=== PATIENT | female | born 1950 | race Caucasian/White ===

== ENCOUNTER 2016-09-28 10:11 | Inpatient (IN) | payer BC, MEDICARE ==
[2016-09-28] MEDS ORDERED: Metoclopramide 10 MG/2 ML SDV IVPUSH ONE (10:27)
[2016-09-28] MEDS ORDERED: Sodium Chloride 0.9% 10 ML Syringe FLUSH PRN ×2 (10:27→13:44)
[2016-09-28] MEDS ORDERED: Sodium Chloride 0.9% 1,000 ML IV SCH (10:30)
[2016-09-28] MEDS ORDERED: Ondansetron 4 MG/2 ML SDV IVPUSH ONE (13:26)
[2016-09-28] MEDS ORDERED: Iopamidol 612 MG/ML 150 ML Bottle IVPUSH ONE (13:44)
[2016-09-28] MEDS ORDERED: HYDROmorphone 0.5 MG/0.5 ML Syringe IVPUSH ONE (15:20)
[2016-09-28] MEDS ORDERED: Levofloxacin/Dextrose 5%-Water 500 MG in Premix Bag 1 BAG IV ONE (15:20)
--- NOTE | 2016-09-28 15:34 | PCM.HP ---
H&P History of Present Illness - General Date of Service: 09/28/16 Admit Problem/Dx: Abdominal Pain Source of Information: Patient, Provider, RN Notes Reviewed History Limitations: Reports: No Limitations - History of Present Illness Initial Comments - Free Text/Narative: This is a 65 yo white female with past medical hx/o HTn and Depression who was brought in by EMS with complaints of abdominal pain associated with nausea voting and watery diarrhea. Her symptoms started at about 530 early intervention specialist that woke her up from sleep. Patient admits to having fever and subjective fever. She denies any shortness of breath or chest pain. She denies having any previous hx/o in the past. She denies any sick contact. Her last meal was last night. She ate some food with shrimp in it. She denies any seafood allergies. Her initial work up in ED shows a CBC remarkable for WBC of 14.03 and Neutrophils of 84.1%. Her chemistry is remarkable for K of 3.4, CO2 of 20, AG of 20.4, BS of 207, and AST of 12. UA is not impressive for UTI. Abdominal/ pelvis CT scan shows some inflammatory changes. Patient received initial treatment in ED before she was sent tot he floor for further treatment. She is full code. Left Abdominal Pain Score (Numeric/FACES): 3 - Related Data Allergies/Adverse Reactions: Allergies Allergy/AdvReac Type Severity Reaction Status Date / Time aspirin Allergy Cannot Verified 09/28/16 12:13 Remember docetaxel [From Taxotere] Allergy Cannot Verified 09/28/16 12:13 Remember Home Medications: Home Meds Citalopram [Celexa] 20 mg PO DAILY 09/28/16 [History] Hydrochlorothiazide 12.5 mg PO DAILY 09/28/16 [History] Metoprolol Succinate [Toprol XL] 12.5 mg PO BID 09/28/16 [History] Past Medical History Cardiovascular History: Reports: Hypertension Oncologic (Cancer) History: Reports: Other (See Below) Other Oncologic History: right lumpectomy - Past Surgical History Oncologic Surgical History: Reports: Lumpectomy Social & Family History - Tobacco Use Smoking Status *Q: Former Smoker Used Tobacco, but Quit: Yes Month Tobacco Last Used: 2015 - Recreational Drug Use Recreational Drug Use: No H&P Review of Systems - Review of Systems: Review Of Systems: See Below General: Reports: Fever, Chills HEENT: Reports: No Symptoms Pulmonary: Reports: Shortness of Breath Cardiovascular: Denies: Chest Pain, Palpitations, Dyspnea on Exertion Gastrointestinal: Reports: Abdominal Pain, Diarrhea, Nausea, Vomiting Genitourinary: Reports: No Symptoms Musculoskeletal: Reports: No Symptoms Skin: Denies: Pruritis, Rash Psychiatric: Denies: Confusion, Depression, Anxiety Neurological: Denies: Confusion, Difficulty Walking, Weakness, Gait Disturbance Hematologic/Lymphatic: Reports: No Symptoms Immunologic: Reports: No Symptoms Exam - Exam Exam: See Below - Vital Signs Vital Signs: Last Vital Signs Temp 35.5 C 09/28/16 10:15 Pulse 76 09/28/16 10:15 Resp 18 09/28/16 10:15 BP 180/97 H 09/28/16 10:15 Pulse Ox 99 09/28/16 10:15 - Exam General: Alert, Oriented, Cooperative. No: Mild Distress HEENT: Conjunctiva Clear, EACs Clear, EOMI, Hearing Intact, Mucosa Moist & [place] , Nares Patent, Normal Nasal Septum, Posterior Pharynx Clear, Pupils Equal, Pupils Reactive Neck: Supple, Trachea Midline, +2 Carotid Pulse wo Bruit, Full Range of Motion Lungs: Clear to Auscultation, Normal Respiratory Effort Cardiovascular: Regular Rate, Regular Rhythm Abdomen: Normal Bowel Sounds, Soft, Tenderness (lower abdomen). No: Organomegaly, Peritoneal Signs, Distention, Guarding, Rigidity, Rebound (Female) Exam: Deferred Rectal (Female) Exam: Deferred Back Exam: Normal Inspection, Decreased Range of Motion Extremities: Normal Inspection, Normal Pulses Peripheral Pulses: 2+: Posterior Tibial (L), Posterior Tibial (R), Dorsalis Pedis (L), Dorsalis Pedis (R) Skin: Warm, Dry, Intact Neuro Extensive - Mental Status: Oriented x3, Normal Cognition, Memory Intact Neuro Extensive - Motor, Sensory, Reflexes: CN II-XII Intact, Normal Gait Psychiatric: Alert, Normal Affect, Normal Mood - Patient Data Lab Results last 24 hrs: Laboratory Results - last 24 hr 09/28/16 09/28/16 09/28/16 Range/Units 10:45 11:54 11:54 WBC 14.03 H (3.98-10.04) K/mm3 RBC 4.44 (3.98-5.22) M/mm3 Hgb 13.4 (11.2-15.7) gm/L Hct 40.0 (34.1-44.9) % MCV 90.1 (79.4-94.8) fl MCH 30.2 (25.6-32.2) pg MCHC 33.5 (32.2-35.5) g/dl RDW Std Deviation 45.7 (36.4-46.3) fL Plt Count 273 (182-369) K/mm3 MPV 10.7 (9.4-12.3) fl Neut % (Auto) 84.1 H (34.0-71.1) % Lymph % (Auto) 9.0 L (19.3-51.7) % [place] % (Auto) 6.5 (4.7-12.5) % Eos % (Auto) 0.1 L (0.7-5.8) Baso % (Auto) 0.2 (0.1-1.2) % Neut # (Auto) 11.80 H (1.56-6.13) K/mm3 Lymph # (Auto) 1.26 (1.18-3.74) K/mm3 [place] # (Auto) 0.91 H (0.24-0.36) K/mm3 Eos # (Auto) 0.01 L (0.04-0.36) K/mm3 Baso # (Auto) 0.03 (0.01-0.08) K/mm3 Manual Slide Review Normal smear Sodium 143 (136-145) mEq/L Potassium 3.4 L (3.5-5.1) mEq/L Chloride 106 (98-107) mEq/L Carbon Dioxide 20 L (21-32) mEq/L Anion Gap 20.4 H (5-15) BUN 18 (7-18) mg/dL Creatinine 0.9 (0.55-1.02) mg/dL Est Cr Clr Drug Dosing TNP Estimated GFR (MDRD) > 60 (>60) mL/min BUN/Creatinine Ratio 20.0 H (14-18) Glucose 207 H (80-115) mg/dL Calcium 9.1 (8.5-10.1) mg/dL Total Bilirubin 0.5 (0.2-1.0) mg/dL AST 12 L (15-37) U/L ALT 19 (14-59) U/L Alkaline Phosphatase 68 (46-116) U/L Troponin I 0.047 (0.00-0.056) ng/mL Total Protein 7.2 (6.4-8.2) g/dl Albumin 4.0 (3.4-5.0) g/dl Globulin 3.2 gm/dL Albumin/Globulin Ratio 1.3 (1-2) Urine Color Light yellow (Yellow) Urine Appearance Clear (Clear) Urine pH 6.0 (5.0-8.0) Ur Specific [place] 1.025 (1.005-1.030) Urine Protein 1+ H (Negative) Urine Glucose (UA) Negative (Negative) Urine Ketones 3+ H (Negative) Urine Occult Blood Negative (Negative) Urine Nitrite Positive H (Negative) Urine Bilirubin Negative (Negative) Urine Urobilinogen 0.2 (0.2-1.0) Ur Leukocyte Esterase Negative (Negative) Urine RBC 0-5 (0-5) /hpf Urine WBC 5-10 H (0-5) /hpf Ur Epithelial Cells Not Reportable Ur Squamous Epith Cells 20-30 H (0-5) /hpf Urine Bacteria Many H (FEW) /hpf Urine Mucus Not seen (FEW) /hpf Result Diagrams: 09/29/16 04:36 09/29/16 04:36 EKG INTERPRETATION EKG Date: 09/28/16 Time: 10:13 Rate (beats/min): 76 [place]: normal P-wave: present QRS: normal ST-T: normal QT: normal *Q Meaningful Use (ADM) - VTE *Q VTE Criteria *Q: - Stroke *Q Stroke Criteria *Q: - AMI *Q AMI Criteria *Q: Problem List Initiated/Reviewed/Updated: Yes Orders Last 24hrs: Active Orders 24 hr Category Date Time Status Cardiac Monitoring [RC] . DIRECTED Care 09/28/16 10:27 Active EKG Documentation Completion [RC] STAT Care 09/28/16 10:28 Active Oxygen Therapy [RC] PRN Care 09/28/16 10:27 Active Peripheral IV Care [RC] . DIRECTED Care 09/28/16 10:28 Active Abdomen Pelvis w Cont [CT] Stat Exams 09/28/16 13:06 Taken CULTURE URINE [RM] Stat Lab 09/28/16 10:45 Received Levofloxacin/Dextrose 5%-Water [Levaquin in D5W 500 MG/ Med 09/28/16 15:20 Active 100 ML] 500 mg Premix Bag 1 bag IV ONETIME Sodium Chloride 0.9% [Normal Saline] 1,000 ml Med 09/28/16 10:30 Active IV .BOLUS Sodium Chloride 0.9% [Saline Flush] Med 09/28/16 10:27 Active 10 ml FLUSH ASDIRECTED PRN Sodium Chloride 0.9% [Saline Flush] Med 09/28/16 13:44 Active 10 ml FLUSH ONETIME PRN ED Antiemetic Medication Reflex [OM.PC] Stat Ot 09/28/16 10:28 Ordered Peripheral IV Insertion Adult [OM.PC] Stat Ot 09/28/16 10:27 Ordered Medication Orders Sodium Chloride (Normal Saline) 1,000 mls @ 1,000 mls/hr IV .BOLUS JANICE Last Admin: 09/28/16 10:42 Dose: 1,000 mls/hr Levofloxacin/Dextrose 500 mg/ (Premix) 100 mls @ 100 mls/hr IV ONETIME ONE Stop: 09/28/16 16:19 Last Admin: 09/28/16 15:27 Dose: 100 mls/hr Sodium Chloride (Saline Flush) 10 ml FLUSH ASDIRECTED PRN PRN Reason: Keep Vein Open Last Admin: 09/28/16 10:46 Dose: 10 ml Sodium Chloride (Saline Flush) 10 ml FLUSH ONETIME PRN PRN Reason: IV FLUSH Last Admin: 09/28/16 14:12 Dose: 10 ml Assessment/Plan Comment:: Assessment/Plan: Acute: Gastroenteritis vs Colitis - Work up feeling Ill after eating shrimp not home cooked - No sick contact, eating or drinking unusual meal - No recent travel outside the country - IV antibiotics with flagyl and levaquin - Supportive care and PRN meds for symptomatic control Nausea and Vomiting - 2/2 Above - Supportive Care Leukocytosis - 2/2 to Above - WBC is 14.03 Hypokalemia - 2/2 GI loss - K 3.4 - Pharmacy to replete and monitor Asymptomatic Bacteriuria - UA not impressive for UTI - No complaints - UA Cx/Sx - Already on IV antibiotic Chronic: HTN Depression Plan: Admit to the floor Routine AM Labs Probiotic TID Lipase level Resume Home Meds Clear liquid diet PT/OT consult SW/CM for d/c planning Additional orders as above Code status:1
[2016-09-28] MEDS ORDERED: HYDROmorphone 1 MG/ML Syringe IVPUSH PRN (15:40)
[2016-09-28] MEDS ORDERED: LORazepam 2 MG/ML MDV IV PRN (15:40)
[2016-09-28] MEDS ORDERED: Acetaminophen/HYDROcodone 325-5 MG Tab PO PRN (15:40)
[2016-09-28] MEDS ORDERED: Acetaminophen 325 MG Tab PO PRN (15:40)
[2016-09-28] MEDS ORDERED: Bisacodyl 5 MG Tab PO PRN (15:45)
[2016-09-28] MEDS ORDERED: Albuterol/Ipratropium 3.0-0.5 MG/3 ML Neb Soln NEB PRN (15:45)
[2016-09-28] MEDS ORDERED: Temazepam 15 MG Cap PO PRN (15:45)
[2016-09-28] MEDS ORDERED: Polyethylene Glycol 3350 Powder 17 GM Packet PO PRN (15:45)
[2016-09-28] MEDS ORDERED: Metoprolol Tartrate 5 MG/5 ML SDV IVPUSH PRN (15:47)
[2016-09-28] MEDS ORDERED: hydrALAZINE 20 MG/ML SDV IVPUSH PRN (15:47)
--- NOTE | 2016-09-28 15:49 | EDM.PDOC ---
ED HPI GENERAL MEDICAL PROBLEM - General Chief Complaint: Gastrointestinal Problem Stated Complaint: [facility] Time Seen by Provider: 09/28/16 10:19 Source of Information: Reports: Patient, Provider, RN Notes Reviewed History Limitations: Reports: No Limitations - History of Present Illness INITIAL COMMENTS - FREE TEXT/NARRATIVE: The patient came by [facility] for nausea and vomiting. She says this all started early this morning at about 5:30. She developed nausea, vomiting and some diarrhea. She also has some lower abdominal pain. She has chills and hot flashes. She has no measurable temperature here. She denies chest pain but she feels short of breath and lightheaded. She still has her appendix. She does not think she ate any bad food and she was not around any one that was sick as far as she knows. Onset: Gradual Duration: Hour(s): Location: Reports: Abdomen (lower) Quality: Reports: Ache Severity: Mild Improves with: Reports: None Worsens with: Reports: None Associated Symptoms: Reports: Nausea/Vomiting, Shortness of Breath. Denies: Chest Pain - Related Data Allergies Allergy/AdvReac Type Severity Reaction Status Date / Time aspirin Allergy Cannot Verified 09/28/16 12:13 Remember docetaxel [From Taxotere] Allergy Cannot Verified 09/28/16 12:13 Remember Home Meds: Home Meds Citalopram [Celexa] 20 mg PO DAILY 09/28/16 [History] Hydrochlorothiazide 12.5 mg PO DAILY 09/28/16 [History] Metoprolol Succinate [Toprol XL] 12.5 mg PO BID 09/28/16 [History] Past Medical History Cardiovascular History: Reports: Hypertension Oncologic (Cancer) History: Reports: Other (See Below) Other Oncologic History: right lumpectomy - Past Surgical History Oncologic Surgical History: Reports: Lumpectomy Social & Family History - Tobacco Use Smoking Status *Q: Former Smoker Used Tobacco, but Quit: Yes Month Tobacco Last Used: 2015 - Recreational Drug Use Recreational Drug Use: No ED ROS GENERAL - Review of Systems Review Of Systems: See Below Constitutional: Reports: Fever, Chills HEENT: Reports: No Symptoms Respiratory: Reports: Shortness of Breath. Denies: Cough Cardiovascular: Reports: No Symptoms Endocrine: Reports: No Symptoms GI/Abdominal: Reports: No Symptoms : Reports: No Symptoms Musculoskeletal: Reports: No Symptoms Skin: Reports: No Symptoms Neurological: Reports: No Symptoms Psychiatric: Reports: No Symptoms ED EXAM, GI/ABD - Physical Exam Exam: See Below Exam Limited By: No Limitations General Appearance: Alert, No Apparent Distress Ears: Normal External Exam Nose: Normal Inspection Head: Atraumatic, Normocephalic Neck: Normal Inspection Respiratory/Chest: No Respiratory Distress, Lungs Clear, Normal Breath Sounds Cardiovascular: Regular Rate, Rhythm, No Edema, No Murmur GI/Abdominal: Soft, No Organomegaly, No Mass, Tenderness (Mild pain to the lower abdomen) EKG INTERPRETATION EKG Date: 09/28/16 Time: 10:13 Rhythm: NSR Rate (beats/min): 76 [place]: normal P-wave: present QRS: normal ST-T: normal QT: normal Course - Vital Signs Last Recorded V/S: Last Vital Signs Temp 96 F 09/28/16 10:15 Pulse 76 09/28/16 10:15 Resp 18 09/28/16 10:15 BP 180/97 H 09/28/16 10:15 Pulse Ox 99 09/28/16 10:15 - Orders/Labs/Meds Orders: Active Orders 24 hr Category Date Time Status Cardiac Monitoring [RC] . DIRECTED Care 09/28/16 10:27 Active EKG Documentation Completion [RC] STAT Care 09/28/16 10:28 Active Oxygen Therapy [RC] PRN Care 09/28/16 10:27 Active Peripheral IV Care [RC] . DIRECTED Care 09/28/16 10:28 Active Abdomen Pelvis w Cont [CT] Stat Exams 09/28/16 13:06 Taken CULTURE URINE [RM] Stat Lab 09/28/16 10:45 Received Levofloxacin/Dextrose 5%-Water [Levaquin in D5W 500 MG/ Med 09/28/16 15:20 Active 100 ML] 500 mg Premix Bag 1 bag IV ONETIME Sodium Chloride 0.9% [Normal Saline] 1,000 ml Med 09/28/16 10:30 Active IV .BOLUS Sodium Chloride 0.9% [Saline Flush] Med 09/28/16 10:27 Active 10 ml FLUSH ASDIRECTED PRN Sodium Chloride 0.9% [Saline Flush] Med 09/28/16 13:44 Active 10 ml FLUSH ONETIME PRN ED Antiemetic Medication Reflex [OM.PC] Stat Oth 09/28/16 10:28 Ordered Peripheral IV Insertion Adult [OM.PC] Stat Ot 09/28/16 10:27 Ordered Medication Orders Sodium Chloride (Normal Saline) 1,000 mls @ 1,000 mls/hr IV .BOLUS JANICE Last Admin: 09/28/16 10:42 Dose: 1,000 mls/hr Levofloxacin/Dextrose 500 mg/ (Premix) 100 mls @ 100 mls/hr IV ONETIME ONE Stop: 09/28/16 16:19 Last Admin: 09/28/16 15:27 Dose: 100 mls/hr Sodium Chloride (Saline Flush) 10 ml FLUSH ASDIRECTED PRN PRN Reason: Keep Vein Open Last Admin: 09/28/16 10:46 Dose: 10 ml Sodium Chloride (Saline Flush) 10 ml FLUSH ONETIME PRN PRN Reason: IV FLUSH Last Admin: 09/28/16 14:12 Dose: 10 ml Labs: Laboratory Tests 09/28/16 09/28/16 09/28/16 Range/Units 10:45 11:54 11:54 WBC 14.03 H (3.98-10.04) K/mm3 RBC 4.44 (3.98-5.22) M/mm3 Hgb 13.4 (11.2-15.7) gm/L Hct 40.0 (34.1-44.9) % MCV 90.1 (79.4-94.8) fl MCH 30.2 (25.6-32.2) pg MCHC 33.5 (32.2-35.5) g/dl RDW Std Deviation 45.7 (36.4-46.3) fL Plt Count 273 (182-369) K/mm3 MPV 10.7 (9.4-12.3) fl Neut % (Auto) 84.1 H (34.0-71.1) % Lymph % (Auto) 9.0 L (19.3-51.7) % [place] % (Auto) 6.5 (4.7-12.5) % Eos % (Auto) 0.1 L (0.7-5.8) Baso % (Auto) 0.2 (0.1-1.2) % Neut # (Auto) 11.80 H (1.56-6.13) K/mm3 Lymph # (Auto) 1.26 (1.18-3.74) K/mm3 [place] # (Auto) 0.91 H (0.24-0.36) K/mm3 Eos # (Auto) 0.01 L (0.04-0.36) K/mm3 Baso # (Auto) 0.03 (0.01-0.08) K/mm3 Manual Slide Review Normal smear Sodium 143 (136-145) mEq/L Potassium 3.4 L (3.5-5.1) mEq/L Chloride 106 (98-107) mEq/L Carbon Dioxide 20 L (21-32) mEq/L Anion Gap 20.4 H (5-15) BUN 18 (7-18) mg/dL Creatinine 0.9 (0.55-1.02) mg/dL Est Cr Clr Drug Dosing TNP Estimated GFR (MDRD) > 60 (>60) mL/min BUN/Creatinine Ratio 20.0 H (14-18) Glucose 207 H (80-115) mg/dL Calcium 9.1 (8.5-10.1) mg/dL Total Bilirubin 0.5 (0.2-1.0) mg/dL AST 12 L (15-37) U/L ALT 19 (14-59) U/L Alkaline Phosphatase 68 (46-116) U/L Troponin I 0.047 (0.00-0.056) ng/mL Total Protein 7.2 (6.4-8.2) g/dl Albumin 4.0 (3.4-5.0) g/dl Globulin 3.2 gm/dL Albumin/Globulin Ratio 1.3 (1-2) Urine Color Light yellow (Yellow) Urine Appearance Clear (Clear) Urine pH 6.0 (5.0-8.0) Ur Specific [place] 1.025 (1.005-1.030) Urine Protein 1+ H (Negative) Urine Glucose (UA) Negative (Negative) Urine Ketones 3+ H (Negative) Urine Occult Blood Negative (Negative) Urine Nitrite Positive H (Negative) Urine Bilirubin Negative (Negative) Urine Urobilinogen 0.2 (0.2-1.0) Ur Leukocyte Esterase Negative (Negative) Urine RBC 0-5 (0-5) /hpf Urine WBC 5-10 H (0-5) /hpf Ur Epithelial Cells Not Reportable Ur Squamous Epith Cells 20-30 H (0-5) /hpf Urine Bacteria Many H (FEW) /hpf Urine Mucus Not seen (FEW) /hpf Meds: Medications Generic Name Dose Route Start Last Admin Trade Name Freq PRN Reason Stop Dose Admin Sodium Chloride 1,000 mls @ 1,000 mls/hr 09/28/16 10:30 09/28/16 10:42 Normal Saline IV 1,000 mls/hr .BOLUS JANICE Administration Levofloxacin/Dextrose 500 mg/ 100 mls @ 100 mls/hr 09/28/16 15:20 09/28/16 15 :27 Premix IV 09/28/16 16:19 100 mls/hr ONETIME ONE Administration Sodium Chloride 10 ml 09/28/16 10:27 09/28/16 10:46 Saline Flush FLUSH 10 ml ASDIRECTED PRN Administration Keep Vein Open Sodium Chloride 10 ml 09/28/16 13:44 09/28/16 14:12 Saline Flush FLUSH 10 ml ONETIME PRN Administration IV FLUSH Discontinued Medications Generic Name Dose Route Start Last Admin Trade Name Gunnerq PRN Reason Stop Dose Admin Hydromorphone HCl 0.5 mg 09/28/16 15:20 09/28/16 15:27 Dilaudid IVPUSH 09/28/16 15:21 0.5 mg ONETIME ONE Administration Iopamidol 125 ml 09/28/16 13:44 09/28/16 14:12 Isovue-300 (61%) IVPUSH 09/28/16 13:45 125 ml ONETIME ONE Administration Meclizine HCl 25 mg 09/28/16 10:28 09/28/16 10:46 Antivert PO 09/28/16 10:29 25 mg ONETIME ONE Administration Metoclopramide HCl 10 mg 09/28/16 10:27 09/28/16 10:44 Reglan IVPUSH 09/28/16 10:28 10 mg ONETIME ONE Administration Ondansetron HCl 4 mg 09/28/16 13:26 09/28/16 13:37 Zofran IVPUSH 09/28/16 13:27 4 mg ONETIME ONE Administration - Re-Assessments/Exams Free Text/Narrative Re-Assessment/Exam: 09/28/16 15:45 The patient had IV fluids and zofran enroute to the hospital. I ordered more fluids and some reglan 10mg IV. She got more nauseated when I had her open her eyes so I gave her some antivert thinking this was maybe some vertigo even though she had no nystagmus. Her EKG showed a NSR with no acute changes. Her WBC was elevated at 14. Her CMP looks good. Her UA shows a UTI. I ordered a urine culture. Her CT shows possible mild colitis vs colonic underdistention. She was more nauseated and she had more pain so I gave her dilaudid and some zofran. I do not think she can tolerate oral antibiotics. I have ordered some levaquin 500mg IV and I feel she needs to be admitted. I called Dr Mejia and he agreed to the admission. Departure - Departure Time of Disposition: 15:50 Disposition: Admitted As Inpatient 66 Condition: fair Clinical Impression: UTI, Urinary tract infectious disease, Colitis Nausea & vomiting Qualifiers: Vomiting type: unspecified Vomiting Intractability: non-intractable Qualified Code(s): R11.2 - Nausea with vomiting, unspecified - Discharge Information Forms: ED Department Discharge - My Orders Last 24 Hours: My Active Orders 09/28/16 10:27 Cardiac Monitoring [RC] . DIRECTED Oxygen Therapy [RC] PRN Sodium Chloride 0.9% [Saline Flush] 10 ml FLUSH ASDIRECTED PRN Peripheral IV Insertion Adult [OM.PC] Stat 09/28/16 10:28 EKG Documentation Completion [RC] STAT Peripheral IV Care [RC] . DIRECTED ED Antiemetic Medication Reflex [OM.PC] Stat 09/28/16 10:30 Sodium Chloride 0.9% [Normal Saline] 1,000 ml IV .BOLUS 09/28/16 10:45 CULTURE URINE [RM] Stat 09/28/16 13:06 Abdomen Pelvis w Cont [CT] Stat 09/28/16 13:44 Sodium Chloride 0.9% [Saline Flush] 10 ml FLUSH ONETIME PRN 09/28/16 15:20 Levofloxacin/Dextrose 5%-Water [Levaquin in D5W 500 MG/100 ML] 500 mg Premix Bag 1 bag IV ONETIME - Assessment/Plan Last 24 Hours: My Active Orders 09/28/16 10:27 Cardiac Monitoring [RC] . DIRECTED Oxygen Therapy [RC] PRN Sodium Chloride 0.9% [Saline Flush] 10 ml FLUSH ASDIRECTED PRN Peripheral IV Insertion Adult [OM.PC] Stat 09/28/16 10:28 EKG Documentation Completion [RC] STAT Peripheral IV Care [RC] . DIRECTED ED Antiemetic Medication Reflex [OM.PC] Stat 09/28/16 10:30 Sodium Chloride 0.9% [Normal Saline] 1,000 ml IV .BOLUS 09/28/16 10:45 CULTURE URINE [RM] Stat 09/28/16 13:06 Abdomen Pelvis w Cont [CT] Stat 09/28/16 13:44 Sodium Chloride 0.9% [Saline Flush] 10 ml FLUSH ONETIME PRN 09/28/16 15:20 Levofloxacin/Dextrose 5%-Water [Levaquin in D5W 500 MG/100 ML] 500 mg Premix Bag 1 bag IV ONETIME
[2016-09-28] MEDS: metroNIDAZOLE/Normal Saline 500 MG in Premix Bag 1 BAG IV SCH ×2 (17:33→23:27)
[2016-09-28] MEDS: Potassium Chloride 10 MEQ in Premix Bag 1 BAG IV SCH ×4 (17:37→23:27)
[2016-09-28] MEDS: Dextrose 5%-0.45% NaCl 1,000 ML IV SCH (17:37)
[2016-09-28] MEDS: Levofloxacin/Dextrose 5%-Water 500 MG in Premix Bag 1 BAG IV SCH (19:40)
[2016-09-28] MEDS: Metoprolol Succinate 25 MG Tab.ER PO SCH (21:58)
[2016-09-28] MEDS: Pantoprazole 40 MG Vial IV SCH (21:58)
[2016-09-28] MEDS: Saccharomyces Boulardii (Probiotic) 250 MG Cap PO SCH (21:58)
[2016-09-29] MEDS: Dextrose 5%-0.45% NaCl 1,000 ML IV SCH (04:34)
[2016-09-29] MEDS: metroNIDAZOLE/Normal Saline 500 MG in Premix Bag 1 BAG IV SCH ×2 (08:05→16:06)
[2016-09-29] MEDS: Magnesium Sulfate/Water 2 GM in Premix Bag 1 BAG IV SCH ×2 (08:05→09:17)
[2016-09-29] MEDS: Pantoprazole 40 MG Vial IV SCH (08:12)
[2016-09-29] MEDS: Saccharomyces Boulardii (Probiotic) 250 MG Cap PO SCH ×2 (08:14→14:39)
[2016-09-29] MEDS: Metoprolol Succinate 25 MG Tab.ER PO SCH (08:14)
[2016-09-29] MEDS ORDERED: Hydrochlorothiazide 12.5 MG Cap PO SCH (09:00)
[2016-09-29] MEDS ORDERED: Levofloxacin/Dextrose 5%-Water 500 MG in Premix Bag 1 BAG IV ONE (09:00)
[2016-09-29] MEDS ORDERED: Citalopram 20 MG Tab PO SCH (09:00)
[2016-09-29] MEDS: Potassium Chloride 10 MEQ in Premix Bag 1 BAG IV SCH ×2 (10:26→12:09)
[2016-09-29] MEDS: Levofloxacin/Dextrose 5%-Water 500 MG in Premix Bag 1 BAG IV SCH (16:04)
--- NOTE | 2016-09-29 16:25 | PCM.SN ---
- Free Text/Narrative Note: Patient seen and examined at bedside. She slept well and she feels really good w /o symptoms. She has no new complaints. Plan is to advanced her diet if tolerated, she'll sometime in the evening. She is low on Magnessium at 1.4. She will get her IVAB before d/c and possibly get oral supplement to continue after discharge.
[2016-09-29 16:29] VITALS: BP 100/53
--- NOTE | 2016-09-29 16:38 | PCM.DCSUM1 ---
Discharge Summary - Hospital Course Brief History: This is a 65 yo white female with past medical hx/o HTn and Depression who was brought in by EMS with complaints of abdominal pain associated with nausea voting and watery diarrhea that work her up early in the morning and was admitted for abdominal pain and asymptomatic bacteruria. - Discharge Data Discharge Date: 09/29/16 Discharge Disposition: Home, Self-Care 01 Condition: Good - Discharge Diagnosis/Problem(s) (1) Asymptomatic bacteriuria SNOMED Code(s): 595185525 ICD Code: R82.71 - BACTERIURIA Status: Acute (2) Leukocytosis SNOMED Code(s): 952082041, 691583677 ICD Code: D72.829 - ELEVATED WHITE BLOOD CELL COUNT, UNSPECIFIED Status: Acute Qualifiers: Leukocytosis type: bandemia Qualified Code(s): D72.825 - Bandemia (3) Hypomagnesemia SNOMED Code(s): 365856979 ICD Code: E83.42 - HYPOMAGNESEMIA Status: Acute (4) Hypokalemia, gastrointestinal losses SNOMED Code(s): 98867085 ICD Code: E87.6 - HYPOKALEMIA Status: Resolved (5) Nausea & vomiting SNOMED Code(s): 59006083 ICD Code: R11.2 - NAUSEA WITH VOMITING, UNSPECIFIED Status: Resolved Qualifiers: Vomiting type: unspecified Vomiting Intractability: non-intractable Qualified Code(s): R11.2 - Nausea with vomiting, unspecified (6) Colitis SNOMED Code(s): 22703514 ICD Code: K52.9 - NONINFECTIVE GASTROENTERITIS AND COLITIS, UNSPECIFIED Status: Resolved (7) Gastroenteritis due to food toxin SNOMED Code(s): 449845233 ICD Code: K52.1 - TOXIC GASTROENTERITIS AND COLITIS Status: Resolved - Patient Summary/Data Operative Procedure(s) Performed: None Complications: None Recommended Follow-up Testing/Procedures: None Hospital Course: Patient was primarily admitted for Abdominal Pain 2/2 gastroenteritis/colitis which we felt due to food poisoning. She was never allergic to seafood and has eaten shrimp in the past w/o any issues. Patient received supportive care along with intravenous antibiotics and she significantly improved on this regimen. Her stool studies were negative. Her hospital course was fairly uncomplicated. She did however had asymptomatic bacteruria but she received 2 doses of 500 mg IV Levaquin which should take care if there was any subtle infection going. As for her hypomagnesemia, this was due to inadequate intake. But she received intravenous supplement of 2 gram IV magnesium sulfate. She will be discharged with oral supplement for a few days to complete her treatment. Patient has done well since admission. She was asymptomatic after eating regular meal for supper. Patient was advised to be careful with uncooked or partially cooked seafood. She was further advised not to ingest any foods older than 3 days. Patient expressed understanding and in agreement with the plans as discussed above. All questions were answered. - Patient Instructions Diet: Usual Diet as Tolerated Activity: As Tolerated Driving: May Drive Today Showering/Bathing: May Shower Notify Provider of: Fever, Increased Pain, Nausea and/or Vomiting Other/Special Instructions: - Please take all medications as directed. - Resume regular diet. - Follow up with your doctor as needed - Discharge Plan Home Medications: Home Meds Citalopram [Celexa] 20 mg PO DAILY 09/28/16 [History] Hydrochlorothiazide 12.5 mg PO DAILY 09/28/16 [History] Metoprolol Succinate [Toprol XL] 12.5 mg PO BID 09/28/16 [History] Magnesium Oxide [Magnesium] 400 mg PO BID #6 tablet 09/29/16 [Rx] Referrals: Nurys Coello [employer] [employer] [Primary Care Provider] - (Please schedule a follow-up appointment with your primary care provider, Nurys Coello, in 1-2 weeks. ) - Discharge Summary/Plan Comment DC Time >30 min.: Yes (45 mins) Discharge Summary/Plan Comment: Discharge to Home - General Info Date of Service: 09/29/16 Admission Dx/Problem (Free Text: Abdominal Pain Subjective Update: Follow Up Functional Status: Reports: pain controlled, tolerating diet, ambulating, urinating. Denies: new symptoms - Review of Systems General: Denies: Fever, Weakness, Fatigue, Malaise, Chills HEENT: Reports: no symptoms Pulmonary: Denies: shortness of breath Cardiovascular: Denies: Chest Pain Gastrointestinal: Denies: Abdominal pain, Constipation, Decreased appetite, Diarrhea, Difficulty swallowing, Nausea, Vomiting Genitourinary: Reports: no symptoms Musculoskeletal: Reports: no symptoms Skin: Denies: rash Neurological: Denies: Confusion, Seizure, Gait Disturbance Psychiatric: Denies: depression, anxiety, agitation, hallucinations Systems Review Comment: No overnight or acute issues. She is back at baseline. - Patient Data Vitals - Most Recent: Last Vital Signs Temp 37.2 C 09/29/16 12:16 Pulse 68 09/29/16 12:16 Resp 18 09/29/16 12:16 BP 125/77 09/29/16 12:16 Pulse Ox 91 L 09/29/16 12:16 Weight - Most Recent: 86.455 kg I&O - Last 24 hours: Intake & Output 09/29/16 09/29/16 09/29/16 06:59 14:59 22:59 Intake Total 1900 1220 1010 Output Total 2024 Balance 1900 1220 -1015 Lab Results - Last 24 hrs: Laboratory Results - last 24 hr 09/29/16 09/29/16 Range/Units 04:36 04:36 WBC 13.81 H (3.98-10.04) K/mm3 RBC 4.14 (3.98-5.22) M/mm3 Hgb 12.7 (11.2-15.7) gm/L Hct 37.3 (34.1-44.9) % MCV 90.1 (79.4-94.8) fl MCH 30.7 (25.6-32.2) pg MCHC 34.0 (32.2-35.5) g/dl RDW Std Deviation 46.9 H (36.4-46.3) fL Plt Count 261 (182-369) K/mm3 MPV 10.6 (9.4-12.3) fl Neut % (Auto) 71.5 H (34.0-71.1) % Lymph % (Auto) 15.8 L (19.3-51.7) % Evangeline % (Auto) 12.3 (4.7-12.5) % Eos % (Auto) 0.1 L (0.7-5.8) Baso % (Auto) 0.1 (0.1-1.2) % Neut # (Auto) 9.87 H (1.56-6.13) K/mm3 Lymph # (Auto) 2.18 (1.18-3.74) K/mm3 Evangeline # (Auto) 1.70 H (0.24-0.36) K/mm3 Eos # (Auto) 0.02 L (0.04-0.36) K/mm3 Baso # (Auto) 0.01 (0.01-0.08) K/mm3 Manual Slide Review Normal smear Sodium 141 (136-145) mEq/L Potassium 3.6 (3.5-5.1) mEq/L Chloride 107 (98-107) mEq/L Carbon Dioxide 23 (21-32) mEq/L Anion Gap 14.6 (5-15) BUN 10 (7-18) mg/dL Creatinine 0.8 (0.55-1.02) mg/dL Est Cr Clr Drug Dosing 63.09 mL/min Estimated GFR (MDRD) > 60 (>60) mL/min BUN/Creatinine Ratio 12.5 L (14-18) Glucose 120 H (80-115) mg/dL Calcium 8.8 (8.5-10.1) mg/dL Magnesium 1.4 L (1.8-2.4) mg/dl C-Reactive Protein 1.0 (<1.0) mg/dL Lipase 110 (73-393) U/L Med Orders - Current: Current Medications Acetaminophen (Tylenol) 650 mg PO Q4H PRN PRN Reason: Pain (Mild 1-3)/fever Hydrocodone Bitart/Acetaminophen (Kaycee 325-5 Mg) 1 tab PO Q4H PRN PRN Reason: Pain (moderate 4-6) Albuterol/Ipratropium (Duoneb 3.0-0.5 Mg/3 Ml) 3 ml NEB Q4H PRN PRN Reason: Shortness Of Breath/wheezing Bisacodyl (Dulcolax) 5 mg PO DAILY PRN PRN Reason: Constipation Citalopram Hydrobromide (Celexa) 20 mg PO DAILY [facility] Last Admin: 09/29/16 08:14 Dose: 20 mg Hydralazine HCl (Apresoline) 20 mg IVPUSH Q4H PRN PRN Reason: Hypertension Hydrochlorothiazide (Hydrochlorothiazide) 12.5 mg PO DAILY [facility] Last Admin: 09/29/16 08:14 Dose: 12.5 mg Hydromorphone HCl (Dilaudid) 0.25 mg IVPUSH Q2H PRN PRN Reason: Pain (severe 7-10) Last Admin: 09/28/16 19:54 Dose: 0.25 mg Metronidazole 500 mg/ Premix 100 mls @ 100 mls/hr IV Q8H [facility] Last Admin: 09/29/16 16:06 Dose: 100 mls/hr Levofloxacin/Dextrose 500 mg/ (Premix) 100 mls @ 100 mls/hr IV Q24H [facility] Last Admin: 09/29/16 16:04 Dose: 100 mls/hr Lorazepam (Ativan) 1 mg IV Q6H PRN PRN Reason: Anxiety Magnesium Sulfate (Pharmacy To Dose - Magnesium Replacement) 0 dose .XX ASDIRECTED PRN PRN Reason: RX to Dose Metoprolol Succinate (Toprol Xl) 12.5 mg PO BID [facility] Last Admin: 09/29/16 08:14 Dose: 12.5 mg Metoprolol Tartrate (Lopressor) 5 mg IVPUSH Q4H PRN PRN Reason: Tachycardia Pantoprazole Sodium (Protonix Iv) 40 mg IV Q12HR [facility] Stop: 09/29/16 21:00 Last Admin: 09/29/16 08:12 Dose: 40 mg Polyethylene Glycol (Miralax) 17 gm PO DAILY PRN PRN Reason: Constipation Potassium Chloride (Pharmacy To Dose - Potassium Replacement) 0 dose .XX ASDIRECTED PRN PRN Reason: RX to Dose Saccharomyces Boulardii (Florastor) 250 mg PO TID [facility] Last Admin: 09/29/16 14:39 Dose: 250 mg Senna/Docusate Sodium (Senna Plus) 1 tab PO BID PRN PRN Reason: Constipation Sodium Chloride (Saline Flush) 10 ml FLUSH ASDIRECTED PRN PRN Reason: Keep Vein Open Last Admin: 09/28/16 10:46 Dose: 10 ml Sodium Chloride (Saline Flush) 10 ml FLUSH ONETIME PRN PRN Reason: IV FLUSH Last Admin: 09/28/16 14:12 Dose: 10 ml Temazepam (Restoril) 15 mg PO BEDTIME PRN PRN Reason: Sleep Discontinued Medications Hydromorphone HCl (Dilaudid) 0.5 mg IVPUSH ONETIME ONE Stop: 09/28/16 15:21 Last Admin: 09/28/16 15:27 Dose: 0.5 mg Sodium Chloride (Normal Saline) 1,000 mls @ 1,000 mls/hr IV .BOLUS [facility] Last Admin: 09/28/16 10:42 Dose: 1,000 mls/hr Levofloxacin/Dextrose 500 mg/ (Premix) 100 mls @ 100 mls/hr IV ONETIME ONE Stop: 09/28/16 16:19 Last Admin: 09/28/16 15:27 Dose: 100 mls/hr Dextrose/Sodium Chloride (Dextrose 5%-1/2 Ns) 1,000 mls @ 125 mls/hr IV ASDIRECTED [facility] Last Admin: 09/29/16 04:34 Dose: 125 mls/hr Potassium Chloride 10 meq/ (Premix) 100 mls @ 100 mls/hr IV Q1H [facility] Stop: 09/28/16 20:29 Last Admin: 09/28/16 23:27 Dose: 100 mls/hr Magnesium Sulfate 2 gm/ Premix 50 mls @ 50 mls/hr IV Q1H [facility] Stop: 09/29/16 09:59 Last Admin: 09/29/16 09:17 Dose: 50 mls/hr Potassium Chloride 10 meq/ (Premix) 100 mls @ 100 mls/hr IV Q1H [facility] Stop: 09/29/16 11:59 Last Admin: 09/29/16 12:09 Dose: 100 mls/hr Iopamidol (Isovue-300 (61%)) 125 ml IVPUSH ONETIME ONE Stop: 09/28/16 13:45 Last Admin: 09/28/16 14:12 Dose: 125 ml Meclizine HCl (Antivert) 25 mg PO ONETIME ONE Stop: 09/28/16 10:29 Last Admin: 09/28/16 10:46 Dose: 25 mg Metoclopramide HCl (Reglan) 10 mg IVPUSH ONETIME ONE Stop: 09/28/16 10:28 Last Admin: 09/28/16 10:44 Dose: 10 mg Ondansetron HCl (Zofran) 4 mg IVPUSH ONETIME ONE Stop: 09/28/16 13:27 Last Admin: 09/28/16 13:37 Dose: 4 mg - Exam General: Reports: alert, oriented, cooperative, no acute distress HEENT: Reports: Pupils equal, Pupils reactive, EOMI, Mucous membr. moist/pink Neck: Reports: supple, trachea midline, no JVD, no thyromegaly Lungs: Reports: Clear to auscultation, Normal respiratory effort, Rhonchi Cardiovascular: Reports: Regular Rate Abdomen: Reports: bowel sounds present, soft, no tenderness, no distension (Female) Exam: Deferred Rectal (Female) Exam: Deferred Back Exam: Reports: Normal Inspection, Decreased Range of Motion Extremities: Reports: no edema, normal pulses, no tenderness/swelling, no clubbing, no cyanosis Skin: Reports: warm, dry, intact Neurological: Reports: no new focal deficit Psy/Mental Status: Reports: alert, normal affect, normal mood *Q Meaningful Use (DIS) - VTE *Q VTE Criteria *Q: - Stroke *Q Stroke Criteria *Q: - AMI *Q AMI Criteria *Q:
[2016-09-29] MEDS ORDERED: Pneumococcal 13-Valent Conjugate Vaccine 0.5 ML Syringe IM ONE (17:11)
--- NOTE | 2016-09-30 07:37 | CT ---
CT abdomen and pelvis Technique: Multiple axial sections were obtained from above the dome of the diaphragm inferiorly through the pubic symphysis. Intravenous contrast was utilized. No oral contrast has been given. Delayed images were also obtained through the abdomen and pelvis. Comparison: No previous CT abdomen or pelvis exam is available. Visualized lung bases show nothing acute. Small low density abnormality noted within the dome of the right lobe of the liver, this is too small to accurately measure by Hounsfield unit measurements. Size of this finding is approximately 4 mm. This is likely incidental as no additional abnormality is identified within the liver. Spleen appears within normal limits. Adrenal glands show no nodule. Kidneys show symmetric contrast enhancement. Low density abnormality noted within the right kidney which has slightly increased Hounsfield unit measurements for a simple cyst. Further evaluation of this finding will be recommended. Both kidneys show smaller simple appearing cysts. Aorta shows atherosclerotic change without aneurysmal dilatation. Gallbladder shows no gallstones which are calcified. No retroperitoneal adenopathy or mesenteric abnormalities are seen. No pelvic mass or adenopathy is seen. Delayed images show contrast within the distal ureters and within the bladder. Bone window settings were reviewed which show disc space narrowing at L5-S1 with vacuum phenomena and endplate sclerosis. Preliminary report by [facility] mentions equivocal bowel wall thickening within the colon which I believe is due to lack of distention and not due to actual pathology. No free fluid or inflammatory change is seen. Impression: 1. Low density lesion measuring 3.6 cm within the right lower right kidney. This does not have Hounsfield unit measurements of a simple cyst. Ultrasound is recommended to further evaluate. 2. Other simple cysts are seen within the kidneys. 3. Small indeterminate lesion within the dome of the right lobe of the liver which is likely incidental as no additional liver abnormalities are seen. 4. Nothing acute is identified on CT study of the abdomen and pelvis. Other incidental findings as described above. Diagnostic code #9 I agree with preliminary report issued by [facility] -with additional recommendations as described above ([facility] report finalized on 09/28/16, 3:40 PM Central Time)
== END 2016-09-29 17:36 | disposition home or self-care (01) | DRG 392 ==
LOC: JD.ED 10:11 → JD.MS 16:28
PROVIDERS: ADMIT Internal Medicine; ATTEND Internal Medicine
DX: R10.30 Lower abdominal pain, unspecified (principal); N39.0 Urinary tract infection, site not specified; K52.1 Toxic gastroenteritis and colitis; K52.9 Noninfective gastroenteritis and colitis, unspecified; R82.71 Bacteriuria; E87.6 Hypokalemia; E83.42 Hypomagnesemia; D72.829 Elevated white blood cell count, unspecified; I10 Essential (primary) hypertension; F32.9 Major depressive disorder, single episode, unspecified; Z87.891 Personal history of nicotine dependence; Z79.899 Other long term (current) drug therapy; Z88.8 Allergy status to other drugs, medicaments and biological substances
CPT/HCPCS: 36415; 74177; 80053; 81001; 84484; 85025; 87046; 87086; 93005; A9270; J1170; J1956; J2405; J2765; J7040; J7050 ×2; Q9967; 80048; 83690; 83735; 86140; 87088; 87186; 87427; 90670; 96361; 96365; 96375; 99284; 99285-25; C9113; G0009; J3475; J3480; J7042

== ENCOUNTER 2017-05-06 10:00 | Inpatient (IN) | payer MEDICARE, BC ==
--- NOTE | 2017-05-06 10:13 | EDM.PDOC ---
ED HPI GENERAL MEDICAL PROBLEM - General Chief Complaint: General Stated Complaint: [facility] Time Seen by Provider: 05/06/17 10:11 Source of Information: Reports: Patient History Limitations: Reports: No Limitations - History of Present Illness INITIAL COMMENTS - FREE TEXT/NARRATIVE: 66-year-old female arrives in the ED per [facility]. She called them after she felt so unwell at home this morning. From what I can gather she experienced quite severe chills with rigors this morning. She states she feels weak and nauseated. She did not take any of her normal medications this morning. Blood pressure was also found to be elevated at 182/102 this morning. She is normally on half dose 25 mg metoprolol twice daily and half of hydrochlorothiazide 12.5 mg tablet daily. She has not known diabetic. She denies cough or sputum production denies headache or change in vision. She denies any genitourinary complaints. Complains of generalized abdominal discomfort and nausea. No diarrhea. Onset: Today Onset Date: 05/06/17 Onset Time: 06:00 Duration: Hour(s): Location: Reports: Generalized Quality: Reports: Other Severity: Moderate (Nausea and generalized weakness.) Improves with: Reports: None Worsens with: Reports: None Context: Denies: Activity, Exercise, Lifting, Sick Contact, Trauma Associated Symptoms: Reports: Diaphoresis, Fever/Chills, Loss of Appetite, Malaise, Nausea/Vomiting, Weakness. 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.) Abdominal Pain Score (Numeric/FACES): 2 - Related Data Allergies Allergy/AdvReac Type Severity Reaction Status Date / Time aspirin Allergy Cannot Verified 05/06/17 10:12 Remember docetaxel [From Taxotere] Allergy Cannot Verified 05/06/17 10:12 Remember Home Meds: Home Meds Citalopram [Celexa] 20 mg PO DAILY 09/28/16 [History] Hydrochlorothiazide 12.5 mg PO DAILY 09/28/16 [History] Calcipotriene 1 applic TOP DAILY PRN 05/06/17 [History] Halobetasol Propionate 1 applic TOP DAILY PRN 05/06/17 [History] Metoprolol Tartrate 12.5 mg PO BID 05/06/17 [History] Past Medical History Cardiovascular History: Reports: Hypertension Psychiatric History: Reports: Depression Endocrine/Metabolic History: Reports: Obesity/BMI 30+ Oncologic (Cancer) History: Reports: Other (See Below) Other Oncologic History: right lumpectomy Dermatologic History: Reports: Psoriasis - Past Surgical History Oncologic Surgical History: Reports: Lumpectomy Social & Family History - Family History HEENT: Reports: Cataract GI: Reports: Diverticulitis Dermatologic: Reports: Psoriasis - Tobacco Use Smoking Status *Q: Former Smoker Packs/Tins Daily: 0.5 Used Tobacco, but Quit: Yes Month Tobacco Last Used: 2015 Second Hand Smoke Exposure: No - Caffeine Use Caffeine Use: Reports: Tea - Alcohol Use Days Per Week of Alcohol Use: 3 Number of Drinks Per Day: 1 Total Drinks Per Week: 3 - Recreational Drug Use Recreational Drug Use: No - Living Situation & Occupation Living situation: Reports: Occupation: Unemployed ED ROS GENERAL - Review of Systems Review Of Systems: See Below Constitutional: Reports: Fever, Chills, Malaise, Fatigue, Diaphoresis, Decreased Appetite HEENT: Reports: No Symptoms Respiratory: Denies: Shortness of Breath, Wheezing, Pleuritic Chest Pain, Cough , Sputum, Hemoptysis, Other Cardiovascular: Reports: Blood Pressure Problem (Has chronic hypertension but this morning blood pressure has been much more elevated than her norm. BP on arrival is reported B1 ED .), Lightheadedness. Denies: Chest Pain, Dyspnea on Exertion, Edema, Orthopnea, Palpitations Endocrine: Reports: Fatigue GI/Abdominal: Reports: Abdominal Pain (Diffuse abdominal discomfort but she would not describe any severe pain. States kind of hurts a little bit everywhere with associated nausea. There's been no vomiting or diarrhea.), Decreased Appetite : Reports: No Symptoms Musculoskeletal: Reports: Back Pain, Joint Pain (Knees and hips at times.) Skin: Reports: Diaphoresis Neurological: Reports: No Symptoms Psychiatric: Reports: No Symptoms Hematologic/Lymphatic: Reports: No Symptoms Immunologic: Reports: No Symptoms ED EXAM, GENERAL - Physical Exam Exam: See Below Exam Limited By: Physical Impairment General Appearance: Alert (Prefers to lie still with her eyes closed. She does answer all questions appropriately.), WD/WN, Moderate Distress (Has good color. She is however quite diaphoretic and complaining of severe chills.) Eye Exam: Bilateral Eye: Normal Inspection Throat/Mouth: Normal Inspection, Normal Lips, Normal Teeth, Normal Oropharynx Head: Atraumatic, Normocephalic Neck: Normal Inspection, Supple, Non-Tender, Full Range of Motion Respiratory/Chest: No Respiratory Distress, Lungs Clear, Normal Breath Sounds, No Accessory Muscle Use, Chest Non-Tender Cardiovascular: Normal Peripheral Pulses, Regular Rate, Rhythm, No Edema, No Gallop, No Murmur, Other (Previous right-sided mastectomy.) GI/Abdominal: No Abnormal Bruit, Tender (Right upper quadrant of the abdomen with a negative Marcial sign.), Abnormal Bowel Sounds (Hypoactive.) Extremities: Normal Inspection, Normal Range of Motion, Non-Tender, No Pedal Edema, Normal Capillary Refill Neurological: Alert, Oriented, CN II-XII Intact, Normal Cognition Psychiatric: Normal Affect, Normal Mood Skin Exam: Warm, Dry, Intact, Diaphoretic EKG INTERPRETATION EKG Date: 05/06/17 Time: 11:10 Rhythm: Other Rate (Beats/Min): 75 (Occasional unifocal PVCs.) [place]: Normal P-Wave: Enlarged (Consider left atrial hypertrophy.) QRS: Other (There is a near Q-wave in leads V1 and V2. Consider possible old anteroseptal myocardial infarction.) ST-T: Other (No signs of acute ischemic changes.) QT: Prolonged (Moderately prolonged) EKG Interpretation Comments: Abnormal ECG Course - Vital Signs Last Recorded V/S: Last Vital Signs Temp 35.9 C 05/06/17 11:36 Pulse 73 05/06/17 10:07 Resp 18 05/06/17 10:07 BP 182/97 H 05/06/17 10:07 Pulse Ox 100 05/06/17 10:07 - Orders/Labs/Meds Orders: Active Orders 24 hr Category Date Time Status EKG Documentation Completion [RC] STAT Care 05/06/17 10:26 Active Abdomen Pelvis wo Cont [CT] Stat Exams 05/06/17 17:55 Taken CULTURE BLOOD [BC] Stat Lab 05/06/17 11:00 Received CULTURE BLOOD [BC] Stat Lab 05/06/17 11:24 Received HELICOBACTER PYLORI AB IGG [CHEM] Stat Lab 05/06/17 20:27 Ordered Dextrose 5%-0.9% NaCl [Dextrose 5%-Normal Saline] 1,000 Med 05/06/17 10:30 Active ml IV ASDIRECTED Lactated Ringers [Ringers, Lactated] 1,000 ml Med 05/06/17 11:30 Active IV ASDIRECTED Potassium Chloride [KCl 10 MEQ in Water 100 ML] 10 meq Med 05/06/17 12:30 Active Premix Bag 1 bag IV ASDIRECTED Sodium Chloride 0.9% [Saline Flush] Med 05/06/17 10:39 Active 10 ml FLUSH ONETIME PRN Blood Culture x2 Reflex Set [OM.PC] Stat Oth 05/06/17 10:27 Ordered Medication Orders Dextrose/Sodium Chloride (Dextrose 5%-Normal Saline) 1,000 mls @ 150 mls/hr IV ASDIRECTED JANICE Last Admin: 05/06/17 11:12 Dose: 150 mls/hr Lactated Ringer's (Ringers, Lactated) 1,000 mls @ 999 mls/hr IV ASDIRECTED JANICE Last Admin: 05/06/17 11:45 Dose: 999 mls/hr Potassium Chloride 10 meq/ (Premix) 100 mls @ 100 mls/hr IV ASDIRECTED JANICE Last Admin: 05/06/17 12:55 Dose: 100 mls/hr Sodium Chloride (Saline Flush) 10 ml FLUSH ONETIME PRN PRN Reason: IV FLUSH Last Admin: 05/06/17 10:48 Dose: 10 ml Labs: Laboratory Tests 05/06/17 05/06/17 05/06/17 Range/Units 10:20 10:20 10:20 WBC 13.17 H (3.98-10.04) K/mm3 RBC 4.76 (3.98-5.22) M/mm3 Hgb 14.3 (11.2-15.7) gm/L Hct 42.6 (34.1-44.9) % MCV 89.5 (79.4-94.8) fl MCH 30.0 (25.6-32.2) pg MCHC 33.6 (32.2-35.5) g/dl RDW Std Deviation 48.4 H (36.4-46.3) fL Plt Count 304 (182-369) K/mm3 MPV 10.5 (9.4-12.3) fl Neutrophils % (Manual) 70 H (40-60) % Band Neutrophils % 1 (0-10) % Lymphocytes % (Manual) 24 (20-40) % Atypical Lymphs % 0 % Monocytes % (Manual) 3 (2-10) % Eosinophils % (Manual) 2 (0.7-5.8) % Basophils % (Manual) 0 L (0.1-1.2) Platelet Estimate Adequate RBC Morph Comment Normal PT 10.3 (8.0-13.0) SECONDS INR 0.95 D-Dimer, Quantitative (0.19-0.59) mg/L Sodium 139 (136-145) mEq/L Potassium 3.2 L (3.5-5.1) mEq/L Chloride 103 (98-107) mEq/L Carbon Dioxide 18 L (21-32) mEq/L Anion Gap 21.2 H (5-15) BUN 24 H (7-18) mg/dL Creatinine 0.9 (0.55-1.02) mg/dL Est Cr Clr Drug Dosing 55.33 mL/min Estimated GFR (MDRD) > 60 (>60) mL/min BUN/Creatinine Ratio 26.7 H (14-18) Glucose 238 H (80-115) mg/dL Lactic Acid (0.4-2.0) mmol/L Calcium 9.6 (8.5-10.1) mg/dL Total Bilirubin 0.5 (0.2-1.0) mg/dL AST 15 (15-37) U/L ALT 18 (14-59) U/L Alkaline Phosphatase 63 (46-116) U/L Troponin I < 0.017 (0.00-0.056) ng/mL C-Reactive Protein < 0.2 (<1.0) mg/dL Total Protein 7.9 (6.4-8.2) g/dl Albumin 4.4 (3.4-5.0) g/dl Globulin 3.5 gm/dL Albumin/Globulin Ratio 1.3 (1-2) Amylase 29 (25-115) U/L Urine Color (Yellow) Urine Appearance (Clear) Urine pH (5.0-8.0) Ur Specific Leslie (1.005-1.030) Urine Protein (Negative) Urine Glucose (UA) (Negative) Urine Ketones (Negative) Urine Occult Blood (Negative) Urine Nitrite (Negative) Urine Bilirubin (Negative) Urine Urobilinogen (0.2-1.0) Ur Leukocyte Esterase (Negative) Urine RBC (0-5) /hpf Urine WBC (0-5) /hpf Ur Epithelial Cells (0-5) /hpf Urine Bacteria (FEW) /hpf Urine Mucus (FEW) /hpf Ethyl Alcohol (0.00) gm% Ketones (0.0-0.3) mM Blood Type 05/06/17 05/06/17 05/06/17 Range/Units 10:20 10:20 10:20 WBC (3.98-10.04) K/mm3 RBC (3.98-5.22) M/mm3 Hgb (11.2-15.7) gm/L Hct (34.1-44.9) % MCV (79.4-94.8) fl MCH (25.6-32.2) pg MCHC (32.2-35.5) g/dl RDW Std Deviation (36.4-46.3) fL Plt Count (182-369) K/mm3 MPV (9.4-12.3) fl Neutrophils % (Manual) (40-60) % Band Neutrophils % (0-10) % Lymphocytes % (Manual) (20-40) % Atypical Lymphs % % Monocytes % (Manual) (2-10) % Eosinophils % (Manual) (0.7-5.8) % Basophils % (Manual) (0.1-1.2) Platelet Estimate RBC Morph Comment PT (8.0-13.0) SECONDS INR D-Dimer, Quantitative (0.19-0.59) mg/L Sodium (136-145) mEq/L Potassium (3.5-5.1) mEq/L Chloride (98-107) mEq/L Carbon Dioxide (21-32) mEq/L Anion Gap (5-15) BUN (7-18) mg/dL Creatinine (0.55-1.02) mg/dL Est Cr Clr Drug Dosing mL/min Estimated GFR (MDRD) (>60) mL/min BUN/Creatinine Ratio (14-18) Glucose (80-115) mg/dL Lactic Acid (0.4-2.0) mmol/L Calcium (8.5-10.1) mg/dL Total Bilirubin (0.2-1.0) mg/dL AST (15-37) U/L ALT (14-59) U/L Alkaline Phosphatase (46-116) U/L Troponin I (0.00-0.056) ng/mL C-Reactive Protein (<1.0) mg/dL Total Protein (6.4-8.2) g/dl Albumin (3.4-5.0) g/dl Globulin gm/dL Albumin/Globulin Ratio (1-2) Amylase (25-115) U/L Urine Color (Yellow) Urine Appearance (Clear) Urine pH (5.0-8.0) Ur Specific Leslie (1.005-1.030) Urine Protein (Negative) Urine Glucose (UA) (Negative) Urine Ketones (Negative) Urine Occult Blood (Negative) Urine Nitrite (Negative) Urine Bilirubin (Negative) Urine Urobilinogen (0.2-1.0) Ur Leukocyte Esterase (Negative) Urine RBC (0-5) /hpf Urine WBC (0-5) /hpf Ur Epithelial Cells (0-5) /hpf Urine Bacteria (FEW) /hpf Urine Mucus (FEW) /hpf Ethyl Alcohol 0.00 (0.00) gm% Ketones 1.82 (0.0-0.3) mM Blood Type A POSITIVE 05/06/17 05/06/17 05/06/17 Range/Units 10:23 10:30 11:24 WBC (3.98-10.04) K/mm3 RBC (3.98-5.22) M/mm3 Hgb (11.2-15.7) gm/L Hct (34.1-44.9) % MCV (79.4-94.8) fl MCH (25.6-32.2) pg MCHC (32.2-35.5) g/dl RDW Std Deviation (36.4-46.3) fL Plt Count (182-369) K/mm3 MPV (9.4-12.3) fl Neutrophils % (Manual) (40-60) % Band Neutrophils % (0-10) % Lymphocytes % (Manual) (20-40) % Atypical Lymphs % % Monocytes % (Manual) (2-10) % Eosinophils % (Manual) (0.7-5.8) % Basophils % (Manual) (0.1-1.2) Platelet Estimate RBC Morph Comment PT (8.0-13.0) SECONDS INR D-Dimer, Quantitative 1.80 H (0.19-0.59) mg/L Sodium (136-145) mEq/L Potassium (3.5-5.1) mEq/L Chloride (98-107) mEq/L Carbon Dioxide (21-32) mEq/L Anion Gap (5-15) BUN (7-18) mg/dL Creatinine (0.55-1.02) mg/dL Est Cr Clr Drug Dosing mL/min Estimated GFR (MDRD) (>60) mL/min BUN/Creatinine Ratio (14-18) Glucose (80-115) mg/dL Lactic Acid 3.7 H (0.4-2.0) mmol/L Calcium (8.5-10.1) mg/dL Total Bilirubin (0.2-1.0) mg/dL AST (15-37) U/L ALT (14-59) U/L Alkaline Phosphatase (46-116) U/L Troponin I (0.00-0.056) ng/mL C-Reactive Protein (<1.0) mg/dL Total Protein (6.4-8.2) g/dl Albumin (3.4-5.0) g/dl Globulin gm/dL Albumin/Globulin Ratio (1-2) Amylase (25-115) U/L Urine Color Yellow (Yellow) Urine Appearance Clear (Clear) Urine pH 6.0 (5.0-8.0) Ur Specific Leslie 1.025 (1.005-1.030) Urine Protein 1+ H (Negative) Urine Glucose (UA) Negative (Negative) Urine Ketones 2+ H (Negative) Urine Occult Blood Negative (Negative) Urine Nitrite Negative (Negative) Urine Bilirubin Negative (Negative) Urine Urobilinogen 0.2 (0.2-1.0) Ur Leukocyte Esterase Negative (Negative) Urine RBC 0-5 (0-5) /hpf Urine WBC 0-5 (0-5) /hpf Ur Epithelial Cells 10-20 H (0-5) /hpf Urine Bacteria Few (FEW) /hpf Urine Mucus Not seen (FEW) /hpf Ethyl Alcohol (0.00) gm% Ketones (0.0-0.3) mM Blood Type 05/06/17 05/06/17 05/06/17 Range/Units 15:44 16:07 16:07 WBC (3.98-10.04) K/mm3 RBC (3.98-5.22) M/mm3 Hgb (11.2-15.7) gm/L Hct (34.1-44.9) % MCV (79.4-94.8) fl MCH (25.6-32.2) pg MCHC (32.2-35.5) g/dl RDW Std Deviation (36.4-46.3) fL Plt Count (182-369) K/mm3 MPV (9.4-12.3) fl Neutrophils % (Manual) (40-60) % Band Neutrophils % (0-10) % Lymphocytes % (Manual) (20-40) % Atypical Lymphs % % Monocytes % (Manual) (2-10) % Eosinophils % (Manual) (0.7-5.8) % Basophils % (Manual) (0.1-1.2) Platelet Estimate RBC Morph Comment PT (8.0-13.0) SECONDS INR D-Dimer, Quantitative (0.19-0.59) mg/L Sodium 141 (136-145) mEq/L Potassium 3.4 L (3.5-5.1) mEq/L Chloride 107 (98-107) mEq/L Carbon Dioxide 22 (21-32) mEq/L Anion Gap 15.4 H (5-15) BUN 19 H (7-18) mg/dL Creatinine 0.8 (0.55-1.02) mg/dL Est Cr Clr Drug Dosing 62.24 mL/min Estimated GFR (MDRD) > 60 (>60) mL/min BUN/Creatinine Ratio 23.8 H (14-18) Glucose 174 H (80-115) mg/dL Lactic Acid 2.7 H (0.4-2.0) mmol/L Calcium 8.8 (8.5-10.1) mg/dL Total Bilirubin 0.3 (0.2-1.0) mg/dL AST 15 (15-37) U/L ALT 18 (14-59) U/L Alkaline Phosphatase 54 (46-116) U/L Troponin I (0.00-0.056) ng/mL C-Reactive Protein (<1.0) mg/dL Total Protein 6.6 (6.4-8.2) g/dl Albumin 3.8 (3.4-5.0) g/dl Globulin 2.8 gm/dL Albumin/Globulin Ratio 1.4 (1-2) Amylase (25-115) U/L Urine Color (Yellow) Urine Appearance (Clear) Urine pH (5.0-8.0) Ur Specific Leslie (1.005-1.030) Urine Protein (Negative) Urine Glucose (UA) (Negative) Urine Ketones (Negative) Urine Occult Blood (Negative) Urine Nitrite (Negative) Urine Bilirubin (Negative) Urine Urobilinogen (0.2-1.0) Ur Leukocyte Esterase (Negative) Urine RBC (0-5) /hpf Urine WBC (0-5) /hpf Ur Epithelial Cells (0-5) /hpf Urine Bacteria (FEW) /hpf Urine Mucus (FEW) /hpf Ethyl Alcohol (0.00) gm% Ketones 0.38 (0.0-0.3) mM Blood Type Meds: Medications Generic Name Dose Route Start Last Admin Trade Name Freq PRN Reason Stop Dose Admin Dextrose/Sodium Chloride 1,000 mls @ 150 mls/hr 05/06/17 10:30 05/06/17 11:12 Dextrose 5%-Normal Saline IV 150 mls/hr ASDIRECTED JANICE Administration Lactated Ringer's 1,000 mls @ 999 mls/hr 05/06/17 11:30 05/06/17 11:45 Ringers, Lactated IV 999 mls/hr ASDIRECTED JANICE Administration Potassium Chloride 10 meq/ 100 mls @ 100 mls/hr 05/06/17 12:30 05/06/17 12:55 Premix IV 100 mls/hr ASDIRECTED JANICE Administration Sodium Chloride 10 ml 05/06/17 10:39 05/06/17 10:48 Saline Flush FLUSH 10 ml ONETIME PRN Administration IV FLUSH Discontinued Medications Generic Name Dose Route Start Last Admin Trade Name Freq PRN Reason Stop Dose Admin Acetaminophen 650 mg 05/06/17 10:27 05/06/17 11:36 Tylenol PO 05/06/17 10:28 650 mg NOW ONE Administration Al Hydroxide/Mg Hydroxide 30 0 ml 05/06/17 16:56 05/06/17 17:01 ml/ Lidocaine HCl 15 ml PO 05/06/17 16:57 45 ml ONETIME ONE Administration Diatrizoate Meglum/Diatrizoate Sod 90 ml 05/06/17 18:26 Gastrografin 37% PO 05/06/17 18:27 ONETIME ONE Hydromorphone HCl 0.5 mg 05/06/17 11:34 05/06/17 11:44 Dilaudid IVPUSH 05/06/17 11:35 0.5 mg ONETIME ONE Administration Hydromorphone HCl 1 mg 05/06/17 17:53 05/06/17 17:56 Dilaudid IM 05/06/17 17:54 Not Given ONETIME ONE Hydromorphone HCl 1 mg 05/06/17 17:55 05/06/17 18:02 Dilaudid IVPUSH 05/06/17 17:56 1 mg ONETIME ONE Administration Sodium Chloride 100 mls @ 80 mls/hr 05/06/17 10:45 05/06/17 10:48 Normal Saline IV 80 mls/hr ASDIRECTED JANICE Administration Sodium Chloride Confirm 05/06/17 12:54 05/06/17 13:08 Normal Saline Administered 05/06/17 12:55 Not Given Dose 1,000 mls @ as directed .ROUTE .STK-MED ONE Sodium Chloride 1,000 mls @ 999 mls/hr 05/06/17 12:50 05/06/17 12:55 Normal Saline IV 05/06/17 13:50 999 mls/hr ONETIME ONE Administration Lactated Ringer's 1,000 mls @ 999 mls/hr 05/06/17 14:54 05/06/17 15:00 Ringers, Lactated IV 05/06/17 15:54 999 mls/hr .BOLUS ONE Administration Lactated Ringer's 1,000 mls @ 999 mls/hr 05/06/17 16:05 05/06/17 16:20 Ringers, Lactated IV 05/06/17 17:05 Not Given .BOLUS ONE Iopamidol 100 ml 05/06/17 10:39 05/06/17 10:48 Isovue-370 (76%) IVPUSH 05/06/17 10:40 100 ml ONETIME ONE Administration Metoclopramide HCl 10 mg 05/06/17 17:54 05/06/17 18:00 Reglan IVPUSH 05/06/17 17:55 10 mg ONETIME ONE Administration Ondansetron HCl 4 mg 05/06/17 10:26 05/06/17 10:50 Zofran IVPUSH 05/06/17 10:27 4 mg ONETIME ONE Administration Pantoprazole Sodium 40 mg 05/06/17 20:27 Protonix Iv IVPUSH 05/06/17 20:28 ONETIME ONE - Radiology Interpretation Free Text/Narrative:: 66-year-old female arrives from [place] per ambulance with nonspecific complaints. She apparently awoke around 0600 hrs. this morning and from what I can discern had rigors and chills. Associated abdominal nausea and mild pain most the right upper quadrant. No radiation to her back. She has not vomited she 's had no diarrhea. She denies cough or sputum production. She also identified her blood pressure was markedly elevated at 182/103 this morning. Upon arrival she is complaining bitterly of being cold yet she is diaphoretic and chest feels quite warm to palpation. She has generalized abdominal tenderness on examination particular in the right upper quadrant. Well-healed mastectomy wound right upper anterior chest. Blood pressure has dropped down to 124/111. While in the department she started to complain more of severe abdominal pain. This raised the question whether or not she could be dissecting an aortic aneurysm. She'll therefore have CT chest abdomen pelvis carried out with IV contrast only. Other labs were ordered including a d-dimer. - Re-Assessments/Exams Free Text/Narrative Re-Assessment/Exam: 05/06/17 10:57 CT of the chest abdomen pelvis carried out and does not reveal any sign of a dissecting aneurysm. Visualized portions the lungs are clear. Cardec silhouette is normal in size. Mild coronary artery calcification is identified. There is mild scarring seen within the right upper lung and extending into the right middle lobe. Slight pleural thickening is also seen within the anterior right upper lung likely from radiation therapy. Visualized portions of the pulmonaryarteries do not show any discrete pulmonary emboli. Liver reveals a low-density lesion within the dome of the right lobe of the liver which remain stable from previous examinations and likely represents a cyst. Spleen appears normal. Adrenal glands show no nodules. Aorta shows atherosclerotic changes which continues into the iliac vessels without any aneurysm. No dissection of appreciated. Celiac axis appear mesenteric artery and inferior mesenteric arteries appear patent. No pelvic masses are identified. and gallbladder appeared to be normal. normal. Kidneys reveal a vascular shadows compatible with cysts on each kidney. No other abnormalities detected in the ureters. Small hiatal hernia is evident. Stomach contained some food. Pelvis appears to be normal. Stomach does contain some food. Pancreas is normal. 05/06/17 11:19 Labs reveal an elevated white count at 13.17. Differential shows 70% neutrophils and 1% bands. Hemoglobin is 14.3 with hematocrit of 42.6. Platelets are normal 304,000. Coags are normal. D-dimer is mildly elevated at 1.80. Sodium is 139. Potassium is 3.2. Chloride 13. Bicarbonate 18. Anion gap is markedly elevated at 21.2. BUNs 24 creatinine is 0.9. EGFR is greater than 60. Glucose is elevated at 238. Cardiac markers are normal. Liver function normal. Amylase is 29. Cause of her metabolic acidosis at this time is unclear. 05/06/17 11:26 IV will be changed to normal saline at open. Ordered serum ketones serum ethanol level and serum lactic acid to help us determine the cause of her metabolic acidosis. 05/06/17 11:35 temperature is been checked 3 times and she has no defined fever. She now throwing her covers off indicating that she's too hot for his before she was chilled to the bone. Still having significant burning discomfort in her lower abdomen. I will give her Dilaudid 0.5 mg IV for pain relief. She reports that she did eat fairly well yesterday. It is therefore very unclear as to what caused a metabolic acidosis. 05/06/17 11:57 on firm questioning she indicates that she did have 3 Jaime and Trevor's yesterday usually has at least a drink every day. Questioning whether not she may be a closet alcoholic and this could be the cause of her metabolic acidosis. Blood alcohol level is 0 at this time. Serum ketones are elevated at 1.8 to she claims that she did eat twice yesterday. 05/06/17 12:21 Lactic acid is also elevated at 3.7. Therefore it's a combination of ketosis and lactic acidosis causing her metabolic acidosis. She is going to require about 3 L of fluid to fix her anion gap. 05/06/17 12:31 urinalysis is showing 2+ ketones as well but no signs of an infection. 05/06/17 17:48 Repeat labs reveal a sodium of 141 potassium improved to 3.4 chloride 107 bicarbonate 22. Anion gap is 15.4 nightly is 19. Glucose is down to 174 lactic acid is 2.7. Although her numbers are improved she continues to have an elevated lactic acid of unclear origin. Kidneys to experience abdominal discomfort mostly burning in nature. GI cocktail given earlier did not help at all. She reports that she's been up to the bathroom 5 times mostly to pass her urine but on the last occasion she did notice blood per rectum on wiping. On repeat examination she remains very tender in the epigastrium and right upper quadrant of the abdomen. She is guarding in this area. She is once again very nauseated and having increased pain. I will therefore give her Reglan 10 mg IV and Dilaudid 1 mg IV. Plan will be to try and get her some oral contrast if she can keep it down to have a better look at abdomen and pelvis. She will need to be admitted to the hospital as she is too ill to go home. She has not been able to eat at all today. May be an occult GI bleed. She continues to feel hot and cold but has never shown evidence of a fever. I'm going to therefore have a CT of the abdomen carried out with oral contrast only. 05/06/17 20:31 CT the abdomen with oral contrast only essentially came back normal as well. There was no signs to suggest an acute appendicitis or diverticulitis etc. My concern is whether or not she may be an occult GI bleed in her burning discomfort is actually that of a peptic ulcer. Also the fact that she reported blood per rectum when she wiped last this was not witnessed by any of the staff. At this time she's markedly improved with no further nausea or abdominal pain after the Dilaudid and Reglan. She feels better now than she has all day. IV will be LR at 150 mils per hour. I'm also going to give her Protonix 40 mg IV and order an H. pylori on labs at she had drawn earlier. He's discussed with on-call hospitalist Dr. Mejia and patient will be admitted to the med surgery floor on telemetry. Departure - Departure Time of Disposition: 20:42 Disposition: Admitted As Inpatient 66 Condition: Fair Clinical Impression: Abdominal pain in female patient, Metabolic acidosis with increased anion gap and accumulation of organic acids, Hypokalemia - Discharge Information Referrals: Nurys Coello SCIENCE INTERPRETER [Primary Care Provider] - Forms: ED Department Discharge - My Orders Last 24 Hours: My Active Orders 05/06/17 10:26 EKG Documentation Completion [RC] STAT 05/06/17 10:27 Blood Culture x2 Reflex Set [OM.PC] Stat 05/06/17 10:30 Dextrose 5%-0.9% NaCl [Dextrose 5%-Normal Saline] 1,000 ml IV ASDIRECTED 05/06/17 10:39 Sodium Chloride 0.9% [Saline Flush] 10 ml FLUSH ONETIME PRN 05/06/17 11:00 CULTURE BLOOD [BC] Stat 05/06/17 11:24 CULTURE BLOOD [BC] Stat 05/06/17 11:30 Lactated Ringers [Ringers, Lactated] 1,000 ml IV ASDIRECTED 05/06/17 12:30 Potassium Chloride [KCl 10 MEQ in Water 100 ML] 10 meq Premix Bag 1 bag IV ASDIRECTED 05/06/17 17:55 Abdomen Pelvis wo Cont [CT] Stat 05/06/17 20:27 HELICOBACTER PYLORI AB IGG [CHEM] Stat - Assessment/Plan Last 24 Hours: My Active Orders 05/06/17 10:26 EKG Documentation Completion [RC] STAT 05/06/17 10:27 Blood Culture x2 Reflex Set [OM.PC] Stat 05/06/17 10:30 Dextrose 5%-0.9% NaCl [Dextrose 5%-Normal Saline] 1,000 ml IV ASDIRECTED 05/06/17 10:39 Sodium Chloride 0.9% [Saline Flush] 10 ml FLUSH ONETIME PRN 05/06/17 11:00 CULTURE BLOOD [BC] Stat 05/06/17 11:24 CULTURE BLOOD [BC] Stat 05/06/17 11:30 Lactated Ringers [Ringers, Lactated] 1,000 ml IV ASDIRECTED 05/06/17 12:30 Potassium Chloride [KCl 10 MEQ in Water 100 ML] 10 meq Premix Bag 1 bag IV ASDIRECTED 05/06/17 17:55 Abdomen Pelvis wo Cont [CT] Stat 05/06/17 20:27 HELICOBACTER PYLORI AB IGG [CHEM] Stat
[2017-05-06] MEDS ORDERED: Ondansetron 4 MG/2 ML SDV IVPUSH ONE (10:26)
[2017-05-06] MEDS ORDERED: Acetaminophen 325 MG Tab PO ONE (10:27)
[2017-05-06] MEDS ORDERED: Sodium Chloride 0.9% 10 ML Syringe FLUSH PRN (10:39)
[2017-05-06] MEDS ORDERED: Iopamidol 755 Mg/ML 100 ML Bottle IVPUSH ONE (10:39)
[2017-05-06] MEDS ORDERED: Sodium Chloride 0.9% 100 ML IV SCH (10:45)
[2017-05-06] MEDS: Dextrose 5%-0.9% NaCl 1,000 ML IV SCH ×2 (11:12→23:13)
--- NOTE | 2017-05-06 11:25 | CT ---
CT chest Technique: Multiple axial sections through the chest were obtained. Intravenous contrast was utilized. Comparison: No prior chest CT is available. Findings: Mediastinum and hilar regions show no adenopathy or mass. Mild coronary artery calcification is seen. No pericardial thickening is identified. No axillary adenopathy is seen. Surgical clips seen within the right axillary region. Mild scarring is seen within the right upper lung and extending into the right middle lobe. Slight pleural thickening also seen within the anterior right upper lung. These findings are felt compatible with previous radiation. Lungs show no nodule. Thoracic aorta shows no dissection or aneurysm. Visualized pulmonary artery shows no discrete pulmonary emboli. Bone window settings were reviewed which shows mild degenerative change within the spine. No acute bony abnormality is seen. Impression: 1. Scarring within the right upper lung and lesser scarring within the right middle lobe as described above. 2. Nothing acute is seen on CT study of the chest. Diagnostic code #2 CT abdomen and pelvis Technique: Multiple axial sections were obtained from above the dome of the diaphragm inferiorly through the pubic symphysis. Intravenous contrast was utilized. No oral contrast has been given. Comparison: Previous CT abdomen and pelvis exam dated 09/28/16. Findings: Minimal low density lesion is seen within the dome of the right lobe of the liver which remain stable from prior exam and likely represents minimal cyst. No additional abnormality is identified within the liver. Spleen appears within normal limits. Adrenal glands show no nodule. Pancreas is within normal limits. Kidneys show symmetric contrast enhancement. Cysts are identified within each kidney which appears stable from prior exam. Aorta shows atherosclerotic change which continues into the iliac vessels without aneurysm. No dissection is seen. No aneurysm is identified. Atherosclerotic change noted within the proximal right renal artery. No discrete stenosis otherwise seen within the renal arteries. Celiac axis, superior mesenteric artery and inferior mesenteric arteries appear patent. Gallbladder contains no calcified gallstones. No retroperitoneal adenopathy or mesenteric abnormalities are seen. No pelvic mass or adenopathy is identified. Bone window settings were reviewed which shows severe disc space narrowing within the L5-S1 discs with vacuum phenomena. No free fluid or inflammatory change is seen within the abdomen or pelvis. No bowel dilatation is identified. Appendix not visualized with certainty. Impression: 1. Small abnormality within the liver likely representing minimal cyst which is stable from prior CT exam. 2. Cyst within each kidney. 3. Other incidental findings. Nothing acute is identified. Diagnostic code #2
[2017-05-06] MEDS ORDERED: Lactated Ringers 1,000 ML IV SCH (11:30)
[2017-05-06] MEDS ORDERED: HYDROmorphone 0.5 MG/0.5 ML Syringe IVPUSH ONE (11:34)
[2017-05-06] MEDS ORDERED: Potassium Chloride 10 MEQ in Premix Bag 1 BAG IV SCH (12:30)
[2017-05-06] MEDS ORDERED: Sodium Chloride 0.9% 1,000 ML IV ONE (12:50)
[2017-05-06] MEDS ORDERED: Sodium Chloride 0.9% 1,000 ML ONE (12:54)
[2017-05-06] MEDS ORDERED: Lactated Ringers 1,000 ML IV ONE ×2 (14:54→16:05)
[2017-05-06] MEDS ORDERED: Alum Hydrox/Mag Hydrox/Simeth 30 ML, Lidocaine 2% 15 ML PO ONE ×2 (16:56)
[2017-05-06] MEDS ORDERED: HYDROmorphone 1 MG/ML Syringe IM ONE (17:53)
[2017-05-06] MEDS ORDERED: Metoclopramide 10 MG/2 ML SDV IVPUSH ONE (17:54)
[2017-05-06] MEDS ORDERED: HYDROmorphone 1 MG/ML Syringe IVPUSH ONE (17:55)
[2017-05-06] MEDS ORDERED: Diatrizoate Meglumine/Diatrizoate Sodium 37% 120 ML Bottle PO ONE (18:26)
[2017-05-06] MEDS ORDERED: Pantoprazole 40 MG Vial IVPUSH ONE (20:27)
[2017-05-06] MEDS ORDERED: Acetaminophen/HYDROcodone 325-5 MG Tab PO PRN (21:59)
[2017-05-06] MEDS ORDERED: Bisacodyl 5 MG Tab PO PRN (21:59)
[2017-05-06] MEDS ORDERED: HYDROmorphone 1 MG/ML Syringe IVPUSH PRN (21:59)
[2017-05-06] MEDS ORDERED: Acetaminophen 325 MG Tab PO PRN (21:59)
[2017-05-06] MEDS ORDERED: Temazepam 15 MG Cap PO PRN (21:59)
[2017-05-06] MEDS ORDERED: Promethazine 12.5 MG in Sodium Chloride 0.9% 50 ML IV PRN (21:59)
[2017-05-06] MEDS ORDERED: LORazepam 2 MG/ML MDV IV PRN (21:59)
[2017-05-06] MEDS ORDERED: Albuterol/Ipratropium 3.0-0.5 MG/3 ML Neb Soln NEB PRN (21:59)
[2017-05-06] MEDS ORDERED: Docusate Sodium 100 MG Cap PO PRN (21:59)
[2017-05-06] MEDS ORDERED: Polyethylene Glycol 3350 Powder 17 GM Packet PO PRN (21:59)
[2017-05-06] MEDS ORDERED: Ondansetron 4 MG/2 ML SDV IV PRN (21:59)
--- NOTE | 2017-05-06 21:59 | PCM.HP ---
H&P History of Present Illness - General Date of Service: 05/06/17 Admit Problem/Dx: Admission Diagnosis/Problem Admission Diagnosis/Problem Abdominal pain Source of Information: Patient, Old Records, Provider, RN Notes Reviewed History Limitations: Reports: No Limitations - History of Present Illness Initial Comments - Free Text/Narative: This is a 66 yo white female with past medical hx/o HTN, Psoriasis, Depression and Obesity who comes in with complaints of diffuse abdominal pain associated with nausea w/o vomiting. Her last bowel movement is today with mild rectal bleed and attributes it to external hermorrhoids. She denies having watery diarrhea, mucous, blood or black tarry stools. Her last meal is yesterday, about lunch time. She denies drinking or eating bad food. She denies eating seafood. No other got sick but her. No recent trauma or surgery. Patient is known to me from previous admission this past September. She came in with similar presentation and was diagnosed with gastroenteritis related to seafood. Her initial workup in the emergency department shows a CBC remarkable for WBC of 13.17, RDW of 40.4, and neutrophils of 70%. Her coagulation study shows PT of 10.3, INR of 0.95, and d-dimer of 1.80. Her initial chemistry is remarkable for potassium of 3.2, carbon dioxide of 18, anion gap of 21.2, BUN of 24, glucose of 238, and lactic acid 2.7. Her UA is negative for urinary tract infection. Ethanol level is 0 and ketones is 1.82. H. pylori screening is negative. Her Chest and abdominal/Pelvis CT scan report reads scarring within the right upper lung and lesser scarring within the right middle lobe, small abnormality within the liver likely representing minimal cyst which is stable from previous CT scan, and cyst within each kidney nothing acute is identified. Patient is being admitted for abdominal pain. She is full code. Abdominal Pain Score (Numeric/FACES): 2 - Related Data Allergies/Adverse Reactions: Allergies Allergy/AdvReac Type Severity Reaction Status Date / Time aspirin Allergy Cannot Verified 05/06/17 21:55 Remember docetaxel [From Taxotere] Allergy Cannot Verified 05/06/17 21:55 Remember Home Medications: Home Meds Citalopram [Celexa] 20 mg PO DAILY 09/28/16 [History] Hydrochlorothiazide 12.5 mg PO DAILY 09/28/16 [History] Calcipotriene 1 applic TOP DAILY PRN 05/06/17 [History] Halobetasol Propionate 1 applic TOP DAILY PRN 05/06/17 [History] Metoprolol Tartrate 12.5 mg PO BID 05/06/17 [History] Past Medical History HEENT History: Reports: Impaired Vision Cardiovascular History: Reports: Hypertension Psychiatric History: Reports: Depression Endocrine/Metabolic History: Reports: Obesity/BMI 30+ Oncologic (Cancer) History: Reports: Other (See Below) Other Oncologic History: right lumpectomy Dermatologic History: Reports: Psoriasis - Past Surgical History Oncologic Surgical History: Reports: Lumpectomy Social & Family History - Family History HEENT: Reports: Cataract GI: Reports: Diverticulitis Dermatologic: Reports: Psoriasis - Tobacco Use Smoking Status *Q: Former Smoker Packs/Tins Daily: 0.5 Used Tobacco, but Quit: Yes Month Tobacco Last Used: 2015 Second Hand Smoke Exposure: No - Caffeine Use Caffeine Use: Reports: Tea - Alcohol Use Days Per Week of Alcohol Use: 3 Number of Drinks Per Day: 1 Total Drinks Per Week: 3 - Recreational Drug Use Recreational Drug Use: No - Living Situation & Occupation Living situation: Reports: Occupation: Unemployed H&P Review of Systems - Review of Systems: Review Of Systems: See Below General: Reports: Fever, Chills, Malaise, Weakness, Fatigue, Diaphoresis, Decreased Appetite HEENT: Reports: No Symptoms Pulmonary: Denies: Shortness of Breath, Pleuritic Chest Pain, Cough Cardiovascular: Reports: Lightheadedness, Blood Pressure Problem. Denies: Chest Pain Gastrointestinal: Reports: Abdominal Pain, Bloody Stool, Flatus, Nausea. Denies : Black Stool, Diarrhea, Mucous in Stool, Vomiting Genitourinary: Reports: No Symptoms Musculoskeletal: Reports: Back Pain, Joint Pain Skin: Denies: Cyanosis, Mottled, Pallor, Diaphoresis, Erythema, Wound Psychiatric: Denies: Depression, Anxiety, Agitation, Hallucinations Neurological: Denies: Confusion, Dizziness, Syncope, Difficulty Walking, Weakness, Gait Disturbance Hematologic/Lymphatic: Reports: No Symptoms Immunologic: Reports: No Symptoms Exam - Exam Exam: See Below - Vital Signs Vital Signs: Last Vital Signs Temp 35.9 C 05/06/17 11:36 Pulse 73 05/06/17 10:07 Resp 18 05/06/17 10:07 BP 182/97 H 05/06/17 10:07 Pulse Ox 100 05/06/17 10:07 Weight: 81.647 kg - Exam General: Alert, Oriented, Cooperative. No: Mild Distress HEENT: Conjunctiva Clear, EACs Clear, EOMI, Hearing Intact, Mucosa Moist & [place] , Nares Patent, Normal Nasal Septum, Posterior Pharynx Clear, Pupils Equal, Pupils Reactive Neck: Supple, Trachea Midline, +2 Carotid Pulse wo Bruit Lungs: Clear to Auscultation, Normal Respiratory Effort Cardiovascular: Regular Rate, Regular Rhythm GI/Abdominal Exam: Normal Bowel Sounds, Soft, Non-Tender, No Organomegaly, No Distention, No Abnormal Bruit, No Mass. No: Distended, Guarding, Rigid, Rebound (Female) Exam: Deferred Rectal (Female) Exam: Deferred Back Exam: Normal Inspection, Decreased Range of Motion Extremities: Normal Inspection, Normal Range of Motion, Non-Tender, No Pedal Edema, Normal Capillary Refill Peripheral Pulses: 2+: Posterior Tibial (L), Posterior Tibial (R), Dorsalis Pedis (L), Dorsalis Pedis (R) Skin: Warm, Dry, Intact Neuro Extensive - Mental Status: Oriented x3, Normal Cognition, Memory Intact Neuro Extensive - Motor, Sensory, Reflexes: CN II-XII Intact, Normal Gait Psychiatric: Alert, Normal Affect, Normal Mood - Patient Data Result Diagrams: 05/07/17 06:00 05/07/17 06:00 *Q Meaningful Use (ADM) - VTE *Q VTE Criteria *Q: - Stroke *Q Stroke Criteria *Q: - AMI *Q AMI Criteria *Q: Problem List Initiated/Reviewed/Updated: Yes Orders Last 24hrs: Active Orders 24 hr Category Date Time Status Admission Status [Patient Status] [ADT] Routine ADT 05/06/17 20:35 Active Medication Orders Dextrose/Sodium Chloride (Dextrose 5%-Normal Saline) 1,000 mls @ 150 mls/hr IV ASDIRECTED JANICE Last Admin: 05/06/17 11:12 Dose: 150 mls/hr Lactated Ringer's (Ringers, Lactated) 1,000 mls @ 999 mls/hr IV ASDIRECTED JANICE Last Admin: 05/06/17 11:45 Dose: 999 mls/hr Potassium Chloride 10 meq/ (Premix) 100 mls @ 100 mls/hr IV ASDIRECTED JANICE Last Admin: 05/06/17 12:55 Dose: 100 mls/hr Sodium Chloride (Saline Flush) 10 ml FLUSH ONETIME PRN PRN Reason: IV FLUSH Last Admin: 05/06/17 10:48 Dose: 10 ml Assessment/Plan Comment:: Assessment/Plan: Acute: Abdominal Pain - Unclear in etiology at this time - LFTs, Troponin, CRP and Amylase-All normal - Consider IBS - Imaging study all negative for acute abnormal findings - Labs consistent with fasting specially with ketones Mild Hypokalemia - K 3.2 - 2/2 GI Loss - Replete and monitor Anion Gap-Metabolic Acidosis - 2/2 Ketones from fasting (both serum and urine) and LA - HCO3 18, BUN 24 and AG 21.2 - LA 3.7 - A1C level in AM - Should resolve with hydration Lactic Acidosis - Likely from localized hypoperfusion (GI) +/- Ketones - LA 3.7 --> 2.7 - Improving with hydration Hyperglycemia - BS 238 and 174 - With elevated ketones, will screen for diabetes - A1C level in AM HTN - Carries a hx/o HTN - Documented BS of 182/97 mmHg on presentation to ED - Resume Home BP Meds: BB and HCTZ - PRN Hydralazine for BP > 140/90 mmHg Elevated D-Dimer - D-Dimer 1.8 - Chest CTA negative for PE CT Scan Abnormal Findings - Scarring within the right upper lung and lesser scarring within the right middle lobe - Small abnormality within the liver likely representing minimal cyst which is stable from previous CT scan - Cyst within each kidney Chronic: Depression Psoriasis Obesity with BMI of 30 Plan: Admit to the floor Routine AM Labs Resume Home Meds Bentyl PRN PO QID AC and HS NPO except of ice chips, sips of water and oral pills May start clear liquid diet in AM GS consult Code status: 1
[2017-05-06] MEDS ORDERED: Metoprolol Tartrate 5 MG/5 ML SDV IVPUSH PRN (22:07)
[2017-05-06] MEDS ORDERED: HALOBETASOL 0.05% TOP PRN (22:07)
[2017-05-06] MEDS ORDERED: CALCIPOTRIENE 0.005% TOP PRN (22:07)
[2017-05-06] MEDS ORDERED: hydrALAZINE 20 MG/ML SDV IVPUSH PRN (22:07)
[2017-05-06] MEDS ORDERED: Dicyclomine 10 MG Cap PO PRN (23:07)
[2017-05-06] MEDS: Potassium Chloride 20 MEQ Tab.ER PO SCH (23:12)
[2017-05-07] MEDS: Potassium Chloride 20 MEQ Tab.ER PO SCH (04:21)
[2017-05-07] MEDS: Dextrose 5%-0.9% NaCl 1,000 ML IV SCH (06:16)
[2017-05-07] MEDS ORDERED: Magnesium Sulfate/Water 2 GM in Premix Bag 1 BAG IV ONE (07:20)
[2017-05-07] MEDS ORDERED: CALCIPOTRIENE 0.005% TOP PRN (07:20)
[2017-05-07] MEDS ORDERED: Pantoprazole 40 MG Vial IVPUSH SCH (08:00)
[2017-05-07] MEDS ORDERED: Hydrochlorothiazide 12.5 MG Cap PO SCH (09:00)
[2017-05-07] MEDS ORDERED: Metoprolol Tartrate 25 MG Tab PO SCH (09:00)
[2017-05-07] MEDS ORDERED: Citalopram 20 MG Tab PO SCH (09:00)
--- NOTE | 2017-05-07 09:41 | PCM.PN ---
- General Info Date of Service: 05/07/17 Admission Dx/Problem (Free Text): Admission Diagnosis/Problem Admission Diagnosis/Problem Abdominal pain Pat is seen this morning resting comfortably in bed. Denies any further c/o abd pain. No n/v/d. She is up voiding without difficulty, ambulating well and without gait imbalance. Tolerated clear liquids for breakfast without n/v or abd pain. No back pain, SOB, cough. States "I can't eat that spicy chicken any more". No hx of PUD or other GI problems by hx. Functional Status: Reports: Pain Controlled, Tolerating Diet (advance to clear this morning), Ambulating, Urinating, Incentive Spirometry. Denies: New Symptoms - Review of Systems General: Denies: Fever HEENT: Reports: No Symptoms Pulmonary: Reports: No Symptoms. Denies: Shortness of Breath, Cough Cardiovascular: Reports: No Symptoms. Denies: Chest Pain, Dyspnea on Exertion Gastrointestinal: Reports: No Symptoms. Denies: Abdominal Pain, Decreased Appetite (good appetite and his hungry this morning), Diarrhea, Nausea, Vomiting Genitourinary: Reports: No Symptoms Musculoskeletal: Reports: No Symptoms Neurological: Reports: No Symptoms Psychiatric: Reports: No Symptoms - Patient Data Vitals - Most Recent: Last Vital Signs Temp 99.7 F 05/07/17 07:30 Pulse 84 05/07/17 08:51 Resp 16 05/07/17 07:30 BP 148/84 H 05/07/17 08:51 Pulse Ox 96 05/07/17 07:30 Weight - Most Recent: 180 lb I&O - Last 24 Hours: Intake & Output 05/06/17 05/07/17 05/07/17 22:59 06:59 14:59 Intake Total 1076 Output Total 200 Balance 876 Lab Results Last 24 Hours: Laboratory Results - last 24 hr 05/07/17 05/07/17 05/07/17 Range/Units 06:00 06:00 06:00 WBC 14.04 H (3.98-10.04) K/mm3 RBC 4.22 (3.98-5.22) M/mm3 Hgb 12.8 (11.2-15.7) gm/L Hct 38.6 (34.1-44.9) % MCV 91.5 (79.4-94.8) fl MCH 30.3 (25.6-32.2) pg MCHC 33.2 (32.2-35.5) g/dl RDW Std Deviation 49.6 H (36.4-46.3) fL Plt Count 265 (182-369) K/mm3 MPV 10.4 (9.4-12.3) fl Neut % (Auto) 73.7 H (34.0-71.1) % Lymph % (Auto) 17.2 L (19.3-51.7) % [place] % (Auto) 8.5 (4.7-12.5) % Eos % (Auto) 0.1 L (0.7-5.8) Baso % (Auto) 0.1 (0.1-1.2) % Neut # (Auto) 10.34 H (1.56-6.13) K/mm3 Lymph # (Auto) 2.41 (1.18-3.74) K/mm3 [place] # (Auto) 1.20 H (0.24-0.36) K/mm3 Eos # (Auto) 0.02 L (0.04-0.36) K/mm3 Baso # (Auto) 0.01 (0.01-0.08) K/mm3 Sodium 143 (136-145) mEq/L Potassium 3.6 (3.5-5.1) mEq/L Chloride 108 H (98-107) mEq/L Carbon Dioxide 22 (21-32) mEq/L Anion Gap 16.6 H (5-15) BUN 13 (7-18) mg/dL Creatinine 0.8 (0.55-1.02) mg/dL Est Cr Clr Drug Dosing 62.24 mL/min Estimated GFR (MDRD) > 60 (>60) mL/min BUN/Creatinine Ratio 16.3 (14-18) Glucose 126 H (80-115) mg/dL Hemoglobin A1c 5.60 (4.50-6.20) % Lactic Acid (0.4-2.0) mmol/L Calcium 8.9 (8.5-10.1) mg/dL Magnesium 1.5 L (1.8-2.4) mg/dl C-Reactive Protein 0.8 (<1.0) mg/dL 05/07/17 05/07/17 Range/Units 08:00 08:00 WBC (3.98-10.04) K/mm3 RBC (3.98-5.22) M/mm3 Hgb (11.2-15.7) gm/L Hct (34.1-44.9) % MCV (79.4-94.8) fl MCH (25.6-32.2) pg MCHC (32.2-35.5) g/dl RDW Std Deviation (36.4-46.3) fL Plt Count (182-369) K/mm3 MPV (9.4-12.3) fl Neut % (Auto) (34.0-71.1) % Lymph % (Auto) (19.3-51.7) % [place] % (Auto) (4.7-12.5) % Eos % (Auto) (0.7-5.8) Baso % (Auto) (0.1-1.2) % Neut # (Auto) (1.56-6.13) K/mm3 Lymph # (Auto) (1.18-3.74) K/mm3 [place] # (Auto) (0.24-0.36) K/mm3 Eos # (Auto) (0.04-0.36) K/mm3 Baso # (Auto) (0.01-0.08) K/mm3 Sodium (136-145) mEq/L Potassium (3.5-5.1) mEq/L Chloride (98-107) mEq/L Carbon Dioxide (21-32) mEq/L Anion Gap (5-15) BUN (7-18) mg/dL Creatinine (0.55-1.02) mg/dL Est Cr Clr Drug Dosing mL/min Estimated GFR (MDRD) (>60) mL/min BUN/Creatinine Ratio (14-18) Glucose (80-115) mg/dL Hemoglobin A1c (4.50-6.20) % Lactic Acid 2.4 H (0.4-2.0) mmol/L Calcium (8.5-10.1) mg/dL Magnesium (1.8-2.4) mg/dl C-Reactive Protein 0.6 (<1.0) mg/dL Med Orders - Current: Current Medications Acetaminophen (Tylenol) 650 mg PO Q4H PRN PRN Reason: Pain (Mild 1-3)/fever Last Admin: 05/07/17 08:09 Dose: 650 mg Hydrocodone Bitart/Acetaminophen ([place] 325-5 Mg) 1 tab PO Q4H PRN PRN Reason: Pain (moderate 4-6) Albuterol/Ipratropium (Duoneb 3.0-0.5 Mg/3 Ml) 3 ml NEB Q4H PRN PRN Reason: Shortness Of Breath/wheezing Bisacodyl (Dulcolax) 5 mg PO DAILY PRN PRN Reason: Constipation Citalopram Hydrobromide (Celexa) 20 mg PO DAILY [facility] Last Admin: 05/07/17 08:50 Dose: 20 mg Dicyclomine HCl (Bentyl) 10 mg PO QIDACANDBED PRN PRN Reason: Spasms Docusate Sodium (Colace) 100 mg PO BID PRN PRN Reason: Constipation Hydralazine HCl (Apresoline) 20 mg IVPUSH Q4H PRN PRN Reason: Hypertension Last Admin: 05/07/17 05:29 Dose: 20 mg Hydrochlorothiazide (Hydrochlorothiazide) 12.5 mg PO DAILY [facility] Last Admin: 05/07/17 08:50 Dose: 12.5 mg Hydromorphone HCl (Dilaudid) 1 mg IVPUSH Q4H PRN PRN Reason: Pain (severe 7-10) Dextrose/Sodium Chloride (Dextrose 5%-Normal Saline) 1,000 mls @ 150 mls/hr IV ASDIRECTED [facility] Last Admin: 05/07/17 06:16 Dose: 150 mls/hr Promethazine HCl 12.5 mg/ (Sodium Chloride) 50.5 mls @ 100 mls/hr IV Q6H PRN PRN Reason: Nausea/Vomiting Lorazepam (Ativan) 0.5 mg IV Q6H PRN PRN Reason: Anxiety Magnesium Sulfate (Pharmacy To Dose - Magnesium Replacement) 1 dose .XX ASDIRECTED [facility] Metoprolol Tartrate (Lopressor) 12.5 mg PO BID [facility] Last Admin: 05/07/17 08:51 Dose: 12.5 mg Metoprolol Tartrate (Lopressor) 5 mg IVPUSH Q4H PRN PRN Reason: Tachycardia Ondansetron HCl (Zofran) 4 mg IV Q4H PRN PRN Reason: Nausea/Vomiting Pantoprazole Sodium (Protonix Iv) 40 mg IVPUSH Q12H [facility] Ptom - Halobetasol (Topical Cream 0.05%) 0 each TOP DAILY PRN PRN Reason: Rash Ptom - Calcipotriene 0.005% Topical Cream 0 each TOP DAILY PRN PRN Reason: Rash Polyethylene Glycol (Miralax) 17 gm PO DAILY PRN PRN Reason: Constipation Potassium Chloride (Pharmacy To Dose - Potassium Replacement) 1 dose .XX ASDIRECTED [facility] Senna/Docusate Sodium (Senna Plus) 1 tab PO BID PRN PRN Reason: Constipation Sodium Chloride (Saline Flush) 10 ml FLUSH ONETIME PRN PRN Reason: IV FLUSH Last Admin: 05/06/17 10:48 Dose: 10 ml Temazepam (Restoril) 15 mg PO BEDTIME PRN PRN Reason: Sleep Discontinued Medications Acetaminophen (Tylenol) 650 mg PO NOW ONE Stop: 05/06/17 10:28 Last Admin: 05/06/17 11:36 Dose: 650 mg Al Hydroxide/Mg Hydroxide 30 (ml/ Lidocaine HCl 15 ml) 0 ml PO ONETIME ONE Stop: 05/06/17 16:57 Last Admin: 05/06/17 17:01 Dose: 45 ml Diatrizoate Meglum/Diatrizoate Sod (Gastrografin 37%) 90 ml PO ONETIME ONE Stop: 05/06/17 18:27 Last Admin: 05/06/17 23:19 Dose: Not Given Hydromorphone HCl (Dilaudid) 0.5 mg IVPUSH ONETIME ONE Stop: 05/06/17 11:35 Last Admin: 05/06/17 11:44 Dose: 0.5 mg Hydromorphone HCl (Dilaudid) 1 mg IM ONETIME ONE Stop: 05/06/17 17:54 Last Admin: 05/06/17 17:56 Dose: Not Given Hydromorphone HCl (Dilaudid) 1 mg IVPUSH ONETIME ONE Stop: 05/06/17 17:56 Last Admin: 05/06/17 18:02 Dose: 1 mg Sodium Chloride (Normal Saline) 100 mls @ 80 mls/hr IV ASDIRECTED [facility] Last Admin: 05/06/17 10:48 Dose: 80 mls/hr Lactated Ringer's (Ringers, Lactated) 1,000 mls @ 999 mls/hr IV ASDIRECTED [facility] Last Admin: 05/06/17 11:45 Dose: 999 mls/hr Potassium Chloride 10 meq/ (Premix) 100 mls @ 100 mls/hr IV ASDIRECTED [facility] Last Admin: 05/06/17 12:55 Dose: 100 mls/hr Sodium Chloride (Normal Saline) Confirm Administered Dose 1,000 mls @ as directed .ROUTE .STK-MED ONE Stop: 05/06/17 12:55 Last Admin: 05/06/17 13:08 Dose: Not Given Sodium Chloride (Normal Saline) 1,000 mls @ 999 mls/hr IV ONETIME ONE Stop: 05/06/17 13:50 Last Admin: 05/06/17 12:55 Dose: 999 mls/hr Lactated Ringer's (Ringers, Lactated) 1,000 mls @ 999 mls/hr IV .BOLUS ONE Stop: 05/06/17 15:54 Last Admin: 05/06/17 15:00 Dose: 999 mls/hr Lactated Ringer's (Ringers, Lactated) 1,000 mls @ 999 mls/hr IV .BOLUS ONE Stop: 05/06/17 17:05 Last Admin: 05/06/17 16:20 Dose: Not Given Magnesium Sulfate 2 gm/ Premix 50 mls @ 25 mls/hr IV ONETIME ONE Stop: 05/07/17 09:19 Iopamidol (Isovue-370 (76%)) 100 ml IVPUSH ONETIME ONE Stop: 05/06/17 10:40 Last Admin: 05/06/17 10:48 Dose: 100 ml Metoclopramide HCl (Reglan) 10 mg IVPUSH ONETIME ONE Stop: 05/06/17 17:55 Last Admin: 05/06/17 18:00 Dose: 10 mg Ondansetron HCl (Zofran) 4 mg IVPUSH ONETIME ONE Stop: 05/06/17 10:27 Last Admin: 05/06/17 10:50 Dose: 4 mg Pantoprazole Sodium (Protonix Iv) 40 mg IVPUSH ONETIME ONE Stop: 05/06/17 20:28 Last Admin: 05/06/17 21:29 Dose: 40 mg Ptom - Calcipotriene 0.005% Topical Cream 1 each TOP DAILY PRN PRN Reason: Rash Potassium Chloride (Klor-Con M20) 20 meq PO Q3H JANICE Stop: 05/07/17 02:01 Last Admin: 05/07/17 04:21 Dose: 20 meq - Exam Quality Assessment: DVT Prophylaxis General: Alert, Oriented, Cooperative, No Acute Distress HEENT: Pupils Equal, EOMI, Mucous Membr. Moist/[place] Neck: Supple Lungs: Clear to Auscultation, Normal Respiratory Effort Cardiovascular: Regular Rate, Regular Rhythm, No Murmurs GI/Abdominal Exam: Normal Bowel Sounds, Soft, Non-Tender, No Organomegaly. No: Guarding, Rigid, Rebound, Tender (Female) Exam: Deferred Back Exam: Normal Inspection. No: CVA Tenderness (L), CVA Tenderness (R) Extremities: Normal Inspection, No Pedal Edema, Normal Capillary Refill Peripheral Pulses: 2+: Dorsalis Pedis (L), Dorsalis Pedis (R) Skin: Warm, Dry, Intact Neurological: No New Focal Deficit Psy/Mental Status: Alert, Normal Affect, Normal Mood - Problem List & Annotations (1) Abdominal pain in female patient SNOMED Code(s): 56062754 Code(s): R10.9 - UNSPECIFIED ABDOMINAL PAIN Status: Acute Priority: High Current Visit: Yes (2) Metabolic acidosis with increased anion gap and accumulation of organic acids SNOMED Code(s): 67777234 Code(s): E87.2 - ACIDOSIS Status: Acute Priority: High Current Visit: Yes (3) Leukocytosis SNOMED Code(s): 364963145 Code(s): D72.829 - ELEVATED WHITE BLOOD CELL COUNT, UNSPECIFIED Status: Acute Priority: High Current Visit: Yes Qualifiers: Leukocytosis type: unspecified Qualified Code(s): D72.829 - Elevated white blood cell count, unspecified (4) Hypomagnesemia SNOMED Code(s): 954419551 Code(s): E83.42 - HYPOMAGNESEMIA Status: Acute Priority: Medium Current Visit: Yes (5) Hypokalemia SNOMED Code(s): 24654982 Code(s): E87.6 - HYPOKALEMIA Status: Resolved Priority: Medium Current Visit: Yes - Problem List Review Problem List Initiated/Reviewed/Updated: Yes - My Orders Last 24 Hours: My Active Orders 05/07/17 08:00 Pantoprazole [ProTONIX IV] 40 mg IVPUSH Q12H - Plan Plan:: Assessment/Plan: Acute: Abdominal Pain--RESOLVED - Unclear in etiology at this time - LFTs, Troponin, CRP and Amylase-All normal - Consider IBS - Imaging study all negative for acute abnormal findings- CT of chest/abd/ pelvis unremarkable. - Labs consistent with fasting specially with ketones Mild Hypokalemia---resolved this morning - K 3.2--->4.6 - 2/2 GI Loss - Replete and monitor Anion Gap-Metabolic Acidosis - 2/2 Ketones from fasting (both serum and urine) and LA - HCO3 18, BUN 24 and AG 21.2 - LA 3.7--2.7-->2.4 this am - A1C level in AM--normal at 5.6 - Should resolve with hydration - Checked acetaminophen level and salicylate levels- both WNL Lactic Acidosis---As above - Likely from localized hypoperfusion (GI) +/- Ketones - LA 3.7 --> 2.7-->2.4 this am - Improving with hydration Hyperglycemia - BS 238 and 174 - With elevated ketones, will screen for diabetes - A1C level in AM - WNL 5.6 HTN-- elevated overnight, normal this morning. - Carries a hx/o HTN - Documented BS of 182/97 mmHg on presentation to ED - Resume Home BP Meds: BB and HCTZ - PRN Hydralazine for BP > 140/90 mmHg Elevated D-Dimer - D-Dimer 1.8 - Chest CTA negative for PE CT Scan Abnormal Findings - Scarring within the right upper lung and lesser scarring within the right middle lobe - Small abnormality within the liver likely representing minimal cyst which is stable from previous CT scan - Cyst within each kidney Chronic: Cont home meds Depression Psoriasis Obesity with BMI of 30 Plan: Admit to the floor--MST Routine AM Labs Resume Home Meds Bentyl PRN PO QID AC and HS [place] clear liquids this am; advance to soft, if tolerates can DC later today as symptoms completely resolved GS consult- for other input. Code status: 1 PCP is BLAZE Barr at [facility]
--- NOTE | 2017-05-07 11:23 | PCM.DCSUM1 ---
<Umu Cornell - Last Filed: 05/07/17 11:23> Discharge Summary - Hospital Course Free Text/Narrative:: This is a 66 yo white female with past medical hx/o HTN, Psoriasis, Depression and Obesity who comes in with complaints of diffuse abdominal pain associated with nausea w/o vomiting. Her last bowel movement is today with mild rectal bleed and attributes it to external hermorrhoids. She denies having watery diarrhea, mucous, blood or black tarry stools. Her last meal is yesterday, about lunch time. She denies drinking or eating bad food. She denies eating seafood. No other got sick but her. No recent trauma or surgery. Patient is known to me from previous admission this past September. She came in with similar presentation and was diagnosed with gastroenteritis related to seafood. Her initial workup in the emergency department shows a CBC remarkable for WBC of 13.17, RDW of 40.4, and neutrophils of 70%. Her coagulation study shows PT of 10.3, INR of 0.95, and d-dimer of 1.80. Her initial chemistry is remarkable for potassium of 3.2, carbon dioxide of 18, anion gap of 21.2, BUN of 24, glucose of 238, and lactic acid 2.7. Her UA is negative for urinary tract infection. Ethanol level is 0 and ketones is 1.82. H. pylori screening is negative. Her Chest and abdominal/Pelvis CT scan report reads scarring within the right upper lung and lesser scarring within the right middle lobe, small abnormality within the liver likely representing minimal cyst which is stable from previous CT scan, and cyst within each kidney nothing acute is identified. Patient is being admitted for abdominal pain. She is full code. - Discharge Data Discharge Date: 05/07/17 (admit date 05/06/17) Discharge Disposition: Home, Self-Care 01 Condition: Good - Discharge Diagnosis/Problem(s) (1) Abdominal pain in female patient SNOMED Code(s): 61062996 ICD Code: R10.9 - UNSPECIFIED ABDOMINAL PAIN Status: Acute Priority: High Current Visit: Yes (2) Metabolic acidosis with increased anion gap and accumulation of organic acids SNOMED Code(s): 70042807 ICD Code: E87.2 - ACIDOSIS Status: Acute Priority: High Current Visit: Yes (3) Leukocytosis SNOMED Code(s): 001103408 ICD Code: D72.829 - ELEVATED WHITE BLOOD CELL COUNT, UNSPECIFIED Status: Acute Priority: High Current Visit: Yes QualifierTitle: Leukocytosis type: unspecified Qualified Code(s): D72.829 - Elevated white blood cell count, unspecified (4) Hypomagnesemia SNOMED Code(s): 802815298 ICD Code: E83.42 - HYPOMAGNESEMIA Status: Acute Priority: Medium Current Visit: Yes (5) Hypokalemia SNOMED Code(s): 14339461 ICD Code: E87.6 - HYPOKALEMIA Status: Resolved Priority: Medium Current Visit: Yes - Patient Summary/Data Operative Procedure(s) Performed: None Complications: None Consults: Consultations 05/06/17 22:05 Consult to Physician [CONS] Routine Labs Pending at D/C: None Recommended Follow-up Testing/Procedures: Follow up with PCP, BLAZE Barr in [place] within one week of discharge Consider EGD or upper scope for further evaluation of epigastric pain [place] diet- avoid onions and spicy foods Planned Operative Procedure(s) after DC: None Hospital Course: Assessment/Plan: Acute: Abdominal Pain--RESOLVED - Unclear in etiology at this time - LFTs, Troponin, CRP and Amylase-All normal - Consider IBS - Imaging study all negative for acute abnormal findings- CT of chest/abd/ pelvis unremarkable. - Labs consistent with fasting specially with ketones Mild Hypokalemia---resolved this morning - K 3.2--->4.6 - 2/2 GI Loss - Replete and monitor Anion Gap-Metabolic Acidosis - 2/2 Ketones from fasting (both serum and urine) and LA - HCO3 18, BUN 24 and AG 21.2 - LA 3.7--2.7-->2.4 this am - A1C level in AM--normal at 5.6 - Should resolve with hydration - Checked acetaminophen level and salicylate levels- both WNL Lactic Acidosis---As above - Likely from localized hypoperfusion (GI) +/- Ketones - LA 3.7 --> 2.7-->2.4 this am - Improving with hydration Hyperglycemia - BS 238 and 174 - With elevated ketones, will screen for diabetes - A1C level in AM - WNL 5.6 HTN-- elevated overnight, normal this morning. - Carries a hx/o HTN - Documented BS of 182/97 mmHg on presentation to ED - Resume Home BP Meds: BB and HCTZ - PRN Hydralazine for BP > 140/90 mmHg Elevated D-Dimer - D-Dimer 1.8 - Chest CTA negative for PE CT Scan Abnormal Findings - Scarring within the right upper lung and lesser scarring within the right middle lobe - Small abnormality within the liver likely representing minimal cyst which is stable from previous CT scan - Cyst within each kidney Chronic: Cont home meds Depression Psoriasis Obesity with BMI of 30 Plan: Admit to the floor--MST Routine AM Labs Resume Home Meds Bentyl PRN PO QID AC and HS L[place] clear liquids this am; advance to soft, if tolerates can DC later today as symptoms completely resolved GS consult- for other input. Code status: 1 PCP is BLAZE Barr at [facility] - Patient Instructions Diet: Regular Diet as Tolerated (Very bland diet), Drink 8-10+ Glasses/Day, No Alcoholic Beverages Activity: As Tolerated Showering/Bathing: May Shower Notify Provider of: Fever, Increased Pain, Nausea and/or Vomiting - Discharge Plan Prescriptions/Med Rec: Dicyclomine [Bentyl] 10 mg PO QIDACANDBED PRN #10 cap PRN Reason: abd cramps/spasms Pantoprazole [ProTONIX] 40 mg PO BIDAC #60 tab.cr Home Medications: Home Meds Citalopram [Celexa] 20 mg PO DAILY 09/28/16 [History] Hydrochlorothiazide 12.5 mg PO DAILY 09/28/16 [History] Calcipotriene 1 applic TOP DAILY PRN 05/06/17 [History] Halobetasol Propionate 1 applic TOP DAILY PRN 05/06/17 [History] Metoprolol Tartrate 12.5 mg PO BID 05/06/17 [History] Dicyclomine [Bentyl] 10 mg PO QIDACANDBED PRN #10 cap 05/07/17 [Rx] Pantoprazole [ProTONIX] 40 mg PO BIDAC #60 tab.cr 05/07/17 [Rx] Patient Handouts: Heartburn, [id number], Food Choices for Gastroesophageal Reflux Disease, Adult, Gastroesophageal Reflux Disease, Adult Forms: ED Department Discharge Referrals: Nurys Coello CASTING ASSISTANT [Primary Care Provider] - 05/14/17 9:00 am (Please follow up Nurys Coello in [place] on FridayMay 14 at 9:00am) - Discharge Summary/Plan Comment DC Time >30 min.: Yes (40 min) - General Info Date of Service: 05/07/17 Admission Dx/Problem (Free Text: Admission Diagnosis/Problem Admission Diagnosis/Problem Abdominal pain Pat is seen this morning resting comfortably in bed. Denies any further c/o abd pain. No n/v/d. She is up voiding without difficulty, ambulating well and without gait imbalance. Tolerated clear liquids for breakfast without n/v or abd pain. No back pain, SOB, cough. States "I can't eat that spicy chicken any more". No hx of PUD or other GI problems by hx. Functional Status: Reports: Pain Controlled, Tolerating Diet, Ambulating, Urinating, Incentive Spirometry. Denies: New Symptoms - Review of Systems General: Reports: No Symptoms HEENT: Reports: No Symptoms Pulmonary: Reports: No Symptoms Cardiovascular: Reports: No Symptoms Gastrointestinal: Reports: No Symptoms Genitourinary: Reports: No Symptoms Musculoskeletal: Reports: No Symptoms Skin: Reports: No Symptoms Neurological: Reports: No Symptoms Psychiatric: Reports: No Symptoms - Patient Data Vitals - Most Recent: Last Vital Signs Temp 99.7 F 05/07/17 07:30 Pulse 84 05/07/17 08:51 Resp 16 05/07/17 07:30 BP 148/84 H 05/07/17 08:51 Pulse Ox 96 05/07/17 07:30 Weight - Most Recent: 180 lb I&O - Last 24 hours: Intake & Output 05/06/17 05/07/17 05/07/17 22:59 06:59 14:59 Intake Total 1076 420 Output Total 200 Balance 876 420 Lab Results - Last 24 hrs: Laboratory Results - last 24 hr 05/07/17 05/07/17 05/07/17 Range/Units 06:00 06:00 06:00 WBC 14.04 H (3.98-10.04) K/mm3 RBC 4.22 (3.98-5.22) M/mm3 Hgb 12.8 (11.2-15.7) gm/L Hct 38.6 (34.1-44.9) % MCV 91.5 (79.4-94.8) fl MCH 30.3 (25.6-32.2) pg MCHC 33.2 (32.2-35.5) g/dl RDW Std Deviation 49.6 H (36.4-46.3) fL Plt Count 265 (182-369) K/mm3 MPV 10.4 (9.4-12.3) fl Neut % (Auto) 73.7 H (34.0-71.1) % Lymph % (Auto) 17.2 L (19.3-51.7) % [place] % (Auto) 8.5 (4.7-12.5) % Eos % (Auto) 0.1 L (0.7-5.8) Baso % (Auto) 0.1 (0.1-1.2) % Neut # (Auto) 10.34 H (1.56-6.13) K/mm3 Lymph # (Auto) 2.41 (1.18-3.74) K/mm3 [place] # (Auto) 1.20 H (0.24-0.36) K/mm3 Eos # (Auto) 0.02 L (0.04-0.36) K/mm3 Baso # (Auto) 0.01 (0.01-0.08) K/mm3 Sodium 143 (136-145) mEq/L Potassium 3.6 (3.5-5.1) mEq/L Chloride 108 H (98-107) mEq/L Carbon Dioxide 22 (21-32) mEq/L Anion Gap 16.6 H (5-15) BUN 13 (7-18) mg/dL Creatinine 0.8 (0.55-1.02) mg/dL Est Cr Clr Drug Dosing 62.24 mL/min Estimated GFR (MDRD) > 60 (>60) mL/min BUN/Creatinine Ratio 16.3 (14-18) Glucose 126 H (80-115) mg/dL Hemoglobin A1c 5.60 (4.50-6.20) % Lactic Acid (0.4-2.0) mmol/L Calcium 8.9 (8.5-10.1) mg/dL Magnesium 1.5 L (1.8-2.4) mg/dl C-Reactive Protein 0.8 (<1.0) mg/dL Salicylates (2.8-20) mg/dL Acetaminophen (10-30) ug/mL 05/07/17 05/07/17 05/07/17 Range/Units 08:00 08:00 10:00 WBC (3.98-10.04) K/mm3 RBC (3.98-5.22) M/mm3 Hgb (11.2-15.7) gm/L Hct (34.1-44.9) % MCV (79.4-94.8) fl MCH (25.6-32.2) pg MCHC (32.2-35.5) g/dl RDW Std Deviation (36.4-46.3) fL Plt Count (182-369) K/mm3 MPV (9.4-12.3) fl Neut % (Auto) (34.0-71.1) % Lymph % (Auto) (19.3-51.7) % [place] % (Auto) (4.7-12.5) % Eos % (Auto) (0.7-5.8) Baso % (Auto) (0.1-1.2) % Neut # (Auto) (1.56-6.13) K/mm3 Lymph # (Auto) (1.18-3.74) K/mm3 [place] # (Auto) (0.24-0.36) K/mm3 Eos # (Auto) (0.04-0.36) K/mm3 Baso # (Auto) (0.01-0.08) K/mm3 Sodium (136-145) mEq/L Potassium (3.5-5.1) mEq/L Chloride (98-107) mEq/L Carbon Dioxide (21-32) mEq/L Anion Gap (5-15) BUN (7-18) mg/dL Creatinine (0.55-1.02) mg/dL Est Cr Clr Drug Dosing mL/min Estimated GFR (MDRD) (>60) mL/min BUN/Creatinine Ratio (14-18) Glucose (80-115) mg/dL Hemoglobin A1c (4.50-6.20) % Lactic Acid 2.4 H (0.4-2.0) mmol/L Calcium (8.5-10.1) mg/dL Magnesium (1.8-2.4) mg/dl C-Reactive Protein 0.6 (<1.0) mg/dL Salicylates (2.8-20) mg/dL Acetaminophen 1 L (10-30) ug/mL 05/07/17 Range/Units 10:00 WBC (3.98-10.04) K/mm3 RBC (3.98-5.22) M/mm3 Hgb (11.2-15.7) gm/L Hct (34.1-44.9) % MCV (79.4-94.8) fl MCH (25.6-32.2) pg MCHC (32.2-35.5) g/dl RDW Std Deviation (36.4-46.3) fL Plt Count (182-369) K/mm3 MPV (9.4-12.3) fl Neut % (Auto) (34.0-71.1) % Lymph % (Auto) (19.3-51.7) % [place] % (Auto) (4.7-12.5) % Eos % (Auto) (0.7-5.8) Baso % (Auto) (0.1-1.2) % Neut # (Auto) (1.56-6.13) K/mm3 Lymph # (Auto) (1.18-3.74) K/mm3 [place] # (Auto) (0.24-0.36) K/mm3 Eos # (Auto) (0.04-0.36) K/mm3 Baso # (Auto) (0.01-0.08) K/mm3 Sodium (136-145) mEq/L Potassium (3.5-5.1) mEq/L Chloride (98-107) mEq/L Carbon Dioxide (21-32) mEq/L Anion Gap (5-15) BUN (7-18) mg/dL Creatinine (0.55-1.02) mg/dL Est Cr Clr Drug Dosing mL/min Estimated GFR (MDRD) (>60) mL/min BUN/Creatinine Ratio (14-18) Glucose (80-115) mg/dL Hemoglobin A1c (4.50-6.20) % Lactic Acid (0.4-2.0) mmol/L Calcium (8.5-10.1) mg/dL Magnesium (1.8-2.4) mg/dl C-Reactive Protein (<1.0) mg/dL Salicylates 4.5 (2.8-20) mg/dL Acetaminophen (10-30) ug/mL Med Orders - Current: Current Medications Acetaminophen (Tylenol) 650 mg PO Q4H PRN PRN Reason: Pain (Mild 1-3)/fever Last Admin: 05/07/17 08:09 Dose: 650 mg Hydrocodone Bitart/Acetaminophen ([place] 325-5 Mg) 1 tab PO Q4H PRN PRN Reason: Pain (moderate 4-6) Albuterol/Ipratropium (Duoneb 3.0-0.5 Mg/3 Ml) 3 ml NEB Q4H PRN PRN Reason: Shortness Of Breath/wheezing Bisacodyl (Dulcolax) 5 mg PO DAILY PRN PRN Reason: Constipation Citalopram Hydrobromide (Celexa) 20 mg PO DAILY [facility] Last Admin: 05/07/17 08:50 Dose: 20 mg Dicyclomine HCl (Bentyl) 10 mg PO QIDACANDBED PRN PRN Reason: Spasms Docusate Sodium (Colace) 100 mg PO BID PRN PRN Reason: Constipation Hydralazine HCl (Apresoline) 20 mg IVPUSH Q4H PRN PRN Reason: Hypertension Last Admin: 05/07/17 05:29 Dose: 20 mg Hydrochlorothiazide (Hydrochlorothiazide) 12.5 mg PO DAILY [facility] Last Admin: 05/07/17 08:50 Dose: 12.5 mg Hydromorphone HCl (Dilaudid) 1 mg IVPUSH Q4H PRN PRN Reason: Pain (severe 7-10) Promethazine HCl 12.5 mg/ (Sodium Chloride) 50.5 mls @ 100 mls/hr IV Q6H PRN PRN Reason: Nausea/Vomiting Lorazepam (Ativan) 0.5 mg IV Q6H PRN PRN Reason: Anxiety Magnesium Sulfate (Pharmacy To Dose - Magnesium Replacement) 1 dose .XX ASDIRECTED [facility] Metoprolol Tartrate (Lopressor) 12.5 mg PO BID [facility] Last Admin: 05/07/17 08:51 Dose: 12.5 mg Metoprolol Tartrate (Lopressor) 5 mg IVPUSH Q4H PRN PRN Reason: Tachycardia Ondansetron HCl (Zofran) 4 mg IV Q4H PRN PRN Reason: Nausea/Vomiting Pantoprazole Sodium (Protonix) 40 mg PO BIDAC [facility] Ptom - Halobetasol (Topical Cream 0.05%) 0 each TOP DAILY PRN PRN Reason: Rash Ptom - Calcipotriene 0.005% Topical Cream 0 each TOP DAILY PRN PRN Reason: Rash Polyethylene Glycol (Miralax) 17 gm PO DAILY PRN PRN Reason: Constipation Potassium Chloride (Pharmacy To Dose - Potassium Replacement) 1 dose .XX ASDIRECTED [facility] Senna/Docusate Sodium (Senna Plus) 1 tab PO BID PRN PRN Reason: Constipation Sodium Chloride (Saline Flush) 10 ml FLUSH ONETIME PRN PRN Reason: IV FLUSH Last Admin: 05/06/17 10:48 Dose: 10 ml Temazepam (Restoril) 15 mg PO BEDTIME PRN PRN Reason: Sleep Discontinued Medications Acetaminophen (Tylenol) 650 mg PO NOW ONE Stop: 05/06/17 10:28 Last Admin: 05/06/17 11:36 Dose: 650 mg Al Hydroxide/Mg Hydroxide 30 (ml/ Lidocaine HCl 15 ml) 0 ml PO ONETIME ONE Stop: 05/06/17 16:57 Last Admin: 05/06/17 17:01 Dose: 45 ml Diatrizoate Meglum/Diatrizoate Sod (Gastrografin 37%) 90 ml PO ONETIME ONE Stop: 05/06/17 18:27 Last Admin: 05/06/17 23:19 Dose: Not Given Hydromorphone HCl (Dilaudid) 0.5 mg IVPUSH ONETIME ONE Stop: 05/06/17 11:35 Last Admin: 05/06/17 11:44 Dose: 0.5 mg Hydromorphone HCl (Dilaudid) 1 mg IM ONETIME ONE Stop: 05/06/17 17:54 Last Admin: 05/06/17 17:56 Dose: Not Given Hydromorphone HCl (Dilaudid) 1 mg IVPUSH ONETIME ONE Stop: 05/06/17 17:56 Last Admin: 05/06/17 18:02 Dose: 1 mg Dextrose/Sodium Chloride (Dextrose 5%-Normal Saline) 1,000 mls @ 150 mls/hr IV ASDIRECTED [facility] Last Admin: 05/07/17 06:16 Dose: 150 mls/hr Sodium Chloride (Normal Saline) 100 mls @ 80 mls/hr IV ASDIRECTED JANICE Last Admin: 05/06/17 10:48 Dose: 80 mls/hr Lactated Ringer's (Ringers, Lactated) 1,000 mls @ 999 mls/hr IV ASDIRECTED JANICE Last Admin: 05/06/17 11:45 Dose: 999 mls/hr Potassium Chloride 10 meq/ (Premix) 100 mls @ 100 mls/hr IV ASDIRECTED JANICE Last Admin: 05/06/17 12:55 Dose: 100 mls/hr Sodium Chloride (Normal Saline) Confirm Administered Dose 1,000 mls @ as directed .ROUTE .K-MED ONE Stop: 05/06/17 12:55 Last Admin: 05/06/17 13:08 Dose: Not Given Sodium Chloride (Normal Saline) 1,000 mls @ 999 mls/hr IV ONETIME ONE Stop: 05/06/17 13:50 Last Admin: 05/06/17 12:55 Dose: 999 mls/hr Lactated Ringer's (Ringers, Lactated) 1,000 mls @ 999 mls/hr IV .BOLUS ONE Stop: 05/06/17 15:54 Last Admin: 05/06/17 15:00 Dose: 999 mls/hr Lactated Ringer's (Ringers, Lactated) 1,000 mls @ 999 mls/hr IV .BOLUS ONE Stop: 05/06/17 17:05 Last Admin: 05/06/17 16:20 Dose: Not Given Magnesium Sulfate 2 gm/ Premix 50 mls @ 25 mls/hr IV ONETIME ONE Stop: 05/07/17 09:19 Last Admin: 05/07/17 10:16 Dose: 25 mls/hr Iopamidol (Isovue-370 (76%)) 100 ml IVPUSH ONETIME ONE Stop: 05/06/17 10:40 Last Admin: 05/06/17 10:48 Dose: 100 ml Metoclopramide HCl (Reglan) 10 mg IVPUSH ONETIME ONE Stop: 05/06/17 17:55 Last Admin: 05/06/17 18:00 Dose: 10 mg Ondansetron HCl (Zofran) 4 mg IVPUSH ONETIME ONE Stop: 05/06/17 10:27 Last Admin: 05/06/17 10:50 Dose: 4 mg Pantoprazole Sodium (Protonix Iv) 40 mg IVPUSH ONETIME ONE Stop: 05/06/17 20:28 Last Admin: 05/06/17 21:29 Dose: 40 mg Pantoprazole Sodium (Protonix Iv) 40 mg IVPUSH Q12H [facility] Last Admin: 05/07/17 10:16 Dose: 40 mg Ptom - Calcipotriene 0.005% Topical Cream 1 each TOP DAILY PRN PRN Reason: Rash Potassium Chloride (Klor-Con M20) 20 meq PO Q3H JANICE Stop: 05/07/17 02:01 Last Admin: 05/07/17 04:21 Dose: 20 meq - Exam Quality Assessment: Reports: DVT Prophylaxis General: Reports: Alert, Oriented, Cooperative, No Acute Distress HEENT: Reports: Pupils Equal, EOMI, Mucous Membr. Moist/[place] Neck: Reports: Supple Lungs: Reports: Clear to Auscultation, Normal Respiratory Effort Cardiovascular: Reports: Regular Rate, Regular Rhythm, No Murmurs GI/Abdominal Exam: Normal Bowel Sounds, Soft, Non-Tender, No Organomegaly. No: Guarding, Rigid, Rebound, Tender (Female) Exam: Deferred Rectal (Female) Exam: Deferred Back Exam: Reports: Normal Inspection. Denies: CVA Tenderness (L), CVA Tenderness (R) Extremities: Normal Inspection, No Pedal Edema, Normal Capillary Refill Skin: Reports: Warm, Dry, Intact Neurological: Reports: No New Focal Deficit Psy/Mental Status: Reports: Alert, Normal Affect, Normal Mood *Q Meaningful Use (DIS) - VTE *Q VTE Criteria *Q: - Stroke *Q Stroke Criteria *Q: - AMI *Q AMI Criteria *Q: <Flako Menchaca - Last Filed: 05/07/17 15:23> Discharge Summary - Patient Summary/Data Consults: Consultations 05/06/17 22:05 Consult to Physician [CONS] Routine - General Info Admission Dx/Problem (Free Text: In to see pat this afternoon. She had a good lunch with chicken and mashed potatoes. For supper she ate some pot roast but avoided the pieces with onions because she believes onions contribute to her symptoms. She denies any abdominal pain. No nausea, vomiting, diarrhea. She feels good. General surgeon, Dr. Middleton, was in to see her earlier in the day. His consult report is still pending but per the patients report she does not need any endoscopy performed. I did relay to the patient that if symptoms continue she will likely need endoscopy. She voiced understanding. She will be discharged to day to her home in [place]. She does have a ride coming. She should follow-up with her PCP at the appointment scheduled, or sooner if warranted. Functional Status: Reports: Pain Controlled, Tolerating Diet, Ambulating, Urinating. Denies: New Symptoms - Review of Systems General: Reports: No Symptoms HEENT: Reports: No Symptoms Pulmonary: Reports: No Symptoms Cardiovascular: Reports: No Symptoms Gastrointestinal: Reports: No Symptoms Genitourinary: Reports: No Symptoms Musculoskeletal: Reports: No Symptoms Skin: Reports: No Symptoms Neurological: Reports: No Symptoms Psychiatric: Reports: No Symptoms - Patient Data Vitals - Most Recent: Last Vital Signs Temp 99.3 F 05/07/17 11:47 Pulse 86 05/07/17 11:47 Resp 16 05/07/17 11:47 BP 124/90 05/07/17 11:47 Pulse Ox 93 L 05/07/17 11:47 I&O - Last 24 hours: Intake & Output 05/07/17 05/07/17 05/07/17 06:59 14:59 22:59 Intake Total 1076 420 Output Total 200 Balance 876 420 Lab Results - Last 24 hrs: Laboratory Results - last 24 hr 05/07/17 05/07/17 05/07/17 Range/Units 06:00 06:00 06:00 WBC 14.04 H (3.98-10.04) K/mm3 RBC 4.22 (3.98-5.22) M/mm3 Hgb 12.8 (11.2-15.7) gm/L Hct 38.6 (34.1-44.9) % MCV 91.5 (79.4-94.8) fl MCH 30.3 (25.6-32.2) pg MCHC 33.2 (32.2-35.5) g/dl RDW Std Deviation 49.6 H (36.4-46.3) fL Plt Count 265 (182-369) K/mm3 MPV 10.4 (9.4-12.3) fl Neut % (Auto) 73.7 H (34.0-71.1) % Lymph % (Auto) 17.2 L (19.3-51.7) % [place] % (Auto) 8.5 (4.7-12.5) % Eos % (Auto) 0.1 L (0.7-5.8) Baso % (Auto) 0.1 (0.1-1.2) % Neut # (Auto) 10.34 H (1.56-6.13) K/mm3 Lymph # (Auto) 2.41 (1.18-3.74) K/mm3 [place] # (Auto) 1.20 H (0.24-0.36) K/mm3 Eos # (Auto) 0.02 L (0.04-0.36) K/mm3 Baso # (Auto) 0.01 (0.01-0.08) K/mm3 Sodium 143 (136-145) mEq/L Potassium 3.6 (3.5-5.1) mEq/L Chloride 108 H (98-107) mEq/L Carbon Dioxide 22 (21-32) mEq/L Anion Gap 16.6 H (5-15) BUN 13 (7-18) mg/dL Creatinine 0.8 (0.55-1.02) mg/dL Est Cr Clr Drug Dosing 62.24 mL/min Estimated GFR (MDRD) > 60 (>60) mL/min BUN/Creatinine Ratio 16.3 (14-18) Glucose 126 H (80-115) mg/dL Hemoglobin A1c 5.60 (4.50-6.20) % Lactic Acid (0.4-2.0) mmol/L Calcium 8.9 (8.5-10.1) mg/dL Magnesium 1.5 L (1.8-2.4) mg/dl C-Reactive Protein 0.8 (<1.0) mg/dL Salicylates (2.8-20) mg/dL Acetaminophen (10-30) ug/mL 05/07/17 05/07/17 05/07/17 Range/Units 08:00 08:00 10:00 WBC (3.98-10.04) K/mm3 RBC (3.98-5.22) M/mm3 Hgb (11.2-15.7) gm/L Hct (34.1-44.9) % MCV (79.4-94.8) fl MCH (25.6-32.2) pg MCHC (32.2-35.5) g/dl RDW Std Deviation (36.4-46.3) fL Plt Count (182-369) K/mm3 MPV (9.4-12.3) fl Neut % (Auto) (34.0-71.1) % Lymph % (Auto) (19.3-51.7) % [place] % (Auto) (4.7-12.5) % Eos % (Auto) (0.7-5.8) Baso % (Auto) (0.1-1.2) % Neut # (Auto) (1.56-6.13) K/mm3 Lymph # (Auto) (1.18-3.74) K/mm3 [place] # (Auto) (0.24-0.36) K/mm3 Eos # (Auto) (0.04-0.36) K/mm3 Baso # (Auto) (0.01-0.08) K/mm3 Sodium (136-145) mEq/L Potassium (3.5-5.1) mEq/L Chloride (98-107) mEq/L Carbon Dioxide (21-32) mEq/L Anion Gap (5-15) BUN (7-18) mg/dL Creatinine (0.55-1.02) mg/dL Est Cr Clr Drug Dosing mL/min Estimated GFR (MDRD) (>60) mL/min BUN/Creatinine Ratio (14-18) Glucose (80-115) mg/dL Hemoglobin A1c (4.50-6.20) % Lactic Acid 2.4 H (0.4-2.0) mmol/L Calcium (8.5-10.1) mg/dL Magnesium (1.8-2.4) mg/dl C-Reactive Protein 0.6 (<1.0) mg/dL Salicylates (2.8-20) mg/dL Acetaminophen 1 L (10-30) ug/mL 05/07/17 Range/Units 10:00 WBC (3.98-10.04) K/mm3 RBC (3.98-5.22) M/mm3 Hgb (11.2-15.7) gm/L Hct (34.1-44.9) % MCV (79.4-94.8) fl MCH (25.6-32.2) pg MCHC (32.2-35.5) g/dl RDW Std Deviation (36.4-46.3) fL Plt Count (182-369) K/mm3 MPV (9.4-12.3) fl Neut % (Auto) (34.0-71.1) % Lymph % (Auto) (19.3-51.7) % [place] % (Auto) (4.7-12.5) % Eos % (Auto) (0.7-5.8) Baso % (Auto) (0.1-1.2) % Neut # (Auto) (1.56-6.13) K/mm3 Lymph # (Auto) (1.18-3.74) K/mm3 [place] # (Auto) (0.24-0.36) K/mm3 Eos # (Auto) (0.04-0.36) K/mm3 Baso # (Auto) (0.01-0.08) K/mm3 Sodium (136-145) mEq/L Potassium (3.5-5.1) mEq/L Chloride (98-107) mEq/L Carbon Dioxide (21-32) mEq/L Anion Gap (5-15) BUN (7-18) mg/dL Creatinine (0.55-1.02) mg/dL Est Cr Clr Drug Dosing mL/min Estimated GFR (MDRD) (>60) mL/min BUN/Creatinine Ratio (14-18) Glucose (80-115) mg/dL Hemoglobin A1c (4.50-6.20) % Lactic Acid (0.4-2.0) mmol/L Calcium (8.5-10.1) mg/dL Magnesium (1.8-2.4) mg/dl C-Reactive Protein (<1.0) mg/dL Salicylates 4.5 (2.8-20) mg/dL Acetaminophen (10-30) ug/mL Med Orders - Current: Current Medications Acetaminophen (Tylenol) 650 mg PO Q4H PRN PRN Reason: Pain (Mild 1-3)/fever Last Admin: 05/07/17 08:09 Dose: 650 mg Hydrocodone Bitart/Acetaminophen ([place] 325-5 Mg) 1 tab PO Q4H PRN PRN Reason: Pain (moderate 4-6) Albuterol/Ipratropium (Duoneb 3.0-0.5 Mg/3 Ml) 3 ml NEB Q4H PRN PRN Reason: Shortness Of Breath/wheezing Bisacodyl (Dulcolax) 5 mg PO DAILY PRN PRN Reason: Constipation Citalopram Hydrobromide (Celexa) 20 mg PO DAILY [facility] Last Admin: 05/07/17 08:50 Dose: 20 mg Dicyclomine HCl (Bentyl) 10 mg PO QIDACANDBED PRN PRN Reason: Spasms Docusate Sodium (Colace) 100 mg PO BID PRN PRN Reason: Constipation Hydralazine HCl (Apresoline) 20 mg IVPUSH Q4H PRN PRN Reason: Hypertension Last Admin: 05/07/17 05:29 Dose: 20 mg Hydrochlorothiazide (Hydrochlorothiazide) 12.5 mg PO DAILY [facility] Last Admin: 05/07/17 08:50 Dose: 12.5 mg Hydromorphone HCl (Dilaudid) 1 mg IVPUSH Q4H PRN PRN Reason: Pain (severe 7-10) Promethazine HCl 12.5 mg/ (Sodium Chloride) 50.5 mls @ 100 mls/hr IV Q6H PRN PRN Reason: Nausea/Vomiting Lorazepam (Ativan) 0.5 mg IV Q6H PRN PRN Reason: Anxiety Magnesium Sulfate (Pharmacy To Dose - Magnesium Replacement) 1 dose .XX ASDIRECTED [facility] Metoprolol Tartrate (Lopressor) 12.5 mg PO BID [facility] Last Admin: 05/07/17 08:51 Dose: 12.5 mg Metoprolol Tartrate (Lopressor) 5 mg IVPUSH Q4H PRN PRN Reason: Tachycardia Ondansetron HCl (Zofran) 4 mg IV Q4H PRN PRN Reason: Nausea/Vomiting Pantoprazole Sodium (Protonix) 40 mg PO [facility] Ptom - Halobetasol (Topical Cream 0.05%) 0 each TOP DAILY PRN PRN Reason: Rash Ptom - Calcipotriene 0.005% Topical Cream 0 each TOP DAILY PRN PRN Reason: Rash Polyethylene Glycol (Miralax) 17 gm PO DAILY PRN PRN Reason: Constipation Potassium Chloride (Pharmacy To Dose - Potassium Replacement) 1 dose .XX ASDIRECTED [facility] Senna/Docusate Sodium (Senna Plus) 1 tab PO BID PRN PRN Reason: Constipation Sodium Chloride (Saline Flush) 10 ml FLUSH ONETIME PRN PRN Reason: IV FLUSH Last Admin: 05/06/17 10:48 Dose: 10 ml Temazepam (Restoril) 15 mg PO BEDTIME PRN PRN Reason: Sleep Discontinued Medications Acetaminophen (Tylenol) 650 mg PO NOW ONE Stop: 05/06/17 10:28 Last Admin: 05/06/17 11:36 Dose: 650 mg Al Hydroxide/Mg Hydroxide 30 (ml/ Lidocaine HCl 15 ml) 0 ml PO ONETIME ONE Stop: 05/06/17 16:57 Last Admin: 05/06/17 17:01 Dose: 45 ml Diatrizoate Meglum/Diatrizoate Sod (Gastrografin 37%) 90 ml PO ONETIME ONE Stop: 05/06/17 18:27 Last Admin: 05/06/17 23:19 Dose: Not Given Hydromorphone HCl (Dilaudid) 0.5 mg IVPUSH ONETIME ONE Stop: 05/06/17 11:35 Last Admin: 05/06/17 11:44 Dose: 0.5 mg Hydromorphone HCl (Dilaudid) 1 mg IM ONETIME ONE Stop: 05/06/17 17:54 Last Admin: 05/06/17 17:56 Dose: Not Given Hydromorphone HCl (Dilaudid) 1 mg IVPUSH ONETIME ONE Stop: 05/06/17 17:56 Last Admin: 05/06/17 18:02 Dose: 1 mg Dextrose/Sodium Chloride (Dextrose 5%-Normal Saline) 1,000 mls @ 150 mls/hr IV ASDIRECTED [facility] Last Admin: 05/07/17 06:16 Dose: 150 mls/hr Sodium Chloride (Normal Saline) 100 mls @ 80 mls/hr IV ASDIRECTED [facility] Last Admin: 05/06/17 10:48 Dose: 80 mls/hr Lactated Ringer's (Ringers, Lactated) 1,000 mls @ 999 mls/hr IV ASDIRECTED [facility] Last Admin: 05/06/17 11:45 Dose: 999 mls/hr Potassium Chloride 10 meq/ (Premix) 100 mls @ 100 mls/hr IV ASDIRECTED JANICE Last Admin: 05/06/17 12:55 Dose: 100 mls/hr Sodium Chloride (Normal Saline) Confirm Administered Dose 1,000 mls @ as directed .ROUTE .STK-MED ONE Stop: 05/06/17 12:55 Last Admin: 05/06/17 13:08 Dose: Not Given Sodium Chloride (Normal Saline) 1,000 mls @ 999 mls/hr IV ONETIME ONE Stop: 05/06/17 13:50 Last Admin: 05/06/17 12:55 Dose: 999 mls/hr Lactated Ringer's (Ringers, Lactated) 1,000 mls @ 999 mls/hr IV .BOLUS ONE Stop: 05/06/17 15:54 Last Admin: 05/06/17 15:00 Dose: 999 mls/hr Lactated Ringer's (Ringers, Lactated) 1,000 mls @ 999 mls/hr IV .BOLUS ONE Stop: 05/06/17 17:05 Last Admin: 05/06/17 16:20 Dose: Not Given Magnesium Sulfate 2 gm/ Premix 50 mls @ 25 mls/hr IV ONETIME ONE Stop: 05/07/17 09:19 Last Admin: 05/07/17 10:16 Dose: 25 mls/hr Iopamidol (Isovue-370 (76%)) 100 ml IVPUSH ONETIME ONE Stop: 05/06/17 10:40 Last Admin: 05/06/17 10:48 Dose: 100 ml Metoclopramide HCl (Reglan) 10 mg IVPUSH ONETIME ONE Stop: 05/06/17 17:55 Last Admin: 05/06/17 18:00 Dose: 10 mg Ondansetron HCl (Zofran) 4 mg IVPUSH ONETIME ONE Stop: 05/06/17 10:27 Last Admin: 05/06/17 10:50 Dose: 4 mg Pantoprazole Sodium (Protonix Iv) 40 mg IVPUSH ONETIME ONE Stop: 05/06/17 20:28 Last Admin: 05/06/17 21:29 Dose: 40 mg Pantoprazole Sodium (Protonix Iv) 40 mg IVPUSH Q12H [facility] Last Admin: 05/07/17 10:16 Dose: 40 mg Ptom - Calcipotriene 0.005% Topical Cream 1 each TOP DAILY PRN PRN Reason: Rash Potassium Chloride (Klor-Con M20) 20 meq PO Q3H [facility] Stop: 05/07/17 02:01 Last Admin: 05/07/17 04:21 Dose: 20 meq - Exam Quality Assessment: Reports: DVT Prophylaxis General: Reports: Alert, Oriented, Cooperative, No Acute Distress HEENT: Reports: Pupils Equal, Pupils Reactive, EOMI, Mucous Membr. Moist/Aldie Neck: Reports: Supple, Trachea Midline. Denies: No JVD, No Thyromegaly Lungs: Reports: Clear to Auscultation, Normal Respiratory Effort Cardiovascular: Reports: Regular Rate, Regular Rhythm, No Murmurs GI/Abdominal Exam: Normal Bowel Sounds, Soft, Non-Tender, No Organomegaly. No: Guarding, Rigid, Rebound (Female) Exam: Deferred Rectal (Female) Exam: Deferred Back Exam: Reports: Normal Inspection, Full Range of Motion Extremities: Normal Inspection, Non-Tender, No Pedal Edema, Normal Capillary Refill Skin: Reports: Warm, Dry, Intact Neurological: Reports: No New Focal Deficit Psy/Mental Status: Reports: Alert, Normal Affect, Normal Mood *Q Meaningful Use (DIS) - VTE *Q VTE Criteria *Q: - Stroke *Q Stroke Criteria *Q: - AMI *Q AMI Criteria *Q:
--- NOTE | 2017-05-07 11:24 | CT ---
CT abdomen and pelvis Technique: Multiple axial sections were obtained from the top the liver inferiorly through the pubic symphysis. Intravenous contrast was utilized. Oral contrast has also been given. Study obtained as a delayed study from previous CT exam performed on 10:49 AM on same day. Findings: Fibrosis and emphysematous change is noted within both lung bases. Liver shows no focal parenchymal abnormality. Vicarious excretion of contrast into the gallbladder is seen which is felt to be incidental. Spleen appears within normal limits. Cyst is identified within each kidney. Contrast seen in the collecting systems of both kidneys and ureters. No ureteral dilatation is seen. Pancreas is normal. Aorta shows atherosclerotic calcification which continues into the iliac vessels. No retroperitoneal adenopathy or mesenteric abnormalities are seen. Appendix not visualized with certainty. No pelvic mass or adenopathy is seen. No free fluid or inflammatory change is seen. Scattered degenerative change is again seen within the spine. Impression: 1. Incidental findings. Nothing acute is appreciated on delayed CT study of the abdomen and pelvis. Diagnostic code #2 I agree with preliminary report issued by [facility] ([facility] report finalized on 05/06/17, 8:40 PM Central Time)
[2017-05-07 15:33] VITALS: BP 141/75
[2017-05-07] MEDS ORDERED: Pantoprazole 40 MG Tab.CR PO SCH (16:00)
--- NOTE | 2017-05-08 08:50 | CONS ---
CONSULTING PHYSICIAN: Kalia Middleton DATE OF CONSULTATION: 05/07/2017 Thank you for asking me see this nice lady in consultation. As you know, she lives in [place] and has now, over the past 2 months, had several episodes of nausea, vomiting, abdominal pain, and diarrhea. As we had discussed, this may be bacterial or viral or on the basis of food intolerance. She had her first episode approximately 2 months ago and it was basically that of eating usual food at one of the local bar/restaurants in [place] and after that developed within 24 hours, crampy diarrhea and abdominal pain and was seen here. She has had 1 more recent episode which brought her to the hospital at this time and that is basically on the evening before the onset of symptoms, she went to the standard bar/restaurant in [place] and had some ribs which had an onion based BBQ sauce. Within a matter of hours, she developed nausea, vomiting, crampy abdominal pain, and some diarrhea. She continued to feel bad for the next 12 to 24 hours, and was brought to our hospital last evening by ambulance from [place]. Upon admission, her salient findings were that her white count was 13,000 and today is 14,000. Her red blood count and hemoglobin have dropped from 14.3 down to about 13 g, that is with hydration. She presented with normal amylase and appeared to be in some mild lactic acidosis, probably on the basis of dehydration. Her alkaline phosphatase and all liver function tests were within normal limits. Her C-reactive protein was down from 0.2 to today at 0.6. Her blood cultures show no growth. Her vital signs on admission were a pulse of 88, blood pressure 148/84, and O2 sats of 96, and her temperature has been approximately 99, in the plus range. On physical examination, she presently denies any abdominal pain. Says she feels much relieved from when she was admitted last evening. The cramps are pretty much gone. Her abdominal pain is gone. She appears to be a somewhat anxious patient. Of interest is that her blood sugar when she came in was 238 and has come down to 126 presently. Abdominal examination reveals a soft abdomen with some hyperactive bowel sounds and no areas of tenderness and no masses. I have reviewed both of her CT scans and they are basically negative. She has does not have any gallstones or problems along that line that we can see and otherwise the small bowel appears to be normal. No evidence of thickening or inflammatory process as does the colon. At this point, she is perhaps a borderline diabetic. I do not think her symptoms are due to diabetes. She obviously became dehydrated which probably exacerbated her symptoms and she is borderline hypokalemic. Her renal function appears to be normal. The only other possibility would be perhaps an ultrasound of the gallbladder to look for sludge or other sources. She does not appear to have stones on the CT, but an ultrasound might be a little more instructive, although she does not have any elevation of her bilirubin or bilirubin in her urine. At present, I cannot find anything that we can help her with and see what the time tells. Thank you for asking me to see this nice lady in consultation. HAYLEY /[id number] MTDD
== END 2017-05-07 15:54 | disposition home or self-care (01) | DRG 392 ==
LOC: JD.ED 10:00 → JD.MS 20:30
PROVIDERS: ADMIT Internal Medicine; ATTEND Internal Medicine
DX: R10.9 Unspecified abdominal pain (principal); E87.2 Acidosis; E87.6 Hypokalemia; E83.42 Hypomagnesemia; R73.9 Hyperglycemia, unspecified; R79.1 Abnormal coagulation profile; I10 Essential (primary) hypertension; F32.9 Major depressive disorder, single episode, unspecified; L40.9 Psoriasis, unspecified; E66.9 Obesity, unspecified; Z87.891 Personal history of nicotine dependence; Z88.8 Allergy status to other drugs, medicaments and biological substances; Z79.899 Other long term (current) drug therapy; Z68.30 Body mass index [BMI] 30.0-30.9, adult
CPT/HCPCS: 36415; 71260; 74176; 74177; 80053 ×2; 81001; 82009 ×2; 82150; 83605 ×2; 84484; 85025; 85379; 85610; 86140; 86677; 86900; 86901; 87040 ×2; 87804 ×2; 93005; 96361; 96365; 96375; 96376; 99285; A9270 ×3; G0480; J1170 ×2; J2405; J2765; J3480; J7030; J7040; J7042; J7050; J7120 ×2; Q9963; Q9967; 80048; 83036; 83735; C9113; J0360; J3475

== ENCOUNTER 2017-11-23 06:15 | Emergency (ER) | payer MEDICARE, BC ==
[2017-11-23] MEDS ORDERED: Ondansetron 4 MG/2 ML SDV IVPUSH ONE (06:25)
[2017-11-23] MEDS ORDERED: HYDROmorphone 0.5 MG/0.5 ML SYRINGE IVPUSH ONE ×2 (06:25→08:35)
--- NOTE | 2017-11-23 06:29 | EDM.PDOC ---
<Abhilash Coe - Last Filed: 11/23/17 06:26> ED HPI GENERAL MEDICAL PROBLEM - General Chief Complaint: Abdominal Pain Stated Complaint: [facility] Time Seen by Provider: 11/23/17 06:24 Source of Information: Reports: Patient History Limitations: Reports: No Limitations - History of Present Illness INITIAL COMMENTS - FREE TEXT/NARRATIVE: This is a 67-year-old female. She is brought to the ER by ambulance due to abdominal pain. She states she has a history since last April of abdominal migraines. This happens if she drinks alcohol or if she eats certain foods. She states he only eats once a day to help prevent these abdominal migraines. The pain is gotten worse and so she called the ambulance. They put an IV in her gave her some Zofran as well as 50 g of fentanyl that seemed to ease up her pain. By the time she got here the pain started to come back. She denies any fever or chills. She does have nausea and vomiting but no diarrhea. She says this happens often and she seen her doctor for 2 gave her some medications but the medications aren't helping. Abdominal Pain Score (Numeric/FACES): 5 - Related Data Allergies Allergy/AdvReac Type Severity Reaction Status Date / Time aspirin Allergy Cannot Verified 11/23/17 06:23 Remember docetaxel [From Taxotere] Allergy Cannot Verified 11/23/17 06:23 Remember Home Meds: Home Meds Citalopram [Celexa] 20 mg PO DAILY 09/28/16 [History] Hydrochlorothiazide 12.5 mg PO DAILY 09/28/16 [History] Calcipotriene 1 applic TOP DAILY PRN 05/06/17 [History] Halobetasol Propionate 1 applic TOP DAILY PRN 05/06/17 [History] Metoprolol Tartrate 12.5 mg PO BID 05/06/17 [History] Pantoprazole [ProTONIX] 40 mg PO BIDAC #60 tab.cr 05/07/17 [Rx] Past Medical History HEENT History: Reports: Impaired Vision Other HEENT History: wears glasses Cardiovascular History: Reports: Hypertension Gastrointestinal History: Reports: Hemorrhoids, Other (See Below) Other Gastrointestinal History: pt states she had her hemorrhoids fried Psychiatric History: Reports: Depression Endocrine/Metabolic History: Reports: Obesity/BMI 30+ Oncologic (Cancer) History: Reports: Other (See Below) Other Oncologic History: right lumpectomy Dermatologic History: Reports: Psoriasis - Infectious Disease History Infectious Disease History: Reports: Influenza, Measles - Past Surgical History Oncologic Surgical History: Reports: Lumpectomy Social & Family History - Family History Family Medical History: Noncontributory HEENT: Reports: Cataract GI: Reports: Diverticulitis Dermatologic: Reports: Psoriasis - Caffeine Use Caffeine Use: Reports: Tea Other Caffeine Use: one cup of tea in the morning - Living Situation & Occupation Living situation: Reports: Occupation: Unemployed ED ROS GENERAL - Review of Systems Review Of Systems: See Below Constitutional: Denies: Fever, Chills HEENT: Reports: No Symptoms Respiratory: Denies: Shortness of Breath, Cough Cardiovascular: Denies: Chest Pain Endocrine: Reports: No Symptoms GI/Abdominal: Reports: Abdominal Pain, Nausea, Vomiting : Reports: No Symptoms Musculoskeletal: Reports: No Symptoms Skin: Reports: No Symptoms Neurological: Reports: No Symptoms Psychiatric: Reports: Anxiety Hematologic/Lymphatic: Reports: No Symptoms ED EXAM, GI/ABD - Physical Exam Exam: See Below Exam Limited By: No Limitations General Appearance: Alert, WD/WN, Mild Distress Eyes: Bilateral: Normal Appearance Ears: Normal External Exam Nose: Normal Inspection Throat/Mouth: Normal Inspection, Normal Lips, Normal Voice, No Airway Compromise Head: Normocephalic Neck: Supple Respiratory/Chest: No Respiratory Distress, Lungs Clear, Normal Breath Sounds Cardiovascular: Regular Rate, Rhythm, No Murmur GI/Abdominal Exam: Soft, Other (Generalized soreness all over the abdomen, does not appear to be a localized tenderness on palpation and no peritoneal signs are noted) Back Exam: Normal Inspection, Full Range of Motion Extremities: Normal Inspection, Normal Range of Motion Neurological: Alert, Oriented Psychiatric: Anxious Skin Exam: Warm, Dry Course - Vital Signs Last Recorded V/S: Last Vital Signs Temp 36.8 C 11/23/17 10:17 Pulse 96 11/23/17 10:17 Resp 14 11/23/17 10:17 BP 104/71 11/23/17 10:17 Pulse Ox 92 L 11/23/17 10:17 - Orders/Labs/Meds Orders: Active Orders 24 hr Category Date Time Status Dextrose 5%-Lactated Ringers 1,000 ml Med 11/23/17 10:15 Active IV ASDIRECTED Sodium Chloride 0.9% [Normal Saline] 1,000 ml Med 11/23/17 06:30 Active IV ASDIRECTED Medication Orders Sodium Chloride (Normal Saline) 1,000 mls @ 1,000 mls/hr IV ASDIRECTED JANICE Last Admin: 11/23/17 06:35 Dose: 1,000 mls/hr Dextrose/Lactated Ringer's (Dextrose 5%-Lactated Ringers) 1,000 mls @ 999 mls/ hr IV ASDIRECTED JANICE Last Admin: 11/23/17 10:15 Dose: 999 mls/hr Labs: Laboratory Tests 11/23/17 11/23/17 11/23/17 Range/Units 06:35 06:35 06:35 WBC 14.20 H (3.98-10.04) K/mm3 RBC 4.64 (3.98-5.22) M/mm3 Hgb 13.7 (11.2-15.7) gm/L Hct 40.4 (34.1-44.9) % MCV 87.1 (79.4-94.8) fl MCH 29.5 (25.6-32.2) pg MCHC 33.9 (32.2-35.5) g/dl RDW Std Deviation 43.3 (36.4-46.3) fL Plt Count 332 (182-369) K/mm3 MPV 9.9 (9.4-12.3) fl Neut % (Auto) 89.7 H (34.0-71.1) % Lymph % (Auto) 6.1 L (19.3-51.7) % [place] % (Auto) 3.9 L (4.7-12.5) % Eos % (Auto) 0 L (0.7-5.8) Baso % (Auto) 0.1 (0.1-1.2) % Neut # (Auto) 12.75 H (1.56-6.13) K/mm3 Lymph # (Auto) 0.86 L (1.18-3.74) K/mm3 [place] # (Auto) 0.55 H (0.24-0.36) K/mm3 Eos # (Auto) 0.00 L (0.04-0.36) K/mm3 Baso # (Auto) 0.01 (0.01-0.08) K/mm3 Manual Slide Review Abnormal smear Sodium 139 (136-145) mEq/L Potassium 3.4 L (3.5-5.1) mEq/L Chloride 101 (98-107) mEq/L Carbon Dioxide 24 (21-32) mEq/L Anion Gap 17.4 H (5-15) BUN 21 H (7-18) mg/dL Creatinine 1.1 H (0.55-1.02) mg/dL Est Cr Clr Drug Dosing TNP Estimated GFR (MDRD) 50 (>60) mL/min BUN/Creatinine Ratio 19.1 H (14-18) Glucose 234 H (80-115) mg/dL Calcium 9.6 (8.5-10.1) mg/dL Total Bilirubin 0.6 (0.2-1.0) mg/dL AST 17 (15-37) U/L ALT 27 (14-59) U/L Alkaline Phosphatase 71 (46-116) U/L Total Protein 7.9 (6.4-8.2) g/dl Albumin 4.0 (3.4-5.0) g/dl Globulin 3.9 gm/dL Albumin/Globulin Ratio 1.0 (1-2) Lipase 61 L (73-393) U/L Ethyl Alcohol 0.00 (0.00) gm% Meds: Medications Generic Name Dose Route Start Last Admin Trade Name Freq PRN Reason Stop Dose Admin Sodium Chloride 1,000 mls @ 1,000 mls/hr 11/23/17 06:30 11/23/17 06:35 Normal Saline IV 1,000 mls/hr ASDIRECTED JANICE Administration Dextrose/Lactated Ringer's 1,000 mls @ 999 mls/hr 11/23/17 10:15 11/23/17 10: 15 Dextrose 5%-Lactated Ringers IV 999 mls/hr ASDIRECTED JANICE Administration Discontinued Medications Generic Name Dose Route Start Last Admin Trade Name Freq PRN Reason Stop Dose Admin Hydromorphone HCl 0.5 mg 11/23/17 06:25 11/23/17 06:38 Dilaudid IVPUSH 11/23/17 06:26 0.5 mg ONETIME ONE Administration Hydromorphone HCl 0.5 mg 11/23/17 08:35 11/23/17 08:52 Dilaudid IVPUSH 11/23/17 08:36 0.5 mg ONETIME ONE Administration Metoclopramide HCl 7.5 mg 11/23/17 08:35 11/23/17 08:50 Reglan IVPUSH 11/23/17 08:36 7.5 mg ONETIME ONE Administration Ondansetron HCl 4 mg 11/23/17 06:25 11/23/17 06:37 Zofran IVPUSH 11/23/17 06:26 4 mg ONETIME ONE Administration Departure - Departure Disposition: Home, Self-Care 01 Clinical Impression: Migraine Qualifiers: Migraine type: without aura Status migrainosus presence: without status migrainosus Intractability: not intractable Qualified Code(s): G43.009 - Migraine without aura, not intractable, without status migrainosus Abdominal pain Qualifiers: Abdominal location: generalized Qualified Code(s): R10.84 - Generalized abdominal pain - Discharge Information Instructions: Migraine Headache, [id number], Abdominal Pain, Adult, Abdominal Pain, Adult, [id number] Referrals: Nurys Coello TOXICOLOGY SUPERVISOR [Primary Care Provider] - Forms: ED Department Discharge Additional Instructions: Evaluation the emergency room this morning due to abdominal migraine. Something you have expressed many times in the past. You're treated with intravenous fluids in the ED and small dose of Dilaudid and antinausea medication to bring things under control. Suggest home to rest and resume plenty of fluids and diet later on today. Continue all current medications. I did write a prescription for Reglan 10 mg tablet and Toradol 10 mg tablet. You can take one of each at onset of migraine symptoms and see if it aborts the migraine attack. They could be repeated one each every 6 hours if needed. - My Orders Last 24 Hours: My Active Orders 11/23/17 10:15 Dextrose 5%-Lactated Ringers 1,000 ml IV ASDIRECTED - Assessment/Plan Last 24 Hours: My Active Orders 11/23/17 10:15 Dextrose 5%-Lactated Ringers 1,000 ml IV ASDIRECTED <Tre Aviles - Last Filed: 11/23/17 10:48> Course - Radiology Interpretation Free Text/Narrative:: Care assumed from Dr. Coe at change of shift. Labs are pending although the patient states that she's much improved. She has received Dilaudid 0.5 mg IV and Zofran 4 mg IV for nausea abdominal pain relief. Labs have been reviewed. Labs reveal a white count of 14.20 with an auto differential of 90% neutrophils. Hemoglobin is 13.7 with hematocrit of 40.4. Sodium was 139 with potassium of 3.4. Chloride is 111 with a bicarbonate of 24. And a gap is 17.4. B1 is 21.. Creatinine is 1.1. Glucose is 234. Liver function normal calcium normal at 9.6. Blood alcohol was 0. - Re-Assessments/Exams Free Text/Narrative Re-Assessment/Exam: 11/23/17 07:33 Elizabeth reports she's feeling much improved. Nausea is pretty well completely gone. Headache is gone. She has about 10 more minutes of IV fluids. [place] Her father will be coming to pick her up after synagogue this morning. 11/23/17 08:36 as the patient was getting ready for discharge she once again developed abdominal pain. She'll therefore have repeat Dilaudid 0.5 mg IV and Reglan 7.5 mg IV for relief of abdominal migraine. He noticed in the labs that a lipase was not done and will be ordered at this time. 11/23/17 09:10 serum lipase is 61. Patient is feeling much improved. Blood pressure has returned to normal. 11/23/17 10:08 BP is 104/56. I will therefore hang another liter of D5 Ringer's lactate at open. Able to sleep and rest since the last dose of Reglan and Dilaudid was given. Departure - Departure Time of Disposition: 08:14 Condition: Fair - Discharge Information *PRESCRIPTION DRUG MONITORING PROGRAM REVIEWED*: Not Applicable *COPY OF PRESCRIPTION DRUG MONITORING REPORT IN PATIENT JIMMY: Not Applicable - My Orders Last 24 Hours: My Active Orders 11/23/17 10:15 Dextrose 5%-Lactated Ringers 1,000 ml IV ASDIRECTED - Assessment/Plan Last 24 Hours: My Active Orders 11/23/17 10:15 Dextrose 5%-Lactated Ringers 1,000 ml IV ASDIRECTED
[2017-11-23] MEDS ORDERED: Sodium Chloride 0.9% 1,000 ML IV SCH (06:30)
[2017-11-23] MEDS ORDERED: Metoclopramide 10 MG/2 ML SDV IVPUSH ONE (08:35)
[2017-11-23] MEDS ORDERED: Dextrose 5%-Lactated Ringers 1,000 ML IV SCH (10:15)
[2017-11-23 10:54] VITALS: BP 106/72
== END 2017-11-23 10:55 | disposition home or self-care (01) ==
LOC: JD.ED 06:15
DX: G43.009 Migraine without aura, not intractable, without status migrainosus (principal); R10.84 Generalized abdominal pain; I10 Essential (primary) hypertension; Z88.6 Allergy status to analgesic agent; Z88.8 Allergy status to other drugs, medicaments and biological substances; Z79.899 Other long term (current) drug therapy
CPT/HCPCS: 36415; 80053; 83690; 85025; 96361; 96374; 96375; 96376; 99285; G0480; J1170; J2405; J2765; J7040; J7042; 99284

== ENCOUNTER 2019-01-25 13:21 | Emergency (ER) | payer MEDICARE, BC ==
[2019-01-25 13:29] VITALS: BP 170/117; PULSE 104
[2019-01-25] MEDS ORDERED: Sodium Chloride 0.9% 10 ML Syringe FLUSH PRN ×2 (14:38→15:36)
[2019-01-25] MEDS ORDERED: Sodium Chloride 0.9% 1,000 ML IV ONE ×2 (14:38→15:45)
[2019-01-25] MEDS ORDERED: HYDROmorphone 0.5 MG/0.5 ML Syringe IVPUSH ONE ×2 (14:41→15:59)
[2019-01-25] MEDS ORDERED: Sodium Chloride 0.9% 1,000 ML IV SCH (15:45)
--- NOTE | 2019-01-25 15:58 | EDM.PDOC ---
ED HPI GENERAL MEDICAL PROBLEM - General Chief Complaint: General Stated Complaint: [facility] Time Seen by Provider: 01/25/19 15:31 Source of Information: Reports: Patient History Limitations: Reports: No Limitations - History of Present Illness INITIAL COMMENTS - FREE TEXT/NARRATIVE: Patient is a 68-year-old female who presents to the ED via ambulance with concerns of severe nausea, periumbilical abdominal pain, fever, chills, weakness started yesterday approximately 2:00. Patient states she's been unable to keep anything down. Pain to the abdomen is described as a dull ache with intermittent cramping. She's not had a bowel movement as of today. No history of bloody stools. No pain with urination noted as well. There's been no recent sick exposures. She denies any ingestion of bad or questionable food. She has no history of abdominal surgeries. She denies any chest pain, shortness of breath, back pain, dysuria, or any additional complaint. She has a history of similar symptoms with unclear etiology. She's been told it could be possible gastritis or abdominal migraine. Of note the patient has been under more stress at work. Bilateral Abdomen Pain Score (Numeric/FACES): 9 - Related Data Allergies Allergy/AdvReac Type Severity Reaction Status Date / Time aspirin Allergy Other Verified 01/26/19 06:10 docetaxel [From Taxotere] Allergy Other Verified 01/26/19 06:10 sertraline [From Zoloft] Allergy Cannot Verified 01/26/19 06:10 Remember Home Meds: Home Meds Citalopram [Celexa] 40 mg PO DAILY 09/28/16 [History] Hydrochlorothiazide 12.5 mg PO DAILY 09/28/16 [History] Metoprolol Tartrate 12.5 mg PO BID 05/06/17 [History] Clobetasol [Clobetasol 0.05%] 30 gm TOP BID 02/27/18 [History] Ketorolac [Toradol] 10 mg PO Q6H PRN #10 tab 02/27/18 [Rx] Mometasone Furoate [Elocon] 1 applic TOP ASDIRECTED PRN 02/27/18 [History] Metoclopramide HCl [Reglan] 10 mg PO Q6H PRN 04/29/18 [History] Ondansetron [Zofran ODT] 4 mg PO Q6H PRN #12 tab.dis 01/25/19 [Rx] PEG 3350/Na Sulf,Bicarb,Cl/KCl [Peg 3350 Electrolyte] 240 gm PO DAILY 01/25/19 [ History] Potassium Chloride [Klor-Con M20] 20 meq PO DAILY 01/25/19 [History] Ranitidine [Zantac] 150 mg PO BEDTIME 01/25/19 [History] Past Medical History HEENT History: Reports: Impaired Vision Other HEENT History: wears glasses Cardiovascular History: Reports: Hypertension, PA Gastrointestinal History: Reports: Hemorrhoids, Other (See Below) Other Gastrointestinal History: pt states she had her hemorrhoids fried. States has had abdominal pain of this degree for past year and has seen multiple MD's with no diagonosis Psychiatric History: Reports: Depression Endocrine/Metabolic History: Reports: Obesity/BMI 30+ Oncologic (Cancer) History: Reports: Other (See Below) Other Oncologic History: right lumpectomy Dermatologic History: Reports: Psoriasis - Infectious Disease History Infectious Disease History: Reports: Influenza, Measles - Past Surgical History Oncologic Surgical History: Reports: Lumpectomy Social & Family History - Family History Family Medical History: Noncontributory HEENT: Reports: Cataract GI: Reports: Diverticulitis Dermatologic: Reports: Psoriasis - Caffeine Use Caffeine Use: Reports: Tea Other Caffeine Use: one cup of tea in the morning - Living Situation & Occupation Living situation: Reports: Occupation: Unemployed ED ROS GENERAL - Review of Systems Review Of Systems: See Below Constitutional: Reports: Fever, Chills, Malaise, Weakness, Fatigue, Decreased Appetite HEENT: Reports: No Symptoms Respiratory: Denies: Shortness of Breath, Wheezing, Pleuritic Chest Pain, Cough , Sputum, Hemoptysis Cardiovascular: Reports: No Symptoms GI/Abdominal: Reports: Abdominal Pain, Decreased Appetite, Nausea, Vomiting. Denies: Black Stool, Bloody Stool, Constipation, Diarrhea, Difficulty Swallowing , Flatus, Hematemesis, Hematochezia, Melena : Reports: No Symptoms Musculoskeletal: Reports: Muscle Pain Skin: Reports: No Symptoms ED EXAM, GENERAL - Physical Exam Exam: See Below Exam Limited By: No Limitations General Appearance: Alert, WD/WN, Mild Distress Eye Exam: Bilateral Eye: Normal Inspection Ears: Hearing Grossly Normal Nose: Normal Inspection Throat/Mouth: Normal Inspection, Normal Oropharynx, Normal Voice, No Airway Compromise Head: Atraumatic, Normocephalic Neck: Normal Inspection, Supple, Non-Tender, Full Range of Motion. No: Lymphadenopathy (L), Lymphadenopathy (R) Respiratory/Chest: No Respiratory Distress, Lungs Clear, Normal Breath Sounds, No Accessory Muscle Use, Chest Non-Tender Cardiovascular: Normal Peripheral Pulses, No Murmur, Tachycardia Peripheral Pulses: 2+: Radial (L), Radial (R) GI/Abdominal: No Organomegaly, No Distention, Tender (Periumbilical region. No pain along the right upper quadrant and/or right lower quadrant.), Abnormal Bowel Sounds (Hyperactive) Back Exam: Normal Inspection, Full Range of Motion. No: CVA Tenderness (L), CVA Tenderness (R) Extremities: Normal Inspection, Normal Range of Motion, Non-Tender, No Pedal Edema Neurological: Alert, Oriented, CN II-XII Intact, Normal Cognition, No Motor/ Sensory Deficits Psychiatric: Normal Affect, Normal Mood Skin Exam: Warm, Dry, Intact, Normal Color, No Rash Course - Vital Signs Last Recorded V/S: Last Vital Signs Temp 99.9 F 01/25/19 13:25 Pulse 104 H 01/25/19 13:25 Resp 23 H 01/25/19 13:25 BP 170/117 H 01/25/19 13:25 Pulse Ox 95 01/25/19 13:25 - Orders/Labs/Meds Labs: Laboratory Tests 01/25/19 01/25/19 01/25/19 Range/Units 14:41 14:41 16:26 WBC 19.41 H (3.98-10.04) K/mm3 RBC 5.09 (3.98-5.22) M/mm3 Hgb 15.3 D (11.2-15.7) gm/dl Hct 44.8 (34.1-44.9) % MCV 88.0 (79.4-94.8) fl MCH 30.1 (25.6-32.2) pg MCHC 34.2 (32.2-35.5) g/dl RDW Std Deviation 47.2 H (36.4-46.3) fL Plt Count 333 (182-369) K/mm3 MPV 9.8 (9.4-12.3) fl Neutrophils % (Manual) 84 H (40-60) % Band Neutrophils % 0 (0-10) % Lymphocytes % (Manual) 10 L (20-40) % Atypical Lymphs % 0 % Monocytes % (Manual) 6 (2-10) % Eosinophils % (Manual) 0 L (0.7-5.8) % Basophils % (Manual) 0 L (0.1-1.2) Platelet Estimate Adequate RBC Morph Comment Normal Sodium 138 (136-145) mEq/L Potassium 3.3 L (3.5-5.1) mEq/L Chloride 101 (98-107) mEq/L Carbon Dioxide 23 (21-32) mEq/L Anion Gap 17.3 H (5-15) BUN 15 (7-18) mg/dL Creatinine 0.9 (0.55-1.02) mg/dL Est Cr Clr Drug Dosing 53.83 mL/min Estimated GFR (MDRD) > 60 (>60) mL/min BUN/Creatinine Ratio 16.7 (14-18) Glucose 139 H (80-115) mg/dL Lactic Acid 2.1 H (0.4-2.0) mmol/L Calcium 9.6 (8.5-10.1) mg/dL Total Bilirubin 0.7 (0.2-1.0) mg/dL AST 20 (15-37) U/L ALT 13 L (14-59) U/L Alkaline Phosphatase 67 (46-116) U/L C-Reactive Protein 1.4 H* (<1.0) mg/dL Total Protein 7.9 (6.4-8.2) g/dl Albumin 4.1 (3.4-5.0) g/dl Globulin 3.8 gm/dL Albumin/Globulin Ratio 1.1 (1-2) Urine Color (Yellow) Urine Appearance (Clear) Urine pH (5.0-8.0) Ur Specific Winn (1.005-1.030) Urine Protein (Negative) Urine Glucose (UA) (Negative) Urine Ketones (Negative) Urine Occult Blood (Negative) Urine Nitrite (Negative) Urine Bilirubin (Negative) Urine Urobilinogen (0.2-1.0) Ur Leukocyte Esterase (Negative) Urine RBC (0-5) /hpf Urine WBC (0-5) /hpf Ur Squamous Epith Cells (0-5) /hpf Urine Bacteria (FEW) /hpf Urine Mucus (FEW) /hpf 01/25/19 Range/Units 18:50 WBC (3.98-10.04) K/mm3 RBC (3.98-5.22) M/mm3 Hgb (11.2-15.7) gm/dl Hct (34.1-44.9) % MCV (79.4-94.8) fl MCH (25.6-32.2) pg MCHC (32.2-35.5) g/dl RDW Std Deviation (36.4-46.3) fL Plt Count (182-369) K/mm3 MPV (9.4-12.3) fl Neutrophils % (Manual) (40-60) % Band Neutrophils % (0-10) % Lymphocytes % (Manual) (20-40) % Atypical Lymphs % % Monocytes % (Manual) (2-10) % Eosinophils % (Manual) (0.7-5.8) % Basophils % (Manual) (0.1-1.2) Platelet Estimate RBC Morph Comment Sodium (136-145) mEq/L Potassium (3.5-5.1) mEq/L Chloride (98-107) mEq/L Carbon Dioxide (21-32) mEq/L Anion Gap (5-15) BUN (7-18) mg/dL Creatinine (0.55-1.02) mg/dL Est Cr Clr Drug Dosing mL/min Estimated GFR (MDRD) (>60) mL/min BUN/Creatinine Ratio (14-18) Glucose (80-115) mg/dL Lactic Acid (0.4-2.0) mmol/L Calcium (8.5-10.1) mg/dL Total Bilirubin (0.2-1.0) mg/dL AST (15-37) U/L ALT (14-59) U/L Alkaline Phosphatase (46-116) U/L C-Reactive Protein (<1.0) mg/dL Total Protein (6.4-8.2) g/dl Albumin (3.4-5.0) g/dl Globulin gm/dL Albumin/Globulin Ratio (1-2) Urine Color Light yellow (Yellow) Urine Appearance Slt cloudy H (Clear) Urine pH 6.0 (5.0-8.0) Ur Specific Winn 1.015 (1.005-1.030) Urine Protein 2+ H (Negative) Urine Glucose (UA) Negative (Negative) Urine Ketones Negative (Negative) Urine Occult Blood 1+ H (Negative) Urine Nitrite Negative (Negative) Urine Bilirubin Negative (Negative) Urine Urobilinogen 0.2 (0.2-1.0) Ur Leukocyte Esterase Negative (Negative) Urine RBC 0-5 (0-5) /hpf Urine WBC 0-5 (0-5) /hpf Ur Squamous Epith Cells 0-5 (0-5) /hpf Urine Bacteria Many H (FEW) /hpf Urine Mucus Not seen (FEW) /hpf Meds: Medications Discontinued Medications Generic Name Dose Route Start Last Admin Trade Name Freq PRN Reason Stop Dose Admin Diatrizoate Meglum/Diatrizoate Sod 60 ml 01/25/19 16:03 01/25/19 16:40 Gastrografin 37% PO 01/25/19 16:04 60 ml ONETIME ONE Administration Hydromorphone HCl 0.5 mg 01/25/19 15:59 01/25/19 16:05 Dilaudid IVPUSH 01/25/19 16:00 0.5 mg ONETIME ONE Administration Sodium Chloride 1,000 mls @ 150 mls/hr 01/25/19 15:45 Normal Saline IV ASDIRECTED JANICE Sodium Chloride 1,000 mls @ 500 mls/hr 01/25/19 15:45 01/25/19 16:08 Normal Saline IV 01/25/19 17:44 500 mls/hr ONETIME ONE Administration Iopamidol 100 ml 01/25/19 16:03 01/25/19 16:40 Isovue-300 (61%) IVPUSH 01/25/19 16:04 100 ml ONETIME ONE Administration Sodium Chloride 10 ml 01/25/19 15:36 01/25/19 16:40 Saline Flush FLUSH 10 ml ASDIRECTED PRN Administration Keep Vein Open - Re-Assessments/Exams Free Text/Narrative Re-Assessment/Exam: Examination was delayed due to number patient's being evaluated in the emergency department. Lab work was obtained based on standing order. 1531 Patient complains of periumbical abdominal pain with hyperactive BS's with n/v. No history of abdominal surgery. No other concerning symptoms. She has previous history of simliar symptoms with diagnosis of abdominal migraine/ gastritis. Temperature is 99.9 F, heart rate 104, and respiratory rate 23. White blood cell count 19.41. Patient meets SIRS criteria. Blood cultures 2 along with lactic acid ordered. Repeat lactic acid is been ordered for 2 hours. I have also ordered 1 L of NS [address] of the abdomen and pelvis with oral and IV contrast was initially ordered. This was canceled since it was wrong patient. Oral contrast was started on the patient. The CT of the abdomen and pelvis has been reordered. She is quite tender along the periumbilical region and distended with hyperactive bowel sounds. 01/25/19 17:14 No lactic acid has resulted. 2.1. 01/25/19 17:38 Lactic Acid 2.1. Awaiting for results of CT of the abdomen/ pelvis. 01/25/19 18:[address] results present. Reassessment, patients vital signs are stable. She is pain free after administration of pain medication. 01/25/19 18:59 CT abdomen and pelvis impression: Findings which are believed to be incidental as described above. Nothing acute is appreciated on CT study of the abdomen and pelvis. No significant changes seen from previous CT abdomen and pelvis study. Appendix was not visualized with certainty. 01/25/19 19:07 No UA results present. 01/25/19 19:28 Blood [id number], HR 70's, RR 16. 01/25/19 19:37 No UA results as of yet. UA slightly cloudy. Protein 2+, occult blood 1+, nitrates leukocyte Estrace negative. Urine bacteria many. Urine rbc's and wbc's within normal limits. 2003 Discussed results of UA, blood work, and CT with patient. Suspect cause of elevated WBC with no left shift is secondary to stress response with pain and vomiting. She has hx of similar symptoms with diagnosis of abdominal migraine/ gastritis. She has no pain, n/v, and is ready be discharged home. Return precautions were discussed with the patient. She will follow up with PCP in next 3-5 days for reevaluation with PCP. She had no further questions or concerns and agreed with plan. Departure - Departure Time of Disposition: 19:20 Disposition: Home, Self-Care 01 Condition: Good Clinical Impression: Hypokalemia, Abdominal pain of unknown cause, Hypokalemia Abdominal pain Qualifiers: Abdominal location: generalized Qualified Code(s): R10.84 - Generalized abdominal pain Leukocytosis Qualifiers: Leukocytosis type: unspecified Qualified Code(s): D72.829 - Elevated white blood cell count, unspecified - Discharge Information Prescriptions: Ondansetron [Zofran ODT] 4 mg PO Q6H PRN #12 tab.dis PRN Reason: Nausea Instructions: Hypokalemia, Leukocytosis, Abdominal Pain, Adult, [id number], Pain Without a Known Cause Referrals: PCP,None [Primary Care Provider] - Forms: ED Department Discharge Additional Instructions: Unclear cause of discomfort at this time. CT of the abdomen and pelvis revealed no acute findings. Lab work revealed elevated white blood cell count which is most likely secondary to the stress response with vomiting. Suggest taking Zofran 4 mg every 6 hours as needed for nausea vomiting. Push the fluids. Follow -up with PCP in the next 3-5 days.: Make an appointment. Return back to the ED if you develop any new or worsening symptoms.
[2019-01-25] MEDS ORDERED: Iopamidol 612 MG/ML 100 ML Bottle IVPUSH ONE (16:03)
[2019-01-25] MEDS ORDERED: Diatrizoate Meglumine/Diatrizoate Sodium 37% 120 ML Bottle PO ONE (16:03)
--- NOTE | 2019-01-25 18:36 | CT ---
CT abdomen and pelvis Technique: Multiple axial sections were obtained from above the dome of the diaphragm inferiorly through the pubic symphysis. Intravenous and oral contrast was utilized. Delayed images were obtained through the bladder. Comparison: Prior CT abdomen and pelvis study of 02/27/18. Findings: Visualized lung bases shows nothing acute on either side. Liver shows a small low density finding within the dome of the right lobe measuring 6 mm in size. This is too small to characterize by Hounsfield unit measurements but most likely due to a cyst. This finding is stable from previous exam. Liver shows no other focal abnormality other than a low density area next to the ligamentum teres fissure which is a normal variant. Spleen appears within normal limits. Adrenal glands show no nodule. Pancreas is within normal limits. Gallbladder contains no calcified gallstones. Cysts are noted within both kidneys. Delayed images shows contrast within nondilated distal ureters and within the bladder. Aorta shows atherosclerotic calcification which continues into the iliac veins. No aneurysm is seen. No retroperitoneal adenopathy or mesenteric abnormalities are seen. No pelvic mass or adenopathy is seen. No free fluid or inflammatory change is seen. Appendix is not visualized with certainty. Bone window settings were reviewed which show disc space narrowing at L5-S1 with vacuum phenomena. Degenerative apophyseal change is seen primarily at L4-5 and L5-S1. Impression: 1. Findings which are believed to be incidental as described above. Nothing acute is appreciated on CT study of the abdomen and pelvis. No significant change is seen from previous CT abdomen and pelvis study. Diagnostic code #2
== END 2019-01-25 20:21 | disposition home or self-care (01) ==
LOC: JD.ED 13:21
DX: R10.84 Generalized abdominal pain (principal); E87.6 Hypokalemia; D72.829 Elevated white blood cell count, unspecified; I10 Essential (primary) hypertension; I25.2 Old myocardial infarction; E66.9 Obesity, unspecified; F32.9 Major depressive disorder, single episode, unspecified; Z79.82 Long term (current) use of aspirin; Z88.8 Allergy status to other drugs, medicaments and biological substances; Z79.899 Other long term (current) drug therapy; Z88.5 Allergy status to narcotic agent; Z68.27 Body mass index [BMI] 27.0-27.9, adult
CPT/HCPCS: 36415; 74177; 80053; 81001; 83605; 85007; 85027; 86140; 87040; 96361; 96374; 99285; J1170; J7040; Q9963; Q9967; 99284

== ENCOUNTER 2019-01-26 06:02 | Emergency (ER) | payer MEDICARE, BC ==
[2019-01-26 06:10] VITALS: BP 171/97; PULSE 98
[2019-01-26] MEDS ORDERED: Metoclopramide 10 MG/2 ML SDV IVPUSH ONE ×2 (06:21→15:17)
[2019-01-26] MEDS ORDERED: HYDROmorphone 1 MG/ML Syringe IVPUSH ONE ×2 (06:21→11:05)
--- NOTE | 2019-01-26 06:23 | EDM.PDOC ---
ED HPI GENERAL MEDICAL PROBLEM - General Chief Complaint: Abdominal Pain Stated Complaint: [facility] Time Seen by Provider: 01/26/19 06:20 Source of Information: Reports: Patient History Limitations: Reports: No Limitations - History of Present Illness INITIAL COMMENTS - FREE TEXT/NARRATIVE: 68-year-old female presents to the ED with diffuse abdominal pain associated with nausea vomiting of bilious emesis 4 since leaving the department and 2 loose diarrhea stools without blood. Should intermittent mid abdominal cramping pain on top of constant pain. Patient was seen through the ED at about 1325 hrs. yesterday afternoon by George Lujan, physician assistant service manager. Patient had similar problems with diffuse periumbilical abdominal pain and a low-grade fever for about 24 hours prior to coming to the ED.. She had had some emesis at that time but no diarrhea. She states that she did not fill any prescriptions for medication. She is feeling markedly improved since her discharge from the ED. Her lab work included an elevated white count at 19,300 with a left shift. She also had a mildly elevated CRP. No definitive source of infection was identified. CT the abdomen was reported as basically normal without the appendix being well seen. Was felt that she was most likely suffering flulike illness. 6 days is that she got home she's had fever chills associated intermittent terrible abdominal cramping pain on top of constant Central midabdominal pain causing nausea and vomiting of bilious material without blood. Diarrhea 2 without blood. Has been able to eat or drink since leaving the department. Onset: Sudden Onset Date: 01/25/19 Duration: Hour(s): Location: Reports: Abdomen (Recurrent abdominal pain mostly periumbilical constant with a strong colicky component. Associated nausea vomiting and diarrhea stools.) Quality: Reports: Ache, Sharp, Stabbing (Deep aching constant pain with intermittent strong colicky component to the pain), Other Severity: Severe (Colicky component to the pain) Improves with: Reports: None ( management at 10) Worsens with: Reports: None Context: Denies: Activity, Exercise, Lifting, Sick Contact, Trauma, Other Associated Symptoms: Reports: Fever/Chills, Loss of Appetite, Malaise, Nausea/ Vomiting, Weakness. Denies: Cough, cough w sputum, Diaphoresis, Headaches, Rash , Seizure, Shortness of Breath, Syncope Treatments ELECTROLESS PLATER: Reports: Other (see below) (None.) Abdomen Pain Score (Numeric/FACES): 10 - Related Data Allergies Allergy/AdvReac Type Severity Reaction Status Date / Time aspirin Allergy Other Verified 01/26/19 06:10 docetaxel [From Taxotere] Allergy Other Verified 01/26/19 06:10 sertraline [From Zoloft] Allergy Cannot Verified 01/26/19 06:10 Remember Home Meds: Home Meds Citalopram [Celexa] 40 mg PO DAILY 09/28/16 [History] Hydrochlorothiazide 12.5 mg PO DAILY 09/28/16 [History] Metoprolol Tartrate 12.5 mg PO BID 05/06/17 [History] Clobetasol [Clobetasol 0.05%] 30 gm TOP BID 02/27/18 [History] Ketorolac [Toradol] 10 mg PO Q6H PRN #10 tab 02/27/18 [Rx] Mometasone Furoate [Elocon] 1 applic TOP ASDIRECTED PRN 02/27/18 [History] Metoclopramide HCl [Reglan] 10 mg PO Q6H PRN 04/29/18 [History] Ondansetron [Zofran ODT] 4 mg PO Q6H PRN #12 tab.dis 01/25/19 [Rx] PEG 3350/Na Sulf,Bicarb,Cl/KCl [Peg 3350 Electrolyte] 240 gm PO DAILY 01/25/19 [ History] Potassium Chloride [Klor-Con M20] 20 meq PO DAILY 01/25/19 [History] Ranitidine [Zantac] 150 mg PO BEDTIME 01/25/19 [History] Past Medical History HEENT History: Reports: Impaired Vision Other HEENT History: wears glasses Cardiovascular History: Reports: Hypertension, GA (3 years ago and did not require any stenting at that time.) Gastrointestinal History: Reports: Hemorrhoids, Other (See Below) Other Gastrointestinal History: pt states she had her hemorrhoids fried. States has had abdominal pain of this degree for past year and has seen multiple MD's with no diagonosis Psychiatric History: Reports: Depression Endocrine/Metabolic History: Reports: Obesity/BMI 30+ Oncologic (Cancer) History: Reports: Other (See Below) Other Oncologic History: right lumpectomy Dermatologic History: Reports: Psoriasis - Infectious Disease History Infectious Disease History: Reports: Influenza, Measles - Past Surgical History Oncologic Surgical History: Reports: Lumpectomy Social & Family History - Family History Family Medical History: Noncontributory HEENT: Reports: Cataract GI: Reports: Diverticulitis Dermatologic: Reports: Psoriasis - Tobacco Use Smoking Status *Q: Unknown Ever Smoked - Caffeine Use Caffeine Use: Reports: Tea Other Caffeine Use: one cup of tea in the morning - Living Situation & Occupation Living situation: Reports: Occupation: Unemployed ED ROS GENERAL - Review of Systems Review Of Systems: See Below Constitutional: Reports: Fever, Chills, Malaise, Weakness, Fatigue, Decreased Appetite, Weight Loss HEENT: Reports: No Symptoms Respiratory: Reports: No Symptoms Cardiovascular: Reports: No Symptoms Endocrine: Reports: Fatigue GI/Abdominal: Reports: Abdominal Pain, Diarrhea (2 loose diarrhea stools in the last 12 hours no blood), Decreased Appetite (See history of present illness), Nausea, Vomiting (Bilious emesis without hematemesis.). Denies: Bloody Stool, Difficulty Swallowing, Distension, Flatus, Hematemesis, Hematochezia, Melena, Mucous in Stool : Reports: No Symptoms Musculoskeletal: Reports: No Symptoms Skin: Reports: No Symptoms Neurological: Reports: No Symptoms Psychiatric: Reports: No Symptoms Hematologic/Lymphatic: Reports: No Symptoms Immunologic: Reports: No Symptoms ED EXAM, GI/ABD - Physical Exam Exam: See Below Exam Limited By: No Limitations General Appearance: Alert, WD/WN, Moderate Distress, Other (In severe pain at the time of my exam. Vital signs show temperature 36.7 pulse 98 in sinus respiratory to 16 BP 171/97. Pulse ox 98% on room air) Eyes: Bilateral: Normal Appearance (No scleral icterus.) Throat/Mouth: Other Head: Atraumatic (Time is dry and coated.), Normocephalic Neck: Normal Inspection, Supple, Non-Tender, Full Range of Motion. No: Lymphadenopathy (L), Lymphadenopathy (R) Respiratory/Chest: No Respiratory Distress, Lungs Clear, Normal Breath Sounds Cardiovascular: Normal Peripheral Pulses, Regular Rate, Rhythm, No Edema, No Gallop, No Murmur, No Rub GI/Abdominal Exam: Soft ( fairly quiet sent.), Tender (Tenderness mostly epigastrium and mid periumbilical area. Also tender in the left lower quadrant along the distribution of the sigmoid colon.), Abnormal Bowel Sounds (Bowel sounds are for the most part), Other (No surgical scars appreciated). No: No Distention, Guarding, Rigid, Rebound, Mass Back Exam: Normal Inspection, Full Range of Motion. No: CVA Tenderness (L), CVA Tenderness (R) Extremities: Normal Inspection, Normal Range of Motion, Non-Tender Neurological: Alert, Oriented, CN II-XII Intact, Normal Cognition, Normal Gait Psychiatric: Other Skin Exam: Warm, Dry, Intact (A lot of pain.), Normal Color, No Rash EKG INTERPRETATION EKG Date: 01/26/19 Time: 13:57 Rhythm: Other (Sinus tachycardia) Rate (Beats/Min): 101 [place]: Normal P-Wave: Enlarged (Left atrial hypertrophy pattern) ST-T: Other (Diffuse early repolarization pattern skewing the ST segment. No true signs of ST segment depression.) QT: Prolonged Course - Vital Signs Last Recorded V/S: Last Vital Signs Temp 37.2 C 01/26/19 11:25 Pulse 98 01/26/19 11:04 Resp 18 01/26/19 11:04 BP 171/97 H 01/26/19 06:07 Pulse Ox 98 01/26/19 11:04 - Orders/Labs/Meds Orders: Active Orders 24 hr Category Date Time Status EKG Documentation Completion [RC] STAT Care 01/26/19 13:51 Active CULTURE STOOL + SHIGATOX [RM] Stat Lab 01/26/19 06:42 Ordered WBC, STOOL [OP] Stat Lab 01/26/19 06:42 Ordered Dextrose 5%-0.9% NaCl [Dextrose 5%-Normal Saline] 1,000 Med 01/26/19 06:30 Active ml IV ASDIRECTED Sodium Chloride 0.9% [Normal Saline] 1,000 ml Med 01/26/19 09:30 Active IV ASDIRECTED Medication Orders Dextrose/Sodium Chloride (Dextrose 5%-Normal Saline) 1,000 mls @ 999 mls/hr IV ASDIRECTED JANICE Last Admin: 01/26/19 06:31 Dose: 999 mls/hr Sodium Chloride (Normal Saline) 1,000 mls @ 75 mls/hr IV ASDIRECTED JANICE Last Admin: 01/26/19 10:56 Dose: 75 mls/hr Labs: Laboratory Tests 01/26/19 01/26/19 01/26/19 Range/Units 06:25 06:28 06:28 WBC 15.79 H (3.98-10.04) K/mm3 RBC 4.77 (3.98-5.22) M/mm3 Hgb 14.5 (11.2-15.7) gm/dl Hct 42.0 (34.1-44.9) % MCV 88.1 (79.4-94.8) fl MCH 30.4 (25.6-32.2) pg MCHC 34.5 (32.2-35.5) g/dl RDW Std Deviation 47.3 H (36.4-46.3) fL Plt Count 298 (182-369) K/mm3 MPV 9.6 (9.4-12.3) fl Neutrophils % (Manual) 84 H (40-60) % Band Neutrophils % 0 (0-10) % Lymphocytes % (Manual) 10 L (20-40) % Atypical Lymphs % 0 % Monocytes % (Manual) 6 (2-10) % Eosinophils % (Manual) 0 L (0.7-5.8) % Basophils % (Manual) 0 L (0.1-1.2) Platelet Estimate Adequate RBC Morph Comment Normal Sodium 136 (136-145) mEq/L Potassium 3.1 L (3.5-5.1) mEq/L Chloride 102 (98-107) mEq/L Carbon Dioxide 21 (21-32) mEq/L Anion Gap 16.1 H (5-15) BUN 15 (7-18) mg/dL Creatinine 0.9 (0.55-1.02) mg/dL Est Cr Clr Drug Dosing 53.83 mL/min Estimated GFR (MDRD) > 60 (>60) mL/min BUN/Creatinine Ratio 16.7 (14-18) Glucose 139 H (80-115) mg/dL Lactic Acid (0.4-2.0) mmol/L Calcium 9.3 (8.5-10.1) mg/dL Magnesium 1.4 L (1.8-2.4) mg/dl Total Bilirubin 0.9 (0.2-1.0) mg/dL AST 17 (15-37) U/L ALT 17 (14-59) U/L Alkaline Phosphatase 61 (46-116) U/L CK-MB (CK-2) 4.1 H (0-3.6) ng/ml Troponin I 0.920 H* (0.00-0.056) ng/mL C-Reactive Protein 1.8 H* (<1.0) mg/dL NT-Pro-B Natriuret Pep (0-125) pg/mL Total Protein 7.5 (6.4-8.2) g/dl Albumin 4.0 (3.4-5.0) g/dl Globulin 3.5 gm/dL Albumin/Globulin Ratio 1.1 (1-2) Lipase 85 (73-393) U/L Urine Color (Yellow) Urine Appearance (Clear) Urine pH (5.0-8.0) Ur Specific [place] (1.005-1.030) Urine Protein (Negative) Urine Glucose (UA) (Negative) Urine Ketones (Negative) Urine Occult Blood (Negative) Urine Nitrite (Negative) Urine Bilirubin (Negative) Urine Urobilinogen (0.2-1.0) Ur Leukocyte Esterase (Negative) Urine RBC (0-5) /hpf Urine WBC (0-5) /hpf Ur Epithelial Cells (0-5) /hpf Urine Bacteria (FEW) /hpf Urine Mucus (FEW) /hpf 01/26/19 01/26/19 01/26/19 Range/Units 06:28 06:28 10:39 WBC (3.98-10.04) K/mm3 RBC (3.98-5.22) M/mm3 Hgb (11.2-15.7) gm/dl Hct (34.1-44.9) % MCV (79.4-94.8) fl MCH (25.6-32.2) pg MCHC (32.2-35.5) g/dl RDW Std Deviation (36.4-46.3) fL Plt Count (182-369) K/mm3 MPV (9.4-12.3) fl Neutrophils % (Manual) (40-60) % Band Neutrophils % (0-10) % Lymphocytes % (Manual) (20-40) % Atypical Lymphs % % Monocytes % (Manual) (2-10) % Eosinophils % (Manual) (0.7-5.8) % Basophils % (Manual) (0.1-1.2) Platelet Estimate RBC Morph Comment Sodium (136-145) mEq/L Potassium (3.5-5.1) mEq/L Chloride (98-107) mEq/L Carbon Dioxide (21-32) mEq/L Anion Gap (5-15) BUN (7-18) mg/dL Creatinine (0.55-1.02) mg/dL Est Cr Clr Drug Dosing mL/min Estimated GFR (MDRD) (>60) mL/min BUN/Creatinine Ratio (14-18) Glucose (80-115) mg/dL Lactic Acid 2.0 (0.4-2.0) mmol/L Calcium (8.5-10.1) mg/dL Magnesium (1.8-2.4) mg/dl Total Bilirubin (0.2-1.0) mg/dL AST (15-37) U/L ALT (14-59) U/L Alkaline Phosphatase (46-116) U/L CK-MB (CK-2) (0-3.6) ng/ml Troponin I (0.00-0.056) ng/mL C-Reactive Protein (<1.0) mg/dL NT-Pro-B Natriuret Pep 04371 H (0-125) pg/mL Total Protein (6.4-8.2) g/dl Albumin (3.4-5.0) g/dl Globulin gm/dL Albumin/Globulin Ratio (1-2) Lipase (73-393) U/L Urine Color Yellow (Yellow) Urine Appearance Clear (Clear) Urine pH 6.0 (5.0-8.0) Ur Specific [place] 1.015 (1.005-1.030) Urine Protein Negative (Negative) Urine Glucose (UA) Negative (Negative) Urine Ketones Negative (Negative) Urine Occult Blood Trace-intact H (Negative) Urine Nitrite Negative (Negative) Urine Bilirubin Negative (Negative) Urine Urobilinogen 0.2 (0.2-1.0) Ur Leukocyte Esterase Negative (Negative) Urine RBC 0-5 (0-5) /hpf Urine WBC 0-5 (0-5) /hpf Ur Epithelial Cells 0-5 (0-5) /hpf Urine Bacteria Few (FEW) /hpf Urine Mucus Not seen (FEW) /hpf Meds: Medications Generic Name Dose Route Start Last Admin Trade Name Freq PRN Reason Stop Dose Admin Dextrose/Sodium Chloride 1,000 mls @ 999 mls/hr 01/26/19 06:30 01/26/19 06:31 Dextrose 5%-Normal Saline IV 999 mls/hr ASDIRECTED JANICE Administration Sodium Chloride 1,000 mls @ 75 mls/hr 01/26/19 09:30 01/26/19 10:56 Normal Saline IV 75 mls/hr ASDIRECTED JANICE Administration Discontinued Medications Generic Name Dose Route Start Last Admin Trade Name Preet PRN Reason Stop Dose Admin Acetaminophen 975 mg 01/26/19 11:06 01/26/19 11:25 Tylenol PO 01/26/19 11:07 975 mg ONETIME ONE Administration Furosemide 60 mg 01/26/19 08:14 01/26/19 08:25 Lasix IVPUSH 01/26/19 08:15 60 mg NOW ONE Administration Hydromorphone HCl 1 mg 01/26/19 06:21 01/26/19 06:31 Dilaudid IVPUSH 01/26/19 06:22 1 mg ONETIME ONE Administration Hydromorphone HCl 1 mg 01/26/19 11:05 Dilaudid IVPUSH 01/26/19 11:06 ONETIME ONE Potassium Chloride 10 meq/ 100 mls @ 100 mls/hr 01/26/19 07:30 01/26/19 07:56 Premix IV 01/26/19 08:29 100 mls/hr ONETIME ONE Administration Sodium Chloride 1,000 mls @ 500 mls/hr 01/26/19 08:00 01/26/19 07:56 Normal Saline IV 500 mls/hr ASDIRECTED JANICE Administration Magnesium Sulfate 4 gm/ Premix 50 mls @ 12.5 mls/hr 01/26/19 09:51 01/26/19 10:56 IV 01/26/19 13:50 12.5 mls/hr ONETIME ONE Administration Ceftriaxone Sodium 2 gm/ 100 mls @ 200 mls/hr 01/26/19 11:05 01/26/19 11:29 Sodium Chloride IV 01/26/19 11:34 200 mls/hr ONETIME ONE Administration Metoclopramide HCl 7.5 mg 01/26/19 06:21 01/26/19 06:31 Reglan IVPUSH 01/26/19 06:22 7.5 mg ONETIME ONE Administration Ondansetron HCl 4 mg 01/26/19 11:05 01/26/19 11:25 Zofran IVPUSH 01/26/19 11:06 4 mg ONETIME ONE Administration - Radiology Interpretation Free Text/Narrative:: 68-year-old female presents to the ED once again within 24 Time complaining of diffuse periumbilical abdominal pain with a strong cramping or colicky component to Nausea vomiting bilious material and has had diarrhea 2 since leaving the department without blood. i labs done yesterday revealed an elevated white count at 19.41 with a left shift of 84% neutrophils no bands cells reported. Hemoglobin was normal. Potassium slightly low at 3.3. Anion gap is slightly elevated at 17.3. Lactic acid was 2.1. CRP was 1.4. She did have a CT of the abdomen and pelvis performed which did not reveal any obvious pathology although the appendix was not well defined. At present she appears to have a low-grade fever elbow nurses recorded temperature below normal. She is hypertensive due to pain response. She is tender throughout the abdomen but mostly left lower quadrant along the suspicion of sigmoid colon and periumbilical area. Denies any recent antibiotic usage. Appears to be in a lot of pain out of clinical proportion to findings. Plan routine labs to be performed including serum lipase. Blood cultures were done yesterday and will not be repeated today. A urinalysis was also done yesterday was normal but I will repeated. One view of the abdomen will be done. Patient will receive IV fluids D5 normal saline open. Will receive Dilaudid 1 mg IV for pain relief with Reglan 7.5 mg IV for nausea relief. - Re-Assessments/Exams Free Text/Narrative Re-Assessment/Exam: 01/26/19 07:10: KUB reveals a fair amount of contrast within the large bowel mixed with stool. It appears therefore the diarrhea is likely of low volume. No bowel obstruction or air-fluid levels or free air identified. Chest x-ray reveals no cardiomegaly. It does suggests diffuse fibrosis type pattern and mild diffuse vascular congestion pattern. There is a small infiltrate right upper lobe concerning for possible early pneumonia.Patient has been able to rest and close sleep since IV analgesia. 01/26/19 08:17 Labs are back revealing an elevated white count at 15.79 improved from yesterday one was greater than 19,000. Differential shows 84% neutrophils with no bands. Hemoglobin is 14.5 with hematocrit of 42.0. Platelet count is 298,000. Sodium 136 with potassium low at 3.1. Chloride is 102 with bicarbonate 21. Anion gap is mildly elevated at 16.1. BUN is 15 with a creatinine of 0.9. GFR is greater than 60. Glucose is elevated 139. Lactic acid today is 2.0. Yesterday was 2.1. Calcium 9.3. Magnesium low at 1.4. Liver function normal. CK-MB fraction elevated at 4.1. Troponin I elevated at 0.920. C -reactive protein elevated 1.8. BNP elevated at 14,794. Total protein 7.5 with an albumin fraction of 4.0. Lipase is 85. 01/26/19 09:52 Patient has voided several times and he had a urinalysis is not yet available. I started the patient on a potassium came right or 10 mg IV and magnesium sulfate 4 g IV. Be to admit her tentatively here but I will discuss the case with and not showroom salesperson hospitalist at this time. He is going to need echocardiogram to assess why she is gone into significant congestive failure. Possibility of having another GA in the past. I reexamined the patient and she still some mild left lower quadrant abdominal pain but no peritoneal signs to suggest diverticulitis. I reviewed her CT scan done yesterday and she has very few diverticuli or evidence of any potential for infection in the abdomen. 6 rate does show infiltrate throughout there is a combination of interstitial lung disease and diffuse vascular congestion. There is a small possibility of a pneumonic infiltrate right upper lobe. Patient has no cough. I will discuss the case with showroom salesperson hospitalist Dr. Richter. 01/26/19 10:56 Repeat urinalysis once again does not show any signs of an infective process. Did discuss the case with Dr. Mejia showroom salesperson hospitalist and he agrees patient requires cardiology consultation since her BNP is slightly elevated. Concern is for recent myocardial infarction. When asked about where she was cared for in last occasion was down in [place]. Therefore there are no records available records here on her. Her pain is coming back once again in the left lower quadrant and slightly inner left lower back. Is highly suspicious for renal stone. I'm going to repeat CT scan done of her abdomen without contrast. We'll repeat Dilaudid 1 mg IV with Zofran 4 mg IV for pain relief. Temperature is 99.0. She feels warmer than this. i am Going to give her ceftriaxone 2 gm IV. 01/26/19 11:10 CT scan of the abdomen performed without any contrast per renal protocol done. Kidneys show no abnormal calcifications. Cysts are noted within both kidneys which are better seen on been on the previous contrast study .there is no ureteral dilatation or stone identified. Visualized lung bases show nothing acute noncontrast appearance of the liver and spleen appear to be within normal limits. Adrenal glands show no nodule pancreas is within normal limits. Vicarious excretion of contrast is noted within the gallbladder which is a normal variant. There is atherosclerotic calcination noted within the aorta and iliac vessels without aneurysm. No retroperitoneal adenopathy or mesenteric adenopathy noted. No pelvic mass or adenopathy noted either. Appendix not visualized with any degree of certainty. Bone window settings were reviewed which show degenerative change primarily within the apophyseal joints at L4-L5 and L5-S1 levels. There is also disc space narrowing at L5-S1 with vacuum phenomena. No findings to account for the patient's pain. Therefore one if she doesn't have an epiploicae appendagitis.Patient has opted to be transferred to [facility] in [place] for definitive cardiology consultation and management. 01/26/19 13;20: I spoken with Dr. Nunez--hospitalist at [facility] and he is accepted care of this patient. 2 prongs. Left lower quadrant abdominal pain of unclear etiology. [place] low-grade fever and elevated white count with slightly elevated lactic acid worrisome for an infective process but could also be due to flexion of an appendices epiploicae. Second problem is new onset of significant congestive failure without chest pain recently. She does have an elevated troponin I which may be due to the acute congestive failure. However she may well of had a recent myocardial infarction that precipitated acute congestive failure. She needs cardiac workup in this regard. Departure - Departure Time of Disposition: 14:42 Disposition: DC/Tfer to [facility] Condition: Fair Clinical Impression: Elevated troponin I measurement, Fever of unknown origin, Hypokalemia due to inadequate potassium intake, Hypomagnesemia, Neutrophilic leukocytosis Abdominal pain Qualifiers: Abdominal location: generalized Qualified Code(s): R10.84 - Generalized abdominal pain Congestive heart failure Qualifiers: Heart failure type: unspecified Heart failure chronicity: acute Qualified Code( s): I50.9 - Heart failure, unspecified - Discharge Information *PRESCRIPTION DRUG MONITORING PROGRAM REVIEWED*: Not Applicable *COPY OF PRESCRIPTION DRUG MONITORING REPORT IN PATIENT JIMMY: Not Applicable Referrals: Nurys Coello, [employer] [Primary Care Provider] - Forms: ED Department Discharge Additional Instructions: Patient be sent to [facility] in [facility] for further cardiology consultation due to new onset congestive heart failure with markedly elevated BNP. No recent history of chest pain. She does have an elevated troponin I measurement worrisome for possible recent myocardial infarction. She has a low- grade fever of unclear etiology. She has persistent left lower quadrant abdominal pain of unclear etiology tested by CT with contrast yesterday and CT without contrast today. The nature of her pain appears to be quite severe and colicky. This suggests that she may have been infarcted appendices epiploicae . This too could account for her slightly elevated lactic acid. - My Orders Last 24 Hours: My Active Orders 01/26/19 06:30 Dextrose 5%-0.9% NaCl [Dextrose 5%-Normal Saline] 1,000 ml IV ASDIRECTED 01/26/19 06:42 CULTURE STOOL + SHIGATOX [RM] Stat WBC, STOOL [OP] Stat 01/26/19 09:30 Sodium Chloride 0.9% [Normal Saline] 1,000 ml IV ASDIRECTED 01/26/19 13:51 EKG Documentation Completion [RC] STAT - Assessment/Plan Last 24 Hours: My Active Orders 01/26/19 06:30 Dextrose 5%-0.9% NaCl [Dextrose 5%-Normal Saline] 1,000 ml IV ASDIRECTED 01/26/19 06:42 CULTURE STOOL + SHIGATOX [RM] Stat WBC, STOOL [OP] Stat 01/26/19 09:30 Sodium Chloride 0.9% [Normal Saline] 1,000 ml IV ASDIRECTED 01/26/19 13:51 EKG Documentation Completion [RC] STAT
[2019-01-26] MEDS ORDERED: Dextrose 5%-0.9% NaCl 1,000 ML IV SCH (06:30)
[2019-01-26] MEDS ORDERED: Potassium Chloride 10 MEQ in Premix Bag 1 BAG IV ONE (07:30)
[2019-01-26] MEDS ORDERED: Sodium Chloride 0.9% 1,000 ML IV SCH ×2 (08:00→09:30)
[2019-01-26] MEDS ORDERED: Furosemide 40 MG/4 ML VIAL IVPUSH ONE (08:14)
--- NOTE | 2019-01-26 09:39 | CR ---
Abdomen: Supine view of the abdomen was obtained. Comparison: Prior abdominal x-ray of 04/29/[address] abdomen and pelvis study of 01/25/19. Findings: Contrast is noted within colon from recent CT exam. Bowel gas pattern is normal. No abnormal calcifications or soft tissue abnormality is seen. Bony structures are unremarkable. Impression: 1. Contrast within colon from recent CT exam. 2. Nothing acute is appreciated on supine abdominal x-ray. Diagnostic code #2
--- NOTE | 2019-01-26 09:39 | CR ---
Chest: Portable view of the chest was obtained. Comparison: Prior chest x-ray of 05/27/18. Heart size is normal for portable technique. Tortuous thoracic aorta is noted. Lung markings are mildly increased possibly due to mild pulmonary vascular congestion. Lungs otherwise are clear. Surgical clips are seen within the right axillary region. Impression: 1. Possible mild pulmonary vascular congestion. Diagnostic code #3
[2019-01-26] MEDS ORDERED: Magnesium Sulfate/Water 4 GM in Premix Bag 1 BAG IV ONE (09:51)
[2019-01-26] MEDS ORDERED: Ondansetron 4 MG/2 ML SDV IVPUSH ONE (11:05)
[2019-01-26] MEDS ORDERED: cefTRIAXone 2 GM in Sodium Chloride 0.9% 100 ML IV ONE (11:05)
[2019-01-26] MEDS ORDERED: Acetaminophen 325 MG Tab PO ONE (11:06)
--- NOTE | 2019-01-26 13:29 | CT ---
CT abdomen and pelvis Technique: Multiple axial sections were obtained from above the dome of the diaphragm inferiorly through the pubic symphysis. Intravenous contrast was not utilized. There is some oral contrast being seen within portions of the colon. Comparison: Prior CT abdomen and pelvis study performed one day earlier which was a contrast exam. Findings: Kidneys show no abnormal calcifications. Cysts are noted within both kidneys which are better seen on the previous contrast study. No ureteral dilatation or ureteral stone is seen. Visualized lung bases show nothing acute. Noncontrast appearance of the liver and spleen appear within normal limits. Adrenal glands show no nodule. Pancreas is within normal limits. Vicarious excretion of contrast is noted within the gallbladder which is a normal variant. Atherosclerotic calcification is noted within the aorta and iliac vessels without aneurysm. No retroperitoneal adenopathy or mesenteric abnormality is seen. No pelvic mass or adenopathy is seen. Appendix not visualized with certainty. Bone window settings were reviewed which show degenerative change primarily within the apophyseal joints at L4-L5 and L5-S1 and disc space narrowing at L5-S1 with vacuum phenomena. Impression: 1. No renal calculi, ureteral dilatation or ureteral stone is seen. 2. Cysts within the kidneys as well as a posterior cyst within the right lobe of the liver. 3. Other findings which are felt incidental as noted above. Nothing acute is seen. Diagnostic code #2
[2019-01-26] MEDS ORDERED: Metoclopramide 10 MG/2 ML SDV ONE (15:16)
== END 2019-01-26 15:35 ==
LOC: JD.ED 06:02 → SUPCPDRO 06:02 → JD.ED 15:35
DX: R10.84 Generalized abdominal pain (principal); I11.0 Hypertensive heart disease with heart failure; I50.9 Heart failure, unspecified; R79.89 Other specified abnormal findings of blood chemistry; E87.6 Hypokalemia; E83.42 Hypomagnesemia; D72.829 Elevated white blood cell count, unspecified; R50.9 Fever, unspecified; F32.9 Major depressive disorder, single episode, unspecified; E66.9 Obesity, unspecified; Z68.27 Body mass index [BMI] 27.0-27.9, adult; Z88.8 Allergy status to other drugs, medicaments and biological substances; Z79.899 Other long term (current) drug therapy
CPT/HCPCS: 36415; 71045; 74018; 74176; 80053; 81001; 82553; 83605; 83690; 83735; 83880; 84484; 85007; 85027; 86140; 93005; 96361; 96365; 96366; 96367; 96368; 96375; 96376; 99285; A9270; J0696; J1170; J1940; J2405; J2765; J3475; J3480; J7030; J7040; J7042; 93010

== ENCOUNTER 2019-11-18 11:22 | Emergency (ER) | payer MEDICARE, BC ==
[2019-11-18 11:35] VITALS: PULSE 110
[2019-11-18] MEDS ORDERED: Ondansetron 4 MG/2 ML SDV IVPUSH ONE (11:48)
[2019-11-18] MEDS ORDERED: HYDROmorphone 0.5 MG/0.5 ML Syringe IVPUSH ONE ×2 (11:48→15:14)
[2019-11-18] MEDS ORDERED: Sodium Chloride 0.9% 10 ML Syringe FLUSH PRN ×2 (11:48→16:30)
--- NOTE | 2019-11-18 11:54 | EDM.PDOC ---
ED HPI GENERAL MEDICAL PROBLEM - General Chief Complaint: Respiratory Problem Stated Complaint: SOB Time Seen by Provider: 11/18/19 11:39 Source of Information: Reports: Patient, RN Notes Reviewed - History of Present Illness INITIAL COMMENTS - FREE TEXT/NARRATIVE: 69 year old female had sudden onset of abd pain and vomiting late yesterday afternoon. The pain, nausea and vomiting has continued. No diarrhea. She also feels more short of breath than usual. No cough, fever or chills. There has been no chest pain, pressure or tighthess. No shoulder, arm or back pain. She does smoke. Noted to be hypoxic on arrival to ED. Hx of breast cancer many years ago, no prior abd surgeries. Abdomen Pain Score (Numeric/FACES): 10 - Related Data Allergies Allergy/AdvReac Type Severity Reaction Status Date / Time aspirin Allergy Severe Other Verified 11/18/19 11:36 docetaxel [From Taxotere] Allergy Severe Other Verified 11/18/19 11:36 sertraline [From Zoloft] Allergy Severe Cannot Verified 11/18/19 11:36 Remember Home Meds: Home Meds Citalopram [Celexa] 40 mg PO DAILY 09/28/16 [History] Hydrochlorothiazide 12.5 mg PO DAILY 09/28/16 [History] Metoprolol Tartrate 12.5 mg PO BID 05/06/17 [History] Clobetasol [Clobetasol 0.05%] 30 gm TOP BID 02/27/18 [History] Ketorolac [Toradol] 10 mg PO Q6H PRN #10 tab 02/27/18 [Rx] Mometasone Furoate [Elocon] 1 applic TOP ASDIRECTED PRN 02/27/18 [History] Metoclopramide HCl [Reglan] 10 mg PO Q6H PRN 04/29/18 [History] Ondansetron [Zofran ODT] 4 mg PO Q6H PRN #12 tab.dis 01/25/19 [Rx] PEG 3350/Na Sulf,Bicarb,Cl/KCl [Peg 3350 Electrolyte] 240 gm PO DAILY 01/25/19 [History] Potassium Chloride [Klor-Con M20] 20 meq PO DAILY 01/25/19 [History] Ranitidine [Zantac] 150 mg PO BEDTIME 01/25/19 [History] Past Medical History HEENT History: Reports: Impaired Vision Other HEENT History: wears glasses Cardiovascular History: Reports: Hypertension, [place] Gastrointestinal History: Reports: Hemorrhoids, Other (See Below) Other Gastrointestinal History: pt states she had her hemorrhoids fried. States has had abdominal pain of this degree for past year and has seen multiple MD's with no diagonosis Psychiatric History: Reports: Depression Endocrine/Metabolic History: Reports: Obesity/BMI 30+ Oncologic (Cancer) History: Reports: Other (See Below) Other Oncologic History: right lumpectomy Dermatologic History: Reports: Psoriasis - Infectious Disease History Infectious Disease History: Reports: Influenza, Measles - Past Surgical History Oncologic Surgical History: Reports: Lumpectomy Social & Family History - Family History Family Medical History: Noncontributory HEENT: Reports: Cataract GI: Reports: Diverticulitis Dermatologic: Reports: Psoriasis - Tobacco Use Smoking Status *Q: Current Every Day Smoker Years of Tobacco use: 40 Packs/Tins Daily: 0.5 - Caffeine Use Caffeine Use: Reports: Coffee Other Caffeine Use: one cup of tea in the morning - Living Situation & Occupation Living situation: Reports: Occupation: Unemployed ED ROS GENERAL - Review of Systems Review Of Systems: See Below Constitutional: Denies: Fever, Chills, Diaphoresis HEENT: Denies: Throat Pain Respiratory: Reports: Shortness of Breath, Cough (occasional). Denies: Wheezing Cardiovascular: Reports: Dyspnea on Exertion. Denies: Chest Pain, Syncope GI/Abdominal: Reports: Abdominal Pain, Nausea, Vomiting. Denies: Diarrhea Musculoskeletal: Denies: Shoulder Pain, Arm Pain, Back Pain Skin: Denies: Rash Neurological: Reports: Dizziness ED EXAM, GENERAL - Physical Exam Exam: See Below General Appearance: Alert, Mild Distress Eye Exam: Bilateral Eye: PERRL Throat/Mouth: Other (oral mucosa dry) Head: Atraumatic Neck: Supple Respiratory/Chest: Respiratory Distress (moderate tachypnea) Cardiovascular: Tachycardia GI/Abdominal: Tender (mild diffuse tenderness) Back Exam: No: CVA Tenderness (L), CVA Tenderness (R) Neurological: Alert, Oriented, No Motor/Sensory Deficits Skin Exam: Warm, Dry, Normal Color EKG INTERPRETATION EKG Date: 11/18/19 Rhythm: NSR P-Wave: Present QRS: Other (q waves V2, V3) ST-T: Elevated (slight st elevation V2-4) Course - Vital Signs Last Recorded V/S: Last Vital Signs Temp 98.6 F 11/18/19 11:29 Pulse 110 H 11/18/19 11:29 Resp 20 11/18/19 12:36 BP 109/81 11/18/19 12:36 Pulse Ox 93 L 11/18/19 12:36 - Orders/Labs/Meds Orders: Active Orders 24 hr Category Date Time Status EKG 12 Lead [EKG Documentation Completion] [RC] STAT Care 11/18/19 14:19 Active Peripheral IV Care [RC] . DIRECTED Care 11/18/19 11:49 Active Chest PE [Ang Chest] [CT] Stat Exams 11/18/19 16:27 Taken CBC W/O DIFF,HEMOGRAM [HEME] MOTH@0700 Lab 11/22/19 07:00 Ordered CBC W/O DIFF,HEMOGRAM [HEME] MOTH@0700 Lab 11/25/19 07:00 Ordered CBC W/O DIFF,HEMOGRAM [HEME] MOTH@0700 Lab 11/29/19 07:00 Ordered CBC W/O DIFF,HEMOGRAM [HEME] MOTH@0700 Lab 12/02/19 07:00 Ordered CBC W/O DIFF,HEMOGRAM [HEME] MOTH@0700 Lab 12/06/19 07:00 Ordered CBC W/O DIFF,HEMOGRAM [HEME] MOTH@0700 Lab 12/09/19 07:00 Ordered Heparin Sodium/D5W [Heparin 25,000 Units in D5W 500 ML] Med 11/18/19 16:15 Active 25,000 units in 500 ml IV TITRATE Sodium Chloride 0.9% [Normal Saline] 1,000 ml Med 11/18/19 12:00 Active IV ONETIME Sodium Chloride 0.9% [Normal Saline] 45 ml Med 11/18/19 16:30 Active IV ASDIRECTED Sodium Chloride 0.9% [Saline Flush] Med 11/18/19 11:48 Active 10 ml FLUSH ASDIRECTED PRN Sodium Chloride 0.9% [Saline Flush] Med 11/18/19 16:30 Active 10 ml FLUSH ONETIME PRN Peripheral IV Insertion Adult [OM.PC] Stat Oth 11/18/19 11:47 Ordered Medication Orders Sodium Chloride (Normal Saline) 1,000 mls @ 999 mls/hr IV ONETIME JANICE Last Admin: 11/18/19 12:02 Dose: 999 mls/hr Documented by: RICHARD Heparin Sodium/Dextrose (Heparin 25,000 Units In D5w 500 Ml) 25,000 units in 500 mls @ 19.051 mls/hr IV TITRATE JANICE; Protocol Last Admin: 11/18/19 16:24 Dose: 12 units/kg/hr, 19.051 mls/hr Documented by: HANY Cosigned by: RICHARD Sodium Chloride (Normal Saline) 45 mls @ 40 mls/hr IV ASDIRECTED JANICE Last Admin: 11/18/19 16:52 Dose: 40 mls/hr Documented by: CARMEN Sodium Chloride (Saline Flush) 10 ml FLUSH ASDIRECTED PRN PRN Reason: Keep Vein Open Last Admin: 11/18/19 11:56 Dose: 10 ml Documented by: RICHARD Sodium Chloride (Saline Flush) 10 ml FLUSH ONETIME PRN PRN Reason: Keep Vein Open Last Admin: 11/18/19 16:52 Dose: 10 ml Documented by: CARMEN Labs: Laboratory Tests 11/18/19 11/18/19 11/18/19 Range/Units 12:15 12:15 12:15 WBC 16.80 H (3.98-10.04) K/mm3 RBC 4.91 (3.98-5.22) M/mm3 Hgb 15.1 (11.2-15.7) gm/dl Hct 44.2 (34.1-44.9) % MCV 90.0 (79.4-94.8) fl MCH 30.8 (25.6-32.2) pg MCHC 34.2 (32.2-35.5) g/dl RDW Std Deviation 46.6 H (36.4-46.3) fL Plt Count 329 (182-369) K/mm3 MPV 10.1 (9.4-12.3) fl Neut % (Auto) 89.0 H (34.0-71.1) % Lymph % (Auto) 6.0 L (19.3-51.7) % Marshall % (Auto) 4.7 (4.7-12.5) % Eos % (Auto) 0 L (0.7-5.8) Baso % (Auto) 0.1 (0.1-1.2) % Neut # (Auto) 14.96 H (1.56-6.13) K/mm3 Lymph # (Auto) 1.00 L (1.18-3.74) K/mm3 Marshall # (Auto) 0.79 H (0.24-0.36) K/mm3 Eos # (Auto) 0.00 L (0.04-0.36) K/mm3 Baso # (Auto) 0.01 (0.01-0.08) K/mm3 Manual Slide Review Abnormal smear D-Dimer, Quantitative (0.19-0.50) mg/L Puncture Site ABG pH (7.35-7.45) ABG pCO2 (35.0-45.0) mmHg ABG pO2 (80.0-100.0) mmHg ABG HCO3 (22.0-26.0) meq/L ABG O2 Saturation (96.0-97.0) % ABG Base Excess (-2-2.0) Ang Test A-a Gradient mmHg Oxygen Flow Rate FiO2 (21.00-100.00) % Sodium 143 (136-145) mEq/L Potassium 3.3 L (3.5-5.1) mEq/L Chloride 106 (98-107) mEq/L Carbon Dioxide 22 (21-32) mEq/L Anion Gap 18.3 H (5-15) BUN 21 H (7-18) mg/dL Creatinine 1.2 H (0.55-1.02) mg/dL Est Cr Clr Drug Dosing 39.81 mL/min Estimated GFR (MDRD) 45 (>60) mL/min BUN/Creatinine Ratio 17.5 (14-18) Glucose 180 H (80-115) mg/dL Calcium 9.3 (8.5-10.1) mg/dL Ferritin (8-252) ng/ml Total Bilirubin 0.4 (0.2-1.0) mg/dL AST 15 (15-37) U/L ALT 15 (14-59) U/L Alkaline Phosphatase 67 (46-116) U/L Troponin I (0.00-0.056) ng/mL C-Reactive Protein 1.5 H* (<1.0) mg/dL NT-Pro-B Natriuret Pep (0-125) pg/mL Total Protein 7.6 (6.4-8.2) g/dl Albumin 3.8 (3.4-5.0) g/dl Globulin 3.8 gm/dL Albumin/Globulin Ratio 1.0 (1-2) Lipase 37 L (73-393) U/L SARS Virus RNA (PCR) (NEGATIVE) 11/18/19 11/18/19 11/18/19 Range/Units 12:15 12:15 14:10 WBC (3.98-10.04) K/mm3 RBC (3.98-5.22) M/mm3 Hgb (11.2-15.7) gm/dl Hct (34.1-44.9) % MCV (79.4-94.8) fl MCH (25.6-32.2) pg MCHC (32.2-35.5) g/dl RDW Std Deviation (36.4-46.3) fL Plt Count (182-369) K/mm3 MPV (9.4-12.3) fl Neut % (Auto) (34.0-71.1) % Lymph % (Auto) (19.3-51.7) % Marshall % (Auto) (4.7-12.5) % Eos % (Auto) (0.7-5.8) Baso % (Auto) (0.1-1.2) % Neut # (Auto) (1.56-6.13) K/mm3 Lymph # (Auto) (1.18-3.74) K/mm3 Marshall # (Auto) (0.24-0.36) K/mm3 Eos # (Auto) (0.04-0.36) K/mm3 Baso # (Auto) (0.01-0.08) K/mm3 Manual Slide Review D-Dimer, Quantitative 1.77 H (0.19-0.50) mg/L Puncture Site ABG pH (7.35-7.45) ABG pCO2 (35.0-45.0) mmHg ABG pO2 (80.0-100.0) mmHg ABG HCO3 (22.0-26.0) meq/L ABG O2 Saturation (96.0-97.0) % ABG Base Excess (-2-2.0) Ang Test A-a Gradient mmHg Oxygen Flow Rate FiO2 (21.00-100.00) % Sodium (136-145) mEq/L Potassium (3.5-5.1) mEq/L Chloride (98-107) mEq/L Carbon Dioxide (21-32) mEq/L Anion Gap (5-15) BUN (7-18) mg/dL Creatinine (0.55-1.02) mg/dL Est Cr Clr Drug Dosing mL/min Estimated GFR (MDRD) (>60) mL/min BUN/Creatinine Ratio (14-18) Glucose (80-115) mg/dL Calcium (8.5-10.1) mg/dL Ferritin 189 (8-252) ng/ml Total Bilirubin (0.2-1.0) mg/dL AST (15-37) U/L ALT (14-59) U/L Alkaline Phosphatase (46-116) U/L Troponin I (0.00-0.056) ng/mL C-Reactive Protein (<1.0) mg/dL NT-Pro-B Natriuret Pep (0-125) pg/mL Total Protein (6.4-8.2) g/dl Albumin (3.4-5.0) g/dl Globulin gm/dL Albumin/Globulin Ratio (1-2) Lipase (73-393) U/L SARS Virus RNA (PCR) Negative (NEGATIVE) 11/18/19 11/18/19 11/18/19 Range/Units 14:49 14:49 15:15 WBC (3.98-10.04) K/mm3 RBC (3.98-5.22) M/mm3 Hgb (11.2-15.7) gm/dl Hct (34.1-44.9) % MCV (79.4-94.8) fl MCH (25.6-32.2) pg MCHC (32.2-35.5) g/dl RDW Std Deviation (36.4-46.3) fL Plt Count (182-369) K/mm3 MPV (9.4-12.3) fl Neut % (Auto) (34.0-71.1) % Lymph % (Auto) (19.3-51.7) % Marshall % (Auto) (4.7-12.5) % Eos % (Auto) (0.7-5.8) Baso % (Auto) (0.1-1.2) % Neut # (Auto) (1.56-6.13) K/mm3 Lymph # (Auto) (1.18-3.74) K/mm3 Marshall # (Auto) (0.24-0.36) K/mm3 Eos # (Auto) (0.04-0.36) K/mm3 Baso # (Auto) (0.01-0.08) K/mm3 Manual Slide Review D-Dimer, Quantitative (0.19-0.50) mg/L Puncture Site Lt radial ABG pH 7.32 L (7.35-7.45) ABG pCO2 44.4 (35.0-45.0) mmHg ABG pO2 52.0 L (80.0-100.0) mmHg ABG HCO3 21.9 L (22.0-26.0) meq/L ABG O2 Saturation 77.3 L (96.0-97.0) % ABG Base Excess -3.8 L (-2-2.0) Ang Test Positive A-a Gradient 43 mmHg Oxygen Flow Rate 0.0 FiO2 21.00 (21.00-100.00) % Sodium (136-145) mEq/L Potassium (3.5-5.1) mEq/L Chloride (98-107) mEq/L Carbon Dioxide (21-32) mEq/L Anion Gap (5-15) BUN (7-18) mg/dL Creatinine (0.55-1.02) mg/dL Est Cr Clr Drug Dosing mL/min Estimated GFR (MDRD) (>60) mL/min BUN/Creatinine Ratio (14-18) Glucose (80-115) mg/dL Calcium (8.5-10.1) mg/dL Ferritin (8-252) ng/ml Total Bilirubin (0.2-1.0) mg/dL AST (15-37) U/L ALT (14-59) U/L Alkaline Phosphatase (46-116) U/L Troponin I 1.587 H* (0.00-0.056) ng/mL C-Reactive Protein (<1.0) mg/dL NT-Pro-B Natriuret Pep 52390 H (0-125) pg/mL Total Protein (6.4-8.2) g/dl Albumin (3.4-5.0) g/dl Globulin gm/dL Albumin/Globulin Ratio (1-2) Lipase (73-393) U/L SARS Virus RNA (PCR) (NEGATIVE) Meds: Medications Generic Name Dose Route Start Last Admin Trade Name Gunnerq PRN Reason Stop Dose Admin Sodium Chloride 1,000 mls @ 999 mls/hr 11/18/19 12:00 11/18/19 12:02 Normal Saline IV 999 mls/hr ONETIME JANICE Administration Heparin Sodium/Dextrose 25,000 units in 500 mls @ 19.051 mls/hr 11/18/19 16:15 11/18/19 16:24 Heparin 25,000 Units In D5w 500 Ml IV 12 units/kg/hr TITRATE JANICE 19.051 mls/hr Administration Protocol 12 UNITS/KG/HR Sodium Chloride 45 mls @ 40 mls/hr 11/18/19 16:30 11/18/19 16:52 Normal Saline IV 40 mls/hr ASDIRECTED JANICE Administration Sodium Chloride 10 ml 11/18/19 11:48 11/18/19 11:56 Saline Flush FLUSH 10 ml ASDIRECTED PRN Administration Keep Vein Open Sodium Chloride 10 ml 11/18/19 16:30 11/18/19 16:52 Saline Flush FLUSH 10 ml ONETIME PRN Administration Keep Vein Open Discontinued Medications Generic Name Dose Route Start Last Admin Trade Name Preet PRN Reason Stop Dose Admin Furosemide 40 mg 11/18/19 17:41 11/18/19 18:04 Lasix IVPUSH 11/18/19 17:42 40 mg NOW ONE Administration Heparin Sodium (Porcine) 4,000 units 11/18/19 16:03 11/18/19 16:13 Heparin Sodium IVPUSH 11/18/19 16:04 4,000 units ONETIME ONE Administration Hydromorphone HCl 0.5 mg 11/18/19 11:48 11/18/19 11:55 Dilaudid IVPUSH 11/18/19 11:49 0.5 mg ONETIME ONE Administration Hydromorphone HCl 0.5 mg 11/18/19 15:14 11/18/19 15:25 Dilaudid IVPUSH 11/18/19 15:15 0.5 mg ONETIME ONE Administration Iopamidol 100 ml 11/18/19 16:30 11/18/19 16:51 Isovue-370 (76%) IVPUSH 11/18/19 16:31 100 ml ONETIME ONE Administration Ondansetron HCl 4 mg 11/18/19 11:48 11/18/19 11:56 Zofran IVPUSH 11/18/19 11:49 4 mg ONETIME ONE Administration - Re-Assessments/Exams Free Text/Narrative Re-Assessment/Exam: 11/18/19 18:14 Focus and concern intially was patient's abd pain and vomiting with awareness of hypoxia on arrival to ED and strong smoking hx. Abd Xrays unremarkable, CXR showed pulmonary congestion. WBC 16,000, CRP 1.5, ABG's room air p02 52, 7.32, 44, 21.9. Trop 1.6, BNP 23,482. D Dimer 1.6, CT Pul angiogram neg. for PE. She is allergic to aspirin. Has been started on heparin drip. She did get 500 ml NS initially with concern for dehydration with repetitive vomiting since last evening, mildly elevated anion gap. She has subsequently been given lasix 40 mg IV. Have discussed with Hospitalist and Dr Guadarrama, ED, Dr Guadarrama accepting Phys. Departure - Departure Time of Disposition: 18:24 Disposition: DC/Tfer to Acute Hospital 02 Condition: Fair Clinical Impression: Acute coronary syndrome, Hypoxia, Vomiting Congestive heart failure (CHF) Qualifiers: Heart failure type: unspecified Heart failure chronicity: acute Qualified Code(s): I50.9 - Heart failure, unspecified Abdominal pain Qualifiers: Abdominal location: generalized Qualified Code(s): R10.84 - Generalized abdominal pain - Discharge Information Referrals: Nurys Coello CERTIFIED ART THERAPIST [Primary Care Provider] - Forms: ED Department Discharge Sepsis Event Note (ED) - Evaluation Sepsis Screening Result: No Definite Risk - Focused Exam Vital Signs: Vital Signs Temp Pulse Resp BP Pulse Ox 11/18/19 12:36 20 109/81 93 L 11/18/19 11:29 98.6 F 110 H 26 H 169/119 H 87 L - My Orders Last 24 Hours: My Active Orders 11/18/19 11:47 Peripheral IV Insertion Adult [OM.PC] Stat 11/18/19 11:48 Sodium Chloride 0.9% [Saline Flush] 10 ml FLUSH ASDIRECTED PRN 11/18/19 11:49 Peripheral IV Care [RC] . DIRECTED 11/18/19 12:00 Sodium Chloride 0.9% [Normal Saline] 1,000 ml IV ONETIME 11/18/19 14:19 EKG 12 Lead [EKG Documentation Completion] [RC] STAT 11/18/19 16:15 Heparin Sodium/D5W [Heparin 25,000 Units in D5W 500 ML] 25,000 units in 500 ml IV TITRATE 11/18/19 16:27 Chest PE [Ang Chest] [CT] Stat 11/18/19 16:30 Sodium Chloride 0.9% [Normal Saline] 45 ml IV ASDIRECTED Sodium Chloride 0.9% [Saline Flush] 10 ml FLUSH ONETIME PRN 11/22/19 07:00 CBC W/O DIFF,HEMOGRAM [HEME] MOTH@69911/25/19 07:00 CBC W/O DIFF,HEMOGRAM [HEME] MOTH@69911/29/19 07:00 CBC W/O DIFF,HEMOGRAM [HEME] MOTH@69912/02/19 07:00 CBC W/O DIFF,HEMOGRAM [HEME] MOTH@69912/06/19 07:00 CBC W/O DIFF,HEMOGRAM [HEME] MOTH@69912/09/19 07:00 CBC W/O DIFF,HEMOGRAM [HEME] MOTH@0700 - Assessment/Plan Last 24 Hours: My Active Orders 11/18/19 11:47 Peripheral IV Insertion Adult [OM.PC] Stat 11/18/19 11:48 Sodium Chloride 0.9% [Saline Flush] 10 ml FLUSH ASDIRECTED PRN 11/18/19 11:49 Peripheral IV Care [RC] . DIRECTED 11/18/19 12:00 Sodium Chloride 0.9% [Normal Saline] 1,000 ml IV ONETIME 11/18/19 14:19 EKG 12 Lead [EKG Documentation Completion] [RC] STAT 11/18/19 16:15 Heparin Sodium/D5W [Heparin 25,000 Units in D5W 500 ML] 25,000 units in 500 ml IV TITRATE 11/18/19 16:27 Chest PE [Ang Chest] [CT] Stat 11/18/19 16:30 Sodium Chloride 0.9% [Normal Saline] 45 ml IV ASDIRECTED Sodium Chloride 0.9% [Saline Flush] 10 ml FLUSH ONETIME PRN 11/22/19 07:00 CBC W/O DIFF,HEMOGRAM [HEME] MOTH@69911/25/19 07:00 CBC W/O DIFF,HEMOGRAM [HEME] MOTH@69911/29/19 07:00 CBC W/O DIFF,HEMOGRAM [HEME] MOTH@69912/02/19 07:00 CBC W/O DIFF,HEMOGRAM [HEME] MOTH@69912/06/19 07:00 CBC W/O DIFF,HEMOGRAM [HEME] MOTH@69912/09/19 07:00 CBC W/O DIFF,HEMOGRAM [HEME] MOTH@699
[2019-11-18] MEDS ORDERED: Sodium Chloride 0.9% 1,000 ML IV SCH (12:00)
[2019-11-18 12:58] VITALS: BP 109/81
--- NOTE | 2019-11-18 14:14 | CR ---
Abdominal series: Supine and upright views of the abdomen were obtained as well as frontal view of the chest. Comparison: Findings: Bruno B lines are noted throughout the chest. Pulmonary vessels appeared to be congested. Heart does not appear to be enlarged. Tortuous thoracic aorta is seen. Bowel gas pattern appears normal. Calcifications seen with the pelvis compatible with phleboliths as well as mild arterial calcification. No free air is seen. Impression: 1. Findings suspicious for pulmonary vascular congestion and interstitial pulmonary edema. Heart is not enlarged. Please correlate if patient has had an acute cardiac event as an etiology. Neurogenic pulmonary edema is also within the differential. 2. Nothing acute is seen within the abdomen. Diagnostic code #3 This report was dictated in MDT
[2019-11-18] MEDS ORDERED: Heparin Sodium 5,000 Units/ML Vial IVPUSH ONE (16:03)
[2019-11-18] MEDS ORDERED: Heparin Sodium/D5W 25,000 UNITS/500 ML BAG IV SCH (16:15)
[2019-11-18] MEDS ORDERED: Iopamidol 755 Mg/ML 100 ML Bottle IVPUSH ONE (16:30)
[2019-11-18] MEDS ORDERED: Sodium Chloride 0.9% 45 ML IV SCH (16:30)
[2019-11-18] MEDS ORDERED: Furosemide 40 MG/4 ML VIAL IVPUSH ONE (17:41)
--- NOTE | 2019-11-18 20:53 | CT ---
CT chest Technique: Multiple axial sections through the chest were obtained. Intravenous contrast was utilized. Study has been performed as a pulmonary angiogram protocol. Findings: Pulmonary arteries are well opacified. No filling defects are seen to indicate pulmonary embolism. Small bilateral pleural effusions are noted slightly larger on the left side. Aorta shows no aneurysm. Several mediastinal lymph nodes and hilar lymph nodes are seen believed to be within normal limits. Mild coronary artery calcification is seen. No pericardial thickening seen. Visualized upper abdominal structures are within normal limits. Patchy areas of increased density are scattered within both sides of the chest. Findings may represent diffuse pulmonary fibrosis or if patient has acute symptoms asymmetric pulmonary vascular congestion or pneumonia. Bone window settings were reviewed which shows no acute osseous finding. Scattered degenerative change is seen within the spine. Impression: 1. No findings of pulmonary embolism. 2. Patchy areas of increased density throughout both sides of the chest. Differential as described above. 3. Small bilateral pleural effusions. Diagnostic code #3 This report was dictated in MDT I agree with preliminary report from [facility], finalized on 11/18/19, 6:13 PM Central Daylight Time
== END 2019-11-18 18:40 ==
LOC: JD.ED 11:22
DX: I11.0 Hypertensive heart disease with heart failure (principal); I50.9 Heart failure, unspecified; R10.84 Generalized abdominal pain; R11.2 Nausea with vomiting, unspecified; I24.9 Acute ischemic heart disease, unspecified; R09.02 Hypoxemia; I25.2 Old myocardial infarction; F32.9 Major depressive disorder, single episode, unspecified; E66.9 Obesity, unspecified; F17.210 Nicotine dependence, cigarettes, uncomplicated; Z68.29 Body mass index [BMI] 29.0-29.9, adult; Z88.6 Allergy status to analgesic agent; Z88.8 Allergy status to other drugs, medicaments and biological substances; Z79.899 Other long term (current) drug therapy; Z20.828 Contact with and (suspected) exposure to other viral communicable diseases
CPT/HCPCS: 36415; 36600; 71275; 74022; 80053; 82728; 82803; 83690; 83880; 84484; 85025; 85379; 86140; 93005; 96361; 96365; 96366; 96375; 96376; 99285; J1170; J1644; J1940; J2405; J7030; J7050; Q9967; U0002

== ENCOUNTER 2020-12-28 13:21 | Emergency (ER) | payer MEDICARE, BC ==
[2020-12-28] MEDS ORDERED: HYDROmorphone 1 MG/ML Syringe IVPUSH ONE (13:36)
[2020-12-28] MEDS ORDERED: Sodium Chloride 0.9% 1,000 ML IV SCH (13:45)
--- NOTE | 2020-12-28 13:46 | EDM.PDOC ---
ED HPI GENERAL MEDICAL PROBLEM - General Chief Complaint: Abdominal Pain Stated Complaint: [facility] Time Seen by Provider: 12/28/20 13:35 Source of Information: Reports: Patient, EMS History Limitations: Reports: Physical Impairment - History of Present Illness INITIAL COMMENTS - FREE TEXT/NARRATIVE: 70-year-old female presents to the ED in a fairly dramatic fashion. She is c omplaining of sudden onset of severe diffuse abdominal pain mostly periumbilical but perhaps worse left lower quadrant. Pain started around 0900 hrs. this morning. She was seen initially at the [facility] and they called the ambulance. She did receive IM Phenergan 25 mg at the clinic. Her pain is 10 out of 10. She is writhing all over the bed is no position is comfortable. Of note patient presented to the ED in a similar fashion in January 2019 and never did have any positive findings other than significant congestive heart failure and mildly elevated troponin likely due to heart failure. CT scans done at that time did not have any positive findings. She denies any abdominal surgery in the past. She states her bowels did work a small quantity this morning. She has no history of renal stones. She denies fever or chills. Onset: Today, Sudden Onset Date: 12/28/20 Onset Time: 09:00 Duration: Hour(s):, Constant, Getting Worse Location: Reports: Abdomen (Periumbilical and left lower quadrant abdominal pain) Quality: Reports: Other (Strong constant deep aching pain with a strong colicky component) Severity: Severe (10 out of 10) Improves with: Reports: None Worsens with: Reports: None Context: Reports: Other. Denies: Activity, Exercise, Lifting, Sick Contact, Trauma Associated Symptoms: Reports: Loss of Appetite, Malaise, Nausea/Vomiting, Shortness of Breath, Weakness. Denies: Confusion (Spontaneous occurrence), Chest Pain, Cough, cough w sputum, Diaphoresis, Fever/Chills, Headaches, Rash, Seizure (Nausea and vomiting x1 this morning), Syncope Treatments [employer] GOL[employer] COURSE: Reports: Other (see below) (Patient was given Phenergan 25 mg IM at the clinic in [place] this morning.) Lower Abdomen Pain Score (Numeric/FACES): 10 - Related Data Allergies Allergy/AdvReac Type Severity Reaction Status Date / Time aspirin Allergy Severe Other Verified 12/28/20 13:27 docetaxel [From Taxotere] Allergy Severe Other Verified 12/28/20 13:27 sertraline [From Zoloft] Allergy Severe Cannot Verified 12/28/20 13:27 Remember Home Meds: Home Meds Citalopram [Celexa] 40 mg PO DAILY 09/28/16 [History] Hydrochlorothiazide 12.5 mg PO DAILY 09/28/16 [History] Metoprolol Tartrate 12.5 mg PO BID 05/06/17 [History] Clobetasol [Clobetasol 0.05%] 30 gm TOP BID 02/27/18 [History] Mometasone Furoate [Elocon] 1 applic TOP ASDIRECTED PRN 02/27/18 [History] Potassium Chloride [Klor-Con M20] 20 meq PO DAILY 01/25/19 [History] Ranitidine [Zantac] 150 mg PO BEDTIME 01/25/19 [History] Ondansetron [Zofran] 4 mg BUCCAL Q6H PRN #5 tab 12/28/20 [Rx] Pantoprazole [ProTONIX] 40 mg PO DAILY 12/28/20 [History] Past Medical History HEENT History: Reports: Impaired Vision Other HEENT History: wears glasses Cardiovascular History: Reports: Hypertension, NM Gastrointestinal History: Reports: Hemorrhoids Other Gastrointestinal History: pt states she had her hemorrhoids fried. States has had abdominal pain of this degree for past year and has seen multiple MD's with no diagonosis Psychiatric History: Reports: Depression Endocrine/Metabolic History: Reports: Obesity/BMI 30+ Oncologic (Cancer) History: Reports: Breast, Other (See Below) Other Oncologic History: right lumpectomy Dermatologic History: Reports: Psoriasis - Infectious Disease History Infectious Disease History: Reports: Influenza, Measles - Past Surgical History Oncologic Surgical History: Reports: Lumpectomy Social & Family History - Family History Family Medical History: No Pertinent Family History HEENT: Reports: Cataract GI: Reports: Diverticulitis Dermatologic: Reports: Psoriasis - Tobacco Use Tobacco Use Status *Q: Current Every Day Tobacco User Years of Tobacco use: 50 Packs/Tins Daily: 0.5 - Caffeine Use Caffeine Use: Reports: Tea Other Caffeine Use: one cup of tea in the morning - Alcohol Use Alcohol Use History: Yes Days Per Week of Alcohol Use: 7 Number of Drinks Per Day: 3 Total Drinks Per Week: 21 - Recreational Drug Use Recreational Drug Use: No - Living Situation & Occupation Living situation: Reports: Occupation: Unemployed ED ROS GENERAL - Review of Systems Review Of Systems: See Below Constitutional: Reports: Malaise, Weakness, Fatigue. Denies: Fever, Chills HEENT: Reports: Glasses Respiratory: Reports: Shortness of Breath, Cough, Other (Nonproductive history of congestive heart failure). Denies: Wheezing, Pleuritic Chest Pain, Sputum, Hemoptysis Cardiovascular: Reports: Blood Pressure Problem, Dyspnea on Exertion. Denies: Chest Pain, Claudication, Edema, Lightheadedness, Orthopnea, Palpitations Endocrine: Reports: Fatigue GI/Abdominal: Reports: Abdominal Pain (See history of present illness), Constipation (Occasional positive constipation), Nausea, Vomiting (This morning) : Reports: Frequency, Incontinence Musculoskeletal: Reports: Neck Pain, Shoulder Pain, Back Pain (Urge and stress components) Skin: Reports: No Symptoms Neurological: Reports: No Symptoms Psychiatric: Reports: No Symptoms Hematologic/Lymphatic: Reports: No Symptoms Immunologic: Reports: No Symptoms ED EXAM, GI/ABD - Physical Exam Exam: See Below Exam Limited By: No Limitations General Appearance: Alert, Anxious, Severe Distress (Patient reports no position is comfortable. She is writhing and rocking back and forth in the bed in severe abdominal pain.) Eyes: Bilateral: Normal Appearance (No blepharal pallor or scleral icterus.) Throat/Mouth: Normal Inspection, Normal Lips, Normal Oropharynx (Tongue is mildly dry and coated.), Other Head: Atraumatic (No oropharyngeal infection), Normocephalic Neck: Normal Inspection, Full Range of Motion. No: Lymphadenopathy (L), Lymphadenopathy (R) Respiratory/Chest: Lungs Clear (Mild tachypnea.), Normal Breath Sounds, No Accessory Muscle Use, Chest Non-Tender, Respiratory Distress Cardiovascular: Regular Rate, Rhythm (Patient is on metoprolol which will block elevated rate.), No Edema, No Gallop, No Murmur, No Rub. No: Normal Peripheral Pulses GI/Abdominal Exam: Soft, Non-Tender, No Organomegaly, Abnormal Bowel Sounds (There is a definite positive bowel sounds.), Other (No surgical scars). No: Guarding, Rigid, Rebound, Tender Back Exam: Normal Inspection, Other (Mild kyphosis thoracic spine). No: CVA Tenderness (L), CVA Tenderness (R) Extremities: Normal Inspection, Normal Range of Motion, Non-Tender, No Pedal Edema Neurological: Alert, Oriented, CN II-XII Intact, Normal Cognition, Normal Gait Psychiatric: Anxious, Other Skin Exam: Warm (Patient appears to be in a great deal of pain.), Dry, Intact, Normal Color, No Rash #1 Interpretation EKG Date: 12/28/20 Time: 13:50 Rhythm: NSR Rate (Beats/Min): 74 [place]: Normal P-Wave: Present QRS: Other (Q-wave in V1 and near Q-wave in V2 compared with old anteroseptal myocardial infarction) ST-T: Other QT: Prolonged (Baseline wanders but no definitive abnormalities appreciated moderately prolonged) EKG Interpretation Comments: Abnormal ECG Course - Vital Signs Last Recorded V/S: Last Vital Signs Temp 35.8 C L 12/28/20 14:54 Pulse 74 12/28/20 16:21 Resp 20 12/28/20 16:21 BP 162/93 H 12/28/20 16:21 Pulse Ox 98 12/28/20 16:21 - Orders/Labs/Meds Orders: Active Orders 24 hr Category Date Time Status Oxygen Therapy, ED [RC] ASDIRECTED Care 12/28/20 14:50 Active LACTATE SEPSIS W/ REFLEX [CHEM] Stat Lab 12/28/20 17:05 Ordered UA W/MICROSCOPIC [URIN] Stat Lab 12/28/20 13:38 Results Lactated Ringers [Ringers, Lactated] 1,000 ml Med 12/28/20 16:45 Active IV ASDIRECTED Sodium Chloride 0.9% [Normal Saline] 1,000 ml Med 12/28/20 13:45 Active IV ASDIRECTED Sodium Chloride 0.9% [Normal Saline] 100 ml Med 12/28/20 14:00 Active IV ASDIRECTED Sodium Chloride 0.9% [Saline Flush] Med 12/28/20 13:57 Active 10 ml FLUSH ONETIME PRN Medication Orders Sodium Chloride (Normal Saline) 1,000 mls @ 500 mls/hr IV ASDIRECTED JANICE Last Admin: 12/28/20 14:17 Dose: 500 mls/hr Documented by: ELIJAH Sodium Chloride (Normal Saline) 100 mls @ 75 mls/hr IV ASDIRECTED JANICE Last Admin: 12/28/20 14:46 Dose: 75 mls/hr Documented by: RODRICK Lactated Ringer's (Ringers, Lactated) 1,000 mls @ 150 mls/hr IV ASDIRECTED JANICE Sodium Chloride (Sodium Chloride 0.9% 10 Ml Syringe) 10 ml FLUSH ONETIME PRN PRN Reason: IV FLUSH Last Admin: 12/28/20 14:45 Dose: 10 ml Documented by: Admin: 12/28/20 14:00 Dose: 10 ml Documented by: ELIJAH Labs: Laboratory Tests 12/28/20 12/28/20 12/28/20 Range/Units 13:38 14:00 14:05 WBC 10.96 H (3.98-10.04) K/mm3 RBC 4.93 (3.98-5.22) M/mm3 Hgb 15.6 D (11.2-15.7) gm/dl Hct 45.3 H (34.1-44.9) % MCV 91.9 (79.4-94.8) fl MCH 31.6 (25.6-32.2) pg MCHC 34.4 (32.2-35.5) g/dl RDW Std Deviation 45.1 (36.4-46.3) fL Plt Count 298 (182-369) K/mm3 MPV 10.4 (9.4-12.3) fl Neutrophils % (Manual) 85 H (40-60) % Band Neutrophils % 0 (0-10) % Lymphocytes % (Manual) 14 L (20-40) % Atypical Lymphs % 0 % Monocytes % (Manual) 1 L (2-10) % Eosinophils % (Manual) 0 L (0.7-5.8) % Basophils % (Manual) 0 L (0.1-1.2) Platelet Estimate Adequate RBC Morph Comment Normal PT (9.7-12.0) SECONDS INR APTT (21.7-31.4) SECONDS Sodium (136-145) mEq/L Potassium (3.5-5.1) mEq/L Chloride (98-107) mEq/L Carbon Dioxide (21-32) mEq/L Anion Gap (5-15) BUN (7-18) mg/dL Creatinine (0.55-1.02) mg/dL Est Cr Clr Drug Dosing mL/min Estimated GFR (MDRD) (>60) mL/min BUN/Creatinine Ratio (14-18) Glucose (70-99) mg/dL Lactic Acid (0.4-2.0) mmol/L Calcium (8.5-10.1) mg/dL Magnesium (1.8-2.4) mg/dL Total Bilirubin (0.2-1.0) mg/dL AST (15-37) U/L ALT (14-59) U/L Alkaline Phosphatase (46-116) U/L Troponin I (0.00-0.056) ng/mL C-Reactive Protein (<1.0) mg/dL NT-Pro-B Natriuret Pep (0-125) pg/mL Total Protein (6.4-8.2) g/dl Albumin (3.4-5.0) g/dl Globulin gm/dL Albumin/Globulin Ratio (1-2) Lipase (73-393) U/L Urine Color Yellow (Yellow) Urine Appearance Clear (Clear) Urine pH 6.0 (5.0-8.0) Ur Specific [place] 1.025 (1.005-1.030) Urine Protein Trace H (Negative) Urine Glucose (UA) Negative (Negative) Urine Ketones 3+ H (Negative) Urine Occult Blood Negative (Negative) Urine Nitrite Negative (Negative) Urine Bilirubin Negative (Negative) Urine Urobilinogen 0.2 (0.2-1.0) Ur Leukocyte Esterase Negative (Negative) Ethyl Alcohol (0.00) gm% Ketones (0.0-0.3) mM SARS-CoV-2 RNA (ASTON) Negative (NEGATIVE) 12/28/20 12/28/20 12/28/20 Range/Units 14:05 14:05 14:05 WBC (3.98-10.04) K/mm3 RBC (3.98-5.22) M/mm3 Hgb (11.2-15.7) gm/dl Hct (34.1-44.9) % MCV (79.4-94.8) fl MCH (25.6-32.2) pg MCHC (32.2-35.5) g/dl RDW Std Deviation (36.4-46.3) fL Plt Count (182-369) K/mm3 MPV (9.4-12.3) fl Neutrophils % (Manual) (40-60) % Band Neutrophils % (0-10) % Lymphocytes % (Manual) (20-40) % Atypical Lymphs % % Monocytes % (Manual) (2-10) % Eosinophils % (Manual) (0.7-5.8) % Basophils % (Manual) (0.1-1.2) Platelet Estimate RBC Morph Comment PT 10.9 (9.7-12.0) SECONDS INR 1.02 APTT 24.3 (21.7-31.4) SECONDS Sodium 143 (136-145) mEq/L Potassium 3.4 L (3.5-5.1) mEq/L Chloride 104 (98-107) mEq/L Carbon Dioxide 19 L (21-32) mEq/L Anion Gap 23.4 H (5-15) BUN 17 (7-18) mg/dL Creatinine 1.2 H (0.55-1.02) mg/dL Est Cr Clr Drug Dosing 39.25 mL/min Estimated GFR (MDRD) 44 (>60) mL/min BUN/Creatinine Ratio 14.2 (14-18) Glucose 268 H (70-99) mg/dL Lactic Acid 4.8 H* (0.4-2.0) mmol/L Calcium 9.7 (8.5-10.1) mg/dL Magnesium (1.8-2.4) mg/dL Total Bilirubin 0.7 (0.2-1.0) mg/dL AST 16 (15-37) U/L ALT 22 (14-59) U/L Alkaline Phosphatase 65 (46-116) U/L Troponin I < 0.017 (0.00-0.056) ng/mL C-Reactive Protein 0.2 (<1.0) mg/dL NT-Pro-B Natriuret Pep (0-125) pg/mL Total Protein 7.9 (6.4-8.2) g/dl Albumin 4.2 (3.4-5.0) g/dl Globulin 3.7 gm/dL Albumin/Globulin Ratio 1.1 (1-2) Lipase (73-393) U/L Urine Color (Yellow) Urine Appearance (Clear) Urine pH (5.0-8.0) Ur Specific [place] (1.005-1.030) Urine Protein (Negative) Urine Glucose (UA) (Negative) Urine Ketones (Negative) Urine Occult Blood (Negative) Urine Nitrite (Negative) Urine Bilirubin (Negative) Urine Urobilinogen (0.2-1.0) Ur Leukocyte Esterase (Negative) Ethyl Alcohol (0.00) gm% Ketones (0.0-0.3) mM SARS-CoV-2 RNA (ASTON) (NEGATIVE) 12/28/20 12/28/20 12/28/20 Range/Units 14:05 14:05 14:05 WBC (3.98-10.04) K/mm3 RBC (3.98-5.22) M/mm3 Hgb (11.2-15.7) gm/dl Hct (34.1-44.9) % MCV (79.4-94.8) fl MCH (25.6-32.2) pg MCHC (32.2-35.5) g/dl RDW Std Deviation (36.4-46.3) fL Plt Count (182-369) K/mm3 MPV (9.4-12.3) fl Neutrophils % (Manual) (40-60) % Band Neutrophils % (0-10) % Lymphocytes % (Manual) (20-40) % Atypical Lymphs % % Monocytes % (Manual) (2-10) % Eosinophils % (Manual) (0.7-5.8) % Basophils % (Manual) (0.1-1.2) Platelet Estimate RBC Morph Comment PT (9.7-12.0) SECONDS INR APTT (21.7-31.4) SECONDS Sodium (136-145) mEq/L Potassium (3.5-5.1) mEq/L Chloride (98-107) mEq/L Carbon Dioxide (21-32) mEq/L Anion Gap (5-15) BUN (7-18) mg/dL Creatinine (0.55-1.02) mg/dL Est Cr Clr Drug Dosing mL/min Estimated GFR (MDRD) (>60) mL/min BUN/Creatinine Ratio (14-18) Glucose (70-99) mg/dL Lactic Acid (0.4-2.0) mmol/L Calcium (8.5-10.1) mg/dL Magnesium 1.4 L (1.8-2.4) mg/dL Total Bilirubin (0.2-1.0) mg/dL AST (15-37) U/L ALT (14-59) U/L Alkaline Phosphatase (46-116) U/L Troponin I (0.00-0.056) ng/mL C-Reactive Protein (<1.0) mg/dL NT-Pro-B Natriuret Pep (0-125) pg/mL Total Protein (6.4-8.2) g/dl Albumin (3.4-5.0) g/dl Globulin gm/dL Albumin/Globulin Ratio (1-2) Lipase 56 L (73-393) U/L Urine Color (Yellow) Urine Appearance (Clear) Urine pH (5.0-8.0) Ur Specific [place] (1.005-1.030) Urine Protein (Negative) Urine Glucose (UA) (Negative) Urine Ketones (Negative) Urine Occult Blood (Negative) Urine Nitrite (Negative) Urine Bilirubin (Negative) Urine Urobilinogen (0.2-1.0) Ur Leukocyte Esterase (Negative) Ethyl Alcohol (0.00) gm% Ketones 1.28 (0.0-0.3) mM SARS-CoV-2 RNA (ASTON) (NEGATIVE) 12/28/20 12/28/20 Range/Units 14:05 14:05 WBC (3.98-10.04) K/mm3 RBC (3.98-5.22) M/mm3 Hgb (11.2-15.7) gm/dl Hct (34.1-44.9) % MCV (79.4-94.8) fl MCH (25.6-32.2) pg MCHC (32.2-35.5) g/dl RDW Std Deviation (36.4-46.3) fL Plt Count (182-369) K/mm3 MPV (9.4-12.3) fl Neutrophils % (Manual) (40-60) % Band Neutrophils % (0-10) % Lymphocytes % (Manual) (20-40) % Atypical Lymphs % % Monocytes % (Manual) (2-10) % Eosinophils % (Manual) (0.7-5.8) % Basophils % (Manual) (0.1-1.2) Platelet Estimate RBC Morph Comment PT (9.7-12.0) SECONDS INR APTT (21.7-31.4) SECONDS Sodium (136-145) mEq/L Potassium (3.5-5.1) mEq/L Chloride (98-107) mEq/L Carbon Dioxide (21-32) mEq/L Anion Gap (5-15) BUN (7-18) mg/dL Creatinine (0.55-1.02) mg/dL Est Cr Clr Drug Dosing mL/min Estimated GFR (MDRD) (>60) mL/min BUN/Creatinine Ratio (14-18) Glucose (70-99) mg/dL Lactic Acid (0.4-2.0) mmol/L Calcium (8.5-10.1) mg/dL Magnesium (1.8-2.4) mg/dL Total Bilirubin (0.2-1.0) mg/dL AST (15-37) U/L ALT (14-59) U/L Alkaline Phosphatase (46-116) U/L Troponin I (0.00-0.056) ng/mL C-Reactive Protein (<1.0) mg/dL NT-Pro-B Natriuret Pep 636 H (0-125) pg/mL Total Protein (6.4-8.2) g/dl Albumin (3.4-5.0) g/dl Globulin gm/dL Albumin/Globulin Ratio (1-2) Lipase (73-393) U/L Urine Color (Yellow) Urine Appearance (Clear) Urine pH (5.0-8.0) Ur Specific [place] (1.005-1.030) Urine Protein (Negative) Urine Glucose (UA) (Negative) Urine Ketones (Negative) Urine Occult Blood (Negative) Urine Nitrite (Negative) Urine Bilirubin (Negative) Urine Urobilinogen (0.2-1.0) Ur Leukocyte Esterase (Negative) Ethyl Alcohol 0.00 (0.00) gm% Ketones (0.0-0.3) mM SARS-CoV-2 RNA (ASTON) (NEGATIVE) Meds: Medications Generic Name Dose Route Start Last Admin Trade Name Freq PRN Reason Stop Dose Admin Sodium Chloride 1,000 mls @ 500 mls/hr 12/28/20 13:45 12/28/20 14:17 Normal Saline IV 500 mls/hr ASDIRECTED JANICE Administration Sodium Chloride 100 mls @ 75 mls/hr 12/28/20 14:00 12/28/20 14:46 Normal Saline IV 75 mls/hr ASDIRECTED JANICE Administration Lactated Ringer's 1,000 mls @ 150 mls/hr 12/28/20 16:45 Ringers, Lactated IV ASDIRECTED JANICE Sodium Chloride 10 ml 12/28/20 13:57 12/28/20 14:45 Sodium Chloride 0.9% 10 Ml Syringe FLUSH 10 ml ONETIME PRN Administration IV FLUSH Discontinued Medications Generic Name Dose Route Start Last Admin Trade Name Preet PRN Reason Stop Dose Admin Diphenhydramine HCl 12.5 mg 12/28/20 14:02 12/28/20 14:15 Diphenhydramine 50 Mg/Ml Sdv IVPUSH 12/28/20 14:03 12.5 mg ONETIME ONE Administration Hydromorphone HCl 1 mg 12/28/20 13:36 12/28/20 14:09 Hydromorphone 1 Mg/Ml Syringe IVPUSH 12/28/20 13:37 1 mg ONETIME ONE Administration Iopamidol 100 ml 12/28/20 13:57 12/28/20 14:45 Iopamidol 755 Mg/Ml 100 Ml Bottle IVPUSH 12/28/20 13:58 100 ml ONETIME ONE Administration Ondansetron HCl 4 mg 12/28/20 14:03 12/28/20 14:13 Ondansetron 4 Mg/2 Ml Sdv IVPUSH 12/28/20 14:04 4 mg ONETIME ONE Administration - Radiology Interpretation Free Text/Narrative:: 70-year-old female presents to the ED per [facility]. She was first seen in the [facility] this morning. Pain apparently started suddenly around 0900 hrs. this morning. Describes it as a strong colicky component pain. Associated nausea and vomiting. She did receive Phenergan 25 mg IM. Paramedics never administered any medication in route to the hospital. Apparently she also had Ativan 1 mg IV. No previous abdominal surgery. Patient has presented to the ED in the past about 2 years ago with a very similar finding. We never did identify any cause for her severe abdominal pain at that time. She had cardiac issues at that time with markedly elevated BNP at 14,500 and a slightly elevated troponin I at 0.952 which precipitated an ambulance transfer to [facility] for care. At this time she has positive any bowel sounds. The abdomen is soft with patient with no organomegaly or localized tenderness. No surgical scars. Certainly does not have any evidence of bowel obstruction. She has no history of renal colic. Plan Dilaudid 1 mg IV . No antiemetic given since she just had Phenergan given IM within the last 2 hours. Urinalysis will be obtained. CT of the abdomen and pelvis will be done with IV contrast only. Her pain is out of proportion to clinical findings worrisome for bowel infarction. Labs will include a serum lactic acid. Serum troponin and BNP will also be done. She will have a portable chest x-ray as well. - Re-Assessments/Exams Free Text/Narrative Re-Assessment/Exam: 12/28/20 14:03 nurses report at this time the patient is vomiting. She will therefore be given Zofran 4 mg IV and Benadryl 12.5 mg IV to prevent a dystonic reaction with recently administered promethazine. 12/28/20 15:25 White count is mildly elevated at 10.96. The differential shows 85% neutrophils and no bands cells. Hemoglobin is 15.6 with hematocrit of 45.3. Platelet count is 298,000. PT is 10.9 with an INR of 1.02. PTT is 24.3. Sodium 143 with a potassium slightly low at 3.4. Chloride is 104 with a bicarb of 19. Anion gap is elevated at 23.4. BUN is 17 with a creatinine of 1.2. GFR is 44. Glucose is elevated at 268. Lactic acid elevated at 4.8. Calcium is 9.7. Liver function is normal. Troponin I is less than 0.017. C-reactive protein is 0.2. Total protein 7.9. Albumin fraction is 4.2 with a globulin of 3.7. COVID-19 screen is negative. 12/28/20 15:27 CT of the chest and abdomen has been performed with IV contrast only. Thoracic aorta shows no aneurysm. Mild atherosclerotic changes seen. Common iliac arteries as well as external and internal are in the iliac arteries are patent. Celiac axis shows no focal stenosis. Superior mesenteric artery is also patent. Single renal arteries are noted which are patent. Inferior mesenteric artery is patent. Visualized lung bases show nothing acute. Minimal hiatal hernia is noted. Small cyst is noted within the posterior right lobe of the liver measuring 7 mm. No additional abnormalities seen within the liver. Spleen size is normal. Adrenal glands show no nodules. Kidneys show multiple small cysts. Largest cyst is within the inferior left kidney measuring 2.7 cm. Pancreas shows no focal abnormality. Gallbladder contains no abnormal calcifications to indicate calcified gallstones. No retroperitoneal adenopathy or mesenteric abnormalities are seen. Appendix is not visualized. No pelvic mass or adenopathy is seen. Bowel shows no wall thickening or inflammatory vidales ge or dilatation. Bone window settings were reviewed which show mild degenerative changes within the lower lumbar spine. No acute osseous abnormality is appreciated. I did recheck on this patient at this time but she was sleeping and difficult to arouse. Nurse comments that she is pain-free since receiving the Dilaudid. I have to explain her elevated lactic acid. I am awaiting her BNP is last visit to the ED suggested that she had significant heart failure with a BNP of 15,000. She will continue normal saline 500 mils an hour for now. There is some suggestion that she drinks alcohol 3 or 4 drinks per day its not knowing how much alcohol or what type of alcohol but she relayed this to the nurse. Questioning whether her abdominal pain is actually secondary to metabolic acidosis.Serum magnesium is low at 1.4 giving some credence to likely alcohol abuse. BNP /lipase are pending. 12/28/20 16:35 BNP is mildly elevated at 636. Blood alcohol is 0.00. Serum ketones are elevated at 1.28. Therefore I have no reason for lactic acidosis and lactic acid level will be rechecked 3 hours from onset of the initial blood draw. 12/28/20 16:54 I have reexamined the patient she is feeling much improved. It is unclear to me how she is exactly developed a lactic acidosis and ketosis. Urine does show 3+ ketones but no signs of infection. At present she feels good enough to go home. She was advised that she must drink adequate fluids such as Gatorade or Powerade at least 20 ounces twice daily for the next 3 days to provide rehydration and prevent recurrence of symptoms. I will write a prescription for Zofran which she can use under her tongue every 4-6 hours needed for relief of nausea or vomiting. Departure - Departure Time of Disposition: 16:57 Disposition: Home, Self-Care 01 Condition: Fair Clinical Impression: Intractable nausea and vomiting, Ketoacidosis, Lactic acidosis, Abdominal pain in female - Discharge Information *PRESCRIPTION DRUG MONITORING PROGRAM REVIEWED*: Not Applicable *COPY OF PRESCRIPTION DRUG MONITORING REPORT IN PATIENT JIMMY: Not Applicable Prescriptions: Ondansetron [Zofran] 4 mg BUCCAL Q6H PRN #5 tab PRN Reason: nausea or vomiting Instructions: Nausea and Vomiting, Adult, Abdominal Pain, Adult, [id number], Metabolic Acidosis Referrals: PCP,None [Primary Care Provider] - Forms: ED Department Discharge Additional Instructions: Evaluation in the emergency room today in regards to development of generalized severe abdominal pain associate with nausea and vomiting. The cause of the pain was identified to be due to metabolic acidosis which means your body was breaking down your fast for energy and in turn creating an acid buildup in your bloodstream which in turn creates nausea and vomiting and terrible abdominal pain. We call this a metabolic acidosis. This can be precipitated by a combina tion of not taking in adequate fluids or getting dehydrated due to the recent weather with very high temperatures. Alcohol use would also cause dehydration. It is important that you continue to hydrate. I would suggest Gatorade or Powerade to 20 ounce bottles daily for the next 3 days to make sure that you return to a normal hydrated state and prevent similar recurrence. I have written this prescription for Zofran which is an antinausea medication that can go on your tongue every 4 hours if needed for relief of nausea or vomiting. Follow-up with personal care provider if any further problems occur or return to the emergency room. Sepsis Event Note (ED) - Focused Exam Vital Signs: Vital Signs Temp Pulse Resp BP Pulse Ox 12/28/20 16:21 74 20 162/93 H 98 12/28/20 14:54 35.8 C L 76 14 164/98 H 98 12/28/20 13:23 36.1 C 77 18 184/112 H 100 - My Orders Last 24 Hours: My Active Orders 12/28/20 13:38 UA W/MICROSCOPIC [URIN] Stat 12/28/20 13:45 Sodium Chloride 0.9% [Normal Saline] 1,000 ml IV ASDIRECTED 12/28/20 13:57 Sodium Chloride 0.9% [Saline Flush] 10 ml FLUSH ONETIME PRN 12/28/20 14:00 Sodium Chloride 0.9% [Normal Saline] 100 ml IV ASDIRECTED 12/28/20 14:50 Oxygen Therapy, ED [RC] ASDIRECTED 12/28/20 16:45 Lactated Ringers [Ringers, Lactated] 1,000 ml IV ASDIRECTED 12/28/20 17:05 LACTATE SEPSIS W/ REFLEX [CHEM] Stat - Assessment/Plan Last 24 Hours: My Active Orders 12/28/20 13:38 UA W/MICROSCOPIC [URIN] Stat 12/28/20 13:45 Sodium Chloride 0.9% [Normal Saline] 1,000 ml IV ASDIRECTED 12/28/20 13:57 Sodium Chloride 0.9% [Saline Flush] 10 ml FLUSH ONETIME PRN 12/28/20 14:00 Sodium Chloride 0.9% [Normal Saline] 100 ml IV ASDIRECTED 12/28/20 14:50 Oxygen Therapy, ED [RC] ASDIRECTED 12/28/20 16:45 Lactated Ringers [Ringers, Lactated] 1,000 ml IV ASDIRECTED 12/28/20 17:05 LACTATE SEPSIS W/ REFLEX [CHEM] Stat
[2020-12-28] MEDS ORDERED: Iopamidol 755 Mg/ML 100 ML Bottle IVPUSH ONE (13:57)
[2020-12-28] MEDS ORDERED: Sodium Chloride 0.9% 100 ML IV SCH (14:00)
[2020-12-28] MEDS: Sodium Chloride 0.9% 10 ML Syringe FLUSH PRN ×2 (14:00→14:45)
[2020-12-28] MEDS ORDERED: diphenhydrAMINE 50 MG/ML SDV IVPUSH ONE (14:02)
[2020-12-28] MEDS ORDERED: Ondansetron 4 MG/2 ML SDV IVPUSH ONE (14:03)
--- NOTE | 2020-12-28 15:14 | CT ---
CT chest Technique: Multiple axial sections were obtained from above the dome of the diaphragm inferiorly through the pubic symphysis. Intravenous contrast was utilized. Study has been performed as a vascular exam. Additional venous imaging was then obtained Comparison: Prior noncontrast CT abdomen and pelvis study of 01/26/19 is available. Findings: Thoracic aorta shows no aneurysm. Mild atherosclerotic change is seen. Common iliac arteries as well as external and internal iliac arteries are patent. Celiac axis shows no focal stenosis. Superior mesenteric artery is patent. Single renal arteries are noted which are patent. Inferior mesenteric artery is patent. Visualized lung bases show nothing acute. Minimal hiatal hernia is noted. Small cyst is noted within the posterior right lobe of the liver measuring 7 mm. No additional abnormality is seen within the liver. Spleen size is normal. Adrenal glands show no nodule. Kidneys show multiple small cysts. Largest cyst is within the inferior left kidney measuring 2.7 cm. Pancreas shows no focal abnormality. Gallbladder contains no abnormal calcifications to indicate calcified gallstones. No retroperitoneal adenopathy or mesenteric abnormalities are seen. Appendix is not visualized. No pelvic mass or adenopathy is seen. Bowel shows no wall thickening or inflammatory change or dilatation. Bone window settings were reviewed which show mild degenerative change within the lower lumbar spine. No acute osseous abnormality is appreciated. Impression: 1. Atherosclerotic change within the abdominal aorta. No focal aneurysm or dissection is seen. No focal stenosis is seen within the branch vessels. 2. Cyst within the posterior right lobe of the liver as well as multiple renal cysts. 3. Nothing acute is appreciated. Diagnostic code #2
--- NOTE | 2020-12-28 15:25 | CR ---
Chest: Portable view of the chest was obtained. Comparison: Previous chest x-ray of 05/27/18. Heart size and mediastinum are within normal limits for portable technique. Lungs are clear with no acute parenchymal change. Surgical clips are seen within the right axillary region. No acute osseous abnormality is appreciated. Incidental note of mild degenerative change is partially seen within the spine. Impression: 1. Findings as described above. 2. Nothing acute is seen on portable chest x-ray. Diagnostic code #2
[2020-12-28 16:22] VITALS: BP 162/93; PULSE 74
[2020-12-28] MEDS ORDERED: Lactated Ringers 1,000 ML IV SCH (16:45)
== END 2020-12-28 17:25 | disposition home or self-care (01) ==
LOC: JD.ED 13:21
DX: R10.33 Periumbilical pain (principal); R10.32 Left lower quadrant pain; R11.2 Nausea with vomiting, unspecified; E87.2 Acidosis; I25.2 Old myocardial infarction; I10 Essential (primary) hypertension; E66.9 Obesity, unspecified; Z68.29 Body mass index [BMI] 29.0-29.9, adult; Z88.8 Allergy status to other drugs, medicaments and biological substances; Z72.0 Tobacco use; Z20.822 Contact with and (suspected) exposure to COVID-19; R06.02 Shortness of breath
CPT/HCPCS: 36415; 71045; 74177; 80053; 80307; 81001; 82009; 83605; 83690; 83735; 83880; 84484; 85007; 85027; 85610; 85730; 86140; 93005; 96374; 96375; 99285; J1170; J1200; J2405; J7030; Q9967; U0002; 93010; 99284

== ENCOUNTER 2020-12-29 09:00 | Observation (INO) | payer MEDICARE, BC ==
--- NOTE | 2020-12-29 09:18 | EDM.PDOC ---
ED HPI GENERAL MEDICAL PROBLEM - General Chief Complaint: Abdominal Pain Stated Complaint: [facility] Time Seen by Provider: 12/29/20 09:13 - History of Present Illness INITIAL COMMENTS - FREE TEXT/NARRATIVE: 70-year-old female returns the emergency room with worsening abdominal pain. Patient was seen here yesterday and had a very extensive work-up done. Patient had evidence of metabolic acidosis ketones were elevated lactate normal. CT exam did not show anything laboratory evaluation was otherwise unremarkable. Early this morning the patient had return of her pain and it sounds very much crampy in nature in the periumbilical area. She is not aware of any diarrhea she has had significant nausea. The patient was started on Zofran when she left here yesterday. She states she has not had any thing to eat or drink since that time. She was sent home with a prescription for Zofran but does not recall getting this filled or taking it. - Related Data Allergies Allergy/AdvReac Type Severity Reaction Status Date / Time aspirin Allergy Unknown Other Verified 12/29/20 16:00 sertraline [From Zoloft] Allergy Unknown Cannot Verified 12/29/20 16:00 Remember docetaxel [From Taxotere] AdvReac Mild Other Verified 12/29/20 16:00 Home Meds: Home Meds Citalopram [Celexa] 40 mg PO DAILY 09/28/16 [History] Hydrochlorothiazide 12.5 mg PO DAILY 09/28/16 [History] Metoprolol Tartrate 12.5 mg PO BID 05/06/17 [History] Clobetasol [Clobetasol 0.05%] 1 applic TOP BID 02/27/18 [History] Mometasone Furoate [Elocon] 1 applic TOP ASDIRECTED PRN 02/27/18 [History] Potassium Chloride [Klor-Con M20] 20 meq PO DAILY 01/25/19 [History] Pantoprazole [ProTONIX] 40 mg PO DAILY 12/28/20 [History] Aspirin 81 mg PO DAILY 12/29/20 [History] Past Medical History HEENT History: Reports: Impaired Vision Other HEENT History: wears glasses Cardiovascular History: Reports: Hypertension, CT Gastrointestinal History: Reports: Hemorrhoids Other Gastrointestinal History: pt states she had her hemorrhoids fried. States has had abdominal pain of this degree for past year and has seen multiple MD's with no diagonosis Psychiatric History: Reports: Anxiety, Depression Endocrine/Metabolic History: Reports: Obesity/BMI 30+ Oncologic (Cancer) History: Reports: Breast, Other (See Below) Other Oncologic History: right lumpectomy Dermatologic History: Reports: Psoriasis - Infectious Disease History Infectious Disease History: Reports: Influenza, Measles - Past Surgical History HEENT Surgical History: Reports: None Cardiovascular Surgical History: Reports: None GI Surgical History: Reports: None Endocrine Surgical History: Reports: None Oncologic Surgical History: Reports: Lumpectomy Social & Family History - Family History Family Medical History: No Pertinent Family History HEENT: Reports: Cataract GI: Reports: Diverticulitis Dermatologic: Reports: Psoriasis - Tobacco Use Tobacco Use Status *Q: Current Every Day Tobacco User Years of Tobacco use: 55 Packs/Tins Daily: 0.5 - Caffeine Use Caffeine Use: Reports: Tea Other Caffeine Use: one cup of tea in the morning - Alcohol Use Days Per Week of Alcohol Use: 3 Number of Drinks Per Day: 4 Total Drinks Per Week: 12 - Recreational Drug Use Recreational Drug Use: No - Living Situation & Occupation Living situation: Reports: Occupation: Unemployed ED ROS GENERAL - Review of Systems Review Of Systems: See Below Constitutional: Reports: No Symptoms HEENT: Reports: No Symptoms, Vertigo Cardiovascular: Reports: No Symptoms Endocrine: Reports: No Symptoms GI/Abdominal: Reports: Abdominal Pain, Nausea, Vomiting. Denies: Constipation, Diarrhea : Reports: No Symptoms Musculoskeletal: Reports: No Symptoms Skin: Reports: No Symptoms Neurological: Reports: No Symptoms Psychiatric: Reports: No Symptoms Hematologic/Lymphatic: Reports: No Symptoms Immunologic: Reports: No Symptoms ED EXAM, GENERAL - Physical Exam Exam: See Below Exam Limited By: No Limitations General Appearance: Alert, Anxious Head: Atraumatic, Normocephalic Neck: Normal Inspection, Supple, Non-Tender, Full Range of Motion Respiratory/Chest: No Respiratory Distress, Lungs Clear, Normal Breath Sounds Cardiovascular: Regular Rate, Rhythm, No Edema, No Murmur GI/Abdominal: Normal Bowel Sounds, Soft, Tender (Fuhs tenderness mostly in the epigastric area and slightly above.) Back Exam: Normal Inspection. No: CVA Tenderness (L), CVA Tenderness (R) Extremities: Normal Inspection, No Pedal Edema Neurological: Alert, Oriented Psychiatric: Anxious Skin Exam: Warm, Dry, Intact Course - Vital Signs Last Recorded V/S: Last Vital Signs Temp 37.1 C 12/29/20 15:08 Pulse 56 L 12/29/20 15:23 Resp 16 12/29/20 15:08 BP 116/98 H 12/29/20 15:08 Pulse Ox 95 12/29/20 15:23 - Orders/Labs/Meds Orders: Medication Orders Acetaminophen (Acetaminophen 325 Mg Tab) 650 mg PO Q4H PRN PRN Reason: Pain (Mild 1-3)/fever Aspirin (Aspirin 81 Mg Tab.Chew) 81 mg PO DAILY [facility] Clobetasol Propionate (Clobetasol 0.05% Crm 30 Gm Tube) 0 gm TOP BID [facility] Docusate Sodium (Docusate Sodium 100 Mg Cap) 100 mg PO BID PRN PRN Reason: Constipation Heparin Sodium (Porcine) (Heparin Sodium 5,000 Units/Ml Vial) 5,000 units SUBCUT Q8H [facility] Last Admin: 12/29/20 16:18 Dose: 5,000 units Documented by: PRETTY Hydrochlorothiazide (Hydrochlorothiazide 25 Mg TabPt Own) 12.5 mg PO DAILY [facility] Sodium Chloride (Normal Saline) 1,000 mls @ 125 mls/hr IV ASDIRECTED [facility] Last Admin: 12/29/20 16:19 Dose: 125 mls/hr Documented by: PRETTY Metoprolol Tartrate (Metoprolol Tartrate 25 Mg Tab) 12.5 mg PO BID [facility] Ranitidine 150mg Tablet #Own Medication# 1 each PO BEDTIME [facility] Ondansetron HCl (Ondansetron 4 Mg Tab.Dis) 4 mg PO Q4H PRN PRN Reason: nausea, able to take PO Ondansetron HCl (Ondansetron 4 Mg/2 Ml Sdv) 4 mg IV Q4H PRN PRN Reason: Nausea/Vomiting Pantoprazole Sodium (Pantoprazole 40 Mg Tab.CrPt Own) 40 mg PO DAILY [facility] Citalopram Celexa 40 (Mg TabletPt Own) 0 each PO DAILY [facility] Polyethylene Glycol (Polyethylene Glycol 3350 Powder 17 Gm Packet) 17 gm PO DAILY PRN PRN Reason: Constipation Potassium Chloride (Potassium Chloride 20 Meq Tab.Er) 20 meq PO DAILY [facility] Promethazine HCl (Promethazine 25 Mg Tab) 25 mg PO Q6H PRN PRN Reason: Nausea/Vomiting Tramadol HCl (Tramadol 50 Mg Tab) 50 mg PO Q6H PRN PRN Reason: Pain (moderate 4-6) Labs: Laboratory Tests 12/29/20 12/29/20 12/29/20 Range/Units 09:15 09:15 09:15 WBC 14.33 H (3.98-10.04) K/mm3 RBC 4.80 (3.98-5.22) M/mm3 Hgb 15.0 (11.2-15.7) gm/dl Hct 43.8 (34.1-44.9) % MCV 91.3 (79.4-94.8) fl MCH 31.3 (25.6-32.2) pg MCHC 34.2 (32.2-35.5) g/dl RDW Std Deviation 45.8 (36.4-46.3) fL Plt Count 301 (182-369) K/mm3 MPV 10.1 (9.4-12.3) fl Neut % (Auto) 82.7 H (34.0-71.1) % Lymph % (Auto) 9.4 L (19.3-51.7) % [place] % (Auto) 7.6 (4.7-12.5) % Eos % (Auto) 0 L (0.7-5.8) Baso % (Auto) 0.1 (0.1-1.2) % Neut # (Auto) 11.85 H (1.56-6.13) K/mm3 Lymph # (Auto) 1.35 (1.18-3.74) K/mm3 [place] # (Auto) 1.09 H (0.24-0.36) K/mm3 Eos # (Auto) 0.00 L (0.04-0.36) K/mm3 Baso # (Auto) 0.01 (0.01-0.08) K/mm3 Manual Slide Review Abnormal smear Sodium 143 (136-145) mEq/L Potassium 3.2 L (3.5-5.1) mEq/L Chloride 103 (98-107) mEq/L Carbon Dioxide 22 (21-32) mEq/L Anion Gap 21.2 H (5-15) BUN 14 (7-18) mg/dL Creatinine 1.1 H (0.55-1.02) mg/dL Est Cr Clr Drug Dosing 42.82 mL/min Estimated GFR (MDRD) 49 (>60) mL/min BUN/Creatinine Ratio 12.7 L (14-18) Glucose 157 H (70-99) mg/dL Lactic Acid (0.4-2.0) mmol/L Calcium 9.4 (8.5-10.1) mg/dL Magnesium (1.8-2.4) mg/dL Total Bilirubin 0.5 (0.2-1.0) mg/dL AST 18 (15-37) U/L ALT 21 (14-59) U/L Alkaline Phosphatase 61 (46-116) U/L Total Protein 7.9 (6.4-8.2) g/dl Albumin 4.0 (3.4-5.0) g/dl Globulin 3.9 gm/dL Albumin/Globulin Ratio 1.0 (1-2) Lipase 51 L (73-393) U/L Urine Color (Yellow) Urine Appearance (Clear) Urine pH (5.0-8.0) Ur Specific [place] (1.005-1.030) Urine Protein (Negative) Urine Glucose (UA) (Negative) Urine Ketones (Negative) Urine Occult Blood (Negative) Urine Nitrite (Negative) Urine Bilirubin (Negative) Urine Urobilinogen (0.2-1.0) Ur Leukocyte Esterase (Negative) Urine RBC (0-5) /hpf Urine WBC (0-5) /hpf Ur Squamous Epith Cells (0-5) /hpf Urine Bacteria (FEW) /hpf Urine Mucus (FEW) /hpf Ethyl Alcohol (0.00) gm% Ketones 0.95 (0.0-0.3) mM SARS-CoV-2 RNA (ASTON) (NEGATIVE) 12/29/20 12/29/20 12/29/20 Range/Units 09:15 09:25 09:35 WBC (3.98-10.04) K/mm3 RBC (3.98-5.22) M/mm3 Hgb (11.2-15.7) gm/dl Hct (34.1-44.9) % MCV (79.4-94.8) fl MCH (25.6-32.2) pg MCHC (32.2-35.5) g/dl RDW Std Deviation (36.4-46.3) fL Plt Count (182-369) K/mm3 MPV (9.4-12.3) fl Neut % (Auto) (34.0-71.1) % Lymph % (Auto) (19.3-51.7) % [place] % (Auto) (4.7-12.5) % Eos % (Auto) (0.7-5.8) Baso % (Auto) (0.1-1.2) % Neut # (Auto) (1.56-6.13) K/mm3 Lymph # (Auto) (1.18-3.74) K/mm3 [place] # (Auto) (0.24-0.36) K/mm3 Eos # (Auto) (0.04-0.36) K/mm3 Baso # (Auto) (0.01-0.08) K/mm3 Manual Slide Review Sodium (136-145) mEq/L Potassium (3.5-5.1) mEq/L Chloride (98-107) mEq/L Carbon Dioxide (21-32) mEq/L Anion Gap (5-15) BUN (7-18) mg/dL Creatinine (0.55-1.02) mg/dL Est Cr Clr Drug Dosing mL/min Estimated GFR (MDRD) (>60) mL/min BUN/Creatinine Ratio (14-18) Glucose (70-99) mg/dL Lactic Acid 2.8 H* (0.4-2.0) mmol/L Calcium (8.5-10.1) mg/dL Magnesium 1.3 L (1.8-2.4) mg/dL Total Bilirubin (0.2-1.0) mg/dL AST (15-37) U/L ALT (14-59) U/L Alkaline Phosphatase (46-116) U/L Total Protein (6.4-8.2) g/dl Albumin (3.4-5.0) g/dl Globulin gm/dL Albumin/Globulin Ratio (1-2) Lipase (73-393) U/L Urine Color Yellow (Yellow) Urine Appearance Clear (Clear) Urine pH 6.0 (5.0-8.0) Ur Specific [place] > or = 1.030 (1.005-1.030) Urine Protein 2+ H (Negative) Urine Glucose (UA) Negative (Negative) Urine Ketones 1+ H (Negative) Urine Occult Blood Trace-lysed H (Negative) Urine Nitrite Negative (Negative) Urine Bilirubin Negative (Negative) Urine Urobilinogen 0.2 (0.2-1.0) Ur Leukocyte Esterase Negative (Negative) Urine RBC 0-5 (0-5) /hpf Urine WBC 0-5 (0-5) /hpf Ur Squamous Epith Cells 0-5 (0-5) /hpf Urine Bacteria Many H (FEW) /hpf Urine Mucus Many H (FEW) /hpf Ethyl Alcohol 0.00 (0.00) gm% Ketones (0.0-0.3) mM SARS-CoV-2 RNA (ASTON) (NEGATIVE) 12/29/20 12/29/20 Range/Units 12:30 13:05 WBC (3.98-10.04) K/mm3 RBC (3.98-5.22) M/mm3 Hgb (11.2-15.7) gm/dl Hct (34.1-44.9) % MCV (79.4-94.8) fl MCH (25.6-32.2) pg MCHC (32.2-35.5) g/dl RDW Std Deviation (36.4-46.3) fL Plt Count (182-369) K/mm3 MPV (9.4-12.3) fl Neut % (Auto) (34.0-71.1) % Lymph % (Auto) (19.3-51.7) % [place] % (Auto) (4.7-12.5) % Eos % (Auto) (0.7-5.8) Baso % (Auto) (0.1-1.2) % Neut # (Auto) (1.56-6.13) K/mm3 Lymph # (Auto) (1.18-3.74) K/mm3 [place] # (Auto) (0.24-0.36) K/mm3 Eos # (Auto) (0.04-0.36) K/mm3 Baso # (Auto) (0.01-0.08) K/mm3 Manual Slide Review Sodium (136-145) mEq/L Potassium (3.5-5.1) mEq/L Chloride (98-107) mEq/L Carbon Dioxide (21-32) mEq/L Anion Gap (5-15) BUN (7-18) mg/dL Creatinine (0.55-1.02) mg/dL Est Cr Clr Drug Dosing mL/min Estimated GFR (MDRD) (>60) mL/min BUN/Creatinine Ratio (14-18) Glucose (70-99) mg/dL Lactic Acid 2.8 H* (0.4-2.0) mmol/L Calcium (8.5-10.1) mg/dL Magnesium (1.8-2.4) mg/dL Total Bilirubin (0.2-1.0) mg/dL AST (15-37) U/L ALT (14-59) U/L Alkaline Phosphatase (46-116) U/L Total Protein (6.4-8.2) g/dl Albumin (3.4-5.0) g/dl Globulin gm/dL Albumin/Globulin Ratio (1-2) Lipase (73-393) U/L Urine Color (Yellow) Urine Appearance (Clear) Urine pH (5.0-8.0) Ur Specific [place] (1.005-1.030) Urine Protein (Negative) Urine Glucose (UA) (Negative) Urine Ketones (Negative) Urine Occult Blood (Negative) Urine Nitrite (Negative) Urine Bilirubin (Negative) Urine Urobilinogen (0.2-1.0) Ur Leukocyte Esterase (Negative) Urine RBC (0-5) /hpf Urine WBC (0-5) /hpf Ur Squamous Epith Cells (0-5) /hpf Urine Bacteria (FEW) /hpf Urine Mucus (FEW) /hpf Ethyl Alcohol (0.00) gm% Ketones (0.0-0.3) mM SARS-CoV-2 RNA (ASTON) Negative (NEGATIVE) Meds: Medications Generic Name Dose Route Start Last Admin Trade Name Freq PRN Reason Stop Dose Admin Acetaminophen 650 mg 12/29/20 14:23 Acetaminophen 325 Mg Tab PO Q4H PRN Pain (Mild 1-3)/fever Aspirin 81 mg 12/30/20 09:00 Aspirin 81 Mg Tab.Chew PO DAILY JANICE Clobetasol Propionate 0 gm 12/29/20 21:00 Clobetasol 0.05% Crm 30 Gm Tube TOP BID JANICE Docusate Sodium 100 mg 12/29/20 14:23 Docusate Sodium 100 Mg Cap PO BID PRN Constipation Heparin Sodium (Porcine) 5,000 units 12/29/20 14:30 12/29/20 16:18 Heparin Sodium 5,000 Units/Ml Vial SUBCUT 5,000 units Q8H JANICE Administration Hydrochlorothiazide 12.5 mg 12/30/20 09:00 Hydrochlorothiazide 25 Mg TabPt Own PO DAILY JANICE Sodium Chloride 1,000 mls @ 125 mls/hr 12/29/20 14:30 12/29/20 16:19 Normal Saline IV 125 mls/hr ASDIRECTED JANICE Administration Metoprolol Tartrate 12.5 mg 12/29/20 21:00 Metoprolol Tartrate 25 Mg Tab PO BID JAN[facility] Ranitidine 150mg 1 each 12/29/20 21:00 Tablet #Own PO Medication# BEDTIME JAN[facility] Ondansetron HCl 4 mg 12/29/20 14:23 Ondansetron 4 Mg Tab.Dis PO Q4H PRN nausea, able to take PO Ondansetron HCl 4 mg 12/29/20 14:23 Ondansetron 4 Mg/2 Ml Sdv IV Q4H PRN Nausea/Vomiting Pantoprazole Sodium 40 mg 12/30/20 09:00 Pantoprazole 40 Mg Tab.CrPt Own PO DAILY [facility] Citalopram Celexa 40 0 each 12/30/20 09:00 Mg TabletPt Own PO DAILY [facility] Polyethylene Glycol 17 gm 12/29/20 14:23 Polyethylene Glycol 3350 Powder 17 Gm Packet PO DAILY PRN Constipation Potassium Chloride 20 meq 12/30/20 09:00 Potassium Chloride 20 Meq Tab.Er PO DAILY [facility] Promethazine HCl 25 mg 12/29/20 14:23 Promethazine 25 Mg Tab PO Q6H PRN Nausea/Vomiting Tramadol HCl 50 mg 12/29/20 14:29 Tramadol 50 Mg Tab PO Q6H PRN Pain (moderate 4-6) Discontinued Medications Generic Name Dose Route Start Last Admin Trade Name Freq PRN Reason Stop Dose Admin Clobetasol Propionate 30 gm 12/29/20 21:00 Clobetasol 0.05% Crm 30 Gm Tube TOP BID JANICE Hydrochlorothiazide 12.5 mg 12/30/20 09:00 Hydrochlorothiazide 12.5 Mg Cap PO DAILY [facility] Hydromorphone HCl 1 mg 12/29/20 09:43 12/29/20 09:56 Hydromorphone 1 Mg/Ml Syringe IVPUSH 12/29/20 09:44 1 mg ONETIME ONE Administration Lactated Ringer's 500 mls @ 500 mls/hr 12/29/20 09:21 12/29/20 09:29 Ringers, Lactated IV 12/29/20 10:20 500 mls/hr .BOLUS ONE Administration Lactated Ringer's 1,000 mls @ 125 mls/hr 12/29/20 09:30 12/29/20 12:50 Ringers, Lactated IV 125 mls/hr ASDIRECTED JANICE Infusion Magnesium Sulfate 2 gm/ Premix 50 mls @ 25 mls/hr 12/29/20 09:39 12/29/20 09:52 IV 12/29/20 11:38 25 mls/hr ONETIME ONE Administration Magnesium Sulfate 2 gm/ Premix 50 mls @ 25 mls/hr 12/29/20 12:12 12/29/20 12:19 IV 12/29/20 14:11 25 mls/hr ONETIME ONE Administration Lactated Ringer's 500 mls @ 999 mls/hr 12/29/20 12:14 12/29/20 12:19 Ringers, Lactated IV 12/29/20 12:44 999 mls/hr .BOLUS ONE Administration Metoprolol Tartrate 12.5 mg 12/29/20 21:00 Metoprolol Tartrate 25 Mg Tab PO BID [facility] Non-Formulary Medication 40 mg 12/30/20 09:00 Citalopram [Celexa] PO DAILY [facility] Non-Formulary Medication 150 mg 12/29/20 21:00 Ranitidine PO BEDTIME [facility] Ondansetron HCl 4 mg 12/29/20 09:21 12/29/20 09:29 Ondansetron 4 Mg/2 Ml Sdv IVPUSH 12/29/20 09:22 4 mg ONETIME ONE Administration Pantoprazole Sodium 40 mg 12/30/20 09:00 Pantoprazole 40 Mg Tab.Cr PO DAILY [facility] Potassium Chloride 40 meq 12/29/20 12:07 12/29/20 12:10 Potassium Chloride 20 Meq Tab.Er PO 12/29/20 12:08 40 meq ONETIME ONE Administration Potassium Chloride 20 meq 12/30/20 09:00 Potassium Chloride 20 Meq Tab.Er PO DAILY [facility] Potassium Chloride 40 meq 12/29/20 16:15 12/29/20 16:18 Potassium Chloride 20 Meq Tab.Er PO 12/29/20 16:16 40 meq ONETIME ONE Administration - Re-Assessments/Exams Free Text/Narrative Re-Assessment/Exam: 12/29/20 09:50 I have ordered labs started fluids will start magnesium her magnesium was 1.4 yesterday. I do not believe imaging is good to help out she had an unrevealing chest abdomen pelvis CT yesterday. We will give her some Zofran and Dilaudid at this point because she is uncomfortable. 12/29/20 12:28 Recommended admission then found out we have no beds available here transfer is not an option we do not have ground transfer because of lack of staff with local EMS. I will give her some more magnesium potassium and see if we can get her in better shape for discharge. 12/29/20 19:44 We were able to secure a bed here at the hospital and the patient was admitted here Departure - Departure Time of Disposition: 14:00 Disposition: Refer to Observation Clinical Impression: Hypokalemia, Hypomagnesemia Abdominal pain Qualifiers: Abdominal location: generalized Qualified Code(s): R10.84 - Generalized abdomi nal pain - Discharge Information Sepsis Event Note (ED) - Focused Exam Vital Signs: Vital Signs Temp Pulse Resp BP Pulse Ox 12/29/20 10:08 36.1 C 97 20 137/95 H 94 L 12/29/20 09:09 36.1 C 93 20 137/95 H 99
[2020-12-29] MEDS ORDERED: Ondansetron 4 MG/2 ML SDV IVPUSH ONE (09:21)
[2020-12-29] MEDS ORDERED: Lactated Ringers 500 ML IV ONE ×2 (09:21→12:14)
[2020-12-29] MEDS ORDERED: Lactated Ringers 1,000 ML IV SCH (09:30)
[2020-12-29] MEDS ORDERED: Magnesium Sulfate/Water 2 GM in Premix Bag 1 BAG IV ONE ×2 (09:39→12:12)
[2020-12-29] MEDS ORDERED: HYDROmorphone 1 MG/ML Syringe IVPUSH ONE (09:43)
--- NOTE | 2020-12-29 10:03 | CR ---
Abdomen: Supine and upright views the abdomen were obtained. Comparison: Prior CT abdomen and pelvis study of 12/28/20 and abdominal x-ray of 01/26/19. Gas is noted within portions of the colon and small bowel which appears within normal limits. Minimal vascular calcification is seen. No free air is identified. Bony structures appear within normal limits for the patient's age. Visualized lung bases are clear. Impression: 1. Nothing acute is appreciated on two-view abdominal x-ray. Diagnostic code #2
[2020-12-29] MEDS ORDERED: Potassium Chloride 20 MEQ Tab.ER PO ONE ×2 (12:07→16:15)
[2020-12-29] MEDS ORDERED: Acetaminophen 325 MG Tab PO PRN (14:23)
[2020-12-29] MEDS ORDERED: Promethazine 25 MG Tab PO PRN (14:23)
[2020-12-29] MEDS ORDERED: Polyethylene Glycol 3350 Powder 17 GM Packet PO PRN (14:23)
[2020-12-29] MEDS ORDERED: Ondansetron 4 MG Tab.DIS PO PRN (14:23)
[2020-12-29] MEDS ORDERED: Docusate Sodium 100 MG Cap PO PRN (14:23)
[2020-12-29] MEDS ORDERED: Ondansetron 4 MG/2 ML SDV IV PRN (14:23)
[2020-12-29] MEDS ORDERED: traMADol 50 MG Tab PO PRN (14:29)
--- NOTE | 2020-12-29 14:37 | PCM.HP.2 ---
H&P History of Present Illness - General Date of Service: 12/29/20 Admit Problem/Dx: Admission Diagnosis/Problem Admission Diagnosis/Problem Abdominal pain in female Source of Information: Patient, Provider - History of Present Illness Initial Comments - Free Text/Narative: Patient is a 70-year-old female with a past medical history as listed below who presents to the [facility] emergency department with a chief complaint of abdominal pain. Patient states that she has had chronic abdominal discomfort in the anterior the abdomen with diffuse radiation transiently without any specific worsening or ameliorating factors for the past 5 years. Patient states that she presents to the emergency department frequently for these episodes which sometimes are associated with nausea and persistent vomiting. She has had an extensive work- up both here and in facilities in [place] for her chronic abdominal discomfort. She has had EGDs and colonoscopies with negative biopsies. Last examinations were performed about a year ago. Again, biopsies were negative. The patient has not followed up with GI since then. The patient states that she has chronic intermittent constipation for which she takes MiraLAX either once or twice a week. She denies any diarrheal episodes or other changes in bowel habits. She denies any black or bloody vomitus. She denies any black or bloody stools. No family history of ulcerative colitis or Crohn's disease. The patient has not been losing weight per se. She denies any other constitutional symptoms. Again pain is mostly periumbilical with occasional radiation throughout the abdomen which is transient. This is not associated with food ingestion. No other specific triggers have been identified. The patient has not had any abdominal surgeries. She has never been . The patient presented for abdominal discomfort yesterday in which she had another full work-up. Examination, laboratory studies and full imaging with CAT scan technique were negative for any ominous pathology. The patient was ultimately sent home from the emergency department after fluids and electrolyte replacement. Today, the patient presents with the same with mild electrolyte imbalances including hypomagnesemia and hypokalemia from GI loss. Also with mild lactic acidosis; likely due to GI loss as well. The patient has been given crystalloid as well as electrolyte replacement in the emergency department. The patient was referred for observation to the internal medicine service due to her ongoing and multiple visits to the emergency department. A 14 point review of systems was reviewed with the patient entirely and only pertinent for the above information. CODE STATUS: Reviewed and she wishes to be full code. - Related Data Allergies/Adverse Reactions: Allergies Allergy/AdvReac Type Severity Reaction Status Date / Time aspirin Allergy Severe Other Verified 12/29/20 09:10 docetaxel [From Taxotere] Allergy Severe Other Verified 12/29/20 09:10 sertraline [From Zoloft] Allergy Severe Cannot Verified 12/29/20 09:10 Remember Home Medications: Home Meds Citalopram [Celexa] 40 mg PO DAILY 09/28/16 [History] Hydrochlorothiazide 12.5 mg PO DAILY 09/28/16 [History] Metoprolol Tartrate 12.5 mg PO BID 05/06/17 [History] Clobetasol [Clobetasol 0.05%] 30 gm TOP BID 02/27/18 [History] Mometasone Furoate [Elocon] 1 applic TOP ASDIRECTED PRN 02/27/18 [History] Potassium Chloride [Klor-Con M20] 20 meq PO DAILY 01/25/19 [History] Ranitidine [Zantac] 150 mg PO BEDTIME 01/25/19 [History] Ondansetron [Zofran] 4 mg BUCCAL Q6H PRN #5 tab 12/28/20 [Rx] Pantoprazole [ProTONIX] 40 mg PO DAILY 12/28/20 [History] Past Medical History HEENT History: Reports: Impaired Vision Other HEENT History: wears glasses Cardiovascular History: Reports: Hypertension, [place] Gastrointestinal History: Reports: Hemorrhoids Other Gastrointestinal History: pt states she had her hemorrhoids fried. States has had abdominal pain of this degree for past year and has seen multiple MD's with no diagonosis Psychiatric History: Reports: Anxiety, Depression Endocrine/Metabolic History: Reports: Obesity/BMI 30+ Oncologic (Cancer) History: Reports: Breast, Other (See Below) Other Oncologic History: right lumpectomy Dermatologic History: Reports: Psoriasis - Infectious Disease History Infectious Disease History: Reports: Influenza, Measles - Past Surgical History HEENT Surgical History: Reports: None Cardiovascular Surgical History: Reports: None GI Surgical History: Reports: None Endocrine Surgical History: Reports: None Oncologic Surgical History: Reports: Lumpectomy Social & Family History - Family History Family Medical History: No Pertinent Family History HEENT: Reports: Cataract GI: Reports: Diverticulitis Dermatologic: Reports: Psoriasis - Tobacco Use Tobacco Use Status *Q: Current Every Day Tobacco User Years of Tobacco use: 55 Packs/Tins Daily: 0.5 - Caffeine Use Caffeine Use: Reports: Tea Other Caffeine Use: one cup of tea in the morning - Alcohol Use Days Per Week of Alcohol Use: 3 Number of Drinks Per Day: 4 Total Drinks Per Week: 12 - Recreational Drug Use Recreational Drug Use: No - Living Situation & Occupation Living situation: Reports: Occupation: Unemployed H&P Review of Systems - Review of Systems: Review Of Systems: Comprehensive ROS is negative, except as noted in HPI. Exam - Exam Exam: See Below - Vital Signs Vital Signs: Last Vital Signs Temp 97.0 F 12/29/20 10:08 Pulse 97 12/29/20 10:08 Resp 20 12/29/20 10:08 BP 137/95 H 12/29/20 10:08 Pulse Ox 94 L 12/29/20 10:08 Weight: 180 lb - Exam Quality Assessment: No: Supplemental Oxygen Physical Exam Comments:: General: Awake and alert, in no apparent distress. Nontoxic-appearing. HEENT: Normocephalic, atraumatic. Extra ocular muscles intact. Pupils equal and reactive to light. Nares are patent. Oropharynx clear without erythema or exudate. Tongue is midline. Neck: Supple without lymphadenopathy. No goiter. Trachea midline. Heart: Regular rate and rhythm. S1 and S2 heard without murmur or extrasystoles. Lungs: Clear to auscultation bilaterally. No wheezing, rales, rhonchi. Abdomen: Soft, mildly diffusely tender to deep palpation without rebound or g uarding, nondistended. Positive bowel sounds. No CVA tenderness. No suprapubic tenderness. Extremities: Warm and perfused. No clubbing, cyanosis, or edema. Integument: No obvious rash or jaundice. No lymphadenopathy. Neurologic: Cranial nerves II through XII grossly intact. No obvious gross mo tor or sensory deficits. Musculoskeletal: No obvious joint deformities, range of motion deficits or effusions. Psychiatric: Normal mood and affect. - Patient Data Lab Results Last 24 hrs: Laboratory Results - last 24 hr 12/29/20 12/29/20 12/29/20 Range/Units 09:15 09:15 09:15 WBC 14.33 H (3.98-10.04) K/mm3 RBC 4.80 (3.98-5.22) M/mm3 Hgb 15.0 (11.2-15.7) gm/dl Hct 43.8 (34.1-44.9) % MCV 91.3 (79.4-94.8) fl MCH 31.3 (25.6-32.2) pg MCHC 34.2 (32.2-35.5) g/dl RDW Std Deviation 45.8 (36.4-46.3) fL Plt Count 301 (182-369) K/mm3 MPV 10.1 (9.4-12.3) fl Neut % (Auto) 82.7 H (34.0-71.1) % Lymph % (Auto) 9.4 L (19.3-51.7) % Boundary % (Auto) 7.6 (4.7-12.5) % Eos % (Auto) 0 L (0.7-5.8) Baso % (Auto) 0.1 (0.1-1.2) % Neut # (Auto) 11.85 H (1.56-6.13) K/mm3 Lymph # (Auto) 1.35 (1.18-3.74) K/mm3 Boundary # (Auto) 1.09 H (0.24-0.36) K/mm3 Eos # (Auto) 0.00 L (0.04-0.36) K/mm3 Baso # (Auto) 0.01 (0.01-0.08) K/mm3 Manual Slide Review Abnormal smear Sodium 143 (136-145) mEq/L Potassium 3.2 L (3.5-5.1) mEq/L Chloride 103 (98-107) mEq/L Carbon Dioxide 22 (21-32) mEq/L Anion Gap 21.2 H (5-15) BUN 14 (7-18) mg/dL Creatinine 1.1 H (0.55-1.02) mg/dL Est Cr Clr Drug Dosing 42.82 mL/min Estimated GFR (MDRD) 49 (>60) mL/min BUN/Creatinine Ratio 12.7 L (14-18) Glucose 157 H (70-99) mg/dL Lactic Acid (0.4-2.0) mmol/L Calcium 9.4 (8.5-10.1) mg/dL Magnesium (1.8-2.4) mg/dL Total Bilirubin 0.5 (0.2-1.0) mg/dL AST 18 (15-37) U/L ALT 21 (14-59) U/L Alkaline Phosphatase 61 (46-116) U/L Total Protein 7.9 (6.4-8.2) g/dl Albumin 4.0 (3.4-5.0) g/dl Globulin 3.9 gm/dL Albumin/Globulin Ratio 1.0 (1-2) Lipase 51 L (73-393) U/L Urine Color (Yellow) Urine Appearance (Clear) Urine pH (5.0-8.0) Ur Specific [place] (1.005-1.030) Urine Protein (Negative) Urine Glucose (UA) (Negative) Urine Ketones (Negative) Urine Occult Blood (Negative) Urine Nitrite (Negative) Urine Bilirubin (Negative) Urine Urobilinogen (0.2-1.0) Ur Leukocyte Esterase (Negative) Urine RBC (0-5) /hpf Urine WBC (0-5) /hpf Ur Squamous Epith Cells (0-5) /hpf Urine Bacteria (FEW) /hpf Urine Mucus (FEW) /hpf Ethyl Alcohol (0.00) gm% Ketones 0.95 (0.0-0.3) mM SARS-CoV-2 RNA (ASTON) (NEGATIVE) 12/29/20 12/29/20 12/29/20 Range/Units 09:15 09:25 09:35 WBC (3.98-10.04) K/mm3 RBC (3.98-5.22) M/mm3 Hgb (11.2-15.7) gm/dl Hct (34.1-44.9) % MCV (79.4-94.8) fl MCH (25.6-32.2) pg MCHC (32.2-35.5) g/dl RDW Std Deviation (36.4-46.3) fL Plt Count (182-369) K/mm3 MPV (9.4-12.3) fl Neut % (Auto) (34.0-71.1) % Lymph % (Auto) (19.3-51.7) % Boundary % (Auto) (4.7-12.5) % Eos % (Auto) (0.7-5.8) Baso % (Auto) (0.1-1.2) % Neut # (Auto) (1.56-6.13) K/mm3 Lymph # (Auto) (1.18-3.74) K/mm3 Boundary # (Auto) (0.24-0.36) K/mm3 Eos # (Auto) (0.04-0.36) K/mm3 Baso # (Auto) (0.01-0.08) K/mm3 Manual Slide Review Sodium (136-145) mEq/L Potassium (3.5-5.1) mEq/L Chloride (98-107) mEq/L Carbon Dioxide (21-32) mEq/L Anion Gap (5-15) BUN (7-18) mg/dL Creatinine (0.55-1.02) mg/dL Est Cr Clr Drug Dosing mL/min Estimated GFR (MDRD) (>60) mL/min BUN/Creatinine Ratio (14-18) Glucose (70-99) mg/dL Lactic Acid 2.8 H* (0.4-2.0) mmol/L Calcium (8.5-10.1) mg/dL Magnesium 1.3 L (1.8-2.4) mg/dL Total Bilirubin (0.2-1.0) mg/dL AST (15-37) U/L ALT (14-59) U/L Alkaline Phosphatase (46-116) U/L Total Protein (6.4-8.2) g/dl Albumin (3.4-5.0) g/dl Globulin gm/dL Albumin/Globulin Ratio (1-2) Lipase (73-393) U/L Urine Color Yellow (Yellow) Urine Appearance Clear (Clear) Urine pH 6.0 (5.0-8.0) Ur Specific [place] > or = 1.030 (1.005-1.030) Urine Protein 2+ H (Negative) Urine Glucose (UA) Negative (Negative) Urine Ketones 1+ H (Negative) Urine Occult Blood Trace-lysed H (Negative) Urine Nitrite Negative (Negative) Urine Bilirubin Negative (Negative) Urine Urobilinogen 0.2 (0.2-1.0) Ur Leukocyte Esterase Negative (Negative) Urine RBC 0-5 (0-5) /hpf Urine WBC 0-5 (0-5) /hpf Ur Squamous Epith Cells 0-5 (0-5) /hpf Urine Bacteria Many H (FEW) /hpf Urine Mucus Many H (FEW) /hpf Ethyl Alcohol 0.00 (0.00) gm% Ketones (0.0-0.3) mM SARS-CoV-2 RNA (ASTON) (NEGATIVE) 12/29/20 12/29/20 Range/Units 12:30 13:05 WBC (3.98-10.04) K/mm3 RBC (3.98-5.22) M/mm3 Hgb (11.2-15.7) gm/dl Hct (34.1-44.9) % MCV (79.4-94.8) fl MCH (25.6-32.2) pg MCHC (32.2-35.5) g/dl RDW Std Deviation (36.4-46.3) fL Plt Count (182-369) K/mm3 MPV (9.4-12.3) fl Neut % (Auto) (34.0-71.1) % Lymph % (Auto) (19.3-51.7) % Boundary % (Auto) (4.7-12.5) % Eos % (Auto) (0.7-5.8) Baso % (Auto) (0.1-1.2) % Neut # (Auto) (1.56-6.13) K/mm3 Lymph # (Auto) (1.18-3.74) K/mm3 Bound[place] # (Auto) (0.24-0.36) K/mm3 Eos # (Auto) (0.04-0.36) K/mm3 Baso # (Auto) (0.01-0.08) K/mm3 Manual Slide Review Sodium (136-145) mEq/L Potassium (3.5-5.1) mEq/L Chloride (98-107) mEq/L Carbon Dioxide (21-32) mEq/L Anion Gap (5-15) BUN (7-18) mg/dL Creatinine (0.55-1.02) mg/dL Est Cr Clr Drug Dosing mL/min Estimated GFR (MDRD) (>60) mL/min BUN/Creatinine Ratio (14-18) Glucose (70-99) mg/dL Lactic Acid 2.8 H* (0.4-2.0) mmol/L Calcium (8.5-10.1) mg/dL Magnesium (1.8-2.4) mg/dL Total Bilirubin (0.2-1.0) mg/dL AST (15-37) U/L ALT (14-59) U/L Alkaline Phosphatase (46-116) U/L Total Protein (6.4-8.2) g/dl Albumin (3.4-5.0) g/dl Globulin gm/dL Albumin/Globulin Ratio (1-2) Lipase (73-393) U/L Urine Color (Yellow) Urine Appearance (Clear) Urine pH (5.0-8.0) Ur Specific [place] (1.005-1.030) Urine Protein (Negative) Urine Glucose (UA) (Negative) Urine Ketones (Negative) Urine Occult Blood (Negative) Urine Nitrite (Negative) Urine Bilirubin (Negative) Urine Urobilinogen (0.2-1.0) Ur Leukocyte Esterase (Negative) Urine RBC (0-5) /hpf Urine WBC (0-5) /hpf Ur Squamous Epith Cells (0-5) /hpf Urine Bacteria (FEW) /hpf Urine Mucus (FEW) /hpf Ethyl Alcohol (0.00) gm% Ketones (0.0-0.3) mM SARS-CoV-2 RNA (ASTON) Negative (NEGATIVE) Result Diagrams: 12/29/20 09:15 12/29/20 09:15 Imaging Impressions Last 24 hrs: All imaging personally reviewed from yesterday as well as today. Agree with readings. Sepsis Event Note - Focused Exam Vital Signs: Vital Signs Temp Pulse Resp BP Pulse Ox 12/29/20 10:08 97.0 F 97 20 137/95 H 94 L 12/29/20 09:09 96.9 F 93 20 137/95 H 99 Problem List Initiated/Reviewed/Updated: Yes Orders Last 24hrs: Active Orders 24 hr Category Date Time Status Patient Status [ADT] Routine ADT 12/29/20 14:23 Ordered Oxygen Therapy [RC] PRN Care 12/29/20 14:23 Ordered Up ad Nelda [RC] ASDIRECTED Care 12/29/20 14:23 Ordered VTE/DVT Education [RC] PER UNIT ROUTINE Care 12/29/20 14:23 Ordered Vital Signs [RC] Q4H Care 12/29/20 14:23 Ordered Consult to Enterprise Integration Developer [CONS] Routine Cons 12/29/20 14:23 Ordered Regular Diet [DIET] Diet 12/29/20 Dinner Ordered BASIC METABOLIC PANEL,BMP [CHEM] Routine Lab 12/30/20 06:00 Ordered CBC WITH AUTO DIFF [HEME] Routine Lab 12/30/20 06:00 Ordered Acetaminophen [TylenoL] Med 12/29/20 14:23 Ordered 650 mg PO Q4H PRN Citalopram [Celexa] Med 12/30/20 09:00 Ordered 40 mg PO DAILY Clobetasol [Clobetasol 0.05%] Med 12/29/20 21:00 Ordered 30 gm TOP BID Docusate Sodium [Colace] Med 12/29/20 14:23 Ordered 100 mg PO BID PRN Heparin Sodium Med 12/29/20 14:30 Ordered 5,000 units SUBCUT Q8H Lactated Ringers [Ringers, Lactated] 1,000 ml Med 12/29/20 09:30 Active IV ASDIRECTED Metoprolol Tartrate [Lopressor] Med 12/29/20 21:00 Ordered 12.5 mg PO BID Ondansetron [Zofran ODT] Med 12/29/20 14:23 Ordered 4 mg PO Q4H PRN Ondansetron [Zofran] Med 12/29/20 14:23 Ordered 4 mg IV Q4H PRN Pantoprazole [ProTONIX] Med 12/30/20 09:00 Ordered 40 mg PO DAILY Potassium Chloride [Klor-Con M20] Med 12/30/20 09:00 Ordered 20 meq PO DAILY Promethazine [Phenergan] Med 12/29/20 14:23 Ordered 25 mg PO Q6H PRN Ranitidine Med 12/29/20 21:00 Ordered 150 mg PO BEDTIME Sodium Chloride 0.9% @ 125 MLS/HR (1000ml) Med 12/29/20 14:30 Ordered Sodium Chloride 0.9% [Normal Saline] 1,000 ml IV ASDIRECTED hydroCHLOROthiazide Med 12/30/20 09:00 Ordered 12.5 mg PO DAILY polyethylene glycoL 3350 [MiraLAX] Med 12/29/20 14:23 Ordered 17 gm PO DAILY PRN traMADol [Ultram] Med 12/29/20 14:29 Ordered 50 mg PO Q6H PRN Resuscitation Status Routine Resus Stat 12/29/20 14:23 Ordered Medication Orders Acetaminophen (Acetaminophen 325 Mg Tab) 650 mg PO Q4H PRN PRN Reason: Pain (Mild 1-3)/fever Clobetasol Propionate (Clobetasol 0.05% Crm 30 Gm Tube) 30 gm TOP BID [facility] Docusate Sodium (Docusate Sodium 100 Mg Cap) 100 mg PO BID PRN PRN Reason: Constipation Heparin Sodium (Porcine) (Heparin Sodium 5,000 Units/Ml Vial) 5,000 units SUBCU T Q8H [facility] Hydrochlorothiazide (Hydrochlorothiazide 12.5 Mg Cap) 12.5 mg PO DAILY [facility] Lactated Ringer's (Ringers, Lactated) 1,000 mls @ 125 mls/hr IV ASDIRECTED [facility] Last Infusion: 12/29/20 12:19 Dose: 0 mls/hr Documented by: Admin: 12/29/20 11:15 Dose: 125 mls/hr Documented by: MATT Sodium Chloride (Normal Saline) 1,000 mls @ 125 mls/hr IV ASDIRECTED [facility] Metoprolol Tartrate (Metoprolol Tartrate 25 Mg Tab) 12.5 mg PO BID [facility] Non-Formulary Medication (Citalopram [Celexa]) 40 mg PO DAILY [facility] Non-Formulary Medication (Ranitidine) 150 mg PO BEDTIME JANICE Ondansetron HCl (Ondansetron 4 Mg Tab.Dis) 4 mg PO Q4H PRN PRN Reason: nausea, able to take PO Ondansetron HCl (Ondansetron 4 Mg/2 Ml Sdv) 4 mg IV Q4H PRN PRN Reason: Nausea/Vomiting Pantoprazole Sodium (Pantoprazole 40 Mg Tab.Cr) 40 mg PO DAILY [facility] Polyethylene Glycol (Polyethylene Glycol 3350 Powder 17 Gm Packet) 17 gm PO DAILY PRN PRN Reason: Constipation Potassium Chloride (Potassium Chloride 20 Meq Tab.Er) 20 meq PO DAILY [facility] Promethazine HCl (Promethazine 25 Mg Tab) 25 mg PO Q6H PRN PRN Reason: Nausea/Vomiting Tramadol HCl (Tramadol 50 Mg Tab) 50 mg PO Q6H PRN PRN Reason: Pain (moderate 4-6) Assessment/Plan Comment:: 70-year-old female with a past medical history as listed above who presents to the [facility] emergency department with a chief complaint of abdominal pain which has been ongoing for 5 years with completely negative work-up. 1. Abdominal pain. No obvious organic etiology at current time. Prior extensive GI work-up has been negative including biopsies from EGD and colonoscopy. No family history to suggest inflammatory bowel disease. Suspect psychiatric component and possible constipation predominant IBS. Perhaps antidepressants (SSRIs or SNRIs) or alternative agents such as Amitiza may be prudent in this patient's case. For now, will observe under observation, this has been discussed with the patient and she is aware that she is being admitted under this status. Continue symptomatic control with antiemetics, antipyretics and tramadol as needed. Continue crystalloid resuscitation. Continue daily GI prophylaxis with PPI 2. Electrolyte disturbances including hypomagnesemia, hypokalemia, mild lactic acidosis. All from GI loss from vomiting. Replacement has begun in the emergency department. Intermittent check of labs and replace electrolytes as necessary. Repeat lactic acid as per protocol. Patient is not septic. 3. Prior history of coronary artery disease and hypertension. Continue home cardiac medications at regular dose. CODE STATUS: Full code. DVT prophylaxis with heparin. - Mortality Measure Prognosis:: Good
[2020-12-29] MEDS: Heparin Sodium 5,000 Units/ML Vial SUBCUT SCH ×2 (16:18→23:02)
[2020-12-29] MEDS: Sodium Chloride 0.9% 1,000 ML IV SCH (16:19)
[2020-12-29] MEDS ORDERED: Metoprolol Tartrate 25 MG Tab PO SCH (21:00)
[2020-12-29] MEDS ORDERED: RANITIDINE 150 MG PO SCH (21:00)
[2020-12-29] MEDS ORDERED: Non-Formulary Medication 1 Each (Ranitidine 150 MG Tablet) PO SCH (21:00)
[2020-12-29] MEDS ORDERED: Clobetasol 0.05% Crm 30 GM Tube TOP SCH (21:00)
[2020-12-29] MEDS: Clobetasol 0.05% Crm 30 GM Tube TOP SCH (23:00)
[2020-12-29] MEDS: Metoprolol Tartrate 25 MG Tab PO SCH (23:01)
[2020-12-29 23:04] VITALS: PULSE 74
[2020-12-30] MEDS: Sodium Chloride 0.9% 1,000 ML IV SCH (00:05)
[2020-12-30] MEDS: Heparin Sodium 5,000 Units/ML Vial SUBCUT SCH (06:45)
[2020-12-30] MEDS ORDERED: Potassium Chloride 20 MEQ Tab.ER PO ONE (07:44)
--- NOTE | 2020-12-30 08:11 | PCM.DCSUM1 ---
Discharge Summary - Hospital Course Diagnosis: Stroke: No - Discharge Data Discharge Date: 12/30/20 Discharge Disposition: Home, Self-Care 01 Condition: Good - Referral to Home Health Primary Care Physician: Nurys Coello NP - Discharge Diagnosis/Problem(s) (1) Intractable nausea and vomiting SNOMED Code(s): 275950147 ICD Code: R11.2 - NAUSEA WITH VOMITING, UNSPECIFIED Status: Resolved Priority: High (2) Hypokalemia, gastrointestinal losses SNOMED Code(s): 19633154 ICD Code: E87.6 - HYPOKALEMIA Status: Resolved Priority: High - Patient Summary/Data Consults: Consultations 12/29/20 14:23 Consult to Butadiene Compressor Operator [CONS] Routine Hospital Course: The patient is a 70-year-old lady who was admitted to observation due to abdominal discomfort and pain. Patient reports that she has had chronic abdominal discomfort with diffuse radiation at least for the past 5 years. The patient reports that she has had multiple work-ups with GI evaluation with multiple colonoscopies and EGDs. Imaging of the patient's abdomen did not show anything acute on two-view abdominal x-ray. This was compared to a CT of her abdomen on December 28, 2020 and her abdominal x-ray from January 26, 2019. She has been worked up at tertiary care centers as well. The patient was admitted primarily secondary to pain control as well as fluid hydration. The patient was initially fluid resuscitated with Ringer's lactate and her electrolytes were replaced. The patient had improved considerably during her short course of hospitalization. The patient had been tolerating her diet. She felt like she can go home safely. The patient has been recommended to follow-up with gastroenterology. Patient is to follow-up with her primary care physician. The patient also has been continued on her home medications. The patient is to have her diet as tolerated. She is to have activity as tolerated. The patient has been discharged in stable condition with the recommendations listed above. - Patient Instructions Diet: Heart Healthy Diet Activity: As Tolerated - Discharge Plan *PRESCRIPTION DRUG MONITORING PROGRAM REVIEWED*: No *COPY OF PRESCRIPTION DRUG MONITORING REPORT IN PATIENT JIMMY: No Home Medications: Home Meds Citalopram [Celexa] 40 mg PO DAILY 09/28/16 [History] Hydrochlorothiazide 12.5 mg PO DAILY 09/28/16 [History] Metoprolol Tartrate 12.5 mg PO BID 05/06/17 [History] Clobetasol [Clobetasol 0.05%] 1 applic TOP BID 02/27/18 [History] Mometasone Furoate [Elocon] 1 applic TOP ASDIRECTED PRN 02/27/18 [History] Potassium Chloride [Klor-Con M20] 20 meq PO DAILY 01/25/19 [History] Pantoprazole [ProTONIX] 40 mg PO DAILY 12/28/20 [History] Aspirin 81 mg PO DAILY 12/29/20 [History] Oxygen Therapy Mode: Room Air Patient Handouts: Abdominal Pain, Adult, [id number] Forms: ED Department Discharge Referrals: Nurys Coello NP [Primary Care Provider] - (please call your primary care provider and schedule a hospital follow up appointment if needed. ) - Discharge Summary/Plan Comment DC Time >30 min.: No Total # of Minutes for Discharge Time: 25 - General Info Date of Service: 12/30/20 Admission Dx/Problem (Free Text: Admission Diagnosis/Problem Admission Diagnosis/Problem Abdominal pain in female, anxiety Subjective Update: The patient feels that she has improved to her baseline. She feels like she can safely go home. She has denied any pain. No nausea or vomiting. Functional Status: Reports: Pain Controlled, Tolerating Diet - Review of Systems General: Reports: No Symptoms HEENT: Reports: No Symptoms Pulmonary: Reports: No Symptoms Cardiovascular: Reports: No Symptoms Gastrointestinal: Reports: No Symptoms Genitourinary: Reports: No Symptoms Musculoskeletal: Reports: No Symptoms Skin: Reports: No Symptoms Neurological: Reports: No Symptoms Psychiatric: Reports: No Symptoms - Patient Data Vitals - Most Recent: Last Vital Signs Temp 36.2 C 12/30/20 04:49 Pulse 74 12/30/20 04:49 Resp 13 12/30/20 04:49 BP 105/73 12/30/20 04:49 Pulse Ox 94 L 12/30/20 04:49 Weight - Most Recent: 79.469 kg I&O - Last 24 hours: Intake & Output 12/29/20 12/30/20 12/30/20 22:59 06:59 14:59 Intake Total 2144 Output Total 200 775 Balance -200 1369 Lab Results - Last 24 hrs: Laboratory Results - last 24 hr 0812/29/20 12/29/20 Range/Units 09:15 09:15 09:15 WBC 14.33 H (3.98-10.04) K/mm3 RBC 4.80 (3.98-5.22) M/mm3 Hgb 15.0 (11.2-15.7) gm/dl Hct 43.8 (34.1-44.9) % MCV 91.3 (79.4-94.8) fl MCH 31.3 (25.6-32.2) pg MCHC 34.2 (32.2-35.5) g/dl RDW Std Deviation 45.8 (36.4-46.3) fL Plt Count 301 (182-369) K/mm3 MPV 10.1 (9.4-12.3) fl Neut % (Auto) 82.7 H (34.0-71.1) % Lymph % (Auto) 9.4 L (19.3-51.7) % Dale % (Auto) 7.6 (4.7-12.5) % Eos % (Auto) 0 L (0.7-5.8) Baso % (Auto) 0.1 (0.1-1.2) % Neut # (Auto) 11.85 H (1.56-6.13) K/mm3 Lymph # (Auto) 1.35 (1.18-3.74) K/mm3 Dale # (Auto) 1.09 H (0.24-0.36) K/mm3 Eos # (Auto) 0.00 L (0.04-0.36) K/mm3 Baso # (Auto) 0.01 (0.01-0.08) K/mm3 Manual Slide Review Abnormal smear Sodium 143 (136-145) mEq/L Potassium 3.2 L (3.5-5.1) mEq/L Chloride 103 (98-107) mEq/L Carbon Dioxide 22 (21-32) mEq/L Anion Gap 21.2 H (5-15) BUN 14 (7-18) mg/dL Creatinine 1.1 H (0.55-1.02) mg/dL Est Cr Clr Drug Dosing 42.82 mL/min Estimated GFR (MDRD) 49 (>60) mL/min BUN/Creatinine Ratio 12.7 L (14-18) Glucose 157 H (70-99) mg/dL Lactic Acid (0.4-2.0) mmol/L Calcium 9.4 (8.5-10.1) mg/dL Magnesium (1.8-2.4) mg/dL Total Bilirubin 0.5 (0.2-1.0) mg/dL AST 18 (15-37) U/L ALT 21 (14-59) U/L Alkaline Phosphatase 61 (46-116) U/L Total Protein 7.9 (6.4-8.2) g/dl Albumin 4.0 (3.4-5.0) g/dl Globulin 3.9 gm/dL Albumin/Globulin Ratio 1.0 (1-2) Lipase 51 L (73-393) U/L Urine Color (Yellow) Urine Appearance (Clear) Urine pH (5.0-8.0) Ur Specific [place] (1.005-1.030) Urine Protein (Negative) Urine Glucose (UA) (Negative) Urine Ketones (Negative) Urine Occult Blood (Negative) Urine Nitrite (Negative) Urine Bilirubin (Negative) Urine Urobilinogen (0.2-1.0) Ur Leukocyte Esterase (Negative) Urine RBC (0-5) /hpf Urine WBC (0-5) /hpf Ur Squamous Epith Cells (0-5) /hpf Urine Bacteria (FEW) /hpf Urine Mucus (FEW) /hpf Ethyl Alcohol (0.00) gm% Ketones 0.95 (0.0-0.3) mM SARS-CoV-2 RNA ([facility]ON) (NEGATIVE) 12/29/20 12/29/20 12/29/20 Range/Units 09:15 09:25 09:35 WBC (3.98-10.04) K/mm3 RBC (3.98-5.22) M/mm3 Hgb (11.2-15.7) gm/dl Hct (34.1-44.9) % MCV (79.4-94.8) fl MCH (25.6-32.2) pg MCHC (32.2-35.5) g/dl RDW Std Deviation (36.4-46.3) fL Plt Count (182-369) K/mm3 MPV (9.4-12.3) fl Neut % (Auto) (34.0-71.1) % Lymph % (Auto) (19.3-51.7) % Dale % (Auto) (4.7-12.5) % Eos % (Auto) (0.7-5.8) Baso % (Auto) (0.1-1.2) % Neut # (Auto) (1.56-6.13) K/mm3 Lymph # (Auto) (1.18-3.74) K/mm3 Dale # (Auto) (0.24-0.36) K/mm3 Eos # (Auto) (0.04-0.36) K/mm3 Baso # (Auto) (0.01-0.08) K/mm3 Manual Slide Review Sodium (136-145) mEq/L Potassium (3.5-5.1) mEq/L Chloride (98-107) mEq/L Carbon Dioxide (21-32) mEq/L Anion Gap (5-15) BUN (7-18) mg/dL Creatinine (0.55-1.02) mg/dL Est Cr Clr Drug Dosing mL/min Estimated GFR (MDRD) (>60) mL/min BUN/Creatinine Ratio (14-18) Glucose (70-99) mg/dL Lactic Acid 2.8 H* (0.4-2.0) mmol/L Calcium (8.5-10.1) mg/dL Magnesium 1.3 L (1.8-2.4) mg/dL Total Bilirubin (0.2-1.0) mg/dL AST (15-37) U/L ALT (14-59) U/L Alkaline Phosphatase (46-116) U/L Total Protein (6.4-8.2) g/dl Albumin (3.4-5.0) g/dl Globulin gm/dL Albumin/Globulin Ratio (1-2) Lipase (73-393) U/L Urine Color Yellow (Yellow) Urine Appearance Clear (Clear) Urine pH 6.0 (5.0-8.0) Ur Specific [place] > or = 1.030 (1.005-1.030) Urine Protein 2+ H (Negative) Urine Glucose (UA) Negative (Negative) Urine Ketones 1+ H (Negative) Urine Occult Blood Trace-lysed H (Negative) Urine Nitrite Negative (Negative) Urine Bilirubin Negative (Negative) Urine Urobilinogen 0.2 (0.2-1.0) Ur Leukocyte Esterase Negative (Negative) Urine RBC 0-5 (0-5) /hpf Urine WBC 0-5 (0-5) /hpf Ur Squamous Epith Cells 0-5 (0-5) /hpf Urine Bacteria Many H (FEW) /hpf Urine Mucus Many H (FEW) /hpf Ethyl Alcohol 0.00 (0.00) gm% Ketones (0.0-0.3) mM SARS-CoV-2 RNA ([facility]ON) (NEGATIVE) 12/29/20 12/29/20 12/30/20 Range/Units 12:30 13:05 05:05 WBC 10.31 H (3.98-10.04) K/mm3 RBC 4.08 (3.98-5.22) M/mm3 Hgb 12.8 D (11.2-15.7) gm/dl Hct 39.2 (34.1-44.9) % MCV 96.1 H D (79.4-94.8) fl MCH 31.4 (25.6-32.2) pg MCHC 32.7 (32.2-35.5) g/dl RDW Std Deviation 49.2 H (36.4-46.3) fL Plt Count 221 D (182-369) K/mm3 MPV 9.9 (9.4-12.3) fl Neut % (Auto) 60.2 (34.0-71.1) % Lymph % (Auto) 28.7 (19.3-51.7) % Dale % (Auto) 9.4 (4.7-12.5) % Eos % (Auto) 1.3 (0.7-5.8) Baso % (Auto) 0.2 (0.1-1.2) % Neut # (Auto) 6.21 H (1.56-6.13) K/mm3 Lymph # (Auto) 2.96 (1.18-3.74) K/mm3 Dale # (Auto) 0.97 H (0.24-0.36) K/mm3 Eos # (Auto) 0.13 (0.04-0.36) K/mm3 Baso # (Auto) 0.02 (0.01-0.08) K/mm3 Manual Slide Review Normal smear Sodium (136-145) mEq/L Potassium (3.5-5.1) mEq/L Chloride (98-107) mEq/L Carbon Dioxide (21-32) mEq/L Anion Gap (5-15) BUN (7-18) mg/dL Creatinine (0.55-1.02) mg/dL Est Cr Clr Drug Dosing mL/min Estimated GFR (MDRD) (>60) mL/min BUN/Creatinine Ratio (14-18) Glucose (70-99) mg/dL Lactic Acid 2.8 H* (0.4-2.0) mmol/L Calcium (8.5-10.1) mg/dL Magnesium (1.8-2.4) mg/dL Total Bilirubin (0.2-1.0) mg/dL AST (15-37) U/L ALT (14-59) U/L Alkaline Phosphatase (46-116) U/L Total Protein (6.4-8.2) g/dl Albumin (3.4-5.0) g/dl Globulin gm/dL Albumin/Globulin Ratio (1-2) Lipase (73-393) U/L Urine Color (Yellow) Urine Appearance (Clear) Urine pH (5.0-8.0) Ur Specific [place] (1.005-1.030) Urine Protein (Negative) Urine Glucose (UA) (Negative) Urine Ketones (Negative) Urine Occult Blood (Negative) Urine Nitrite (Negative) Urine Bilirubin (Negative) Urine Urobilinogen (0.2-1.0) Ur Leukocyte Esterase (Negative) Urine RBC (0-5) /hpf Urine WBC (0-5) /hpf Ur Squamous Epith Cells (0-5) /hpf Urine Bacteria (FEW) /hpf Urine Mucus (FEW) /hpf Ethyl Alcohol (0.00) gm% Ketones (0.0-0.3) mM SARS-CoV-2 RNA (ASTON) Negative (NEGATIVE) 12/30/20 Range/Units 05:05 WBC (3.98-10.04) K/mm3 RBC (3.98-5.22) M/mm3 Hgb (11.2-15.7) gm/dl Hct (34.1-44.9) % MCV (79.4-94.8) fl MCH (25.6-32.2) pg MCHC (32.2-35.5) g/dl RDW Std Deviation (36.4-46.3) fL Plt Count (182-369) K/mm3 MPV (9.4-12.3) fl Neut % (Auto) (34.0-71.1) % Lymph % (Auto) (19.3-51.7) % Dale % (Auto) (4.7-12.5) % Eos % (Auto) (0.7-5.8) Baso % (Auto) (0.1-1.2) % Neut # (Auto) (1.56-6.13) K/mm3 Lymph # (Auto) (1.18-3.74) K/mm3 Dale # (Auto) (0.24-0.36) K/mm3 Eos # (Auto) (0.04-0.36) K/mm3 Baso # (Auto) (0.01-0.08) K/mm3 Manual Slide Review Sodium 143 (136-145) mEq/L Potassium 4.0 (3.5-5.1) mEq/L Chloride 112 H (98-107) mEq/L Carbon Dioxide 25 (21-32) mEq/L Anion Gap 10.0 (5-15) BUN 16 (7-18) mg/dL Creatinine 0.9 (0.55-1.02) mg/dL Est Cr Clr Drug Dosing 52.34 mL/min Estimated GFR (MDRD) > 60 (>60) mL/min BUN/Creatinine Ratio 17.8 (14-18) Glucose 95 (70-99) mg/dL Lactic Acid (0.4-2.0) mmol/L Calcium 8.2 L (8.5-10.1) mg/dL Magnesium (1.8-2.4) mg/dL Total Bilirubin (0.2-1.0) mg/dL AST (15-37) U/L ALT (14-59) U/L Alkaline Phosphatase (46-116) U/L Total Protein (6.4-8.2) g/dl Albumin (3.4-5.0) g/dl Globulin gm/dL Albumin/Globulin Ratio (1-2) Lipase (73-393) U/L Urine Color (Yellow) Urine Appearance (Clear) Urine pH (5.0-8.0) Ur Specific [place] (1.005-1.030) Urine Protein (Negative) Urine Glucose (UA) (Negative) Urine Ketones (Negative) Urine Occult Blood (Negative) Urine Nitrite (Negative) Urine Bilirubin (Negative) Urine Urobilinogen (0.2-1.0) Ur Leukocyte Esterase (Negative) Urine RBC (0-5) /hpf Urine WBC (0-5) /hpf Ur Squamous Epith Cells (0-5) /hpf Urine Bacteria (FEW) /hpf Urine Mucus (FEW) /hpf Ethyl Alcohol (0.00) gm% Ketones (0.0-0.3) mM SARS-CoV-2 RNA ([facility]) (NEGATIVE) Med Orders - Current: Current Medications Acetaminophen (Acetaminophen 325 Mg Tab) 650 mg PO Q4H PRN PRN Reason: Pain (Mild 1-3)/fever Aspirin (Aspirin 81 Mg Tab.Chew) 81 mg PO DAILY [facility] Clobetasol Propionate (Clobetasol 0.05% Crm 30 Gm Tube) 0 gm TOP BID [facility] Last Admin: 12/29/20 23:00 Dose: Not Given Documented by: Docusate Sodium (Docusate Sodium 100 Mg Cap) 100 mg PO BID PRN PRN Reason: Constipation Heparin Sodium (Porcine) (Heparin Sodium 5,000 Units/Ml Vial) 5,000 units SUBCUT Q8H [facility] Last Admin: 12/30/20 06:45 Dose: 5,000 units Documented by: Hydrochlorothiazide (Hydrochlorothiazide 25 Mg TabPt Own) 12.5 mg PO DAILY [facility] Sodium Chloride (Normal Saline) 1,000 mls @ 125 mls/hr IV ASDIRECTED [facility] Last Admin: 12/30/20 00:05 Dose: 125 mls/hr Documented by: Metoprolol Tartrate (Metoprolol Tartrate 25 Mg Tab) 12.5 mg PO BID [facility] Last Admin: 12/29/20 23:01 Dose: 12.5 mg Documented by: Ondansetron HCl (Ondansetron 4 Mg Tab.Dis) 4 mg PO Q4H PRN PRN Reason: nausea, able to take PO Ondansetron HCl (Ondansetron 4 Mg/2 Ml Sdv) 4 mg IV Q4H PRN PRN Reason: Nausea/Vomiting Pantoprazole Sodium (Pantoprazole 40 Mg Tab.CrPt Own) 40 mg PO DAILY [facility] Citalopram Celexa 40 (Mg TabletPt Own) 0 each PO DAILY [facility] Polyethylene Glycol (Polyethylene Glycol 3350 Powder 17 Gm Packet) 17 gm PO DAILY PRN PRN Reason: Constipation Potassium Chloride (Potassium Chloride 20 Meq Tab.Er) 20 meq PO DAILY JANICE Promethazine HCl (Promethazine 25 Mg Tab) 25 mg PO Q6H PRN PRN Reason: Nausea/Vomiting Tramadol HCl (Tramadol 50 Mg Tab) 50 mg PO Q6H PRN PRN Reason: Pain (moderate 4-6) Discontinued Medications Clobetasol Propionate (Clobetasol 0.05% Crm 30 Gm Tube) 30 gm TOP BID [facility] Hydrochlorothiazide (Hydrochlorothiazide 12.5 Mg Cap) 12.5 mg PO DAILY JANICE Hydromorphone HCl (Hydromorphone 1 Mg/Ml Syringe) 1 mg IVPUSH ONETIME ONE Stop: 12/29/20 09:44 Last Admin: 12/29/20 09:56 Dose: 1 mg Documented by: Lactated Ringer's (Ringers, Lactated) 500 mls @ 500 mls/hr IV .BOLUS ONE Stop: 12/29/20 10:20 Last Admin: 12/29/20 09:29 Dose: 500 mls/hr Documented by: Lactated Ringer's (Ringers, Lactated) 1,000 mls @ 125 mls/hr IV ASDIRECTED [facility] Last Infusion: 12/29/20 12:50 Dose: 125 mls/hr Documented by: Magnesium Sulfate 2 gm/ Premix 50 mls @ 25 mls/hr IV ONETIME ONE Stop: 12/29/20 11:38 Last Admin: 12/29/20 09:52 Dose: 25 mls/hr Documented by: Magnesium Sulfate 2 gm/ Premix 50 mls @ 25 mls/hr IV ONETIME ONE Stop: 12/29/20 14:11 Last Admin: 12/29/20 12:19 Dose: 25 mls/hr Documented by: Lactated Ringer's (Ringers, Lactated) 500 mls @ 999 mls/hr IV .BOLUS ONE Stop: 12/29/20 12:44 Last Admin: 12/29/20 12:19 Dose: 999 mls/hr Documented by: Metoprolol Tartrate (Metoprolol Tartrate 25 Mg Tab) 12.5 mg PO BID [facility] Non-Formulary Medication (Citalopram [Celexa]) 40 mg PO DAILY [facility] Non-Formulary Medication (Ranitidine) 150 mg PO BEDTIME [facility] Ranitidine 150mg Tablet #Own Medication# 1 each PO BEDTIME [facility] Last Admin: 12/29/20 23:08 Dose: Not Given Documented by: Ondansetron HCl (Ondansetron 4 Mg/2 Ml Sdv) 4 mg IVPUSH ONETIME ONE Stop: 12/29/20 09:22 Last Admin: 12/29/20 09:29 Dose: 4 mg Documented by: Pantoprazole Sodium (Pantoprazole 40 Mg Tab.Cr) 40 mg PO DAILY [facility] Potassium Chloride (Potassium Chloride 20 Meq Tab.Er) 40 meq PO ONETIME ONE Stop: 12/29/20 12:08 Last Admin: 12/29/20 12:10 Dose: 40 meq Documented by: Potassium Chloride (Potassium Chloride 20 Meq Tab.Er) 20 meq PO DAILY [facility] Potassium Chloride (Potassium Chloride 20 Meq Tab.Er) 40 meq PO ONETIME ONE Stop: 12/29/20 16:16 Last Admin: 12/29/20 16:18 Dose: 40 meq Documented by: Potassium Chloride (Potassium Chloride 20 Meq Tab.Er) 20 meq PO ONETIME ONE Stop: 12/30/20 07:45 - Exam Quality Assessment: Denies: Supplemental Oxygen, DVT Prophylaxis General: Reports: Alert, Oriented HEENT: Reports: Pupils Equal, Pupils Reactive, EOMI, Mucous Membr. Moist/[place] Neck: Reports: Supple Lungs: Reports: Clear to Auscultation, Normal Respiratory Effort Cardiovascular: Reports: Regular Rate, Regular Rhythm GI/Abdominal Exam: Normal Bowel Sounds, Soft, Non-Tender, No Distention (Female) Exam: Deferred Rectal (Female) Exam: Deferred Back Exam: Reports: Normal Inspection, Full Range of Motion Extremities: Normal Inspection, Normal Range of Motion, No Pedal Edema Skin: Reports: Warm, Dry, Intact Neurological: Reports: No New Focal Deficit Psy/Mental Status: Reports: Alert, Normal Affect, Normal Mood
[2020-12-30] MEDS ORDERED: Aspirin 81 MG Tab.Chew PO SCH (09:00)
[2020-12-30] MEDS ORDERED: Hydrochlorothiazide 12.5 MG Cap PO SCH (09:00)
[2020-12-30] MEDS: Clobetasol 0.05% Crm 30 GM Tube TOP SCH (09:00)
[2020-12-30] MEDS ORDERED: HYDROCHLOROTHIAZIDE 25 MG PO SCH (09:00)
[2020-12-30] MEDS ORDERED: Pantoprazole 40 MG Tab.CR**PT OWN PO SCH (09:00)
[2020-12-30] MEDS ORDERED: [UNRECOGNIZED DRUG - OTHER] PO SCH (09:00)
[2020-12-30] MEDS ORDERED: CITALOPRAM PO SCH (09:00)
[2020-12-30] MEDS ORDERED: CITALOPRAM 20 MG PO SCH (09:00)
[2020-12-30] MEDS ORDERED: Pantoprazole 40 MG Tab.CR PO SCH (09:00)
[2020-12-30] MEDS ORDERED: Potassium Chloride 20 MEQ Tab.ER PO SCH ×2 (09:00)
[2020-12-30] MEDS: Metoprolol Tartrate 25 MG Tab PO SCH (09:01)
[2020-12-30 09:03] VITALS: BP 123/86
== END 2020-12-30 10:02 | disposition home or self-care (01) ==
LOC: JD.ED 09:00 → JD.MS 14:23
PROVIDERS: ADMIT Hospitalist; ATTEND Hospitalist
DX: R10.9 Unspecified abdominal pain (principal); R11.2 Nausea with vomiting, unspecified; K59.09 Other constipation; E87.6 Hypokalemia; E87.8 Other disorders of electrolyte and fluid balance, not elsewhere classified; I10 Essential (primary) hypertension; I25.2 Old myocardial infarction; E66.9 Obesity, unspecified; F17.210 Nicotine dependence, cigarettes, uncomplicated; I25.10 Atherosclerotic heart disease of native coronary artery without angina pectoris; Z20.822 Contact with and (suspected) exposure to COVID-19; Z88.8 Allergy status to other drugs, medicaments and biological substances; Z79.899 Other long term (current) drug therapy; Z98.890 Other specified postprocedural states
CPT/HCPCS: 36415; 74019; 80048; 80053; 80307; 81001; 82009; 83605; 83690; 83735; 85025; 94761; 96365; 96366; 96375; 99285; A9270; J1170; J1644; J2405; J3475; J7030; J7120; U0002; 93010; 96372; 99217; 99219; 99284; G0378

== ENCOUNTER 2021-01-08 14:49 | Emergency (ER) | payer MEDICARE, BC ==
[2021-01-08 14:55] VITALS: BP 199/100; PULSE 81
[2021-01-08] MEDS ORDERED: Sodium Chloride 0.9% 10 ML Syringe FLUSH PRN (17:29)
[2021-01-08] MEDS ORDERED: Ondansetron 4 MG/2 ML SDV IVPUSH ONE (17:29)
[2021-01-08] MEDS ORDERED: HYDROmorphone 0.5 MG/0.5 ML Syringe IVPUSH ONE ×2 (17:29→23:23)
[2021-01-08] MEDS ORDERED: Lactated Ringers 1,000 ML IV ONE (18:22)
[2021-01-08] MEDS ORDERED: Magnesium Sulfate/Water 4 GM in Premix Bag 1 BAG IV ONE (18:39)
--- NOTE | 2021-01-08 18:42 | EDM.PDOC ---
<Marquez Clayton M - Last Filed: 01/08/21 22:33> ED HPI GENERAL MEDICAL PROBLEM - General Chief Complaint: Gastrointestinal Problem Stated Complaint: [place] [facility] Time Seen by Provider: 01/08/21 16:50 Source of Information: Reports: Patient History Limitations: Reports: No Limitations - History of Present Illness INITIAL COMMENTS - FREE TEXT/NARRATIVE: 70-year-old female presents the emergency department today with complaints of diffuse abdominal pain. Of note, the patient has a history of chronic abdominal pain and has been seen in this emergency department on numerous visits. Most recently was admitted to the hospital for observation status on 12/29/2020 and discharged on 12/30/2020. Patient reports diffuse abdominal pain for the past 5- year. She states she has had multiple work-ups with GI evaluations with multiple colonoscopies and EGD's. Patient's most recent CT scan of the abdomen on December 28, 2020 did not show anything acute. The patient was admitted at that time for pain control as well as fluid hydration. At the time of discharge her symptoms of abdominal pain have resolved. Patient states she had been feeling well since then until she woke up this morning and had once again developed diffuse severe abdominal pain. She denies any recent fever, chills, nausea, vomiting or diarrhea. She denies any cough shortness of breath or any other respiratory symptoms. She denies any urinary symptoms. The patient does admit to drinking 3 nights a week a couple of drinks at a time. Abdominal Pain Score (Numeric/FACES): 6 - Related Data Allergies Allergy/AdvReac Type Severity Reaction Status Date / Time aspirin Allergy Unknown Other Verified 01/08/21 14:56 sertraline [From Zoloft] Allergy Unknown Cannot Verified 01/08/21 14:56 Remember docetaxel [From Taxotere] AdvReac Mild Other Verified 01/08/21 14:56 Home Meds: Home Meds Citalopram [Celexa] 40 mg PO DAILY 09/28/16 [History] Hydrochlorothiazide 12.5 mg PO DAILY 09/28/16 [History] Metoprolol Tartrate 12.5 mg PO BID 05/06/17 [History] Clobetasol [Clobetasol 0.05%] 1 applic TOP BID 02/27/18 [History] Mometasone Furoate [Elocon] 1 applic TOP ASDIRECTED PRN 02/27/18 [History] Potassium Chloride [Klor-Con M20] 20 meq PO DAILY 01/25/19 [History] Pantoprazole [ProTONIX] 40 mg PO DAILY 12/28/20 [History] Aspirin 81 mg PO DAILY 12/29/20 [History] LORazepam [Ativan] 1 mg PO BID 01/08/21 [History] Past Medical History HEENT History: Reports: Impaired Vision Other HEENT History: wears glasses Cardiovascular History: Reports: Hypertension, ND Gastrointestinal History: Reports: Hemorrhoids Other Gastrointestinal History: pt states she had her hemorrhoids fried. States has had abdominal pain of this degree for past year and has seen multiple MD's with no diagonosis Psychiatric History: Reports: Anxiety, Depression Endocrine/Metabolic History: Reports: Obesity/BMI 30+ Oncologic (Cancer) History: Reports: Breast, Other (See Below) Other Oncologic History: right lumpectomy Dermatologic History: Reports: Psoriasis - Infectious Disease History Infectious Disease History: Reports: Influenza, Measles - Past Surgical History HEENT Surgical History: Reports: None Cardiovascular Surgical History: Reports: None GI Surgical History: Reports: None Endocrine Surgical History: Reports: None Oncologic Surgical History: Reports: Lumpectomy Other Oncologic Surgeries/Procedures: hx of lumpectomy Social & Family History - Family History Family Medical History: No Pertinent Family History HEENT: Reports: Cataract GI: Reports: Diverticulitis Dermatologic: Reports: Psoriasis - Tobacco Use Tobacco Use Status *Q: Current Every Day Tobacco User Years of Tobacco use: 55 Packs/Tins Daily: 0.5 - Caffeine Use Caffeine Use: Reports: None Other Caffeine Use: one cup of tea in the morning - Recreational Drug Use Recreational Drug Use: No - Living Situation & Occupation Living situation: Reports: Occupation: Unemployed ED ROS GENERAL - Review of Systems Review Of Systems: Comprehensive ROS is negative, except as noted in HPI. ED EXAM, GI/ABD - Physical Exam Exam: See Below Exam Limited By: No Limitations General Appearance: Alert, WD/WN, Severe Distress (Writhing in abdominal pain) Ears: Normal External Exam, Hearing Grossly Normal Nose: Normal Inspection Throat/Mouth: Normal Inspection, Normal Lips, Normal Voice, No Airway Compromise Head: Atraumatic Neck: Normal Inspection, Supple Respiratory/Chest: No Respiratory Distress, Lungs Clear, Normal Breath Sounds, No Accessory Muscle Use, Chest Non-Tender Cardiovascular: Normal Peripheral Pulses, Regular Rate, Rhythm, No Edema, No Murmur GI/Abdominal Exam: Normal Bowel Sounds, Soft, Non-Tender, No Distention (Female) Exam: Deferred Rectal (Female) Exam: Deferred Back Exam: Normal Inspection Extremities: Normal Inspection Neurological: Alert, Oriented, Normal Cognition Psychiatric: Other (Wailing and writhing in pain excessively) Skin Exam: Warm, Dry, Intact, Normal Color, No Rash Lymphatic: No Adenopathy #1 Interpretation EKG Date: 01/08/21 Time: 17:33 Rhythm: NSR Rate (Beats/Min): 86 [place]: Normal P-Wave: Present QRS: Normal ST-T: Normal QT: Prolonged EKG Interpretation Comments: Per Dr. Aviles interpretation: Sinus rhythm at 86 bpm; Q waves V1 and V3 and near Q waves in [id number] old anteroseptal ND; QTC is moderately prolonged Course - Vital Signs Text/Narrative:: As stated above, patient presents with diffuse abdominal pain. Upon my assessment with the patient the patient is writhing and kerion and moaning in the bed. However will stop and discuss her symptoms with me and then go back to writhing again. Patient states she has not eaten today. She does have bowel tones noted. She has diffuse abdominal discomfort however it is more prominent in the right lower quadrant. Will order labs to include a CBC, CMP, magnesium level, C-reactive protein and a flatplate of the abdomen. We will give her 1/2 mg of Dilaudid IV as well as 4 mg of Zofran IV. - Re-Assessments/Exams Free Text/Narrative Re-Assessment/Exam: 01/08/21 19:57 Hematology reveals a WBC of 8.89, hemoglobin 15.3, hematocrit 44.6, platelet count 289 Chemistry reveals a sodium of 141, potassium 3.1, chloride 102, carbon dioxide 20, anion gap 22.1, BUN 15, creatinine 1.0, glucose 164, lactic acid 2.4, magnesium 1.5, total bilirubin 0.7, AST 17, ALT 25, alk phos 64, troponin less than 0.017, C-reactive protein 1.2 Supine view of the abdomen radiologist impression: 1. Nothing acute is seen on supine abdominal x-ray. I have ordered for the patient to receive him 1 L of lactated Ringer's as her lactic acid is elevated. We will repeat the lactic acid. Also order for the patient to receive magnesium oxide 4 g IV as well as 40 mEq of potassium IV. 01/08/21 20:05 At this time I am not going to order a CT of the abdomen and pelvis as patient's most recent scans were completed on December 28, 2020 and did not show anything acute. Question if the cause of her abdominal pain is due to acidosis. 01/08/21 21:01 Patient second liter of IV fluids has been infused. Patient continues to have potassium chloride infusing at this time. Awaiting results of lactic acid level. Will order normal saline 250 mL's per hour x1 L. 01/08/21 21:42 Repeat lactic acid level is 1.1, amylase 26, lipase 58 Toxicology comes back with the patient presumptive positive for marijuana. 01/08/21 21:48 I reevaluated the patient in regards to questioning her recreational drug use. The patient still denied using marijuana. When I told her that her urine drug screen was positive for marijuana she states that sometimes she is around her friends when they smoke it. When I told her that this is not possible to test positive for marijuana she then admits to smoking it at times. This could very likely be the cause of her abdominal pain and cyclic vomiting syndrome. I also questioned how her appetite has been she was fairly dehydrated as well as low on potassium and magnesium and acidotic. The patient states that she does eat at least 2 full meals a day and drinks large amounts of water however this is questionable as well as patient has not been forthcoming in her information. Patient has abdominal pain has resolved at this time. Once her potassium infusion is complete, she will be discharged to home with recommendations that she follow-up with her primary care provider. Departure - Departure Disposition: Home, Self-Care 01 Condition: Good Clinical Impression: Marijuana use, Chronic generalized abdominal pain, Hypomagnesemia, Hypokalemia, Lactic acidosis - Discharge Information Instructions: Cannabis Use Disorder, Hypomagnesemia, Hypokalemia, Dehydration, Adult, [id number] Referrals: Nurys Coello RIG MANAGER [Primary Care Provider] - Forms: ED Department Discharge Additional Instructions: You were seen in the emergency department today with generalized abdominal pain. Labs were completed which did show that you were dehydrated as well as low in magnesium and potassium. You were given IV magnesium and potassium as well as 3 L of IV fluids to correct left for dehydration and electrolyte imbalances. Lactic acid was also elevated which could be the cause of the abdominal disc omfort. Also noted was a positive urine drug screen for marijuana. Chronic marijuana use can cause severe abdominal pain with cyclic vomiting. It is strongly recommended that you discontinue using marijuana. Recommended that you drink plenty of water and eat 3 balanced meals daily with potassium and magnesium rich foods. You will need to follow-up with your primary care provider for reevaluation. She may need to refer you to an port purser for further evaluation of your metabolic disorders. <Jessica Reagan V - Last Filed: 01/08/21 23:25> Course - Vital Signs Last Recorded V/S: Last Vital Signs Temp 96.9 F 01/08/21 14:50 Pulse 81 01/08/21 14:50 Resp 18 01/08/21 14:50 BP 199/100 H 01/08/21 14:50 Pulse Ox 100 01/08/21 14:50 - Orders/Labs/Meds Orders: Active Orders 24 hr Category Date Time Status HYDROmorphone [Dilaudid] Med 01/08/21 23:23 Once 0.5 mg IVPUSH ONETIME ONE Sodium Chloride 0.9% [Normal Saline] 1,000 ml Med 01/08/21 21:15 Active IV ASDIRECTED Sodium Chloride 0.9% [Saline Flush] Med 01/08/21 17:29 Active 10 ml FLUSH ASDIRECTED PRN Saline Lock Insert [OM.PC] Stat Oth 01/08/21 17:29 Ordered Medication Orders Sodium Chloride (Normal Saline) 1,000 mls @ 250 mls/hr IV ASDIRECTED JANICE Last Admin: 01/08/21 21:20 Dose: 250 mls/hr Documented by: ETELVINA Sodium Chloride (Sodium Chloride 0.9% 10 Ml Syringe) 10 ml FLUSH ASDIRECTED PRN PRN Reason: Keep Vein Open Last Admin: 01/08/21 17:35 Dose: 10 ml Documented by: ARSENIO Labs: Laboratory Tests 01/08/21 01/08/21 01/08/21 Range/Units 15:50 15:50 17:47 WBC 8.89 (3.98-10.04) K/mm3 RBC 4.91 (3.98-5.22) M/mm3 Hgb 15.3 D (11.2-15.7) gm/dl Hct 44.6 (34.1-44.9) % MCV 90.8 D (79.4-94.8) fl MCH 31.2 (25.6-32.2) pg MCHC 34.3 (32.2-35.5) g/dl RDW Std Deviation 44.3 (36.4-46.3) fL Plt Count 289 (182-369) K/mm3 MPV 10.5 (9.4-12.3) fl Neut % (Auto) 88.5 H (34.0-71.1) % Lymph % (Auto) 7.0 L (19.3-51.7) % Mcmullen % (Auto) 4.2 L (4.7-12.5) % Eos % (Auto) 0 L (0.7-5.8) Baso % (Auto) 0.1 (0.1-1.2) % Neut # (Auto) 7.87 H (1.56-6.13) K/mm3 Lymph # (Auto) 0.62 L (1.18-3.74) K/mm3 [place]ullen # (Auto) 0.37 H (0.24-0.36) K/mm3 Eos # (Auto) 0.00 L (0.04-0.36) K/mm3 Baso # (Auto) 0.01 (0.01-0.08) K/mm3 Sodium (136-145) mEq/L Potassium (3.5-5.1) mEq/L Chloride (98-107) mEq/L Carbon Dioxide (21-32) mEq/L Anion Gap (5-15) BUN (7-18) mg/dL Creatinine (0.55-1.02) mg/dL Est Cr Clr Drug Dosing mL/min Estimated GFR (MDRD) (>60) mL/min BUN/Creatinine Ratio (14-18) Glucose (70-99) mg/dL Lactic Acid (0.4-2.0) mmol/L Calcium (8.5-10.1) mg/dL Magnesium (1.8-2.4) mg/dL Total Bilirubin (0.2-1.0) mg/dL AST (15-37) U/L ALT (14-59) U/L Alkaline Phosphatase (46-116) U/L Troponin I (0.00-0.056) ng/mL C-Reactive Protein (<1.0) mg/dL Total Protein (6.4-8.2) g/dl Albumin (3.4-5.0) g/dl Globulin gm/dL Albumin/Globulin Ratio (1-2) Amylase (25-115) U/L Lipase (73-393) U/L Urine Color Yellow (Yellow) Urine Appearance Clear (Clear) Urine pH 7.0 (5.0-8.0) Ur Specific Carter 1.025 (1.005-1.030) Urine Protein Trace H (Negative) Urine Glucose (UA) Negative (Negative) Urine Ketones 3+ H (Negative) Urine Occult Blood Negative (Negative) Urine Nitrite Negative (Negative) Urine Bilirubin Negative (Negative) Urine Urobilinogen 0.2 (0.2-1.0) Ur Leukocyte Esterase Negative (Negative) U Hyaline Cast (Auto) 0-5 (0-5) /lpf Urine RBC 0-5 (0-5) /hpf Urine WBC 0-5 (0-5) /hpf Ur Epithelial Cells 0-5 (0-5) /hpf Urine Bacteria Few (FEW) /hpf Urine Mucus Rare (FEW) /hpf Urine Opiates Screen Negative (JSFYAI=413) Ur Buprenorphine Scrn Negative (CUTOFF=10) Ur Oxycodone Screen Negative (JKR4YN=423) Urine Methadone Screen Negative (CFXCAA=890) Ur Propoxyphene Screen Negative (LISVBL=012) Ur Barbiturates Screen Negative (DJMMFL=805) Ur Tricyclics Screen Negative (DQUVKX=631) Ur Phencyclidine Scrn Negative (CUTOFF=25) Ur Amphetamine Screen Negative (IUZIQH=215) U Methamphetamines Scrn Negative (TSMQGM=175) U Benzodiazepines Scrn Negative (FERVEP=638) U Cocaine Metab Screen Negative (UKRSWP=436) U Marijuana (THC) Screen Presumptive positive H (CUTOFF=50) 01/08/21 01/08/21 01/08/21 Range/Units 17:47 17:47 20:44 WBC (3.98-10.04) K/mm3 RBC (3.98-5.22) M/mm3 Hgb (11.2-15.7) gm/dl Hct (34.1-44.9) % MCV (79.4-94.8) fl MCH (25.6-32.2) pg MCHC (32.2-35.5) g/dl RDW Std Deviation (36.4-46.3) fL Plt Count (182-369) K/mm3 MPV (9.4-12.3) fl Neut % (Auto) (34.0-71.1) % Lymph % (Auto) (19.3-51.7) % [place] % (Auto) (4.7-12.5) % Eos % (Auto) (0.7-5.8) Baso % (Auto) (0.1-1.2) % Neut # (Auto) (1.56-6.13) K/mm3 Lymph # (Auto) (1.18-3.74) K/mm3 [place] # (Auto) (0.24-0.36) K/mm3 Eos # (Auto) (0.04-0.36) K/mm3 Baso # (Auto) (0.01-0.08) K/mm3 Sodium 141 (136-145) mEq/L Potassium 3.1 L (3.5-5.1) mEq/L Chloride 102 (98-107) mEq/L Carbon Dioxide 20 L (21-32) mEq/L Anion Gap 22.1 H (5-15) BUN 15 (7-18) mg/dL Creatinine 1.0 (0.55-1.02) mg/dL Est Cr Clr Drug Dosing 47.10 mL/min Estimated GFR (MDRD) 55 (>60) mL/min BUN/Creatinine Ratio 15.0 (14-18) Glucose 164 H (70-99) mg/dL Lactic Acid 2.4 H* 1.1 (0.4-2.0) mmol/L Calcium 9.4 (8.5-10.1) mg/dL Magnesium 1.5 L (1.8-2.4) mg/dL Total Bilirubin 0.7 (0.2-1.0) mg/dL AST 17 (15-37) U/L ALT 25 (14-59) U/L Alkaline Phosphatase 64 (46-116) U/L Troponin I < 0.017 (0.00-0.056) ng/mL C-Reactive Protein 1.2 H* (<1.0) mg/dL Total Protein 8.0 (6.4-8.2) g/dl Albumin 4.1 (3.4-5.0) g/dl Globulin 3.9 gm/dL Albumin/Globulin Ratio 1.1 (1-2) Amylase (25-115) U/L Lipase (73-393) U/L Urine Color (Yellow) Urine Appearance (Clear) Urine pH (5.0-8.0) Ur Specific Carter (1.005-1.030) Urine Protein (Negative) Urine Glucose (UA) (Negative) Urine Ketones (Negative) Urine Occult Blood (Negative) Urine Nitrite (Negative) Urine Bilirubin (Negative) Urine Urobilinogen (0.2-1.0) Ur Leukocyte Esterase (Negative) U Hyaline Cast (Auto) (0-5) /lpf Urine RBC (0-5) /hpf Urine WBC (0-5) /hpf Ur Epithelial Cells (0-5) /hpf Urine Bacteria (FEW) /hpf Urine Mucus (FEW) /hpf Urine Opiates Screen (YZHEPG=278) Ur Buprenorphine Scrn (CUTOFF=10) Ur Oxycodone Screen (IGE4UJ=592) Urine Methadone Screen (DYBQVM=687) Ur Propoxyphene Screen (IBXLTK=340) Ur Barbiturates Screen (BZVSJH=213) Ur Tricyclics Screen (BQBFRT=311) Ur Phencyclidine Scrn (CUTOFF=25) Ur Amphetamine Screen (YDZIUI=033) U Methamphetamines Scrn (DFCPBH=463) U Benzodiazepines Scrn (DTUJPS=784) U Cocaine Metab Screen (JSXEPH=464) U Marijuana (THC) Screen (CUTOFF=50) 01/08/21 01/08/21 Range/Units 20:44 20:44 WBC (3.98-10.04) K/mm3 RBC (3.98-5.22) M/mm3 Hgb (11.2-15.7) gm/dl Hct (34.1-44.9) % MCV (79.4-94.8) fl MCH (25.6-32.2) pg MCHC (32.2-35.5) g/dl RDW Std Deviation (36.4-46.3) fL Plt Count (182-369) K/mm3 MPV (9.4-12.3) fl Neut % (Auto) (34.0-71.1) % Lymph % (Auto) (19.3-51.7) % [place] % (Auto) (4.7-12.5) % Eos % (Auto) (0.7-5.8) Baso % (Auto) (0.1-1.2) % Neut # (Auto) (1.56-6.13) K/mm3 Lymph # (Auto) (1.18-3.74) K/mm3 [place] # (Auto) (0.24-0.36) K/mm3 Eos # (Auto) (0.04-0.36) K/mm3 Baso # (Auto) (0.01-0.08) K/mm3 Sodium (136-145) mEq/L Potassium (3.5-5.1) mEq/L Chloride (98-107) mEq/L Carbon Dioxide (21-32) mEq/L Anion Gap (5-15) BUN (7-18) mg/dL Creatinine (0.55-1.02) mg/dL Est Cr Clr Drug Dosing mL/min Estimated GFR (MDRD) (>60) mL/min BUN/Creatinine Ratio (14-18) Glucose (70-99) mg/dL Lactic Acid (0.4-2.0) mmol/L Calcium (8.5-10.1) mg/dL Magnesium (1.8-2.4) mg/dL Total Bilirubin (0.2-1.0) mg/dL AST (15-37) U/L ALT (14-59) U/L Alkaline Phosphatase (46-116) U/L Troponin I (0.00-0.056) ng/mL C-Reactive Protein (<1.0) mg/dL Total Protein (6.4-8.2) g/dl Albumin (3.4-5.0) g/dl Globulin gm/dL Albumin/Globulin Ratio (1-2) Amylase 26 (25-115) U/L Lipase 58 L (73-393) U/L Urine Color (Yellow) Urine Appearance (Clear) Urine pH (5.0-8.0) Ur Specific [place] (1.005-1.030) Urine Protein (Negative) Urine Glucose (UA) (Negative) Urine Ketones (Negative) Urine Occult Blood (Negative) Urine Nitrite (Negative) Urine Bilirubin (Negative) Urine Urobilinogen (0.2-1.0) Ur Leukocyte Esterase (Negative) U Hyaline Cast (Auto) (0-5) /lpf Urine RBC (0-5) /hpf Urine WBC (0-5) /hpf Ur Epithelial Cells (0-5) /hpf Urine Bacteria (FEW) /hpf Urine Mucus (FEW) /hpf Urine Opiates Screen (ARXDCW=229) Ur Buprenorphine Scrn (CUTOFF=10) Ur Oxycodone Screen (KFX4EY=352) Urine Methadone Screen (FZOFZP=529) Ur Propoxyphene Screen (VZCFPX=492) Ur Barbiturates Screen (ZSNJTD=016) Ur Tricyclics Screen (LHJJMH=527) Ur Phencyclidine Scrn (CUTOFF=25) Ur Amphetamine Screen (PPHWZW=431) U Methamphetamines Scrn (DDKOVQ=780) U Benzodiazepines Scrn (AVLYGI=787) U Cocaine Metab Screen (ARFPGK=173) U Marijuana (THC) Screen (CUTOFF=50) Meds: Medications Generic Name Dose Route Start Last Admin Trade Name Freq PRN Reason Stop Dose Admin Sodium Chloride 1,000 mls @ 250 mls/hr 01/08/21 21:15 01/08/21 21:20 Normal Saline IV 250 mls/hr ASDIRECTED JANICE Administration Sodium Chloride 10 ml 01/08/21 17:29 01/08/21 17:35 Sodium Chloride 0.9% 10 Ml Syringe FLUSH 10 ml ASDIRECTED PRN Administration Keep Vein Open Discontinued Medications Generic Name Dose Route Start Last Admin Trade Name Freq PRN Reason Stop Dose Admin Hydromorphone HCl 0.5 mg 01/08/21 17:29 01/08/21 17:34 Hydromorphone 0.5 Mg/0.5 Ml Syringe IVPUSH 01/08/21 17:30 0.5 mg ONETIME ONE Administration Lactated Ringer's 1,000 mls @ 999 mls/hr 01/08/21 18:22 01/08/21 18:29 Ringers, Lactated IV 01/08/21 19:22 999 mls/hr .BOLUS ONE Administration Magnesium Sulfate 4 gm/ Premix 50 mls @ 12.5 mls/hr 01/08/21 18:39 01/08/21 18:52 IV 01/08/21 22:38 12.5 mls/hr ONETIME ONE Administration Potassium Chloride 10 meq/ 100 mls @ 100 mls/hr 01/08/21 18:45 01/08/21 21:54 Premix IV 01/08/21 22:44 100 mls/hr Q1H JANICE Administration Sodium Chloride Confirm 01/08/21 21:00 01/08/21 21:21 Normal Saline Administered 01/08/21 21:01 Not Given Dose 1,000 mls @ as directed .ROUTE .STK-MED ONE Ondansetron HCl 4 mg 01/08/21 17:29 01/08/21 17:34 Ondansetron 4 Mg/2 Ml Sdv IVPUSH 01/08/21 17:30 4 mg ONETIME ONE Administration - Re-Assessments/Exams Free Text/Narrative Re-Assessment/Exam: 01/08/21 23:24 Oral report has been taken from COMFORT Clayton NP. And I did go assess the patient, she states that she is having a little bit more pain so I will repeat the 0.5 mg IV Dilaudid that she was given at 17:30. Patient is on her fourth bag of IV potassium, once this has been infused she will be discharged. Departure - Departure Time of Disposition: 23:25 Sepsis Event Note (ED) - Focused Exam Vital Signs: Vital Signs Temp Pulse Resp BP Pulse Ox 01/08/21 14:50 96.9 F 81 18 199/100 H 100 - My Orders Last 24 Hours: My Active Orders 01/08/21 23:23 HYDROmorphone [Dilaudid] 0.5 mg IVPUSH ONETIME ONE - Assessment/Plan Last 24 Hours: My Active Orders 01/08/21 23:23 HYDROmorphone [Dilaudid] 0.5 mg IVPUSH ONETIME ONE
[2021-01-08] MEDS: Potassium Chloride 10 MEQ in Premix Bag 1 BAG IV SCH ×4 (18:52→23:00)
--- NOTE | 2021-01-08 19:32 | CR ---
Abdomen: Supine view of the abdomen was obtained. Comparison: Prior abdominal x-ray of 12/29/20. Two metallic densities are seen overlying the pelvis which are believed to represent artifact. Bowel gas pattern is normal. No soft tissue abnormality is seen. Vascular calcification is noted. Impression: 1. Nothing acute is seen on supine abdominal x-ray. Diagnostic code #2
[2021-01-08] MEDS ORDERED: Sodium Chloride 0.9% 1,000 ML ONE (21:00)
[2021-01-08] MEDS ORDERED: Sodium Chloride 0.9% 1,000 ML IV SCH (21:15)
== END 2021-01-09 01:20 | disposition home or self-care (01) ==
LOC: JD.ED 14:49
DX: R10.84 Generalized abdominal pain (principal); R10.31 Right lower quadrant pain; G89.29 Other chronic pain; E87.6 Hypokalemia; E87.2 Acidosis; E83.42 Hypomagnesemia; F12.90 Cannabis use, unspecified, uncomplicated; I10 Essential (primary) hypertension; I25.2 Old myocardial infarction; E66.9 Obesity, unspecified; Z72.0 Tobacco use; Z88.8 Allergy status to other drugs, medicaments and biological substances; Z79.899 Other long term (current) drug therapy; Z68.29 Body mass index [BMI] 29.0-29.9, adult
CPT/HCPCS: 36415; 74018; 80053; 80306; 81001; 82150; 83605; 83690; 83735; 84484; 85025; 86140; 93005; 96365; 96366; 96367; 96368; 96375; 99285; J1170; J2405; J3475; J3480; J7030; J7120; 93010; 99284

== ENCOUNTER 2021-05-27 19:37 | Emergency (ER) | payer MEDICARE, BC ==
[2021-05-27] MEDS ORDERED: Ondansetron 4 MG/2 ML SDV IVPUSH ONE ×2 (19:59→23:21)
[2021-05-27] MEDS ORDERED: HYDROmorphone 1 MG/ML Syringe IVPUSH ONE (19:59)
[2021-05-27] MEDS ORDERED: Sodium Chloride 0.9% 1,000 ML IV SCH (20:00)
[2021-05-27 20:33] LABS: CORONAVIRUS COVID-19 NAA NEGATIVE (NEGATIVE)
[2021-05-27] MEDS ORDERED: Sodium Chloride 0.9% 10 ML SDV FLUSH ONE ×2 (21:06→21:47)
[2021-05-27] MEDS ORDERED: Iopamidol 612 MG/ML 100 ML Bottle IVPUSH ONE (21:06)
[2021-05-27] MEDS ORDERED: Iopamidol 755 Mg/ML 100 ML Bottle IVPUSH ONE (21:47)
[2021-05-27] MEDS ORDERED: Sodium Chloride 0.9% 100 ML IV SCH (22:00)
[2021-05-27] MEDS ORDERED: Magnesium Sulfate/Water 2 GM in Premix Bag 1 BAG IV ONE (22:47)
[2021-05-27] MEDS ORDERED: Furosemide 40 MG/4 ML VIAL IVPUSH ONE (22:51)
[2021-05-27] MEDS ORDERED: HYDROmorphone 0.5 MG/0.5 ML Syringe IVPUSH ONE (23:21)
[2021-05-28 05:04] VITALS: BP 102/83; PULSE 100
== END 2021-05-28 06:40 | disposition home or self-care (01) ==
LOC: JD.ED 19:37
DX: J81.1 Chronic pulmonary edema (principal); R10.84 Generalized abdominal pain; R73.9 Hyperglycemia, unspecified; I25.10 Atherosclerotic heart disease of native coronary artery without angina pectoris; I10 Essential (primary) hypertension; I25.2 Old myocardial infarction; Z88.8 Allergy status to other drugs, medicaments and biological substances; Z79.82 Long term (current) use of aspirin; Z79.899 Other long term (current) drug therapy; Z72.0 Tobacco use; Z20.822 Contact with and (suspected) exposure to COVID-19
CPT/HCPCS: 0241U; 36415; 71275; 74177; 80053; 81001; 83690; 83735; 85007; 85027; 96365; 96366; 96375; 96376; 99284; J1170; J1940; J2405; J3475; J7030; Q9967; 99285

== ENCOUNTER 2021-05-29 10:36 | Emergency (ER) | payer MEDICARE, BC ==
[2021-05-29] MEDS ORDERED: Sodium Chloride 0.9% 10 ML Syringe FLUSH PRN (11:31)
[2021-05-29] MEDS ORDERED: Sodium Chloride 0.9% 1,000 ML IV STA (11:50)
[2021-05-29] MEDS ORDERED: HYDROmorphone 0.5 MG/0.5 ML Syringe IVPUSH ONE (11:50)
[2021-05-29] MEDS ORDERED: Ondansetron 4 MG/2 ML SDV IVPUSH ONE ×2 (11:50→18:13)
[2021-05-29] MEDS ORDERED: Alum Hydrox/Mag Hydrox/Simeth 30 ML, Lidocaine 2% 15 ML PO ONE ×2 (11:50)
[2021-05-29] MEDS ORDERED: Dicyclomine 10 MG Cap PO ONE (11:51)
[2021-05-29] MEDS ORDERED: Potassium Chloride 20 MEQ Tab.ER PO ONE (13:29)
[2021-05-29] MEDS ORDERED: Aspirin 81 MG Tab.Chew PO ONE (13:30)
[2021-05-29] MEDS ORDERED: Magnesium Sulfate/Water 2 GM in Premix Bag 1 BAG IV ONE (14:43)
[2021-05-29] MEDS: Potassium Chloride 10 MEQ in Premix Bag 1 BAG IV SCH ×2 (15:10→16:04)
[2021-05-29 16:08] VITALS: BP 134/94; PULSE 109
[2021-05-29] MEDS ORDERED: Ondansetron 4 MG/2 ML SDV ONE (18:10)
== END 2021-05-29 18:15 ==
LOC: JD.ED 10:36
DX: R10.84 Generalized abdominal pain (principal); R79.89 Other specified abnormal findings of blood chemistry; I25.10 Atherosclerotic heart disease of native coronary artery without angina pectoris; I10 Essential (primary) hypertension; I25.2 Old myocardial infarction; E66.9 Obesity, unspecified; Z68.28 Body mass index [BMI] 28.0-28.9, adult; Z72.0 Tobacco use; Z88.8 Allergy status to other drugs, medicaments and biological substances; Z79.82 Long term (current) use of aspirin; Z79.899 Other long term (current) drug therapy; Z20.822 Contact with and (suspected) exposure to COVID-19
CPT/HCPCS: 36415; 71045; 80053; 83690; 83735; 83880; 84484; 85025; 86140; 93005; 96365; 96366; 96368; 96375; 96376; 99285; A9270; J1170; J2405; J3475; J3480; J7030; U0002; 93010

== ENCOUNTER 2021-12-05 17:57 | Emergency (ER) | payer MEDICARE, BC ==
[2021-12-05 18:05] VITALS: BP 160/96; PULSE 96
[2021-12-05] MEDS: HYDROmorphone 0.5 MG/0.5 ML Syringe IVPUSH ONE (18:34)
[2021-12-05] MEDS: Sodium Chloride 0.9% 10 ML Syringe FLUSH PRN ×2 (18:35→20:09)
[2021-12-05] MEDS: Ondansetron 4 MG/2 ML SDV IVPUSH ONE (18:35)
[2021-12-05] MEDS: Sodium Chloride 0.9% 1,000 ML IV STA (18:35)
[2021-12-05] MEDS: LORazepam 2 MG/ML SDV IVPUSH ONE (18:50)
[2021-12-05 19:13] LABS: ESTIMATED GFR 68 mL/min (>60)
[2021-12-05] MEDS ORDERED: Potassium Chloride 20 MEQ Tab.ER PO ONE (19:22)
[2021-12-05] MEDS: Iopamidol 612 MG/ML 100 ML Bottle IVPUSH ONE (20:09)
[2021-12-05] MEDS: Potassium Chloride 20 MEQ Tab.ER PO ONE (20:24)
[2021-12-05] MEDS: Cefdinir 300 MG Cap PO ONE (22:05)
== END 2021-12-05 22:11 | disposition home or self-care (01) ==
LOC: JD.ED 17:57
DX: N39.0 Urinary tract infection, site not specified (principal); R11.2 Nausea with vomiting, unspecified; I25.10 Atherosclerotic heart disease of native coronary artery without angina pectoris; I10 Essential (primary) hypertension; I25.2 Old myocardial infarction; E66.9 Obesity, unspecified; Z68.30 Body mass index [BMI] 30.0-30.9, adult; Z88.8 Allergy status to other drugs, medicaments and biological substances
CPT/HCPCS: 36415; 74177; 80053; 81001; 83690; 85025; 86140; 87086; 96361; 96374; 96375; 99284; A9270; J1170; J2060; J2405; J3490; J7030; Q9967; 87088; 87186

== ENCOUNTER 2021-12-06 13:38 | Emergency (ER) | payer MEDICARE, BC ==
[2021-12-06] MEDS ORDERED: HYDROmorphone 0.5 MG/0.5 ML Syringe IVPUSH ONE ×2 (13:55→15:20)
[2021-12-06] MEDS ORDERED: Sodium Chloride 0.9% 1,000 ML IV STA (13:55)
[2021-12-06] MEDS ORDERED: Ondansetron 4 MG/2 ML SDV IVPUSH ONE (13:56)
[2021-12-06] MEDS ORDERED: Magnesium Sulfate/Water 2 GM/50 ML BAG IV SCH (15:00)
[2021-12-06] MEDS ORDERED: Dicyclomine 10 MG Cap PO ONE (16:36)
[2021-12-06 17:56] VITALS: BP 106/71; PULSE 66
== END 2021-12-06 18:10 | disposition home or self-care (01) ==
LOC: JD.ED 13:38
DX: R10.84 Generalized abdominal pain (principal); I25.10 Atherosclerotic heart disease of native coronary artery without angina pectoris; I10 Essential (primary) hypertension; I25.2 Old myocardial infarction; F17.210 Nicotine dependence, cigarettes, uncomplicated; E66.9 Obesity, unspecified; Z68.24 Body mass index [BMI] 24.0-24.9, adult; Z88.6 Allergy status to analgesic agent; Z88.8 Allergy status to other drugs, medicaments and biological substances; Z79.899 Other long term (current) drug therapy; Z79.82 Long term (current) use of aspirin
CPT/HCPCS: 36415; 80053; 83735; 85025; 96361; 96365; 96366; 96375; 96376; 99284; A9270; J1170; J2405; J3475; J7030

== ENCOUNTER 2022-09-15 19:20 | Emergency (ER) | payer MEDICARE, BC ==
[2022-09-15 19:37] VITALS: BP 154/104; PULSE 108
[2022-09-15] MEDS ORDERED: Ondansetron 4 MG/2 ML SDV IVPUSH ONE (19:51)
[2022-09-15] MEDS ORDERED: HYDROmorphone 1 MG/ML Syringe IVPUSH STA (19:51)
[2022-09-15] MEDS ORDERED: Sodium Chloride 0.9% 1,000 ML IV SCH (20:00)
[2022-09-15 20:08] LABS: INR 1.02; PROTHROMBIN TIME 10.9 SECONDS (9.7-12.0)
[2022-09-15 20:09] LABS: PTT,PARTIAL THROMBOPLSTIN TIME 27.4 SECONDS (21.7-31.4)
[2022-09-15 20:21] LABS: A/G RATIO 0.9 (1-2); ANION GAP 16.7 (5-15); BILIRUBIN TOTAL 0.4 mg/dL (0.2-1.0); BUN/CREATININE RATIO 24.5 (14-18); CALCIUM 9.2 mg/dL (8.5-10.1); CREATININE 1.1 mg/dL (0.55-1.02); EST CRCL DRUG DOSING (CG) 42.21 mL/min; POTASSIUM,K 3.7 mEq/L (3.5-5.1); PROTEIN TOTAL,TP 8.3 g/dl (6.4-8.2)
[2022-09-15 20:25] LABS: MEAN CORPUSCULAR HEMOGLOBIN 30.6 pg (25.6-32.2); MEAN CORPUSCULAR VOLUME 89.9 fl (79.4-94.8); MEAN PLATELET VOLUME 9.9 fl (9.4-12.3); PLATELET COUNT,PLT 313 K/mm3 (182-369); RED BLOOD CELL COUNT 5.23 M/mm3 (3.98-5.22); WHITE BLOOD CELL COUNT,WBC 16.72 K/mm3 (3.98-10.04)
[2022-09-15 20:58] LABS: BAND PERCENT MAN 0 % (0-10); BASOPHILS PERCENT MAN 0 (0.1-1.2); EOSINOPHILS PERCENT MAN 0 % (0.7-5.8); LYMPHOCYTES % ATYPICAL MANUAL 0 %; LYMPHOCYTES PERCENT MAN 7 % (20-40); MONOCYTES PERCENT MAN 4 % (2-10)
[2022-09-15 21:00] LABS: PLATELET COUNT ESTIMATE ADEQUATE
[2022-09-15 21:08] LABS: LACTIC ACID 4.9 mmol/L (0.4-2.0)
[2022-09-15] MEDS ORDERED: Heparin Sodium 5,000 Units/ML Vial IVPUSH STA (21:24)
[2022-09-15] MEDS ORDERED: Heparin Sodium/D5W 25,000 UNITS/500 ML BAG IV SCH (21:30)
[2022-09-15 21:31] LABS: BASE EXCESS ARTERIAL -6.6 (-2-2.0); BICARBONATE,ARTERIAL 20.2 meq/L (22.0-26.0); O2 SATURATION ARTERIAL 89.3 % (96.0-97.0); PCO2 ARTERIAL 46.4 mmHg (35.0-45.0)
[2022-09-15 21:45] LABS: APPEARANCE,URINE CLEAR (Clear); BILIRUBIN,URINE NEGATIVE (Negative); COLOR,URINE LIGHT YELLOW (Yellow); GLUCOSE,URINE NEGATIVE (Negative); KETONES,URINE NEGATIVE (Negative); LEUKOCYTE ESTERASE,URINE NEGATIVE (Negative); NITRITE,URINE NEGATIVE (Negative); OCCULT BLOOD,URINE NEGATIVE (Negative); PH,URINE 5.5 (5.0-8.0); PROTEIN,URINE 2+ (Negative); UROBILINOGEN,URINE 0.2 (0.2-1.0)
[2022-09-15 21:55] LABS: AMORPHOUS SEDIMENT,URINE MODERATE /hpf (NOT SEEN); BACTERIA,URINE FEW /hpf (FEW); MUCUS,URINE NOT SEEN /hpf (FEW); RBC,URINE 0-5 /hpf (0-5); SQUAMOUS EPITHELIAL CELLS,UR 0-5 /hpf (0-5); WBC,URINE 0-5 /hpf (0-5)
[2022-09-15 21:56] LABS: CORONAVIRUS COVID-19 NAA NEGATIVE (NEGATIVE); INFLUENZA A NAA NEGATIVE (NEGATIVE); RESPIRATORY SYNCYTIAL VIR NAA NEGATIVE (NEGATIVE)
[2022-09-15] MEDS ORDERED: Furosemide 40 MG/4 ML VIAL IVPUSH STA (23:28)
== END 2022-09-16 01:15 ==
LOC: JD.ED 19:20
DX: I11.0 Hypertensive heart disease with heart failure (principal); I50.9 Heart failure, unspecified; E87.20 Acidosis, unspecified; R73.9 Hyperglycemia, unspecified; R74.8 Abnormal levels of other serum enzymes; I25.10 Atherosclerotic heart disease of native coronary artery without angina pectoris; F17.210 Nicotine dependence, cigarettes, uncomplicated; Z88.6 Allergy status to analgesic agent; Z88.8 Allergy status to other drugs, medicaments and biological substances; Z79.82 Long term (current) use of aspirin; Z20.822 Contact with and (suspected) exposure to COVID-19
CPT/HCPCS: 0241U; 36415; 36600; 71275; 74177; 80053; 81001; 82803; 83605; 83690; 83880; 84484; 85007; 85027; 85610; 85730; 87040; 93005; 96361; 96365; 96366; 96375; 96376; 99285; J1644; J1940; J2405; J7030; 93010

== ENCOUNTER 2022-10-09 13:34 | Emergency (ER) | payer MEDICARE, BC ==
[2022-10-09] MEDS ORDERED: Sodium Chloride 0.9% 10 ML Syringe FLUSH PRN (13:58)
[2022-10-09] MEDS ORDERED: HYDROmorphone 1 MG/ML Syringe IVPUSH STA (13:58)
[2022-10-09] MEDS ORDERED: Ondansetron 4 MG/2 ML SDV IVPUSH ONE (13:58)
[2022-10-09] MEDS ORDERED: Sodium Chloride 0.9% 1,000 ML IV SCH (14:00)
[2022-10-09 14:27] LABS: BASOPHILS ABSOLUTE AUTO 0.03 K/mm3 (0.01-0.08); BASOPHILS PERCENT AUTO 0.3 % (0.1-1.2); EOSINOPHILS ABSOLUTE AUTO 0.16 K/mm3 (0.04-0.36); EOSINOPHILS PERCENT AUTO 1.5 (0.7-5.8); HEMATOCRIT 38.8 % (34.1-44.9); HEMOGLOBIN 13.1 gm/dl (11.2-15.7); IMMATURE GRAN ABSOLUTE AUTO 0.01 K/mm3 (0.00-0.10); IMMATURE GRAN PERCENT AUTO 0.1 % (<=1.0); LYMPHOCYTES PERCENT AUTO 21.4 % (19.3-51.7); MEAN CORPUSCULAR HEMOGLOBIN 30.4 pg (25.6-32.2); MEAN CORPUSCULAR HGB CONC 33.8 g/dl (32.2-35.5); MEAN PLATELET VOLUME 10.7 fl (9.4-12.3); MONOCYTES ABSOLUTE AUTO 0.84 K/mm3 (0.24-0.36); MONOCYTES PERCENT AUTO 7.8 % (4.7-12.5); NEUTROPHILS ABSOLUTE AUTO 7.43 K/mm3 (1.56-6.13); NEUTROPHILS PERCENT AUTO 68.9 % (34.0-71.1); PLATELET COUNT,PLT 260 K/mm3 (182-369); RED BLOOD CELL COUNT 4.31 M/mm3 (3.98-5.22); WHITE BLOOD CELL COUNT,WBC 10.77 K/mm3 (3.98-10.04)
[2022-10-09 14:38] LABS: A/G RATIO 1.2 (1-2); ALANINE AMINOTRANSFERASE,ALT 18 U/L (14-59); ALBUMIN 4.1 g/dl (3.4-5.0); ALKALINE PHOSPHATASE 52 U/L (46-116); ANION GAP 19.6 (5-15); ASPARTATE AMNIOTRANSFERASE,AST 16 U/L (15-37); BILIRUBIN TOTAL 0.4 mg/dL (0.2-1.0); BLOOD UREA NITROGEN,BUN 23 mg/dL (7-18); C-REACTIVE PROTEIN <0.2 mg/dL (<1.0); CALCIUM 9.6 mg/dL (8.5-10.1); CARBON DIOXIDE,CO2 20 mEq/L (21-32); CHLORIDE,CL 104 mEq/L (98-107); EST CRCL DRUG DOSING (CG) 46.43 mL/min; ESTIMATED GFR 60 mL/min (>60); GLUCOSE RANDOM 110 mg/dL (70-99); POTASSIUM,K 3.6 mEq/L (3.5-5.1); PROTEIN TOTAL,TP 7.6 g/dl (6.4-8.2); SODIUM,NA 140 mEq/L (136-145)
[2022-10-09 14:51] VITALS: BP 163/104; PULSE 80
[2022-10-09 16:26] LABS: APPEARANCE,URINE CLEAR (Clear); BILIRUBIN,URINE NEGATIVE (Negative); COLOR,URINE YELLOW (Yellow); GLUCOSE,URINE NEGATIVE (Negative); KETONES,URINE 2+ (Negative); LEUKOCYTE ESTERASE,URINE NEGATIVE (Negative); NITRITE,URINE NEGATIVE (Negative); OCCULT BLOOD,URINE NEGATIVE (Negative); PROTEIN,URINE 1+ (Negative); UROBILINOGEN,URINE 0.2 (0.2-1.0)
[2022-10-09 16:34] LABS: BACTERIA,URINE FEW /hpf (FEW); HYALINE CASTS,URINE 0-5 /lpf (0-5); MUCUS,URINE FEW /hpf (FEW); RBC,URINE 0-5 /hpf (0-5); SQUAMOUS EPITHELIAL CELLS,UR 0-5 /hpf (0-5); WBC,URINE 0-5 /hpf (0-5)
== END 2022-10-09 17:30 | disposition home or self-care (01) ==
LOC: SUPCPDRO 13:34 → JD.ED 13:34
DX: R10.9 Unspecified abdominal pain (principal); I25.10 Atherosclerotic heart disease of native coronary artery without angina pectoris; I11.0 Hypertensive heart disease with heart failure; I50.9 Heart failure, unspecified; Z88.8 Allergy status to other drugs, medicaments and biological substances; Z79.899 Other long term (current) drug therapy; Z79.82 Long term (current) use of aspirin
CPT/HCPCS: 36415; 74176; 80053; 81001; 85025; 86140; 96361; 96374; 96375; 99284; J1170; J2405; J7030

== ENCOUNTER 2023-11-01 16:24 | Emergency (ER) | payer MEDICARE, BC ==
[2023-11-01 16:57] LABS: BASOPHILS ABSOLUTE AUTO 0.1 K/mm3 (0.0-0.2); BASOPHILS PERCENT AUTO 0.7 % (0.0-1.0); EOSINOPHILS ABSOLUTE AUTO 0.1 K/mm3 (0.0-0.4); EOSINOPHILS PERCENT AUTO 0.7 % (0.0-6.0); HEMATOCRIT 39.5 % (37.0-47.0); HEMOGLOBIN 13.4 gm/dl (12.0-16.0); IMMATURE GRAN ABSOLUTE AUTO 0.07 K/mm3 (0.00-0.05); IMMATURE GRAN PERCENT AUTO 0.5 % (0.0-0.4); LYMPHOCYTES ABSOLUTE AUTO 2.4 K/mm3 (1.0-4.8); LYMPHOCYTES PERCENT AUTO 17.4 % (24.0-44.0); MEAN CORPUSCULAR HEMOGLOBIN 31.4 pg (28.0-32.0); MEAN CORPUSCULAR HGB CONC 33.9 g/dl (32.0-36.0); MEAN CORPUSCULAR VOLUME 92.5 fl (83.0-99.0); MEAN PLATELET VOLUME 9.5 fl (9.4-12.3); MONOCYTES ABSOLUTE AUTO 0.8 K/mm3 (0.0-0.8); MONOCYTES PERCENT AUTO 5.7 % (0.0-8.0); NEUTROPHILS ABSOLUTE AUTO 10.3 K/mm3 (1.8-7.7); PLATELET COUNT,PLT 263 K/mm3 (150-400); RED BLOOD CELL COUNT 4.27 M/mm3 (4.10-5.30); WHITE BLOOD CELL COUNT,WBC 13.76 K/mm3 (3.9-11.3)
[2023-11-01 17:17] LABS: A/G RATIO 1.4 (1-2); ALBUMIN 4.5 g/dl (3.4-5.0); ANION GAP 21.4 (5-15); BILIRUBIN TOTAL 0.7 mg/dL (0.2-1.0); BUN/CREATININE RATIO 13.6 (14-18); C-REACTIVE PROTEIN 0.06 mg/dL (<0.30); CALCIUM 9.9 mg/dL (8.5-10.1); CREATININE 1.4 mg/dL (0.55-1.02); EST CRCL DRUG DOSING (CG) 32.68 mL/min; MAGNESIUM 1.9 mg/dL (1.8-2.4); POTASSIUM,K 4.4 mEq/L (3.5-5.1); PROTEIN TOTAL,TP 7.8 g/dl (6.4-8.2)
[2023-11-01] MEDS ORDERED: Lactated Ringers 1,000 ML IV SCH (17:30)
[2023-11-01 17:34] LABS: LACTIC ACID 2.4 mmol/L (0.4-2.0)
[2023-11-01 17:46] LABS: APPEARANCE,URINE CLEAR (Clear); BILIRUBIN,URINE NEGATIVE (Negative); COLOR,URINE YELLOW (Yellow); GLUCOSE,URINE NEGATIVE (Negative); KETONES,URINE 2+ (Negative); LEUKOCYTE ESTERASE,URINE NEGATIVE (Negative); NITRITE,URINE NEGATIVE (Negative); OCCULT BLOOD,URINE NEGATIVE (Negative); PH,URINE 6.5 (5.0-8.0); PROTEIN,URINE 1+ (Negative); UROBILINOGEN,URINE 0.2 (0.2-1.0)
[2023-11-01 17:55] LABS: BACTERIA,URINE FEW /hpf (FEW); MUCUS,URINE FEW /hpf (FEW); RBC,URINE 0-5 /hpf (0-5); SQUAMOUS EPITHELIAL CELLS,UR 0-5 /hpf (0-5); WBC,URINE 0-5 /hpf (0-5)
[2023-11-01] MEDS: Sodium Chloride 0.9% 1,000 ML IV SCH (17:58)
[2023-11-01] MEDS: cefTRIAXone 2 GM in Sodium Chloride 0.9% 100 ML IV ONE (18:00)
[2023-11-01 18:03] LABS: BARBITURATE SCREEN,URINE NEGATIVE (CUTOFF=200); BENZODIAZEPINES SCREEN,URINE NEGATIVE (CUTOFF=150); BUPRENORPHINE SCREEN,URINE NEGATIVE (CUTOFF=10); METHADONE SCREEN, URINE NEGATIVE (CUTOFF=200); METHAMPHETAMINES SCREEN, URINE NEGATIVE (CUTOFF=500); OXYCODONE SCREEN,URINE NEGATIVE (CUT0FF=100); THC SCREEN,URINE 20 NG/ML PRESUMPTIVE POSITIVE (CUTOFF=50)
[2023-11-01 18:04] LABS: AMPHETAMINES SCREEN, URINE NEGATIVE (CUTOFF=500)
[2023-11-01] MEDS: Lactated Ringers 1,000 ML IV ONE (18:17)
[2023-11-01] MEDS: fentaNYL 100 MCG/2 ML SDV IVPUSH ONE (18:20)
[2023-11-01] MEDS: Ondansetron 4 MG/2 ML SDV IVPUSH ONE (18:21)
[2023-11-01] MEDS: Sodium Chloride 0.9% 10 ML Syringe FLUSH PRN (18:22)
[2023-11-01] MEDS: Iopamidol 755 Mg/ML 100 ML Bottle IVPUSH ONE (19:10)
[2023-11-01] MEDS: Sodium Chloride 0.9% 100 ML IV SCH (19:10)
[2023-11-01 21:26] VITALS: BP 150/93; PULSE 76
== END 2023-11-01 21:22 | disposition home or self-care (01) ==
LOC: JD.ED 16:24
DX: R10.32 Left lower quadrant pain (principal); K59.00 Constipation, unspecified; I11.0 Hypertensive heart disease with heart failure; I50.9 Heart failure, unspecified; I25.10 Atherosclerotic heart disease of native coronary artery without angina pectoris; Z79.82 Long term (current) use of aspirin; Z79.899 Other long term (current) drug therapy; Z88.6 Allergy status to analgesic agent; Z88.8 Allergy status to other drugs, medicaments and biological substances
CPT/HCPCS: 36415; 71275; 74177; 80053; 80306; 80307; 81001; 83605; 83690; 83735; 83880; 85025; 85379; 86140; 87040; 93005; 96361; 96365; 96375; 99285; J0696; J2405; J3010; J3490; J7030; Q9967

== ENCOUNTER 2024-12-14 17:39 | Emergency (ER) | payer MEDICARE, BC ==
[2024-12-14] MEDS: Sodium Chloride 0.9% 10 ML Syringe FLUSH PRN (19:22)
[2024-12-14 19:54] LABS: BASOPHILS ABSOLUTE AUTO 0.0 K/mm3 (0.0-0.2); BASOPHILS PERCENT AUTO 0.1 % (0.0-1.0); EOSINOPHILS ABSOLUTE AUTO 0.0 K/mm3 (0.0-0.4); EOSINOPHILS PERCENT AUTO 0.0 % (0.0-6.0); IMMATURE GRAN ABSOLUTE AUTO 0.06 K/mm3 (0.00-0.05); IMMATURE GRAN PERCENT AUTO 0.4 % (0.0-0.4); LYMPHOCYTES ABSOLUTE AUTO 1.3 K/mm3 (1.0-4.8); LYMPHOCYTES PERCENT AUTO 8.8 % (24.0-44.0); MEAN PLATELET VOLUME 9.8 fl (9.4-12.3); MONOCYTES ABSOLUTE AUTO 2.8 K/mm3 (0.0-0.8); MONOCYTES PERCENT AUTO 19.3 % (0.0-8.0); NEUTROPHILS ABSOLUTE AUTO 10.3 K/mm3 (1.8-7.7); NEUTROPHILS PERCENT AUTO 71.4 % (41.0-71.0); NRBC ABSOLUTE 0.00 (0.00-0.02); NRBC PERCENT 0.0 % (0.0-0.2); PLATELET COUNT,PLT 208 K/mm3 (150-400); RED BLOOD CELL COUNT 4.65 M/mm3 (4.10-5.30); WHITE BLOOD CELL COUNT,WBC 14.37 K/mm3 (3.9-11.3)
[2024-12-14 20:18] LABS: APPEARANCE,URINE CLEAR (Clear); GLUCOSE,URINE NEGATIVE (Negative); OCCULT BLOOD,URINE TRACE-LYSED (Negative)
[2024-12-14 20:28] LABS: BUPRENORPHINE SCREEN,URINE NEGATIVE (CUTOFF=10); METHADONE SCREEN, URINE NEGATIVE (CUTOFF=200); METHAMPHETAMINES SCREEN, URINE NEGATIVE (CUTOFF=500); OXYCODONE SCREEN,URINE NEGATIVE (CUT0FF=100); THC SCREEN,URINE 20 NG/ML PRESUMPTIVE POSITIVE (CUTOFF=50)
[2024-12-14 20:31] LABS: LACTIC ACID 1.6 mmol/L (0.4-2.0)
[2024-12-14 20:33] LABS: A/G RATIO 1.1 (1-2); ALANINE AMINOTRANSFERASE,ALT 21.0 U/L (14-59); ASPARTATE AMNIOTRANSFERASE,AST 17.0 U/L (15-37); BILIRUBIN TOTAL 0.8 mg/dL (0.2-1.0); BLOOD UREA NITROGEN,BUN 37.0 mg/dL (7-18); CARBON DIOXIDE,CO2 28.0 mEq/L (21-32); CHLORIDE,CL 101.0 mEq/L (98-107); CREATINE KINASE,CK 93.0 U/L (26-192); CREATININE 1.1 mg/dL (0.55-1.02); EST CRCL DRUG DOSING (CG) 40.38 mL/min; ESTIMATED GFR 53.0 mL/min (>60); GLUCOSE RANDOM 100.0 mg/dL (70-99); PHOSPHORUS 3.6 mg/dL (2.6-4.7); POTASSIUM,K 3.8 mEq/L (3.5-5.1); PROTEIN TOTAL,TP 7.4 g/dl (6.4-8.2); SODIUM,NA 141.0 mEq/L (136-145); TROPONIN I HIGH SENSITIVITY 26.0 pg/mL (<=51); TSH 0.908 uIU/mL (0.358-3.74)
[2024-12-14 20:36] LABS: ETHANOL BLOOD MEDICAL 0.0 gm% (0.00)
[2024-12-14 20:38] LABS: EPITHELIAL CELLS,URINE 0-5 /hpf (0-5)
[2024-12-14 20:39] LABS: AMPHETAMINES SCREEN, URINE NEGATIVE (CUTOFF=500)
[2024-12-14 22:01] VITALS: BP 128/62; PULSE 80
== END 2024-12-14 21:44 ==
LOC: JD.ED 17:39
DX: S06.5XAA Traumatic subdural hemorrhage with loss of consciousness status unknown, initial encounter (principal); I60.9 Nontraumatic subarachnoid hemorrhage, unspecified; R79.89 Other specified abnormal findings of blood chemistry; I11.0 Hypertensive heart disease with heart failure; I50.9 Heart failure, unspecified; I25.10 Atherosclerotic heart disease of native coronary artery without angina pectoris; Z88.8 Allergy status to other drugs, medicaments and biological substances; Z79.899 Other long term (current) drug therapy; Z79.82 Long term (current) use of aspirin; X58.XXXA Exposure to other specified factors, initial encounter
CPT/HCPCS: 36415; 70450; 71045; 72125; 72170; 80053; 80306; 80307; 81001; 82140; 82550; 83605; 83690; 83735; 83880; 84100; 84443; 84484; 85025; 87040; 93005; 96361; 96374; 99285; J2270; J7030; 93010

== ENCOUNTER 2025-03-10 06:01 | Day surgery (SDC) | payer MEDICARE, BC ==
[~2025-03-10 06:01] MED LIST: Sodium Chloride 0.9% 10 ML Syringe FLUSH PRN; Sodium Chloride 0.9% 10 ML Syringe FLUSH SCH
[2025-03-10] MEDS ORDERED: propofoL 500 MG/50 ML 50 ML ONE (07:18)
[2025-03-10] MEDS: Lactated Ringers 1,000 ML IV SCH (07:20)
[2025-03-10] MEDS ORDERED: fentaNYL 100 MCG/2 ML SDV ONE (07:33)
[2025-03-10] MEDS: EPINEPHrine 1 MG/ML SDV ONE (07:46)
[2025-03-10] MEDS ORDERED: fentaNYL 100 MCG/2 ML SDV IVPUSH PRN (08:15)
[2025-03-10] MEDS ORDERED: Ondansetron 4 MG/2 ML SDV IVPUSH PRN (08:15)
[2025-03-10 09:27] VITALS: BP 135/85; PULSE 70
== END 2025-03-10 09:45 | disposition home or self-care (01) ==
LOC: JD.SDS 06:01
PROVIDERS: ATTEND Surgery
DX: C44.310 Basal cell carcinoma of skin of unspecified parts of face (principal); I25.10 Atherosclerotic heart disease of native coronary artery without angina pectoris; I11.0 Hypertensive heart disease with heart failure; I50.9 Heart failure, unspecified; E78.00 Pure hypercholesterolemia, unspecified; Z88.8 Allergy status to other drugs, medicaments and biological substances; Z79.899 Other long term (current) drug therapy
CPT/HCPCS: 11642; J0169; J0665; J2003; J2704; J3010; J7120; 00300; 99100